=== PATIENT | male | born 1950 | race Caucasian/White ===

== ENCOUNTER → 2020-07-21 09:15 | Outpatient (BNVA) | payer MEDICARE, OTHER, SELFPAY | PROVIDERS: PCP Physician Assistant; Referring Provider Physician Assistant; Visit Provider Urology | DX: Z76.89 Persons encountering health services in other specified circumstances (principal) ==

== ENCOUNTER 2020-11-01 06:58 | Emergency (ER) | payer MEDICARE, SELFPAY ==
--- NOTE | ~2020-11-01 | CT_ITS ---
EXAMINATION: CT abdomen pelvis wo con CLINICAL INFORMATION: Reason for Exam L flank pain hematuria COMPARISON: No prior CT available for comparison. TECHNIQUE: Multidetector volumetric imaging was performed from the superior aspect of the liver through the pubic symphysis noncontrasted study. Sagittal and coronal reformatted images were obtained on the technologist's workstation. This CT examination was performed using dose optimization techniques as appropriate, variously including the following: *Automated exposure control *Adjustment of mA and/or kV according to patient size (this includes techniques or standardized protocols for targeted exams where dose is matched to indication/reason for exam; i.e. extremities or head) *Use of iterative reconstruction technique DLP: 639 mGy-cm FINDINGS: LOWER THORAX: Included lung bases are clear. HEPATOBILIARY: No focal hepatic lesions. No biliary ductal dilatation. GALLBLADDER: Gallbladder unremarkable. SPLEEN: Spleen is normal in size. PANCREAS: No focal mass or ductal dilatation. STOMACH AND GASTROINTESTINAL TRACT: Stomach is grossly unremarkable. There is no bowel distention or thickening. No CT evidence of appendicitis. ADRENALS: No adrenal nodules. KIDNEYS/URETERS: There is left renal hydronephrosis secondary to obstructing stone in the proximal left ureter which measure about 6 mm in diameter. There is a 1.1 cm cyst middle pole left kidney. Right kidney is normal unremarkable. URINARY BLADDER: There is a small diverticulum protruding from the left lateral wall of the bladder measure about 1.2 cm. PELVIC VISCERA: There are prostate calcifications. PERITONEUM: There is cloudy mesentery midabdomen just inferior to the pancreas and few mildly prominent mesenteric lymph nodes compatible with mesenteric panniculitis. LYMPH NODES: No lymphadenopathy. VASCULAR:Abdominal aorta normal in size, no aneurysm found. BONES, ABDOMINAL WALL AND SOFT TISSUES: Age-appropriate changes of the spine and skeletal system, no destructive osteolytic or osteosclerotic bone lesion found CT/CT abdomen pelvis wo con IMPRESSION: 1. High degree obstruction of the left ureter due to a 6 mm stone lodged in the proximal left ureter. Left renal hydronephrosis. Small left renal cyst. 2. Cloudy mesentery and few mesenteric lymph nodes compatible with mesenteric panniculitis. This is a nonspecific radiologic finding, Please see below for differential. 3. Aortic vascular calcification. Prostate calcification. Small diverticulum protruding from the left lateral wall of the urinary bladder. Mesenteric panniculitis is a nonspecific finding and can coexistent with malignancy such as extra-abdominal non-Hodgkin lymphoma, breast carcinoma, prostate carcinoma, lung carcinoma, gastrointestinal carcinoma, colorectal carcinoma, melanoma, pancreatic neoplasm among other neoplasms. It also can coexist with benign process such as Crohn's disease, sarcoidosis, liver cirrhosis, colitis, lupus, sclerosing cholangitis, pancreatitis, mesenteritis, retroperitoneal fibrosis. It also could be idiopathic. Recommended clinical assessment and careful exclusion of possible other neoplasms. If no further action taken now, followup CT scan in 6 months advised. Reference: [place] Journal of Radiology October 1999, volume 174, #2.
[2020-11-01 07:14] VITALS: BP 157/72; PULSE 80; RESP 18; TEMP 37.1; O2SAT 97; BMI 25.7
--- NOTE | 2020-11-01 07:43 | ECG_ITS ---
Test Reason : ABD PAIN Blood Pressure : / mmHG Vent. Rate : 075 BPM Atrial Rate : 075 BPM P-R Int : 188 ms QRS Dur : 088 ms QT Int : 374 ms P-R-T Axes : 049 096 097 degrees QTc Int : 417 ms Normal sinus rhythm Rightward axis Borderline ECG When compared with ECG of 05-AUG-2019 09:38, Premature atrial complexes are no longer Present Referred By: Giselle Myers Electronically Signed By:TJ PERALTA
--- NOTE | 2020-11-01 07:44 | ED_ITS ---
HPI - Abdominal Pain General Chief Complaint: Abdominal Pain Stated Complaint: LOWER R RIB PAIN Time Seen by Provider: 11/01/20 07:42 Source: patient Mode of arrival: ambulatory Limitations: no limitations History of Present Illness HPI narrative: 70 yo male with HTN/HPL here with abdominal pain that was somewhat generalized now with L flank pain and dark urine, no prior episodes of this in the past MD elicited complaint: abdominal pain and flank pain Onset (ago): hour(s) (7) Location: diffuse and L flank Severity: moderate Quality: cramping, aching and fullness Radiation: L flank Migration to: no migration Exacerbating factors: movement Relieving factors: nothing Associated symptoms: other (dark urine) Related Data Home Medications Medication Instructions Recorded Confirmed simvastatin 1 tab PO BEDTIME 11/01/20 11/01/20 tamsulosin 1 cap PO BEDTIME 11/01/20 11/01/20 Previous Rx's Medication Instructions Recorded atenolol 25 mg tablet 25 mg PO DAILY 90 Days #90 tab 10/01/20 losartan 100 mg tablet 100 mg PO DAILY 90 Days #90 tab 10/01/20 amlodipine 5 mg tablet 5 mg PO DAILY 90 Days #90 tab 10/28/20 hydrocodone-acetaminophen 1 tab PO Q6H PRN #15 tab 11/01/20 ondansetron 4 mg PO Q8H PRN #20 tab 11/01/20 prednisone 40 mg PO DAILY 4 Days #8 tab 11/01/20 Allergies Allergy/AdvReac Type Severity Reaction Status Date / Time lisinopril [LISINOPRIL] Allergy Mild cough Verified 11/01/20 07:18 Review of Systems Review of Systems Constitutional : No Weight loss, No Fever, No Chills ENT/Mouth : No sore throat, No Rhinorrhea Eyes: No Swelling, No Redness Cardiovascular : No Chest Pain, No SOB, NoEdema Respiratory : No Cough, No Sputum, No Wheezing Gastrointestinal : no Nausea, no Vomiting, no Diarrhea, positive abdominal Pain, No Hematochezia, No Melena Genitourinary : No Dysuria, No Urinary Frequency, pos Hematuria, No Urgency Musculoskeletal : No joint pain, No Myalgias, No Joint Swelling Skin : No Skin Lesions, No rash Neuro : No Weakness, No Numbness, No Dizziness, No Headache Psych : No Anxiety/Panic, No Depression Heme/Lymph: No Bruising, No Lymphadenopathy Endocrine : No Polyuria, No Polydipsia All other systems reviewed and are negative. Physical Exam Vital Signs: Vital Signs: Last Vital Signs Temp 98.8 F 11/01/20 07:14 Pulse 75 11/01/20 10:36 Resp 18 11/01/20 07:14 BP 157/72 H 11/01/20 07:14 Pulse Ox 97 11/01/20 07:14 Body Mass Index 25.7 Appearance: Alert. Oriented X3. No acute distress. Eyes: Pupils equal, round and reactive to light. ENT: Pharynx normal. Neck: Normal inspection. Neck supple. CVS: Normal heart rate and rhythm. Pulses normal. Respiratory: No respiratory distress. Breath sounds normal. Abdomen: Soft and mild ttp epigastric and L mid abdomen no rebound or guarding Skin: Skin warm and dry. Normal skin color. Normal skin turgor. Extremities: No lower extremity edema. No calf ttp Neuro: Oriented X 3. No motor deficit. No sensory deficit. Course Course Course Narrative: message sent to Dr. Rodriguez given obstructing stone 1058am - okay to follow up outpatient since pain improved and no n/v MDM - Abdominal Pain MDM Narrative Medical decision making narrative: 70 yo male with HTN, HPL here with L flank pain and abd discomfort with dark urine - at this time will need labs, CT scan for renal colic, UA, EKG, IV morphine for pain, dispo per results and findings. Lab Data Result diagrams: 11/01/20 08:04 11/01/20 08:04 Labs: Lab Results 11/01/20 11/01/20 11/01/20 Range/Units 07:51 08:04 08:04 WBC 8.4 (4.8-10.8) X10*3/uL RBC 4.66 (4.60-5.80) X10*6/uL Hgb 13.2 L (14.0-18.0) g/dl Hct 39.6 L (42-52) % MCV 85.0 (80-98) fL MCH 28.3 (27.0-33.0) pg MCHC 33.3 (31.0-36.0) g/dl RDW 12.4 (11.0-16.0) % Plt Count 278 (160-400) X10*3/uL MPV 9.1 L (9.4-12.4) fL Immature Gran % (Auto) 0.2 (0.0-0.4) % Neut % (Auto) 71.1 (45-73) % Lymph % (Auto) 16.1 L (20-40) % [place] % (Auto) 7.1 (2-11) % Eos % (Auto) 4.9 H (0-4) % Baso % (Auto) 0.6 (0-2) % Lymph # (Auto) 1.4 (1.2-4.9) X10*3/uL [place] # (Auto) 0.6 (0.1-1.2) X10*3/uL Eos # (Auto) 0.4 (0.0-0.4) X10*3/uL Baso # (Auto) 0.1 (0.0-0.2) X10*3/uL Abs Immat Gran (auto) 0.02 (0.00-0.03) X10*3/uL Absolute Neuts (auto) 6.0 (2.0-8.3) X10*3/uL Absolute Nucleated RBC 0.000 (0.0-0.012) X10*3/uL Nucleated RBC % (auto) 0.0 (0.0-0.2) /100WBC PT 12.3 (10.8-13.0) SEC INR 1.0 (0.9-1.1) APTT 37.1 (24.1-38.0) SEC Sodium (135-145) mmol/L Potassium (3.3-5.1) mmol/L Chloride (96-108) mmol/L Carbon Dioxide (22-29) mmol/L Anion Gap (12-20) BUN (9-16) mg/dL Creatinine (0.5-1.4) mg/dL Estim Creat Clear Calc Estimated GFR Random Glucose (60-115) mg/dL Calcium (8.4-10.2) mg/dL Magnesium (1.6-2.6) mg/dL Total Bilirubin (0.0-1.0) mg/dL Direct Bilirubin (0.0-0.5) mg/dL AST (5-37) U/L ALT (0-40) U/L Alkaline Phosphatase (39-117) U/L Troponin I High Sens (<3.5-35.0) ng/L Total Protein (6.5-8.0) g/dL Albumin (3.5-5.0) g/dL Lipase (8-78) U/L Urine Color PINK Urine Appearance CLOUDY Urine pH 7.0 (5.0-8.0) Ur Specific [place] 1.020 (1.005-1.025) Urine Protein TRACE (NEG-TRACE) MG/DL Urine Glucose (UA) NEG (NEG) MG/DL Urine Ketones NEG (NEG) MG/DL Urine Blood 3+ H (NEG) Urine Nitrite NEG (NEG) Ur Leukocyte Esterase TRACE H (NEG) Urine RBC TNTC H (0) /HPF Urine WBC 1-4 (0-4) /HPF Ur Squamous Epith Cells TRACE /LPF Urine Bacteria NONE /LPF Urine Mucus TRACE /LPF COVID-19 (MARISELA) (Negative) COVID-19 Clin Com 11/01/20 11/01/20 11/01/20 Range/Units 08:04 08:04 11:19 WBC (4.8-10.8) X10*3/uL RBC (4.60-5.80) X10*6/uL Hgb (14.0-18.0) g/dl Hct (42-52) % MCV (80-98) fL MCH (27.0-33.0) pg MCHC (31.0-36.0) g/dl RDW (11.0-16.0) % Plt Count (160-400) X10*3/uL MPV (9.4-12.4) fL Immature Gran % (Auto) (0.0-0.4) % Neut % (Auto) (45-73) % Lymph % (Auto) (20-40) % [place] % (Auto) (2-11) % Eos % (Auto) (0-4) % Baso % (Auto) (0-2) % Lymph # (Auto) (1.2-4.9) X10*3/uL [place] # (Auto) (0.1-1.2) X10*3/uL Eos # (Auto) (0.0-0.4) X10*3/uL Baso # (Auto) (0.0-0.2) X10*3/uL Abs Immat Gran (auto) (0.00-0.03) X10*3/uL Absolute Neuts (auto) (2.0-8.3) X10*3/uL Absolute Nucleated RBC (0.0-0.012) X10*3/uL Nucleated RBC % (auto) (0.0-0.2) /100WBC PT (10.8-13.0) SEC INR (0.9-1.1) APTT (24.1-38.0) SEC Sodium 141 (135-145) mmol/L Potassium 4.2 (3.3-5.1) mmol/L Chloride 104 (96-108) mmol/L Carbon Dioxide 28 (22-29) mmol/L Anion Gap 13 (12-20) BUN 11 (9-16) mg/dL Creatinine 0.77 (0.5-1.4) mg/dL Estim Creat Clear Calc 97.9 Estimated GFR > 60 Random Glucose 119 H (60-115) mg/dL Calcium 8.9 (8.4-10.2) mg/dL Magnesium 2.0 (1.6-2.6) mg/dL Total Bilirubin 0.5 (0.0-1.0) mg/dL Direct Bilirubin 0.2 (0.0-0.5) mg/dL AST 18 (5-37) U/L ALT 19 (0-40) U/L Alkaline Phosphatase 73 (39-117) U/L Troponin I High Sens < 3.5 (<3.5-35.0) ng/L Total Protein 6.9 (6.5-8.0) g/dL Albumin 4.5 (3.5-5.0) g/dL Lipase 10 (8-78) U/L Urine Color Urine Appearance Urine pH (5.0-8.0) Ur Specific [place] (1.005-1.025) Urine Protein (NEG-TRACE) MG/DL Urine Glucose (UA) (NEG) MG/DL Urine Ketones (NEG) MG/DL Urine Blood (NEG) Urine Nitrite (NEG) Ur Leukocyte Esterase (NEG) Urine RBC (0) /HPF Urine WBC (0-4) /HPF Ur Squamous Epith Cells /LPF Urine Bacteria /LPF Urine Mucus /LPF COVID-19 (MARISELA) Negative (Negative) COVID-19 Clin Com See Note ECG Data Attestation: I personally reviewed and interpreted this ECG as follows: ECG interpretation date: 11/01/20 ECG interpretation time: 07:54 Interpretation: Rate: 75 Rhythm: NSR [place]: right Normal P waves. Normal J CARLOS. Normal QRS complex. ST T wave : normal no DIPTI qTC: normal prior studies: artifact but no ischemia The study has been interpreted contemporaneously by me. . Discharge Plan Discharge Clinical Impression: Calculus of kidney, Mesenteric panniculitis Patient Disposition: Home, Self-Care Instructions: Renal Colic (ED), Mesenteric Adenitis (ED) Additional Instructions: return to ED for any worsening symptoms or concerns you have mesenteric panniculitis your doctor needs to follow this and make sure it is improving and to find a possible cause Prescriptions: New hydrocodone-acetaminophen 5-325 mg tablet 1 tab PO Q6H PRN (Reason: pain) Qty: 15 RF: 0 prednisone 20 mg tablet 40 mg PO DAILY 4 Days Qty: 8 RF: 0 ondansetron 4 mg tablet,disintegrating 4 mg PO Q8H PRN (Reason: nausea and vomiting) Qty: 20 RF: 0 No Action atenolol 25 mg tablet 25 mg PO DAILY 90 Days Qty: 90 RF: 1 losartan 100 mg tablet 100 mg PO DAILY 90 Days Qty: 90 RF: 1 amlodipine 5 mg tablet 5 mg PO DAILY 90 Days Qty: 90 RF: 1 simvastatin 40 mg tablet 1 tab PO BEDTIME RF: 0 tamsulosin 0.4 mg capsule 1 cap PO BEDTIME RF: 0 Referrals: Harjit Rodriguez MD [Physician] - 2 days Stand Alone Forms: Work/School Release [facility] Past Medical History Attestation statement: The following information was validated with the patient. Medical History (Updated 11/01/20 @ 11:44 by Giselle Myers DO) HTN (hypertension) Hyperlipidemia Left hip pain Social History Social History (Updated 11/01/20 @ 07:52 by Giselle Myers DO) Alcohol intake: never Smoking Status: Never smoker Use of substances other than those prescribed or required for medical reasons: No Advance Directives: No Advance Directives Information Provided: No
[2020-11-01 07:59] LABS: Glucose Urine UA NEG (NEG); Leukocyte Esterase Urine TRACE (NEG); Nitrite Urine NEG (NEG); UACC Culture Trigger YES; Urine Blood 3+ (NEG); Urine Ketones NEG (NEG); Urine Protein TRACE MG/DL (NEG-TRACE)
[2020-11-01 08:06] LABS: Appearance Urine CLOUDY; Color Urine PINK
[2020-11-01] MEDS: 0.9 % Sodium Chloride 1,000 ML 999 ML IVCONT (08:06)
[2020-11-01 08:10] LABS: Mucus Urine TRACE /LPF; RBC Urine TNTC /HPF (0); Squamous Epithelial Cell Urine TRACE /LPF
[2020-11-01 08:17] LABS: MANUAL DIFF FLAG NO
[2020-11-01 08:20] LABS: Basophils Absolute Auto 0.1 X10*3/uL (0.0-0.2); Basophils Percent Auto 0.6 % (0-2); Eosinophils Absolute Auto 0.4 X10*3/uL (0.0-0.4); Eosinophils Percent Auto 4.9 % (0-4); Hematocrit 39.6 % (42-52); Hemoglobin 13.2 g/dl (14.0-18.0); Imm Gran Abs Auto 0.02 X10*3/uL (0.00-0.03); Imm Gran Pct Auto 0.2 % (0.0-0.4); Lymphocytes Absolute Auto 1.4 X10*3/uL (1.2-4.9); Lymphocytes Percent Auto 16.1 % (20-40); Mean Corpuscular HGB Conc 33.3 g/dl (31.0-36.0); Mean Corpuscular Hemoglobin 28.3 pg (27.0-33.0); Mean Platelet Volume 9.1 fL (9.4-12.4); Monocytes Absolute Auto 0.6 X10*3/uL (0.1-1.2); Monocytes Percent Auto 7.1 % (2-11); Neutrophils Percent Auto 71.1 % (45-73); Platelet Count 278 X10*3/uL (160-400); Red Blood Count 4.66 X10*6/uL (4.60-5.80); Red Cell Distribution Width 12.4 % (11.0-16.0); White Blood Count 8.4 X10*3/uL (4.8-10.8)
[2020-11-01 08:28] LABS: Prothrombin Time 12.3 SEC (10.8-13.0)
[2020-11-01 08:31] LABS: Partial Thromboplastin Time 37.1 SEC (24.1-38.0)
[2020-11-01 08:44] LABS: Alanine Aminotransferase 19 U/L (0-40); Albumin Level 4.5 g/dL (3.5-5.0); Alkaline Phosphatase 73 U/L (39-117); Anion Gap 13 (12-20); Aspartate Amino Transferase 18 U/L (5-37); Bilirubin Direct 0.2 mg/dL (0.0-0.5); Bilirubin Total 0.5 mg/dL (0.0-1.0); Blood Urea Nitrogen 11 mg/dL (9-16); Calcium 8.9 mg/dL (8.4-10.2); Carbon Dioxide 28 mmol/L (22-29); Chloride 104 mmol/L (96-108); Creatinine Clr Calc Pharmacy 97.9; Estimated Glomerular Filt Rate > 60; Glucose Random 119 mg/dL (60-115); Lipase 10 U/L (8-78); Potassium 4.2 mmol/L (3.3-5.1); Sodium 141 mmol/L (135-145); Total Protein 6.9 g/dL (6.5-8.0)
[2020-11-01 08:53] LABS: Troponin-I High Sensitivity < 3.5 ng/L (<3.5-35.0)
[2020-11-01] MEDS: Ketorolac Tromethamine 30 MG/ML VIAL IVPUSH (09:33)
[2020-11-01 10:36] VITALS: PULSE 75
[2020-11-01] MEDS: methylPREDNISolone Sod Succ/PF 125 MG/2 ML VIAL 60 MG IVPUSH (11:12)
[2020-11-01] MEDS: Tamsulosin HCL 0.4 MG CAPSULE PO (11:12)
[2020-11-01 11:40] LABS: COVID-19 Test Negative (Negative); IDNOW Serial# 9DD0AD1C
== END 2020-11-01 12:05 | disposition home or self-care (01) ==
PROVIDERS: Emergency Provider Emergency Medicine; PCP Nurse Practitioner Family
DX: N13.2 Hydronephrosis with renal and ureteral calculous obstruction (principal); K65.4 Sclerosing mesenteritis; Z20.822 Contact with and (suspected) exposure to COVID-19; I10 Essential (primary) hypertension
CPT/HCPCS: 36415; 74176; 80048; 80076; 81001; 81003; 83690; 83735; 84484; 85025; 85610; 85730; 87086; 87635; 93005; 96361; 96374; 96375; 99284; J1885; J2930

== ENCOUNTER → 2020-11-04 10:58 | Outpatient (BNVA) | payer MEDICARE, SELFPAY | PROVIDERS: PCP Nurse Practitioner Family; Visit Provider Urology | DX: N40.1 Benign prostatic hyperplasia with lower urinary tract symptoms (principal); N20.0 Calculus of kidney | CPT/HCPCS: Q3014 ==

== ENCOUNTER → 2020-11-06 14:34 | Outpatient (BNVA) | payer MEDICARE, OTHER, SELFPAY | PROVIDERS: PCP Nurse Practitioner Family; Visit Provider Urology | DX: N20.0 Calculus of kidney (principal) | CPT/HCPCS: Q3014 ==

== ENCOUNTER 2020-11-11 14:12 | Day surgery (SDC) | payer MEDICARE, OTHER, SELFPAY ==
[2020-11-11] VITALS (7 sets, daily range): BP systolic 90–129; BP diastolic 41–54; PULSE 57–65; RESP 14–18; TEMP 36.2–36.3; O2SAT 96–98; BMI 25.7
--- NOTE | ~2020-11-11 | FL_ITS ---
EXAMINATION: XR FLUOROSCOPY WITH IMAGES CLINICAL INFORMATION: Left ureteral stone COMPARISON: Previous CT of the abdomen and pelvis 11/01/2020 TECHNIQUE: Fluoroscopy performed by Dr. Harjit Rodriguez. Fluoroscopy time: 1 minutes Dose: 23 mgy Images: 1 FINDINGS: Single fluoroscopic image demonstrates a duplicated collecting system with wires and contrast in the upper and lower pole moieties. There is a oval-shaped radiopaque density projecting over the left lower pole moiety proximal ureter suggestive of a stone. FL/FL guidance in OR IMPRESSION: Fluoroscopy guidance for retrograde exam.
--- NOTE | 2020-11-11 15:15 | HO.ANESPROP2 ---
PMFSH Active Problems Active Problems: [place]re[place] Active Problems (Updated 11/04/20 @ 10:57 by Harjit Rodriguez MD) BPH loc w urin obs/LUTS (Acute) Nephrolithiasis (Acute) Past Medical History Medical History HTN (hypertension) Hyperlipidemia Left hip pain Social History Social History Alcohol intake: never Smoking Status: Never smoker Use of substances other than those prescribed or required for medical reasons: No Advance Directives: No Advance Directives Information Provided: Yes Recently lost weight without trying: No Meds Allergies Allergy/AdvReac Type Severity Reaction Status Date / Time lisinopril [LISINOPRIL] Allergy Mild cough Verified 11/01/20 07:18 Home Medications Medication Instructions Recorded Confirmed Last Taken Type simvastatin 1 tab PO BEDTIME 11/01/20 11/01/20 10/31/20 19:00 History tamsulosin 1 cap PO BEDTIME 11/01/20 11/01/20 10/31/20 19:00 History Exam Exam Date and Time: November 11, 2020 1515 Airway Mallampati Class: II TM Dist: >3cm Neck ROM: Full Heart: RRR Lungs: CTA Assessment and Plan Assessment Anesthesia Assessment: Anesthesia Plan Discussed and Chart Reviewed Final Anesthetic Review NPO: Yes ASA Class: II Final Preanesthetic Review: Meds/Allgs Chart Reviewed, Consent Obtained/Reviewed and Anes Risks/Benef Reviewed Patient Risk: Intermediate Procedure Risk: Low Anesthetic Plan Anesthetic Plan: GA Disposition: Standard PACU
[2020-11-11] MEDS: levoFLOXacin 500 MG TABLET PO (15:26)
--- NOTE | 2020-11-11 15:29 | MHC.SHP ---
Pre-Procedural Eval Section A The patient is an INPATIENT: No Changes since office visit: No Cold of Flu in the past 2 weeks, No New Medical Problems, No Changes in Medication and No Patient answered all questions The History & Physical has been completed within 30 days and I have reviewed it.: Yes Section B Chief Complaint: calculus of kidney Allergies: Allergies Allergy/AdvReac Type Severity Reaction Status Date / Time lisinopril [LISINOPRIL] Allergy Mild cough Verified 11/01/20 07:18 Plan Diagnosis/Plan: Unchanged I have reviewed the history and physical and performed a pertinent physical examination on my patient. No changes have occurred unless specified. Left ureteroscopy laser lithotripsy ansd stent placement
--- NOTE | 2020-11-11 16:31 | PM.OP ---
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
[2020-11-11] MEDS: Phenazopyridine HCL 100 MG TABLET PO (16:47)
--- NOTE | 2020-11-11 17:41 | PC.NURSE ---
dr. bobby updated vss clear for discharge per anesthesia
--- NOTE | 2020-11-12 08:00 | W.PM.OPN ---
Operative Note Operative Note Date of Service: 11/11/20 Narrative: PreOperative Diagnosis: left proximal ureteric stone Post Operative Diagnosis: same - full duplex left renal system - stone in lower pole moeity Procedure: - cystoscopy, duplex left retrograde (x2) - duplex (2x) ureteroscopy - duplex (2x) stent placement Surgeon: Dr Harjit Rodriguez Anesthesia: General Indications for procedure: Pain and imaging with left upper ureter stone Procedure: After informed consent was verified patient was brought to the operating placed in supine position. Anesthesia was administered per protocol. Patient was placed in modified dorsal lithotomy position and prepped and draped in a sterile fashion. Safety pause time-out and side of surgery confirmed. Antibiotics confirmed. Cystoscopy. Noted 2 ureteric orifices close to each other suggestive for common sheath duplex moiety Retrograde performed of each ureter - no distal filling defects noted. Wires placed. Rigid ureteroscopy performed. Ureters noted to be of narrower calibre than typical so we were unable to p[rogress above the pelvic brim. Decision made to place stents on each system. ^Fr by 24cm double J stents placed up each system. Will need f/u for left ESWL and stent removal in 2 weeks Pathology: Drains: 2 x Double J stents
== END 2020-11-11 18:02 | disposition home or self-care (01) ==
PROVIDERS: PCP Nurse Practitioner Family; Visit Provider Urology
PROC: (CPT 52332; principal; 2020-11-11 15:30)
DX: N20.1 Calculus of ureter (principal); Q62.5 Duplication of ureter; I10 Essential (primary) hypertension; Z79.899 Other long term (current) drug therapy
CPT/HCPCS: 52332; C1769; C2617; J1100; J1885; J2250; J2405; J3010; Q9967

== ENCOUNTER 2020-11-26 06:32 | Day surgery (SDC) | payer OTHER, MEDICARE, SELFPAY ==
[2020-11-20 12:36] VITALS: BMI 25.7
--- NOTE | 2020-11-25 10:19 | HO.ANESPROP2 ---
Documented by User: Norma Tamra 11/25/20 10:23 HPI - Anesthesia Eval Consult details Narrative: 70yo M for Left ESWL with stent removal s/p cysto, stent, etc with GA 11/11/20 [facility] Active Problems Active Problems: All Active Problems (Updated 11/20/20 @ 12:37 by Joan Morrison) Nephrolithiasis (Acute) BPH loc w urin obs/LUTS (Acute) Past Medical History Medical History COVID-19 vaccine administered HTN (hypertension) Hyperlipidemia Left hip pain Renal calculi Surgical History Surgical History H/O colonoscopy Hx of cystoscopy Social History Social History Are you a primary child care development specialist to a significant other at home: No Do you presently have visiting nurse or other home services: No Alcohol intake: never Smoking Status: Never smoker Use of substances other than those prescribed or required for medical reasons: No Have you been hit, kicked, punched, or otherwise hurt by someone within the past year? If so, by whom?: No Advance Directives Information Provided: No Recently lost weight without trying: No Meds Allergies Allergy/AdvReac Type Severity Reaction Status Date / Time lisinopril [LISINOPRIL] Allergy Mild cough Verified 11/01/20 07:18 Home Medications Medication Instructions Recorded Confirmed Last Taken Type simvastatin 1 tab PO BEDTIME 11/01/20 11/20/20 10/31/20 19:00 History tamsulosin 1 cap PO BEDTIME 11/01/20 11/01/20 10/31/20 19:00 History Exam Exam Date and Time: November 25, 2020 1019 Height,Weight and Vital Signs: Height 6 ft Weight 86.183 kg Pertinent Lab Results Pertinent Lab Results: Laboratory Tests 11/01/20 11/01/20 08:04 08:04 WBC 8.4 Hgb 13.2 L Hct 39.6 L Plt Count 278 Sodium 141 Potassium 4.2 Chloride 104 Carbon Dioxide 28 BUN 11 Creatinine 0.77 Narrative Narrative: EKG 11/01/20 Normal sinus rhythm Rightward axis Borderline ECG When compared with ECG of 05-AUG-2019 09:38, Premature atrial complexes are no longer Present Assessment and Plan Assessment Anesthesia Assessment: Chart Reviewed Documented by User: Kieran Oglesby 11/26/20 07:46 PMFSH Past Medical History Medical History COVID-19 vaccine administered HTN (hypertension) Hyperlipidemia Left hip pain Renal calculi Surgical History Surgical History H/O colonoscopy Hx of cystoscopy Social History Social History Are you a primary child care development specialist to a significant other at home: No Do you presently have visiting nurse or other home services: No Alcohol intake: never Smoking Status: Never smoker Use of substances other than those prescribed or required for medical reasons: No Have you been hit, kicked, punched, or otherwise hurt by someone within the past year? If so, by whom?: No Advance Directives Information Provided: No Recently lost weight without trying: No Meds Allergies Allergy/AdvReac Type Severity Reaction Status Date / Time lisinopril [LISINOPRIL] Allergy Mild cough Verified 11/01/20 07:18 Home Medications Medication Instructions Recorded Confirmed Last Taken Type simvastatin 1 tab PO BEDTIME 11/01/20 11/20/20 10/31/20 19:00 History tamsulosin 1 cap PO BEDTIME 11/01/20 11/01/20 10/31/20 19:00 History Exam Airway Mallampati Class: II TM Dist: >3cm Neck ROM: Full Loose/Missing/Broken Teeth: Yes (permanent upper bridge) Heart: [id number] Lungs: cta b/l Assessment and Plan Assessment Anesthesia Assessment: Anesthesia Plan Discussed, PAT Visit and Chart Reviewed Final Anesthetic Review NPO: Yes ASA Class: II Final Preanesthetic Review: No Changes in Pt Med Stat, Meds/Allgs Chart Reviewed, Consent Obtained/Reviewed and Anes Risks/Benef Reviewed Patient Risk: Low Procedure Risk: Low Assessment/Block/Sedation in SS: Assess/Block/Sedation-SS Anesthetic Plan Anesthetic Plan: MAC: and Agree w/ Assess. and Plan Disposition: Standard PACU
--- NOTE | ~2020-11-26 | XR_ITS ---
EXAMINATION: XR ABDOMEN KUB CLINICAL INDICATION: Stones. COMPARISON: CT abdomen and pelvis 11/01/2020 TECHNIQUE: AP view of the abdomen. 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 There is a radiopaque faintly visualized 6 mm calculi in inferior left proximal ureter. No additional radiopaque calculi seen. There is mild constipation. No gross bony abnormality. 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 There is a 6 mm radiopaque calculi in the left inferior proximal ureter.
[2020-11-26 06:46] VITALS: BP 119/61; PULSE 60; RESP 18; TEMP 36.6; O2SAT 96
[2020-11-26] MEDS: Lactated Ringers 1,000 ML 100 ML IVCONT (07:06)
--- NOTE | 2020-11-26 08:10 | MHC.SHP ---
Pre-Procedural Eval Section A The patient is an INPATIENT: No Changes since office visit: No Cold of Flu in the past 2 weeks, No New Medical Problems, No Changes in Medication and No Patient answered all questions The History & Physical has been completed within 30 days and I have reviewed it.: Yes Section B Chief Complaint: calculus of kidney Allergies: Allergies Allergy/AdvReac Type Severity Reaction Status Date / Time lisinopril [LISINOPRIL] Allergy Mild cough Verified 11/01/20 07:18 Plan Diagnosis/Plan: Unchanged I have reviewed the history and physical and performed a pertinent physical examination on my patient. No changes have occurred unless specified. Left eswl with stent removal
--- NOTE | 2020-11-26 08:47 | PM.OP ---
Brief Operative Note Date of Service: 11/26/20 Pre-op diagnosis: left renal stone Post-op diagnosis: other (left proximal ureteric stone) Procedure: left ureter ESWL cysto and removal of left ureteric stent Surgeon: Harjit Rodriguez MD Anesthesia: MAC Estimated blood loss (mL): 0 Pathology: none sent Condition: stable
--- NOTE | 2020-11-26 08:49 | W.PM.OPN ---
Operative Note Operative Note Date of Service: 11/26/20 Narrative: PreOperative Diagnosis: Left Renal stone with indwelling stent Post Operative Diagnosis: Left upper ureteric stone with indwelling stent Procedure: cystoscopy with left stent removal, left ESWL of upper ureteric stone Surgeon: Dr Harjit Rodriguez Anesthesia: mac/sedation Indications for procedure: They understand ESWL may be a staged procedure and subsequent intervention may be required based on imaging after ESWL. They also understand there is a risk of bleeding, infection, damage to adjacent organs. Duplex system with indwelling stents Procedure: After informed consent was verified the patient was brought to the operating room and placed in a supine position. Anesthesia was performed per protocol. Safety pause time-out was performed. Imaging was in the room and laterality confirmed. Cystoscopy was performed and 2 indwelling stents were removed (duplex system) ESWL was performed to upper ureter. The 1st 500 shocks were performed at 60 hertz. These were performed with increasing power. Once maximum power was reached the rate was increased to 180 hertz. A total of 2000 shocks were given. Fluoroscopy showed stone disintegration. They tolerated procedure well and was transferred to the recovery area upon completion.
[2020-11-26 09:15] VITALS: BP 126/57; PULSE 60; RESP 20; TEMP 36.4; O2SAT 97
[2020-11-26 09:30] VITALS: BP 136/70; PULSE 57; RESP 20; O2SAT 98
== END 2020-11-26 10:05 | disposition home or self-care (01) ==
PROVIDERS: PCP Nurse Practitioner Family; Visit Provider Urology
PROC: (CPT 50590; principal; 2020-11-26 08:10)
DX: N20.1 Calculus of ureter (principal); Q62.5 Duplication of ureter; Z96.0 Presence of urogenital implants; Z87.442 Personal history of urinary calculi; I10 Essential (primary) hypertension; Z79.899 Other long term (current) drug therapy; Z88.8 Allergy status to other drugs, medicaments and biological substances
CPT/HCPCS: 50590; 74018; J3010

== ENCOUNTER 2020-12-10 16:15 | Outpatient (REF) | payer OTHER, MEDICARE, SELFPAY ==
--- NOTE | ~2020-12-10 | US_ITS ---
EXAMINATION: US RETROPERITONEAL LIMITED (RENAL ONLY) CLINICAL INFORMATION: Calculus of kidney. COMPARISON: KUB 11/26/2020. CT abdomen and pelvis 11/29/2020. Renal ultrasound 10/26/2017. TECHNIQUE: Real-time imaging of the kidneys. FINDINGS: RIGHT KIDNEY: 12.4 x 7.6 x 5 cm (SAG x AP x TRV). The kidney is normal in size, contour, and echogenicity. Renal cortical thickness is normal. No renal calculi or hydronephrosis. There is an anechoic 1.2 x 1.1 x 1.2 cm cyst at the upper pole. At the midpole there is a 1.4 x 1.1 x 1.4 cm cystic structure with punctate calcifications along its wall. LEFT KIDNEY: 14 x 5.7 x 5.3 cm (SAG x AP x TRV). The kidney is normal in size, contour, and echogenicity. Renal cortical thickness is normal. No hydronephrosis. There is a 1.6 x 1.6 x 1.4 cm cyst at the midpole with a hairline thin internal septum. At the lower pole there is a 0.7 x 0.3 x 0.5 cm echogenic structure compatible with a nonobstructing calculus. US/US renal BI IMPRESSION: Bilateral renal cysts, similar to prior. Nonobstructing 7 x 3 x 5 mm calculus at the lower pole the left kidney..
== END 2020-12-10 16:16 | disposition home or self-care (01) ==
LOC: HO.US 16:15
PROVIDERS: PCP Nurse Practitioner Family; Visit Provider Urology
DX: N20.0 Calculus of kidney (principal)
CPT/HCPCS: 76775

== ENCOUNTER → 2020-12-17 08:56 | Outpatient (BNVA) | payer OTHER, SELFPAY | PROVIDERS: PCP Nurse Practitioner Family; Visit Provider Urology ==

== ENCOUNTER 2021-02-05 10:16 | Outpatient (REF) | payer OTHER, SELFPAY ==
--- NOTE | ~2021-02-05 | US_ITS ---
EXAMINATION: US RETROPERITONEAL LIMITED (RENAL ONLY) CLINICAL INFORMATION: Calculus of kidney. COMPARISON: Renal ultrasound 12/10/2020. KUB 11/26/2020. CT abdomen and pelvis 11/01/2020. TECHNIQUE: Real-time imaging of the kidneys. FINDINGS: RIGHT KIDNEY: 13.1 x 6.2 x 5.5 cm (SAG x AP x TRV). The kidney is normal in size, contour, and echogenicity. Renal cortical thickness is normal. No renal calculi or hydronephrosis. There is anechoic cyst upper pole laterally measuring 1.6 x 1.3 x 1.5 cm and midpole laterally with calcification measuring 1.6 x 1.3 x 1.5 cm. LEFT KIDNEY: 13.8 x 5.9 x 7.4 cm (SAG x AP x TRV). The kidney is normal in size, contour, and echogenicity. Renal cortical thickness is normal. No renal calculi or hydronephrosis. There is an anechoic cyst in midpole with rim calcification measuring 1.7 x 1.5 x 1.5 cm. Previously seen echogenic stone in lower pole is not seen at this time. US/US renal BI IMPRESSION: Two simple cysts in the right kidney minimally increased since the last ultrasound study. Complex cyst midpole left kidney, stable. There is no hydronephrosis.
== END 2021-02-05 10:17 | disposition home or self-care (01) ==
LOC: HO.US 10:16
PROVIDERS: Visit Provider Urology
DX: N20.0 Calculus of kidney (principal)
CPT/HCPCS: 76775

== ENCOUNTER → 2021-03-25 09:42 | Outpatient (BNVA) | payer MEDICARE, OTHER, SELFPAY | PROVIDERS: PCP Internal Medicine; Visit Provider Urology | CPT/HCPCS: Q3014 ==

== ENCOUNTER 2021-04-10 16:17 | Emergency (ER) | payer OTHER, SELFPAY ==
[2021-04-10 16:42] VITALS: PULSE 65; RESP 18; TEMP 37.1; O2SAT 98; BMI 25.7
--- NOTE | 2021-04-10 17:31 | ED_ITS ---
HPI - Eye Problem General Chief complaint: Eye Problems Stated complaint: left eye pain Time Seen by Provider: 04/10/21 17:01 Source: patient Mode of arrival: ambulatory Limitations: no limitations History of Present Illness HPI Narrative: Patient is a 70-year-old male with a past medical history of hypertension and hyperlipidemia who presents with left eye irritation. Patient states he woke up yesterday morning and his left eye kept tearing clear liquid. He denies any visual changes or pain. He states it feels like something is in there but he denies any injury trauma or yard work. Related Data Home Medications Medication Instructions Recorded Confirmed simvastatin 1 tab PO BEDTIME 11/01/20 02/19/21 tamsulosin 1 cap PO BEDTIME 11/01/20 02/19/21 Previous Rx's Medication Instructions Recorded atenolol 25 mg tablet 25 mg PO DAILY 90 Days #90 tab 10/01/20 losartan 100 mg tablet 100 mg PO DAILY 90 Days #90 tab 10/01/20 amlodipine 5 mg tablet 5 mg PO DAILY 90 Days #90 tab 10/28/20 ondansetron 4 mg PO Q8H PRN #20 tab 11/01/20 prednisone 40 mg PO DAILY 4 Days #8 tab 11/01/20 naproxen 500 mg tablet 500 mg PO Q12H PRN #30 tab 11/04/20 hydrocodone 5 mg-acetaminophen 325 1 tab PO Q6H PRN #15 tab 11/06/20 mg tablet phenazopyridine [Pyridium] 100 mg PO TID PRN 4 Days #12 tab 11/11/20 tamsulosin 0.4 mg PO BEDTIME #14 cap 11/11/20 tramadol 50 mg PO Q6H PRN #14 tab 11/11/20 tramadol 50 mg PO Q6H PRN #14 tab 11/26/20 pyridoxine (vitamin B6) 100 mg 100 mg PO DAILY 90 Days #90 tab 12/17/20 tablet Flomax 0.4 mg capsule 0.4 mg PO BEDTIME 90 Days #90 cap 12/31/20 NS tamsulosin 0.4 mg capsule 0.4 mg PO BEDTIME #14 cap 12/31/20 erythromycin 0.5 inch OPHTHALMIC (EYE) QID #3.5 04/10/21 g Allergies Allergy/AdvReac Type Severity Reaction Status Date / Time lisinopril [LISINOPRIL] Allergy Mild cough Verified 04/10/21 16:42 Review of Systems Review of Systems: Yes all other systems are reviewed and are negative [facility], [facility] Past Medical History Medical History COVID-19 vaccine administered HTN (hypertension) Hyperlipidemia Left hip pain Renal calculi Surgical History H/O colonoscopy Hx of cystoscopy Social History Social History Are you a primary child caregiver private home to a significant other at home: No Do you presently have visiting nurse or other home services: No Alcohol intake: never Advance Directives: No Advance Directives Information Provided: No Physical Exam Vital Signs: Vital Signs: Last Vital Signs Temp 98.7 F 04/10/21 16:42 Pulse 65 04/10/21 16:42 Resp 18 04/10/21 16:42 Pulse Ox 98 04/10/21 16:42 Body Mass Index 25.7 Const: General: cooperative, healthy appearing, comfortable and no acute distress Nutritional Appearance: average body habitus Orientation/consciousness: patient oriented x3 HENMT: Head: Yes normal to inspection General nose exam: Normal external nose present Face and sinus: Yes normal facial exam Eyes: Conjunctivae: conjunctival abnormal left conjunctival injection and discharge (serous) Corneas: corneas abnormal on the left fluorescein used and abrasion curved (Lateral lower) and fluorescein used Pupils: Equal, round and reactive pupils present EOM: EOMs intact bilaterally Neuro: General: patient oriented x3 Cranial nerves: Yes Equal, round and reactive pupils present Discharge Plan Discharge Clinical Impression: Abrasion, corneal Qualifiers: Encounter type: initial encounter Laterality: left Qualified Code(s): S05.02XA - Injury of conjunctiva and corneal abrasion without foreign body, left eye, initial encounter Patient Disposition: Home, Self-Care Instructions: Corneal Abrasion (ED) Additional Instructions: If you have any changes in your vision, please see an solid state tester to return to the emergency department YANELY. Prescriptions: New erythromycin 5 mg/gram (0.5 %) ointment 0.5 inch ophthalmic (eye) QID Qty: 3.5 RF: 0 No Action atenolol 25 mg tablet 25 mg PO DAILY 90 Days Qty: 90 RF: 1 losartan 100 mg tablet 100 mg PO DAILY 90 Days Qty: 90 RF: 1 amlodipine 5 mg tablet 5 mg PO DAILY 90 Days Qty: 90 RF: 1 tamsulosin 0.4 mg capsule 0.4 mg PO BEDTIME Qty: 14 RF: 0 tamsulosin [Flomax] 0.4 mg capsule 0.4 mg PO BEDTIME 90 Days Qty: 90 RF: 0 simvastatin 40 mg tablet 1 tab PO BEDTIME RF: 0 tamsulosin 0.4 mg capsule 1 cap PO BEDTIME RF: 0 prednisone 20 mg tablet 40 mg PO DAILY 4 Days Qty: 8 RF: 0 ondansetron 4 mg tablet,disintegrating 4 mg PO Q8H PRN (Reason: nausea and vomiting) Qty: 20 RF: 0 hydrocodone-acetaminophen 5-325 mg tablet 1 tab PO Q6H PRN (Reason: pain) Qty: 15 RF: 0 tramadol 50 mg tablet 50 mg PO Q6H PRN (Reason: pain) Qty: 14 RF: 0 tamsulosin 0.4 mg capsule 0.4 mg PO BEDTIME Qty: 14 RF: 0 phenazopyridine [Pyridium] 100 mg tablet 100 mg PO TID PRN (Reason: spasm) 4 Days Qty: 12 RF: 0 tramadol 50 mg tablet 50 mg PO Q6H PRN (Reason: pain (scale score 4-6)) Qty: 14 RF: 0 naproxen [Naprosyn] 500 mg tablet 500 mg PO Q12H PRN (Reason: pain) Qty: 30 RF: 0 pyridoxine (vitamin B6) 100 mg tablet 100 mg PO DAILY 90 Days Qty: 90 RF: 1
[2021-04-10] MEDS: Erythromycin Base 0.5% Oph Oin 1 GM TUBE 1 CM EYE-LEFT (17:45)
[2021-04-10] MEDS: Fluorescein Sodium STRIP 1 STRIP EYE-LEFT (17:46)
[2021-04-10] MEDS: Tetracaine HCl/PF 0.5% Oph Sol 4 ML DROPS 2 DROP EYE-LEFT (17:46)
== END 2021-04-10 17:58 | disposition home or self-care (01) ==
PROVIDERS: Emergency Provider Internal Medicine; PCP Internal Medicine
DX: S05.02XA Injury of conjunctiva and corneal abrasion without foreign body, left eye, initial encounter (principal); I10 Essential (primary) hypertension; X58.XXXA Exposure to other specified factors, initial encounter; Y93.9 Activity, unspecified; Y92.9 Unspecified place or not applicable; Y99.9 Unspecified external cause status
CPT/HCPCS: 99283

== ENCOUNTER 2021-04-13 10:24 | Outpatient (REF) | payer MEDICARE, OTHER, SELFPAY ==
--- NOTE | ~2021-04-13 | US_ITS ---
EXAMINATION: US RETROPERITONEAL LIMITED (RENAL ONLY) CLINICAL INFORMATION: Calculus of kidney. COMPARISON: Bilateral renal ultrasound dated 02/05/2021 and 12/10/2020. KUB dated 11/26/2020. CT abdomen and pelvis without contrast dated 11/01/2020. TECHNIQUE: Real-time imaging of the kidneys. FINDINGS: RIGHT KIDNEY: 12.1 x 4.0 x 5.4 cm (SAG x AP x TRV). The kidney is normal in size, contour, and echogenicity. Renal cortical thickness is normal. There is a 1.3 cm cyst in the mid to lower pole with a focus of wall calcification. No renal calculi or hydronephrosis. LEFT KIDNEY: 13.0 x 5.6 x 6.1 cm (SAG x AP x TRV). The kidney is normal in size, contour, and echogenicity. Renal cortical thickness is normal. There is a 1.7 x 1.6 x 1.9 cm cyst in the midpole. There is a 4 mm echogenic focus with twinkle artifact in the lower pole questionable for a stone. No hydronephrosis. US/US renal BI IMPRESSION: Question small left lower pole renal stone. Bilateral renal cysts.
== END 2021-04-13 10:25 | disposition home or self-care (01) ==
LOC: HO.US 10:24
PROVIDERS: Visit Provider Urology
DX: N20.0 Calculus of kidney (principal)
CPT/HCPCS: 76775

== ENCOUNTER → 2021-05-21 08:44 | Outpatient (BNVA) | payer MEDICARE, SELFPAY | PROVIDERS: PCP Internal Medicine; Visit Provider Urology | DX: N20.0 Calculus of kidney (principal); N28.1 Cyst of kidney, acquired; N40.1 Benign prostatic hyperplasia with lower urinary tract symptoms; I10 Essential (primary) hypertension; E78.5 Hyperlipidemia, unspecified; Z88.8 Allergy status to other drugs, medicaments and biological substances | CPT/HCPCS: Q3014 ==

== ENCOUNTER 2021-07-28 00:32 | Emergency (ER) | payer MEDICARE, SELFPAY ==
[2021-07-28 00:40] VITALS: BP 148/79; PULSE 75; RESP 18; TEMP 36.9; O2SAT 95; BMI 26.3
[2021-07-28 01:06] LABS: COVID-19 Test Negative (Negative); IDNOW Serial# 9DD0AD1C
--- NOTE | 2021-07-28 01:28 | ED.URI ---
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 Otherwise, he has no acute complaints. Related Data Home Medications Medication Instructions Recorded Confirmed simvastatin 40 mg tablet 1 tab PO BEDTIME 11/01/20 02/19/21 tamsulosin 0.4 mg capsule 1 cap PO BEDTIME 11/01/20 02/19/21 Previous Rx's Medication Instructions Recorded atenolol 25 mg tablet 25 mg PO DAILY 90 Days #90 tab 10/01/20 losartan 100 mg tablet 100 mg PO DAILY 90 Days #90 tab 10/01/20 amlodipine 5 mg tablet 5 mg PO DAILY 90 Days #90 tab 10/28/20 ondansetron 4 mg disintegrating 4 mg PO Q8H PRN #20 tab 11/01/20 tablet prednisone 20 mg tablet 40 mg PO DAILY 4 Days #8 tab 11/01/20 naproxen 500 mg tablet (Naprosyn) 500 mg PO Q12H PRN #30 tab 11/04/20 hydrocodone 5 mg-acetaminophen 325 1 tab PO Q6H PRN #15 tab 11/06/20 mg tablet phenazopyridine 100 mg tablet 100 mg PO TID PRN 4 Days #12 tab 11/11/20 (Pyridium) tramadol 50 mg tablet 50 mg PO Q6H PRN #14 tab 11/11/20 tramadol 50 mg tablet 50 mg PO Q6H PRN #14 tab 11/26/20 pyridoxine (vitamin B6) 100 mg 100 mg PO DAILY 90 Days #90 tab 12/17/20 tablet Flomax 0.4 mg capsule (tamsulosin) 0.4 mg PO BEDTIME 90 Days #90 cap 12/31/20 NS erythromycin 5 mg/gram (0.5 %) eye 0.5 inch OPHTHALMIC (EYE) QID #3.5 04/10/21 ointment g Allergies Allergy/AdvReac Type Severity Reaction Status Date / Time lisinopril [LISINOPRIL] Allergy Mild cough Verified 05/21/21 07:48 Review of Systems Review of Systems: Pertinent positives and negatives as stated in HPI 10 point review of systems is otherwise negative. [facility] Past Medical History Source: nursing notes reviewed Medical History COVID-19 vaccine administered HTN (hypertension) Hyperlipidemia Left hip pain Renal calculi Surgical History H/O colonoscopy Hx of cystoscopy Social History Social History Are you a primary career manager to a significant other at home: No Do you presently have visiting nurse or other home services: No Alcohol intake: never Advance Directives: No Physical Exam Vital Signs: Vital Signs: Last Vital Signs Temp 98.4 F 07/28/21 00:40 Pulse 75 07/28/21 00:40 Resp 18 07/28/21 00:40 BP 148/79 H 07/28/21 00:40 Pulse Ox 95 07/28/21 00:40 Body Mass Index 26.3 VITAL SIGNS: Reviewed. GENERAL: Well developed, well nourished, in no acute distress. HEAD: Normocephalic/atraumatic EYES: PERRLA, EOMI OROPHARYNX: no oral lesions noted, posterior pharynx clear NECK: Supple, no adenopathy LUNGS: Normal breath sounds. SpO2<95> CARDIOVASCULAR: Regular rate and rhythm without noted murmurs ABDOMEN: Soft, non-tender, non-distended with bowel sounds. NEUROLOGIC: Alert and oriented x 4. Course Course Course Narrative: 71-year-old male with history and clinical presentation consistent with persistent dry cough and on review of COVID-19 testing he is negative. He was cautioned that he should remain diligent about social distancing and wearing his mask and repeat the COVID-19 testing in 3-4 days. MDM - URI/Sore Throat Lab Data Labs: Lab Results 07/28/21 Range/Units 00:46 COVID-19 (MARISELA) Negative (Negative) COVID-19 Clin Com See Note Discharge Plan Discharge Clinical Impression: Cough, Lab test negative for COVID-19 virus Patient Disposition: Home, Self-Care Instructions: Cold Symptoms (ED), Antitussive/Expectorant (By mouth), Safe Use of Cough and Cold Medicines (ED) Additional Instructions: 1. Resume all home medications. Return to the ER for worsening of symptoms. Prescriptions: No Action atenolol 25 mg tablet 25 mg PO DAILY 90 Days Qty: 90 RF: 1 losartan 100 mg tablet 100 mg PO DAILY 90 Days Qty: 90 RF: 1 amlodipine 5 mg tablet 5 mg PO DAILY 90 Days Qty: 90 RF: 1 tamsulosin [Flomax] 0.4 mg capsule 0.4 mg PO BEDTIME 90 Days Qty: 90 RF: 0 simvastatin 40 mg tablet 1 tab PO BEDTIME RF: 0 tamsulosin 0.4 mg capsule 1 cap PO BEDTIME RF: 0 prednisone 20 mg tablet 40 mg PO DAILY 4 Days Qty: 8 RF: 0 ondansetron 4 mg tablet,disintegrating 4 mg PO Q8H PRN (Reason: nausea and vomiting) Qty: 20 RF: 0 hydrocodone-acetaminophen 5-325 mg tablet 1 tab PO Q6H PRN (Reason: pain) Qty: 15 RF: 0 tramadol 50 mg tablet 50 mg PO Q6H PRN (Reason: pain) Qty: 14 RF: 0 phenazopyridine [Pyridium] 100 mg tablet 100 mg PO TID PRN (Reason: spasm) 4 Days Qty: 12 RF: 0 tramadol 50 mg tablet 50 mg PO Q6H PRN (Reason: pain (scale score 4-6)) Qty: 14 RF: 0 erythromycin 5 mg/gram (0.5 %) ointment 0.5 inch ophthalmic (eye) QID Qty: 3.5 RF: 0 naproxen [Naprosyn] 500 mg tablet 500 mg PO Q12H PRN (Reason: pain) Qty: 30 RF: 0 pyridoxine (vitamin B6) 100 mg tablet 100 mg PO DAILY 90 Days Qty: 90 RF: 1 Referrals: Alo Neely MD [Primary Care Provider] - 2 days
[2021-07-28 01:38] VITALS: BP 145/82; PULSE 67; RESP 18; O2SAT 97
== END 2021-07-28 01:45 | disposition home or self-care (01) ==
PROVIDERS: Emergency Provider Student in an Organized Health Care Education/Training Program; PCP Internal Medicine
DX: R05.9 Cough, unspecified (principal); Z20.822 Contact with and (suspected) exposure to COVID-19; Z79.899 Other long term (current) drug therapy
CPT/HCPCS: 36415; 87635; 99283; 99284

== ENCOUNTER 2021-09-21 10:15 | Outpatient (REF) | payer MEDICARE, SELFPAY ==
[2021-09-21 10:18] LABS: MANUAL DIFF FLAG NO
[2021-09-21 10:38] LABS: Basophils Absolute Auto 0.1 X10*3/uL (0.0-0.2); Basophils Percent Auto 1.1 % (0-2); Eosinophils Absolute Auto 0.5 X10*3/uL (0.0-0.4); Eosinophils Percent Auto 8.3 % (0-4); Hematocrit 40.2 % (42.0-52.0); Imm Gran Abs Auto 0.02 X10*3/uL (0.00-0.03); Imm Gran Pct Auto 0.4 % (0.0-0.4); Lymphocytes Absolute Auto 1.9 X10*3/uL (1.2-4.9); Lymphocytes Percent Auto 34.1 % (20-40); Mean Corpuscular HGB Conc 32.3 g/dl (31.0-36.0); Mean Corpuscular Hemoglobin 28.1 pg (27.0-33.0); Mean Platelet Volume 9.6 fL (9.4-12.4); Monocytes Absolute Auto 0.6 X10*3/uL (0.1-1.2); Monocytes Percent Auto 10.2 % (2-11); Neutrophils Absolute Auto 2.6 x10*3/uL (2.0-8.3); Neutrophils Percent Auto 45.9 % (45-73); Platelet Count 298 X10*3/uL (160-400); Red Blood Count 4.62 X10*6/uL (4.60-5.80); Red Cell Distribution Width 12.2 % (11.0-16.0); White Blood Count 5.7 X10*3/uL (4.8-10.8)
[2021-09-21 10:48] LABS: Appearance Urine CLEAR; Color Urine YELLOW; Glucose Urine UA NEG (NEG); Leukocyte Esterase Urine NEG (NEG); Nitrite Urine NEG (NEG); Specific Gravity - Urine >= 1.030 (1.005-1.025); Urine Blood TRACE (NEG); Urine Ketones 5 MG/DL (NEG); Urine Protein TRACE MG/DL (NEG-TRACE)
[2021-09-21 10:49] LABS: Alanine Aminotransferase 22 U/L (0-40); Albumin Level 4.3 g/dL (3.5-5.0); Alkaline Phosphatase 66 U/L (39-117); Anion Gap 9 (12-20); Aspartate Amino Transferase 20 U/L (5-37); Bilirubin Total 0.3 mg/dL (0.0-1.0); Blood Urea Nitrogen 9 mg/dL (9-16); Carbon Dioxide 31 mmol/L (22-29); Chloride 107 mmol/L (96-108); Cholesterol 137 mg/dL; Estimated Glomerular Filt Rate > 60; Glucose Fasting 103 mg/dL (60-99); HDL Cholesterol 43 mg/dL; LDL Cholesterol Calculated 78 mg/dl; Potassium 3.9 mmol/L (3.3-5.1); Sodium 143 mmol/L (135-145); Total Protein 6.7 g/dL (6.5-8.0); Triglycerides 80 mg/dL
[2021-09-21 11:01] LABS: Reflex LDLD? No
[2021-09-21 11:02] LABS: Calcium Oxalate Crystals Urine 2+ /LPF
[2021-09-21 11:04] LABS: RBC Urine 0-2 /HPF (0)
[2021-09-21 11:05] LABS: Bacteria Urine TRACE /LPF
[2021-09-21 11:09] LABS: PSA,Total (Free>4and<10) 3.32 ng/mL (0.00-4.00)
== END 2021-09-21 10:16 | disposition home or self-care (01) ==
LOC: HO.LNP 10:15
PROVIDERS: Visit Provider Internal Medicine
DX: Z00.00 Encounter for general adult medical examination without abnormal findings (principal); Z12.5 Encounter for screening for malignant neoplasm of prostate; I10 Essential (primary) hypertension; E78.00 Pure hypercholesterolemia, unspecified; N40.0 Benign prostatic hyperplasia without lower urinary tract symptoms
CPT/HCPCS: 80053; 80061; 81001; 84153; 85025

== ENCOUNTER 2021-11-11 10:25 | Outpatient (REF) | payer OTHER, MEDICARE, SELFPAY ==
--- NOTE | ~2021-11-11 | US_ITS ---
EXAMINATION: US RETROPERITONEAL LIMITED (RENAL ONLY) CLINICAL INFORMATION: Calculus of kidney. COMPARISON: Renal ultrasound 04/13/2021 and 02/05/2021. XR abdomen KUB 11/26/2020. CT abdomen and pelvis without contrast 11/01/2020. TECHNIQUE: Real-time imaging of the kidneys. FINDINGS: RIGHT KIDNEY: 12.3 x 6.8 x 5.7 cm (SAG x AP x TRV). The kidney is normal in size, contour, and echogenicity. Renal cortical thickness is normal. No renal calculi or hydronephrosis. There is anechoic cyst with peripheral wall calcification measuring 1.4 x 1.2 x 1.4 cm. Simple anechoic cyst in the upper pole measures 1.5 x 1.2 x 1.3 cm. There is some echogenic foci with vascular calcifications. There are linear echogenic foci seen likely vascular calcifications. LEFT KIDNEY: 12.7 x 5.7 x 6.4 cm (SAG x AP x TRV). The kidney is normal in size, contour, and echogenicity. Renal cortical thickness is normal. No renal calculi or hydronephrosis. There is anechoic cyst midpole measuring 1.8 x 1.8 x 1.8 cm. Some linear echogenic foci likely vascular calcification is seen. US/US renal BI IMPRESSION: Anechoic cysts midpole left kidney. Complex cyst midpole and a simple cyst upper pole right kidney. Bilateral echogenic foci likely vascular calcifications. No echogenic stones or hydronephrosis seen.
== END 2021-11-11 10:26 | disposition home or self-care (01) ==
LOC: HO.US 10:25
PROVIDERS: PCP Internal Medicine; Visit Provider Urology
DX: N20.0 Calculus of kidney (principal)
CPT/HCPCS: 76775

== ENCOUNTER → 2021-11-20 09:58 | Outpatient (BNVA) | payer MEDICARE, SELFPAY | PROVIDERS: PCP Internal Medicine; Visit Provider Urology | DX: N28.1 Cyst of kidney, acquired (principal); N20.0 Calculus of kidney | CPT/HCPCS: Q3014 ==

== ENCOUNTER 2022-03-08 15:31 | Outpatient (REF) | payer MEDICARE, SELFPAY ==
--- NOTE | ~2022-03-08 | XR_ITS ---
EXAMINATION: XR HIP, LEFT CLINICAL INFORMATION: Osteoarthritis COMPARISON: Previous x-ray from 2015 TECHNIQUE: Two views of the left hip. FINDINGS: Bone alignment is normal. No fracture or dislocation is seen. There is left hip osteoarthritis with joint space narrowing and osteophyte formation. This does not appear appreciably changed from 2015 exam. Soft tissues are unremarkable. XR/XR hip LT min 2V IMPRESSION: Left hip arthritis.
== END 2022-03-08 15:32 | disposition home or self-care (01) ==
LOC: HO.XRAY 15:31
PROVIDERS: PCP Nurse Practitioner Family; Visit Provider Physical Medicine & Rehabilitation
DX: M16.12 Unilateral primary osteoarthritis, left hip (principal)
CPT/HCPCS: 73502

== ENCOUNTER 2022-09-07 17:56 | Outpatient (REF) | payer MEDICARE, SELFPAY ==
--- NOTE | ~2022-09-07 | MR_ITS ---
EXAMINATION: MR KNEE WITHOUT CONTRAST, LEFT CLINICAL INFORMATION: Left knee pain. COMPARISON: None TECHNIQUE: MRI of the knee without contrast was performed using routine sequences on a high-field scanner. FINDINGS: MENISCI: Medial Meniscus: Nondisplaced oblique inner margin/tibial articular surface tear of the posterior meniscal body extending to the posterior horn. Probable tiny medially displaced meniscal flap measuring up to 1.4 cm within the medial meniscotibial recess. Mild adjacent soft tissue edema. Lateral Meniscus: Minimal inner margin fraying of the meniscal body. LIGAMENTS: Cruciate: Intact. Collateral: Intact. EXTENSOR MECHANISM: Superior patellar enthesophytes. Intact quadriceps and patellar tendons. Normal patellofemoral alignment. ARTICULAR CARTILAGE/BONE: Patellofemoral Compartment: Patellar median ridge articular cartilage fibrillation. Tiny marginal osteophytes. Medial Compartment: Mild weight-bearing medial femoral condyle articular cartilage signal heterogeneity with tiny marginal osteophytes. Lateral Compartment: Intact articular cartilage. JOINT FLUID AND BURSAE: Small joint effusion. MR/MR knee LT wo con IMPRESSION: 1. Nondisplaced oblique inner margin/tibial articular surface tear of the posterior medial meniscal body extending to the posterior horn. Probable tiny medially displaced meniscal flap measuring up to 1.4 cm. Mild adjacent soft tissue edema. 2. Minimal inner margin fraying of the lateral meniscal body. 3. Minimal patellofemoral and medial compartment arthrosis. Small joint effusion.
== END 2022-09-07 17:57 | disposition home or self-care (01) ==
LOC: HO.MRI 17:56
PROVIDERS: PCP Nurse Practitioner Family; Visit Provider Nurse Practitioner Family
DX: S83.8X2A Sprain of other specified parts of left knee, initial encounter (principal)
CPT/HCPCS: 73721

== ENCOUNTER 2022-09-20 08:15 | Emergency (ER) | payer MEDICARE, SELFPAY ==
[2022-09-20 08:22] VITALS: BP 145/63; PULSE 77; RESP 20; TEMP 36.4; O2SAT 97; BMI 25.7
[2022-09-20 09:14] LABS: Influenza A PCR NEGATIVE (Negative); Influenza B PCR NEGATIVE (Negative); Resp Syncy Virus RNA Qual PCR NEGATIVE (Negative); SARS COV2 PCR INHOUSE NEGATIVE (Negative)
--- NOTE | 2022-09-20 09:36 | ED.GENADULT ---
HPI - General Adult General Chief complaint: Upper Respiratory Symptoms Stated complaint: Congestion/Sore throat Time Seen by Provider: 09/20/22 08:57 Source: patient Mode of arrival: ambulatory Limitations: no limitations History of Present Illness HPI narrative: 72-year-old male walked into the emergency department for 2 days symptoms of generalized body ache, joint pain, sneezing, sore throat, dry cough with no phlegm. 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 was sick last week with RSV. Related Data Home Medications Medication Instructions Recorded Confirmed fluocinonide 0.05 % topical cream appl topical BID 11/20/21 02/01/22 Previous Rx's Medication Instructions Recorded pyridoxine (vitamin B6) 100 mg 100 mg PO DAILY 90 days #90 tabs 12/17/20 tablet mupirocin 2 % topical ointment 1 appl topical BID #15 grams 04/20/22 simvastatin 40 mg tablet 40 mg PO BEDTIME 90 days #90 tabs 06/01/22 atenolol 25 mg tablet 25 mg PO DAILY 90 days #90 tabs 07/21/22 losartan 100 mg tablet 100 mg PO DAILY 90 days #90 tabs 07/21/22 amlodipine 5 mg tablet 5 mg PO DAILY 90 days #90 tabs 08/05/22 Allergies Allergy/AdvReac Type Severity Reaction Status Date / Time lisinopril [LISINOPRIL] Allergy Mild cough Verified 08/24/22 10:07 Review of Systems Review of Systems: All other systems are reviewed and are negative Constitutional: Reports as per HPI and Reports no additional constitutional complaints Eyes: Reports as per HPI and Reports no additional eye complaints Reports system reviewed and no additional complaints, except as documented Cardiovascular: Reports as per HPI and Reports no additional cardiovascular complaints Respiratory: Reports as per HPI and Reports no additional respiratory complaints Gastrointestinal: Reports as per HPI and Reports no additional gastrointestinal complaints Genitourinary: Reports no additional female genitourinary complaints Musculoskeletal: Reports no additional musculoskeletal complaints Skin/Breast: Reports system reviewed and no additional complaints, except as docu Psychiatric: Reports no additional psychiatric complaints Endocrine: Reports no additional endocrine complaints Hematologic/Lymphatic: Reports no additional hematologic/lymphatic complaints Allergic/Immunologic: Reports no additional allergic/immunologic complaints Reports system reviewed and no additional complaints, except as documented and Reports Abnormal speech present [facility] Past Medical History Medical History COVID-19 vaccine administered HTN (hypertension) Hyperlipidemia Left hip pain Renal calculi Surgical History H/O colonoscopy Hx of cystoscopy Social History Social History Housing: House Are you a primary sub acute care nurse to a significant other at home: No Do you presently have visiting nurse or other home services: No Alcohol intake: never Patient Tobacco Use Status: Never used Tobacco e-Cigarette/Vaping Use: Never Used Second Hand Smoke Exposure: Yes Advance Directives: No Advance Directives Information Provided: No Current occupational status: 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 Blood pressure normal. Heart rate normal. Respiration rate normal. Temperature normal. Oxygen saturation normal. Appearance: Alert. Oriented X3. No acute distress. Head: Normal external exam. Normocephalic. Atraumatic. No [place] signs noted. No raccoon eyes noted Eyes: PERRLA. EOMI. Conjunctiva and sclera normal. Eyelids normal. ENT: TM's Normal. Pharynx normal. Uvula midline. Moist mucous membranes. No trismus noted. No drooling noted. No muffled voice noted. Neck: Normal inspection. Neck supple. FROM. No adenopathy. Thyroid Normal. No meningeal signs. No neck mass noted. CVS: Normal heart rate and rhythm. Heart sound normal. No murmurs noted. Pulses normal throughout. Respiratory: No respiratory distress. Painless inspiration. Breath sounds normal. No wheezes/rales/rhonchi noted. Chest nontender. No accessory muscle usage noted or decreased air movement noted. Abdomen: Soft and nontender. Bowel sounds normal in all 4 quadrants. No distention noted. No organomegaly noted. No visible injury noted. Back: No CVA tenderness. Full range of motion noted. Skin: Skin warm and dry. Normal skin color. Normal skin turgor. No rashes/lesions/lacerations noted. Extremities: No lower extremity edema. Extremities exhibit normal range of motion. Extremities nontender. Neuro: Oriented X 3. Cranial nerve exam: II-XII are grossly intact No motor deficit. No sensory deficit. Reflexes normal. Course Course Course Narrative: 73-year-old male with flu-like symptoms, patient is negative for rapid strep/influenza/COVID/RSV. Patient was instructed to use Tylenol or ibuprofen for symptoms and of work for 2 days until symptoms improve. Medical Decision Making Differential Diagnosis Differential Diagnoses: The differential diagnosis associated with the presentation includes (RSV, influenza, COVID-19 infection, strep pharyngitis, common cold.) Lab Data MDM Lab Attestation statement: I reviewed the patient's lab results. Labs: Lab Results 09/20/22 09/20/22 Range/Units 08:26 09:42 Influenza Type A (PCR) NEGATIVE (Negative) Influenza Type B (PCR) NEGATIVE (Negative) RSV RNA Qual (PCR) NEGATIVE (Negative) SARS-CoV-2 RNA (RT-PCR) NEGATIVE (Negative) S. pyogenes GrpA DINAE Negative (Negative) Discharge Plan Discharge Clinical Impression: Viral infection Patient Disposition: Home, Self-Care Instructions: Viral Syndrome (ED) Prescriptions: No Action simvastatin 40 mg tablet 40 mg PO BEDTIME 90 Days Qty: 90 1RF atenolol 25 mg tablet 25 mg PO DAILY 90 Days Qty: 90 0RF losartan 100 mg tablet 100 mg PO DAILY 90 Days Qty: 90 0RF amlodipine 5 mg tablet 5 mg PO DAILY 90 Days Qty: 90 1RF mupirocin 2 % ointment 1 appl topical BID Qty: 15 0RF Rx Instructions: Apply small amount to the affected area pyridoxine (vitamin B6) 100 mg tablet 100 mg PO DAILY 90 Days Qty: 90 1RF fluocinonide 0.05 % cream topical BID Referrals: Timothy Dee WATER/WASTEWATER PROJECT ENGINEER-BC [Primary Care Provider] - Stand Alone Forms: Work/School Release
[2022-09-20 10:07] LABS: Strep A Nucleic Acid Negative (Negative)
== END 2022-09-20 10:36 | disposition home or self-care (01) ==
PROVIDERS: Emergency Provider Emergency Medicine; PCP Nurse Practitioner Family
DX: B34.9 Viral infection, unspecified (principal); J02.9 Acute pharyngitis, unspecified; Z20.828 Contact with and (suspected) exposure to other viral communicable diseases; I10 Essential (primary) hypertension; E78.5 Hyperlipidemia, unspecified
CPT/HCPCS: 0241U; 36415; 87651; 99283

== ENCOUNTER 2022-09-24 08:09 | Emergency (ER) | payer MEDICARE, SELFPAY ==
--- NOTE | ~2022-09-24 | XR_ITS ---
EXAMINATION: XR CHEST CLINICAL INFORMATION: Cough x2 weeks COMPARISON: Chest 11/17/2017 TECHNIQUE: 2 views of the chest were obtained. FINDINGS: The lungs are well-expanded and clear of acute pneumonic process. Heart size and pulmonary vascularity is normal. No gross bony abnormality seen. XR/XR chest 2V IMPRESSION: Unremarkable chest exam.
[2022-09-24 08:20] VITALS: BP 155/96; PULSE 89; RESP 16; TEMP 36.9; O2SAT 98; BMI 25.7
--- NOTE | 2022-09-24 09:32 | ED_ITS ---
HPI - General Adult General Chief complaint: General Medical Stated complaint: ? Eye Infection Time Seen by Provider: 09/24/22 08:52 Source: patient Mode of arrival: ambulatory Limitations: no limitations History of Present Illness HPI narrative: 72-year-old male with a past medical history of BPH and ANAHI using CPAP presents to the emergency department today with complaints sinus congestion, bilateral eye irritation with creamy white discharge, a burning sensation and stating his eyes have bee stuck shut in the morning that has been going on for the past several days. He reports he was seen on 09/20/22 for complaints of cough in upper respiratory symptoms. At the time serology was negative for flu, RSV, COVID, and strep. He was diagnosed with a viral infection and given direction to use [id number] analgesics and cough medication for treatment of symptoms. At this time, he states he has been using with strain as a gargle, using Tylenol and Motrin with no changes in symptoms. He states he uses a CPAP machine which he states he is coughing into and is concerned that his CPAP is blowing bacteria into his eyes to be is discontinued use of his CPAP and has been sleeping in a recliner chair with limited amount of rest per patient. He states his was previously ill with RSV. He denies any fever, chills, nausea, vomiting, diarrhea, or constipation. Onset (ago): week(s) (2) Relieving factors: none Exacerbating factors: none Related Data Home Medications Medication Instructions Recorded Confirmed fluocinonide 0.05 % topical cream appl topical BID 11/20/21 02/01/22 Previous Rx's Medication Instructions Recorded pyridoxine (vitamin B6) 100 mg 100 mg PO DAILY 90 days #90 tabs 12/17/20 tablet mupirocin 2 % topical ointment 1 appl topical BID #15 grams 04/20/22 simvastatin 40 mg tablet 40 mg PO BEDTIME 90 days #90 tabs 06/01/22 atenolol 25 mg tablet 25 mg PO DAILY 90 days #90 tabs 07/21/22 losartan 100 mg tablet 100 mg PO DAILY 90 days #90 tabs 07/21/22 amlodipine 5 mg tablet 5 mg PO DAILY 90 days #90 tabs 08/05/22 azithromycin 250 mg tablet See Rx Instructions PO .COMPLEX #6 09/24/22 (Zithromax Z-Kade) tabs erythromycin 5 mg/gram (0.5 %) eye 0.5 inch ophthalmic (eye) QID #50 09/24/22 ointment grams Allergies Allergy/AdvReac Type Severity Reaction Status Date / Time lisinopril [LISINOPRIL] Allergy Mild cough Verified 08/24/22 10:07 Review of Systems Review of Systems: In addition to documented HPI above, the additional ROS was obtained: Constitutional: No Weight loss, No Fever, No Chills ENT/Mouth: No Ear Pain, No Nasal Congestion, No Sinus Pain, No Hoarseness, No sore throat, No Rhinorrhea, No Swallowing Difficulty Cardiovascular: No Chest Pain, No SOB Respiratory: No Sputum, No Wheezing Gastrointestinal: No Nausea, No Vomiting, No Diarrhea, No Constipation, No Abdominal pain Genitourinary: No Dysuria, No Urinary Frequency, No Hematuria, No Urinary Incontinence/retention, No Urgency, No Flank Pain Musculoskeletal: No joint pain, No Myalgias, No Joint Swelling Skin: No Skin Lesions, No rash Neuro: No Weakness, No Numbness, No Paresthesias Yes all other systems are reviewed and are negative COUNTS INCLUDE 234 BEDS AT THE [facility] Past Medical History Attestation statement: The following information was validated with the patient. Source: old records reviewed Medical History COVID-19 vaccine administered HTN (hypertension) Hyperlipidemia Left hip pain Renal calculi Surgical History H/O colonoscopy Hx of cystoscopy Social History Social History Housing: House Are you a primary primary care provider to a significant other at home: No Do you presently have visiting nurse or other home services: No Alcohol intake: never Patient Tobacco Use Status: Never used Tobacco e-Cigarette/Vaping Use: Never Used Second Hand Smoke Exposure: Yes Advance Directives: Yes Advance Directives on File: Yes Advance Directives Date on File: 08/24/22 Current occupational status: 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 Current occupational exposures/hazards: No Cognitive needs: No Hearing needs: No Vision needs: No Physical Exam ED Vital Signs: Vital Signs - 24 hr 09/24/22 08:20 12/30/22 10:14 Temperature 98.4 F Pulse Rate 89 67 Respiratory Rate 16 18 Blood Pressure 155/96 H 117/59 L Pulse Oximetry 98 100 Oxygen Delivery Method Room Air Room Air BMI result Body Mass Index 25.7 Const General: cooperative, alert and awake Nutritional Appearance: average body habitus Orientation/consciousness: patient oriented x3 HENMT Head: Yes normal to inspection and Yes atraumatic Ears: hearing grossly normal bilaterally and external ears normal General nose exam: Normal external nose present and Normal nares present Face and sinus: Yes normal facial exam and Yes face symmetric Mouth: Normal oral and palatal mucosa present Teeth and gingiva: dentition normal Throat: Yes posterior oropharynx normal, Yes tonsils normal and Yes uvula midline Eyes Alignment and Position: alignment normal Periorbital: periorbital findings normal Eyelids: Yes eyelids normal Conjunctivae: conjunctival abnormal bilateral conjunctival injection diffuse Sclerae: sclerae normal Corneas: corneas normal Pupils: Equal, round and reactive pupils present EOM: EOMs intact bilaterally Neck Neck: Yes normal visual inspection, Yes full ROM and Yes no lymphadenopathy Chest Chest palpation & inspection: normal inspection of the chest Resp Effort & Inspection: normal respiratory effort, Actively coughing and not labored Auscultation: clear to auscultation bilaterally, no crackles, no rhonchi and no wheezes Cardio Rate: regular rate Rhythm: regular rhythm Back/Spine/Pelvis Cervical Spine: cervical ROM normal Thoracic/Lumbar Spine: thoraco-lumbar ROM normal Skin General skin exam: no rashes or lesions noted Neuro General: patient oriented x3, tone normal and moves all extremities Cranial nerves: Yes Equal, round and reactive pupils present Cognition (Neuro): normal cognition Gait exam (Neuro): Normal gait present Extrem General: Yes normal to inspection, Yes full ROM and Yes capillary refill normal Psych Appearance: grossly normal Mental Status: mental status grossly normal Speech and movement: Normal speech and movement present Affect: normal affect Attitude: cooperative Thought process: Normal thought process present Thought content: Normal thought content present Medications Administered Discontinued Medications Generic Name Dose Route Start Last Admin Trade Name Freq PRN Reason Stop Dose Admin Benzonatate 200 mg 09/24/22 09:29 09/24/22 09:45 Benzonatate 100 Mg Capsule PO 09/24/22 09:30 200 mg ONCE ONE Administration Medical Decision Making Medical Decision Making MDM Narrative: 72-year-old male with a past medical history of BPH and ANAHI using CPAP presents to the emergency department today with complaints sinus congestion, bilateral eye irritation with creamy white discharge that has been going on for the past several days. He reports he was seen on 09/20/22 for complaints of cough in upper respiratory symptoms and serology was negative for flu, RSV, COVID, and strep. His physical exam is consistent with bacterial conjunctivitis and persistent URI. Chest x-ray negative for cardiopulmonary pathology. HPI, PE, and diagnostics consistent with bacterial conjunctivitis and bronchitis due to length of cough. Plan to discharge patient home with erythromycin ophthalmic ointment 4 times daily and z-kade for treatment of bronchitis. Pt safe for discharge with Education to manage symptoms with [id number] ibuprofen, Tylenol, and/or [id number]-spilstf cough/cold medications with dosing as directed on packaging in addition to prescribed medications. HPI, PE, diagnostics, and plan discussed with patient with no unanswered questions at this time. Educated to return to the emergency department with new, worsening, or any concerning emergent symptoms. Recommended to follow-up with their primary care provider for further treatment and management. Discharge Plan Discharge Clinical Impression: Acute bacterial conjunctivitis of both eyes, Bronchitis Patient Disposition: Home, Self-Care Instructions: Acute Bronchitis (ED), How Your Lungs Work (ED), Conjunctivitis (ED) Prescriptions: New azithromycin [Zithromax Z-Kade] 250 mg tablet See Rx Instructions PO .COMPLEX Qty: 6 0RF Rx Instructions: For 250 mg dose pack: take 500 mg today (day 1), then 250 mg for 4 days (days 2-5) erythromycin 5 mg/gram (0.5 %) ointment 0.5 inch ophthalmic (eye) QID Qty: 50 0RF No Action simvastatin 40 mg tablet 40 mg PO BEDTIME 90 Days Qty: 90 1RF atenolol 25 mg tablet 25 mg PO DAILY 90 Days Qty: 90 0RF losartan 100 mg tablet 100 mg PO DAILY 90 Days Qty: 90 0RF amlodipine 5 mg tablet 5 mg PO DAILY 90 Days Qty: 90 1RF mupirocin 2 % ointment 1 appl topical BID Qty: 15 0RF Rx Instructions: Apply small amount to the affected area pyridoxine (vitamin B6) 100 mg tablet 100 mg PO DAILY 90 Days Qty: 90 1RF fluocinonide 0.05 % cream topical BID Referrals: Timothy Dee, SQL SERVER BI DEVELOPER[employer] [Primary Care Provider] - Stand Alone Forms: Work/School Release Interventions: ED Discharge Assessment Last Done: 09/24/22 10:39 Discharge Date/Time: 09/24/22 10:41 Print Language: Vietnamese
[2022-09-24] MEDS: Benzonatate 100 MG CAPSULE 200 MG PO (09:45)
[2022-09-24 10:14] VITALS: BP 117/59; PULSE 67; RESP 18; O2SAT 100
== END 2022-09-24 10:41 | disposition home or self-care (01) ==
PROVIDERS: Emergency Provider Student in an Organized Health Care Education/Training Program; PCP Nurse Practitioner Family
DX: J40 Bronchitis, not specified as acute or chronic (principal); H10.33 Unspecified acute conjunctivitis, bilateral; Z79.899 Other long term (current) drug therapy
CPT/HCPCS: 71046; 99283

== ENCOUNTER 2022-10-04 09:41 | Outpatient (REF) | payer OTHER, SELFPAY ==
--- NOTE | ~2022-10-04 | US_ITS ---
EXAMINATION: US RETROPERITONEAL LIMITED (RENAL ONLY) CLINICAL INFORMATION: Calculus of kidney. COMPARISON: Ultrasound retroperitoneal limited (renal only) 11/11/2021 and 04/13/2021. TECHNIQUE: Real-time imaging of the kidneys. FINDINGS: RIGHT KIDNEY: 12.2 x 4.7 x 5.4 cm (SAG x AP x TRV). The kidney is normal in size, contour, and echogenicity. Renal cortical thickness is normal. No renal calculi or hydronephrosis. Upper pole 1.3 x 1.4 x 1.3 cm anechoic avascular cyst. Midpole complex cyst measuring 0.9 x 0.9 x 1 cm, with peripheral wall calcification appearing more prominent as compared to previous ultrasound LEFT KIDNEY: 12.6 x 6.0 x 5.0 cm (SAG x AP x TRV). The kidney is normal in size, contour, and echogenicity. Renal cortical thickness is normal. No hydronephrosis. Midpole 1.6 x 1.9 x 1.5 cm cyst, with posterior wall calcification measuring 3 x 3 x 4 mm, new from previous. Midpole 0.3 x 0.3 x 0.4 cm anechoic simple cyst. US/US renal BI IMPRESSION: 1. Right renal complex cyst, maximal measurement 1 cm, with peripheral wall calcification appearing more prominent as compared to previous.. 2. Left renal complex cyst with a maximum measurement of 1.9 cm, with new posterior wall calcification measuring 4 mm. Further characterization with CT scan as clinically warranted. Otherwise, ongoing sonographic follow-up is recommended.
== END 2022-10-04 09:42 | disposition home or self-care (01) ==
LOC: HO.US 09:41
PROVIDERS: PCP Nurse Practitioner Family; Visit Provider Urology
DX: N20.0 Calculus of kidney (principal)
CPT/HCPCS: 76775

== ENCOUNTER → 2022-10-07 11:01 | Outpatient (BNVA) | payer MEDICARE, OTHER, SELFPAY | PROVIDERS: PCP Nurse Practitioner Family; Visit Provider Orthopaedic Surgery | DX: S83.8X9A Sprain of other specified parts of unspecified knee, initial encounter (principal) | CPT/HCPCS: 99202 ==

== ENCOUNTER → 2022-11-19 11:26 | Outpatient (BNVA) | payer OTHER, SELFPAY | PROVIDERS: PCP Nurse Practitioner Family; Visit Provider Urology | DX: N20.0 Calculus of kidney (principal); N40.1 Benign prostatic hyperplasia with lower urinary tract symptoms; N13.8 Other obstructive and reflux uropathy; N28.1 Cyst of kidney, acquired | CPT/HCPCS: 99212 ==

== ENCOUNTER 2023-06-20 10:28 | Outpatient (AMB) | payer MEDICARE, SELFPAY ==
--- NOTE | 2023-06-20 10:29 | MHC.PC.OV ---
Vital Signs 06/20/23 10:31 Height 6 ft Weight 189 lb BMI 25.6 BP 122/70 Blood Pressure Location Rt brachial Position Sitting Pulse 70 Pulse Source Pulse Oximeter Pulse Oximetry (%) 97 Oxygen Delivery Method Room Air Intake Visit Reasons: Annual PE Allergies lisinopril [LISINOPRIL] Allergy (Mild, Verified 06/20/23 12:15) cough Medication List - Last Reconciled 06/20/23 by RICARDO De Jesus amlodipine 5 mg PO DAILY 90 days atenolol 25 mg PO DAILY 90 days losartan 100 mg PO DAILY 90 days methylprednisolone acetate 40 mg Infiltration Q4W pyridoxine (vitamin B6) 50 mg PO DAILY 90 days simvastatin 40 mg PO BEDTIME 90 days Tobacco use date assessed: 12/20/22 Fall risk assessment: No Falls in past year Last assessed Fall Risk: 06/20/23 Dental Screening Dental Screen Date: 06/20/23 Did you have a dental visit in the last 12 months?: No Did you have a dental problem in the last 6 months where you did not have access to dental care?: No Was dental information given to patient?: No HPI Annual PE HPI Details Pt is here for a PE. Labs have been ordered. Pt is following up with urology. Pt follows up with a real estate developer yearly. [facility] Next [facility] screen is scheduled. [facility] Medical History COVID-19 vaccine administered Renal calculi Hyperlipidemia HTN (hypertension) Left hip pain Surgical History H/O shoulder surgery History of back surgery H/O colonoscopy Hx of cystoscopy Social History Housing: House Are you a primary child care nurse to a significant other at home: No Do you presently have visiting nurse or other home services: No Alcohol intake: never Patient Tobacco Use Status: Never used Tobacco e-Cigarette/Vaping Use: Never Used Second Hand Smoke Exposure: Yes Advance Directives Date on File: 08/24/22 Current occupational status: 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 1. Little interest or pleasure in doing things: not at all 2. Feeling down, depressed, or hopeless: not at all 3. Trouble falling or staying asleep, or sleeping too much: not at all 4. Feeling tired or having little energy: not at all 5. Poor appetite or overeating: not at all 6. Feeling bad about yourself - or that you are a failure or have let yourself or your family down: not at all 7. Trouble concentrating on things, such as reading the newspaper or watching television: not at all 8. Moving or speaking so slowly that other people could have noticed. Or the opposite - being so fidgety or restless that you have been moving around a lot more than usual: not at all 9. Thoughts that you would be better off or of hurting yourself in some way: not at all Total score: 0 Depression Screening Interpretation: Negative 52807 - PHQ-9 Billing: Yes Source: Developed by Drs. Eriberto Fermin, Nicol Baeza, Moe Cunningham and colleagues, with an educational roxie from [employer]. Thrive Questionnaire Date Thrive assessed: 06/20/23 I am a: Patient What is your living situation today?: I have a steady place to live Within the past 12 months, did the food you bought not last and you didn't have the money to get more?: Never true Within the past 12 months, did you worry whether your food would run out before you got money to buy more?: Never true Do you have trouble paying for medicines?: No Do you have trouble getting transportation to medical appointments?: No Do you have trouble paying your heating and electricity bill?: No Do you have trouble taking care of your child, family member or friend?: No Do you have trouble with day-to-day activities such as bathing, preparing meals, shopping, managing finances, etc.?: No Are you currently unemployed and looking for a job?: No Are you interested in more education?: No JUSTINA-7 AMB Questionnaire JUSTINA-7 Date JUSTINA - 7 assessed: 06/20/23 Feeling nervous, anxious, or on edge: 0 = Not at all Not being able to stop or control worryin = Not at all Worrying too much about different things: 0 = Not at all Trouble relaxin = Not at all Being so restless that it is hard to sit still: 0 = Not at all Becoming easily annoyed or irritable: 0 = Not at all Feeling afraid as if something awful might happen: 0 = Not at all Total JUSTINA-7 score (0-4 normal; 5-9 mild; 10-14 moderate; 15-21 severe): 0 Source: Developed by Drs. Eriberto Fermin, Nicol Baeza, Moe Cunningham and colleagues, with an educational roxie from [employer]. JUSTINA-7 Assessment Billing JUSTINA-7 Assessment Tool: JUSTINA-7 Assessment 84288 Review of Systems Const Denies chills and Denies fever(s) Eyes Denies blurry vision ENT Denies vertigo, Denies dizziness and Denies sore throat Card Denies chest pain at rest, Denies chest pain with activity, Denies diaphoresis, Denies dyspnea and Denies dyspnea on exertion Resp Denies cough, Denies dyspnea, Denies dyspnea on exertion and Denies wheezing GI Denies abdominal pain, Denies melena, Denies hematochezia, Denies constipation, Denies diarrhea and Denies loose stools Denies hematuria Musc Denies numbness and Denies tingling Skin/Breast Denies lesions Neuro Denies vertigo, Denies dizziness, Denies numbness and Denies tingling Psych Denies anxiety, Denies depression, Denies homicidal ideation, Denies suicidal ideation and Denies other (substance abuse) Aller/Immun Denies wheezing Physical exam (Primary Care) Vital Signs: Last Vital Signs Pulse 70 06/20/23 10:31 BP 122/70 06/20/23 10:31 Pulse Ox 97 06/20/23 10:31 Oxygen Delivery Method Room Air 06/20/23 10:31 BMI result Body Mass Index 25.6 Tobacco/Smoking Status: Tobacco use Status Tobacco use date assessed 12/20/22 06/20/23 10:30 Patient Tobacco Use Status Never used Tobacco 06/20/23 10:30 e-Cigarette/Vaping Use Never Used 06/20/23 10:30 PHQ-9: PHQ-9 Score PHQ-9: Total score 0 06/20/23 11:34 Depression Screening Interpretation: Negative Thrive Assessment: Date of Thrive Assessment Date Thrive assessed 06/20/23 06/20/23 11:34 Const General: cooperative Nutritional Appearance: well nourished Orientation/consciousness: patient oriented x3 HENMT Head: Yes normal to inspection, Yes normocephalic and Yes atraumatic Ears: TM's normal bilaterally Eyes General: appearance normal, both eyes and all related structures Alignment and Position: alignment normal and position normal Neck Neck: Yes normal visual inspection and Yes no lymphadenopathy Thyroid: Thyroid normal Resp Effort & Inspection: normal respiratory effort Auscultation: clear to auscultation bilaterally Cardio Rate: regular rate Rhythm: regular rhythm Heart sounds: S1 normal heart sound present, S2 normal heart sound present and no murmurs GI Palpation (GI): Soft to palpation and nontender Auscultation: normal bowel sounds Skin Rashes: no rashes Neuro General: patient oriented x3, moves all extremities, no focal motor deficits and deep tendon reflexes 2+ bilaterally Romberg Test: Negative Extrem Right lower extremity: no edema Left lower extremity: no edema Psych Appearance: grossly normal Mental Status: mental status grossly normal Speech and movement: Normal speech and movement present Affect: normal affect Attitude: cooperative Thought process: Normal thought process present Thought content: Normal thought content present Insight: Good insight present (Psych) Judgement: Good judgement present (Psych) Assessment and Plan Assessment & Plan (1) Physical exam: Code(s): Z00.00 - Encounter for general adult medical examination without abnormal findings Plan The patient agreed to the use of a medical interpreter for this encounter. Scribed for RICARDO Jara by adis Burns scribe, on 06/20/2023 at 10:50 EST. Coding Level of Care Code Est Pt Prev Care >65y(25948) Diagnoses Physical exam Z00.00 Additional Codes JUSTINA-7 Assessment Billing - JUSTINA-7 Assessment Tool: JUSTINA-7 Assessment 97371 ([id number])
[2023-06-20 10:31] VITALS: BP 122/70; PULSE 70; O2SAT 97; BMI 25.6
== END 2023-06-20 11:32 | disposition home or self-care (01) ==
PROVIDERS: Visit Provider Nurse Practitioner Family
DX: Z00.00 Encounter for general adult medical examination without abnormal findings (principal)
CPT/HCPCS: 99397

== ENCOUNTER 2023-07-04 07:48 | Outpatient (REF) | payer MEDICARE, SELFPAY ==
[2023-07-04 11:49] LABS: Alanine Aminotransferase 24 U/L (0-40); Albumin Level 4.4 g/dL (3.5-5.0); Alkaline Phosphatase 62 U/L (39-117); Anion Gap 14 (12-20); Aspartate Amino Transferase 20 U/L (5-37); Bilirubin Total 0.8 mg/dL (0.0-1.0); Blood Urea Nitrogen 14 mg/dL (9-16); Calcium 9.5 mg/dL (8.4-10.2); Carbon Dioxide 28 mmol/L (22-29); Chloride 106 mmol/L (96-108); Cholesterol 133 mg/dL (<200); Estimated Glomerular Filt Rate > 60; Glucose Fasting 96 mg/dL (60-99); HDL Cholesterol 48 mg/dL (>40); LDL Cholesterol Calculated 74 mg/dL (<100); Potassium 4.4 mmol/L (3.3-5.1); Sodium 144 mmol/L (135-145); Total Protein 7.1 g/dL (6.5-8.0); Triglycerides 58 mg/dL (<150)
== END 2023-07-04 07:49 | disposition home or self-care (01) ==
LOC: HO.HMGCLDS 07:48
PROVIDERS: PCP Nurse Practitioner Family; Visit Provider Nurse Practitioner Family
DX: E78.5 Hyperlipidemia, unspecified (principal); I10 Essential (primary) hypertension; R82.90 Unspecified abnormal findings in urine; Z12.5 Encounter for screening for malignant neoplasm of prostate
CPT/HCPCS: 36415; 80053; 80061; 81001; 84153; 84443; 85025; 87086; 87088; 87186

== ENCOUNTER 2023-07-22 08:49 | Outpatient (AMB) | payer MEDICARE, SELFPAY ==
[2023-07-22 09:19] VITALS: BP 130/60; PULSE 96; TEMP 36.9; O2SAT 99; BMI 25.1
--- NOTE | 2023-07-22 09:19 | MHC.OFFWIV ---
Intake Vital Signs 07/22/23 09:19 Height 6 ft Weight 185 lb BMI 25.1 BP 130/60 Blood Pressure Location Rt brachial Position Sitting Pulse 96 Temp 98.4 F Pulse Oximetry (%) 99 Oxygen Delivery Method Room Air Intake Visit Reasons: EP, chest congestion, headache (masked) Intake Note: pt is here today for chest congestion,headache Patient Tobacco Use Status: Never used Tobacco Allergies lisinopril [LISINOPRIL] Allergy (Mild, Verified 07/22/23 09:20) cough Do you need a note to return to daycare/school/sports/work: Yes HPI HPI Comments History of Present Illness Details This is a 73-year-old male who presents to the office today for sick visit. Patient complaining of productive cough with green-yellow sputum x3 days in the setting of viral URI symptoms including sore throat, nasal congestion, and rhinorrhea x1 week. He denies any fevers or chills. He denies any chest pain or shortness of breath. He denies any abdominal pain or nausea/vomiting/diarrhea. [facility] Medical History COVID-19 vaccine administered Renal calculi Hyperlipidemia HTN (hypertension) Left hip pain Surgical History H/O shoulder surgery History of back surgery H/O colonoscopy Hx of cystoscopy Social History Housing: House Are you a primary career development facilitator to a significant other at home: No Do you presently have visiting nurse or other home services: No Alcohol intake: never Patient Tobacco Use Status: Never used Tobacco e-Cigarette/Vaping Use: Never Used Second Hand Smoke Exposure: Yes Advance Directives Date on File: 08/24/22 Current occupational status: 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 Current occupational exposures/hazards: No Cognitive needs: No Hearing needs: No Vision needs: No Review of Systems Const All systems reviewed & are unremarkable except as noted in HPI and below Reports no additional complaints Eyes Reports no additional complaints ENT Reports no additional complaints Card Reports no additional complaints Resp Reports no additional complaints GI Reports no additional complaints Reports no additional complaints Musc Reports no additional complaints Skin/Breast Reports system reviewed and no additional complaints, except as documented Neuro Reports no additional complaints Psych Reports no additional complaints Endo Reports no additional complaints Lewis/Lymph Reports no additional complaints Aller/Immun Reports no additional complaints Physical Exam Vital Signs: Last Vital Signs Temp 98.4 F 07/22/23 09:19 Pulse 96 07/22/23 09:19 BP 130/60 07/22/23 09:19 Pulse Ox 99 07/22/23 09:19 Oxygen Delivery Method Room Air 07/22/23 09:19 BMI result Body Mass Index 25.1 Const Other: Vital signs reviewed. Constitutional: Non-toxic appearing. No acute distress. Well-developed and well-nourished. HEENT: Normocephalic and atraumatic. Tympanic membranes without erythema, edema, or bulging bilaterally. External auditory canals without erythema or edema bilaterally. Moist mucous membranes. Mild posterior pharyngeal erythema but no exudates. Skin: Warm and dry. No rashes or lesions noted. Neck: Full and painless range of motion. No cervical lymphadenopathy. Cardio: Regular rate and rhythm. No murmurs, gallops, or rubs. No lower extremity edema. No JVD. Pulmonary: No respiratory distress. No accessory muscle usage. Minimal expiratory wheezing throughout and some coarse breath sounds that clear with coughing. Gastrointestinal: Soft, nontender, and nondistended in all 4 quadrants. Normoactive bowel sounds in all 4 quadrants. Genitourinary: No CVA tenderness. Musculoskeletal: Normal range of motion in joints throughout the body. No deformity or other signs of injury. Neuro: Alert and oriented x4. Cranial nerves 2-12 grossly intact. No focal deficits appreciated. Psych: Normal mood and affect. Assessment & Plan Assessment & Plan (1) Bronchitis: Code(s): J40 - Bronchitis, not specified as acute or chronic Plan: This is a 73-year-old male presenting to the office complaining of productive cough with yellow-green sputum in the setting of viral URI symptoms. On physical examination, he has scattered expiratory wheezing and coarse breath sounds that clear with coughing. His vital signs are stable, his physical exam is otherwise benign, and he is overall nontoxic appearing. History and physical most consistent with an acute bronchitis in the setting of viral URI. Check chest x-ray, if there is any evidence of pneumonia we will send antibiotics. Treat with p.o. prednisone 40 mg daily x5 days as well as p.o. benzonatate 100 mg 3 times daily as needed for cough. COVID/flu/RSV sent. Patient advised to follow-up here or proceed to the emergency room if he were to develop persistent or worsening symptoms including hemoptysis, shortness of breath, chest pain, or fever/chills. Patient verbalizes understanding and he is agreement with the plan. Orders: Orders SARS-CoV2/FLU/RSV Today R09.89 - Other specified symptoms and signs involving the circulatory and respiratory systems XR chest 2V Today R05.9 - Cough, unspecified Medications: New benzonatate 100 mg PO TID PRN 14 caps 0RF cough prednisone 40 mg (2 x 20 mg) PO DAILY 10 tabs 0RF Coding Level of Care Code Est Pt Level 3 (15134) Diagnoses Bronchitis J40
== END 2023-07-22 10:16 | disposition home or self-care (01) ==
PROVIDERS: PCP Nurse Practitioner Family; Visit Provider Physician Assistant Medical
DX: J40 Bronchitis, not specified as acute or chronic (principal)
CPT/HCPCS: 99213

== ENCOUNTER 2023-07-22 09:45 | Outpatient (REF) | payer MEDICARE, SELFPAY ==
--- NOTE | ~2023-07-22 | XR_ITS ---
EXAMINATION: XR CHEST CLINICAL INFORMATION: Cough COMPARISON: 09/24/2022 TECHNIQUE: 2 views of the chest were obtained. FINDINGS: No significant abnormality is noted involving the heart, lungs, mediastinum, bony thorax or soft tissues. XR/XR chest 2V IMPRESSION: Unremarkable examination with no interval change
== END 2023-07-22 09:46 | disposition home or self-care (01) ==
LOC: HO.HMGCX 09:45
PROVIDERS: PCP Nurse Practitioner Family; Visit Provider Physician Assistant Medical
DX: R05.9 Cough, unspecified (principal)
CPT/HCPCS: 71046

== ENCOUNTER 2023-07-22 11:05 | Outpatient (REF) | payer MEDICARE, SELFPAY ==
[2023-07-22 15:33] LABS: Influenza A PCR NEGATIVE (Negative); Influenza B PCR NEGATIVE (Negative); Resp Syncy Virus RNA Qual PCR NEGATIVE (Negative); SARS COV2 PCR INHOUSE NEGATIVE (Negative)
== END 2023-07-22 11:06 | disposition home or self-care (01) ==
LOC: HO.LAB 11:05
PROVIDERS: Visit Provider Physician Assistant Medical
DX: Z11.52 Encounter for screening for COVID-19 (principal); Z20.822 Contact with and (suspected) exposure to COVID-19; R09.89 Other specified symptoms and signs involving the circulatory and respiratory systems
CPT/HCPCS: 0241U

== ENCOUNTER 2023-08-27 09:03 | Outpatient (AMB) | payer MEDICARE, SELFPAY ==
[2023-08-27 09:10] VITALS: BP 110/52; PULSE 71; TEMP 36.6; O2SAT 95; BMI 25.8
--- NOTE | 2023-08-27 09:10 | MHC.OFFWIV ---
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 He completed a course of antibiotics and steroids, but states that his cough did not seem to improve with medication. He has taken vauv-ver-[id number] medication continuously since then. He he states that his phlegm production is worse in the morning, but persist throughout the day. He denies tobacco smoking history himself, but states that he grew up with heavy smokers all around him throughout his life. He states that he has never had an infection like this before however. 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 He denies fever or chills, shortness of breath or chest pain, myalgias or malaise, weakness or dizziness, nausea vomiting or diarrhea, sore throat, ear pain, or other significant associated symptoms. [facility] Medical History COVID-19 vaccine administered Renal calculi Hyperlipidemia HTN (hypertension) Left hip pain Surgical History H/O shoulder surgery History of back surgery H/O colonoscopy Hx of cystoscopy Social History Housing: House Are you a primary care transition coordinator to a significant other at home: No Do you presently have visiting nurse or other home services: No Alcohol intake: never Patient Tobacco Use Status: Never used Tobacco e-Cigarette/Vaping Use: Never Used Second Hand Smoke Exposure: Yes Advance Directives Date on File: 08/24/22 Current occupational status: 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 Current occupational exposures/hazards: No Cognitive needs: No Hearing needs: No Vision needs: No Review of Systems Const All systems reviewed & are unremarkable except as noted in HPI and below Physical Exam Vital Signs: Last Vital Signs Temp 97.9 F 08/27/23 09:10 Pulse 71 08/27/23 09:10 BP 110/52 L 08/27/23 09:10 Pulse Ox 95 08/27/23 09:10 Oxygen Delivery Method Room Air 08/27/23 09:10 BMI result Body Mass Index 25.8 Const General: cooperative, healthy appearing, comfortable, no acute distress, alert, awake, Physically active and well groomed; No anxious, diaphoretic, ill appearing, intoxicated appearing, poor hygiene or tired appearing Nutritional Appearance: average body habitus Orientation/consciousness: oriented to person Limitations: no limitations HEENT Head: Yes normal to inspection, Yes normocephalic and Yes atraumatic Ears: hearing grossly normal bilaterally, external ears normal, TM's normal bilaterally and EAC's normal General nose exam: Normal external nose present, Normal nares present, No nasal polyps present, Normal nasal mucous membranes and turbinates present, Normal septum present and No nasal discharge present Face and sinus: Yes normal facial exam, Yes sinuses nontender and Yes face symmetric Mouth: Normal oral and palatal mucosa present, lip normal and tongue normal Throat: Yes posterior oropharynx normal, No peritonsillar mass, Yes postnasal drainage, No uvular edema and No cobblestoning Eyes General: appearance normal, both eyes and all related structures Neck Neck: Yes normal visual inspection, Yes no lymphadenopathy, Yes trachea midline, Yes supple and No anterior neck swelling Chest Chest palpation & inspection: normal palpation of entire chest wall Resp Effort & Inspection: normal respiratory effort, able to speak in complete sentences, normal respiratory pattern, no audible wheezes, Actively coughing (Rare occasional dry), respiratory effort not decreased, no grunting, not labored, no nasal flaring, no retractions, no stridor, no tracheal deviation, no tripod positioning, no use of accessory muscles, No prolonged expiratory phase and symmetric chest movement Auscultation: clear to auscultation bilaterally, no crackles, no rales, no rhonchi, no wheezes, lung sounds not diminished and No rub present Cardio Rate: regular rate Skin Other: Good color, warm and dry Neuro General: oriented to person Psych Appearance: grossly normal Mental Status: mental status grossly normal Speech and movement: Normal speech and movement present Affect: normal affect Attitude: cooperative Thought process: Normal thought process present Insight: Good insight present (Psych) Judgement: Good judgement present (Psych) Results Reviewed Results Reviewed: two-view plain film chest x-ray unremarkable with no acute cardiopulmonary findings Assessment & Plan Assessment & Plan (1) Cough: Code(s): R05.9 - Cough, unspecified Qualifiers: Cough type: chronic Qualified Code(s): R05.3 - Chronic cough Plan: patient is a 73-year-old male comes to the walk-in clinic With 2 months chronic cough since apparent acute viral syndrome. Symptoms do not improve with initial courses of steroids and antibiotics, and chest x-ray was unremarkable time. We did a follow-up chest x-ray to compare which showed no acute changes per my wet read, but does have chronic bronchial wall thickening. His vital signs are stable today. He does have a longstanding history of secondhand smoke exposure from childhood, and it is possible he has developed some COPD at this point. I will write him for another course of antibiotics as well as another course of steroids due to persistent coughing fits and we discussed Ramya Bragg. He has also been trying Mucinex but has not been getting adequate water intake, likely diminishing the effect. I advised that he start this back up with the Mucinex, and add adequate fluids. He also might benefit from pulmonary evaluation, including pulmonary function testing and perhaps chest CT if symptoms persist, so I advised that he talk with his PCP Timothy Dee to see if he can be set up for this. He knows to follow up sooner symptoms persist or worsen, or go to the emergency department with worrisome symptoms. Orders: Orders XR chest 2V 08/27/23 R05.9 - Cough, unspecified SARS-CoV2/FLU/RSV 08/27/23 R05.9 - Cough, unspecified [employer] Covid-19 Ag 08/27/23 Z20.822 - Contact with and (suspected) exposure to COVID-19 Medications: New azithromycin take 500 mg today (day 1), then 250 mg for 4 days (days 2-5) PO 6 tabs 0RF benzonatate 200 mg PO BID-TID PRN 30 caps 0RF cough Coding Level of Care Code Est Pt Level 4 (96855) Diagnoses Chronic cough R05.3 Cough type: chronic
== END 2023-08-27 10:21 | disposition home or self-care (01) ==
PROVIDERS: PCP Nurse Practitioner Family; Visit Provider Physician Assistant Medical
DX: R05.3 Chronic cough (principal)
CPT/HCPCS: 99214

== ENCOUNTER 2023-08-27 09:32 | Outpatient (REF) | payer MEDICARE, SELFPAY ==
--- NOTE | ~2023-08-27 | XR_ITS ---
EXAMINATION: XR CHEST CLINICAL INFORMATION: Cough COMPARISON: X-ray 07/22/2023 TECHNIQUE: 3 views of the chest were obtained. FINDINGS: Stable cardiomediastinal silhouette. Lungs are symmetric expanded. Bronchial wall thickening in bilateral infrahilar and bilateral lower lobes, appearing similar as compared to previous. No focal consolidation is seen. No effusion, pulmonary edema. No significant pneumothorax. Mild thoracic spine degeneration. XR/XR chest 2V IMPRESSION: Bronchial wall thickening can be seen inflammatory/infectious processes. No dense consolidation.
[2023-08-27 10:12] LABS: Binax Internal Control QC Valid; Binax Now Covid-19 Ag Negative (Negative); Binax Performed by: PAULP
== END 2023-08-27 09:33 | disposition home or self-care (01) ==
LOC: HO.HMGCX 09:32
PROVIDERS: PCP Nurse Practitioner Family; Visit Provider Physician Assistant Medical
DX: Z11.52 Encounter for screening for COVID-19 (principal); R05.9 Cough, unspecified; Z20.822 Contact with and (suspected) exposure to COVID-19
CPT/HCPCS: 71046; 87811; C9803

== ENCOUNTER 2023-08-27 09:45 | Outpatient (REF) | payer MEDICARE, SELFPAY ==
[2023-08-27 12:13] LABS: Influenza A PCR NEGATIVE (Negative); Influenza B PCR NEGATIVE (Negative); Resp Syncy Virus RNA Qual PCR NEGATIVE (Negative); SARS COV2 PCR INHOUSE NEGATIVE (Negative)
== END 2023-08-27 09:46 | disposition home or self-care (01) ==
LOC: HO.LAB 09:45
PROVIDERS: Visit Provider Physician Assistant Medical
DX: Z11.52 Encounter for screening for COVID-19 (principal); Z20.822 Contact with and (suspected) exposure to COVID-19; R05.9 Cough, unspecified
CPT/HCPCS: 0241U

== ENCOUNTER 2023-10-04 06:27 | Day surgery (SDC) | payer MEDICARE, SELFPAY ==
[2023-09-30 08:51] VITALS: BMI 26.3
--- NOTE | 2023-10-03 10:35 | HO.ANESPROP2 ---
Documented by User: Norma Barboza NP 10/03/23 10:37 HPI - Anesthesia Eval Consult details Narrative: 73yo M for Colonoscopy PMFSH Active Problems Active Problems: All Active Problems (Updated 09/30/23 @ 10:21 by Joan Morrison RN) Cough (Acute) Physical exam (Acute) Screening for colon cancer (Acute) Screening PSA (prostate specific antigen) (Acute) Left knee pain (Acute) Acute meniscal injury of knee (Acute) Encounter for annual wellness visit (AWV) in Medicare patient (Acute) Lab test negative for COVID-19 virus (Acute) Renal cyst (Acute) Hernia of abdominal wall (Acute) BPH loc w urin obs/LUTS (Acute) Nephrolithiasis (Acute) Hyperlipidemia (Acute) HTN (hypertension) (Acute) Past Medical History Medical History SVT (supraventricular tachycardia) Osteoarthritis ANAHI on CPAP BPH (benign prostatic hyperplasia) Renal calculi Hyperlipidemia HTN (hypertension) Left hip pain Surgical History Surgical History Hx of lithotripsy History of radiofrequency ablation procedure for cardiac arrhythmia H/O shoulder surgery History of back surgery H/O colonoscopy Hx of cystoscopy Social History Social History Housing: House Are you a primary medicare insurance specialist to a significant other at home: No Do you presently have visiting nurse or other home services: No Alcohol intake: never Patient Tobacco Use Status: Never used Tobacco e-Cigarette/Vaping Use: Never Used Second Hand Smoke Exposure: Yes Use of substances other than those prescribed or required for medical reasons: No Are you DNR?: No Advance Directives: No Advance Directives Information Provided: Yes Advance Directives Date on File: 08/24/22 Current occupational status: 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 Current occupational exposures/hazards: No Cognitive needs: No Hearing needs: No Vision needs: No Meds Allergies Allergy/AdvReac Type Severity Reaction Status Date / Time lisinopril [LISINOPRIL] Allergy Mild cough Verified 10/04/23 06:46 Exam Height,Weight and Vital Signs: Height 5 ft 11 in Weight 85.457 kg Pertinent Lab Results Pertinent Lab Results: Laboratory Tests 07/04/23 07:54 WBC 7.0 Hgb 13.3 L Hct 40.5 L Plt Count 282 Sodium 144 Potassium 4.4 Chloride 106 Carbon Dioxide 28 BUN 14 Creatinine 0.79 Narrative Narrative: EKG 05/2023 NSR @ 60 Right axis Assessment and Plan Assessment Anesthesia Assessment: Chart Reviewed Documented by User: Kieran Oglesby MD 10/04/23 07:11 PMFSH Past Medical History Medical History SVT (supraventricular tachycardia) Osteoarthritis ANAHI on CPAP BPH (benign prostatic hyperplasia) Renal calculi Hyperlipidemia HTN (hypertension) Left hip pain Family History Family history of problems with anesthesia: No Surgical History Surgical History Hx of lithotripsy History of radiofrequency ablation procedure for cardiac arrhythmia H/O shoulder surgery History of back surgery H/O colonoscopy Hx of cystoscopy History of Problems with Anesthesia: No Social History Social History Housing: House Are you a primary medicare insurance specialist to a significant other at home: No Do you presently have visiting nurse or other home services: No Alcohol intake: never Patient Tobacco Use Status: Never used Tobacco e-Cigarette/Vaping Use: Never Used Second Hand Smoke Exposure: Yes Use of substances other than those prescribed or required for medical reasons: No Are you DNR?: No Advance Directives: No Advance Directives Information Provided: Yes Advance Directives Date on File: 08/24/22 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 occupational status: 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 Current occupational exposures/hazards: No Cognitive needs: No Hearing needs: No Vision needs: No Meds Allergies Allergy/AdvReac Type Severity Reaction Status Date / Time lisinopril [LISINOPRIL] Allergy Mild cough Verified 10/04/23 06:46 Exam Airway Mallampati Class: III TM Dist: >3cm Neck ROM: Full Loose/Missing/Broken Teeth: No Heart: [id number] Lungs: cta b/l Assessment and Plan Assessment Anesthesia Assessment: Anesthesia Plan Discussed Final Anesthetic Review Family History of Problems with Anesthesia: No History of Problems with Anesthesia: No NPO: Yes ASA Class: III Final Preanesthetic Review: No Changes in Pt Med Stat, Meds/Allgs Chart Reviewed, Consent Obtained/Reviewed and Anes Risks/Benef Reviewed Patient Risk: Intermediate Procedure Risk: Intermediate Assessment/Block/Sedation in SS: Assess/Block/Sedation-SS Anesthetic Plan Anesthetic Plan: MAC: and Agree w/ Assess. and Plan Disposition: Standard PACU
[2023-10-04 06:49] VITALS: BMI 25.0
--- NOTE | 2023-10-04 07:26 | P.HPSUR_ITS ---
Pre-Procedural Eval Section A Date of Service: 10/04/23 Section B Chief Complaint: Screening Details of Present Illness: see H&P no changes Relevant Family History (Specify if Yes): No Relevant Social History: None Present Medications: see Short Stay Collaborative assessment Medical History: Significant History (see H&P , no pacemaker) History of Previous Operations: No relevant previous surgery Allergies: Allergies Allergy/AdvReac Type Severity Reaction Status Date / Time lisinopril [LISINOPRIL] Allergy Mild cough Verified 10/04/23 06:46 Review of Systems Sugical H&P ROS: Negative: Constitution, Cardiovascular, Respiratory, Neur ological, Psychiatric, Hem-Onc, Allergic/Immunologic, Gastrointestinal, Genitourinary, Musculoskeletal, Integumentary, Endocrine and Eyes/Ears/Nose/Throat Exam Surgical H&P Exam: Normal: HEENT, Normal: Heart, Normal: Lungs, Normal: Extremities, Normal: Abdomen, Normal: Skin and Normal: Neurological Plan Diagnosis/Plan: Unchanged I have reviewed the history and physical and performed a pertinent physical examination on my patient. No changes have occurred unless specified. Time Spent With Patient Time: Total time managing care of this patient today ____ minutes.
[2023-10-04 07:58] VITALS: BP 101/53; PULSE 58; RESP 14; TEMP 36.3; O2SAT 99
[2023-10-04 08:13] VITALS: BP 106/50; PULSE 56; RESP 16; TEMP 36.3; O2SAT 97
--- NOTE | 2023-10-04 08:25 | OP_ITS ---
DATE OF SERVICE: 10/04/2023 SURGEON: Prakash Auguste MD INDICATIONS: Colon cancer screening and prior history of colon polyps. PREOPERATIVE DIAGNOSIS: POSTOPERATIVE DIAGNOSIS: PROCEDURE PERFORMED: Colonoscopy to the terminal ileum with biopsy. ESTIMATED BLOOD LOSS: COMPLICATIONS: ANESTHESIA: Monitored anesthesia care. ASSISTANTS: SPECIMENS: DESCRIPTION OF PROCEDURE: A history and physical performed. The risks and benefits of the procedure were explained to the patient. Informed consent was obtained. The patient was placed in the left lateral decubitus position. A digital rectal exam was performed and was found to be normal. The Olympus pediatric video colonoscope was introduced into the rectum and advanced to the cecum. The cecum was identified by transillumination, palpation, and identification of ileocecal valve. Examination was performed. The scope was removed. He tolerated the procedure well and was turned to recovery in stable condition. FINDINGS: The terminal ileum was examined and appeared normal. The visualized colonic mucosa was normal. The quality of prep was good. A single polyp measuring less than 5 mm, was identified at 70 cm, removed with biopsy forceps. No other polyps were identified. There was mild sigmoid diverticulosis. Retroflexed examination showed internal hemorrhoids. IMPRESSION: Colon polyp. RECOMMENDATION: Follow up with the biopsy results. MD GUSTAVO Vallecillo/WONL / [phone]
== END 2023-10-04 08:50 | disposition home or self-care (01) ==
PROVIDERS: PCP Nurse Practitioner Family; Visit Provider Internal Medicine Gastroenterology
PROC: 0DJD8ZZ Inspection of Lower Intestinal Tract, Via Natural or Artificial Opening Endoscopic (ICD-10-PCS; CPT 45378; principal; 2023-10-04 07:30)
DX: Z12.11 Encounter for screening for malignant neoplasm of colon (principal); Z83.719 Family history of colon polyps, unspecified; K63.5 Polyp of colon; K57.30 Diverticulosis of large intestine without perforation or abscess without bleeding; K64.8 Other hemorrhoids; I10 Essential (primary) hypertension; I47.10 Supraventricular tachycardia, unspecified; E78.5 Hyperlipidemia, unspecified; N40.0 Benign prostatic hyperplasia without lower urinary tract symptoms; M19.90 Unspecified osteoarthritis, unspecified site; G47.33 Obstructive sleep apnea (adult) (pediatric); Z99.89 Dependence on other enabling machines and devices; Z79.899 Other long term (current) drug therapy; Z98.890 Other specified postprocedural states; Z87.442 Personal history of urinary calculi
CPT/HCPCS: 45380; 88305; J2704

== ENCOUNTER 2023-10-26 10:23 | Outpatient (REF) | payer OTHER, SELFPAY ==
--- NOTE | ~2023-10-26 | US_ITS ---
EXAMINATION: US RETROPERITONEAL LIMITED (RENAL ONLY) CLINICAL INFORMATION: Calculus of kidney. COMPARISON: Renal ultrasound 10/04/2022 and 11/11/2021. X-ray abdomen KUB 11/26/2020. CT abdomen and pelvis 11/01/2020. TECHNIQUE: Real-time imaging of the kidneys. FINDINGS: RIGHT KIDNEY: 13.0 x 7.1 x 6.8 cm (SAG x AP x TRV). The kidney is normal in size, contour, and echogenicity. Renal cortical thickness is normal. No renal calculi or hydronephrosis. At the interpolar aspect posteriorly, a 1.7 cm benign, simple cyst is seen, which requires no imaging follow-up. LEFT KIDNEY: 13.5 x 5.8 x 5.2 cm (SAG x AP x TRV). The kidney is normal in size, contour, and echogenicity. Renal cortical thickness is normal. No renal calculi or hydronephrosis. At the interpolar aspect, a 2.2 cm benign, simple cyst is seen, which requires no imaging follow-up. US/US renal BI IMPRESSION: Unremarkable examination. No calculus or hydronephrosis is seen bilaterally.
== END 2023-10-26 10:24 | disposition home or self-care (01) ==
LOC: HO.US 10:23
PROVIDERS: PCP Nurse Practitioner Family; Visit Provider Urology
DX: N20.0 Calculus of kidney (principal)
CPT/HCPCS: 76775

== ENCOUNTER 2023-11-22 10:36 | Outpatient (AMB) | payer OTHER, SELFPAY ==
--- NOTE | 2023-11-22 10:45 | A.OFFVIS_ITS ---
Intake Intake Visit Reasons: 1Y US(SET)Confirmed Intake Note: Patient is Present for Follow Up Ultrasound Urology Medication: Vitamin B6 Antibiotic Allergies: None Blood Thinners: None Pharmacy: [facility] Allerg[facility] lisinopril [LISINOPRIL] Allergy (Mild, Verified 10/04/23 06:46) cough Medication List - Last Reconciled 11/22/23 by Harjit Rodriguez MD amlodipine 5 mg PO DAILY 90 days atenolol 25 mg PO DAILY 90 days benzonatate 200 mg PO BID-TID PRN losartan 100 mg PO DAILY 90 days pyridoxine (vitamin B6) 50 mg PO DAILY 90 days simvastatin 40 mg PO BEDTIME 90 days HPI HPI Comments 2 History of Present Illness Details Timothy is a pleasant male. He is a patient of Dr. 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 Nephrolithiasis Here for follow-up after appointment Intervention - left ESWL November 2020 Imaging - 11/16 CT with 7 mm proximal left ureteric stone - 12/14 ultrasound with 5 mm left lower pole fragment - 03/16 renal cyst by bilateral 1.5 cm cysts - 05/16 renal ultrasound renal cyst bilateral 1.5 cm, question of 4 mm left lower pole fragment - 11/17 renal ultrasound bilateral cyst, no stone - 11/18 renal ultrasound bilateral cysts, small calcification on left cyst - 11/19 renal ultrasound bilateral cysts, no evidence of stones Low urinary tract symptoms Underwent prostate procedure in May 2020 PSA 06/15 1.0, 09/15 3.2 Good effect from procedure [facility] Medical History SVT (supraventricular tachycardia) Osteoarthritis ANAHI on CPAP BPH (benign prostatic hyperplasia) Renal calculi Hyperlipidemia HTN (hypertension) Left hip pain Surgical History Hx of lithotripsy History of radiofrequency ablation procedure for cardiac arrhythmia H/O shoulder surgery History of back surgery H/O colonoscopy Hx of cystoscopy Social History Housing: House Are you a primary vocational childcare teacher to a significant other at home: No Do you presently have visiting nurse or other home services: No Alcohol intake: never Patient Tobacco Use Status: Never used Tobacco e-Cigarette/Vaping Use: Never Used Second Hand Smoke Exposure: Yes Advance Directives Date on File: 08/24/22 Current occupational status: 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 Current occupational exposures/hazards: No Cognitive needs: No Hearing needs: No Vision needs: No Review of Systems Const Denies chills and Denies fever(s) Card Reports no additional complaints and Denies syncope Resp Denies cough GI Denies abdominal pain and Denies heartburn Reports as per HPI and Denies change in libido Neuro Denies syncope Psych Denies change in libido Endo Denies change in libido Physical Exam Const General: cooperative, healthy appearing, comfortable and no acute distress Orientation/consciousness: patient oriented x3 HEENT Face and sinus: Yes normal facial exam Mouth: moist mucous membranes Neck Neck: Yes normal visual inspection, Yes full ROM and Yes trachea midline Chest Chest palpation & inspection: normal inspection of the chest Resp Effort & Inspection: normal respiratory effort, able to speak in complete sentences and no respiratory distress GI Inspection: Yes normal to inspection Back/Spine/Pelvis Cervical Spine: normal cervical lordosis Thoracic/Lumbar Spine: thoracic and lumbar spine normal to inspection Skin General skin exam: no rashes or lesions noted Neuro General: patient oriented x3, gait normal, tone normal and moves all extremities Extrem General: Yes normal to inspection and Yes capillary refill normal Assessment & Plan Assessment & Plan (1) Renal cyst: Code(s): N28.1 - Cyst of kidney, acquired (2) Nephrolithiasis: Code(s): N20.0 - Calculus of kidney Plan One year follow-up imaging Orders: Orders US renal BI 365 Days N20.0 - Calculus of kidney Patient Instructions: Imaging studies, laboratory and physical exam results were discussed and reviewed in detail. No major barriers to patient understanding were identified. An opportunity to ask questions regarding the treatment plan was provided. All questions were answered. The patient expressed understanding and agreement with the above treatment plan. The patient is aware they should contact our office by phone for worsening of their current condition or the appearance of new urologic symptoms. Compliance is encouraged with any medications and followup testing that is ordered. It is a privilege to participate in the urologic care of your patient. If you have any questions or concerns regarding treatment for the above conditions, or other urologic issues, please do not hesitate to contact me. The office telephone contact is [phone]. This note is constructed using voice recognition software. While every effort has been made to ensure accuracy factory superintendent errors may have been included. Yours sincerely, Dr Harjit Rodriguez MD, [facility] - Urology Providers of Expert, Compassionate Care for the Genitourinary System Coding Level of Care Code Est Pt Level 4 (97467) Diagnoses Renal cyst N28.1 Nephrolithiasis N20.0
== END 2023-11-22 11:03 | disposition home or self-care (01) ==
PROVIDERS: PCP Nurse Practitioner Family; Referring Provider Nurse Practitioner Family; Visit Provider Urology
DX: N28.1 Cyst of kidney, acquired (principal); N20.0 Calculus of kidney
CPT/HCPCS: 99213

== ENCOUNTER → 2023-11-22 10:36 | Outpatient (BNVA) | payer OTHER, SELFPAY | PROVIDERS: Visit Provider Urology | DX: N28.1 Cyst of kidney, acquired (principal); N20.0 Calculus of kidney | CPT/HCPCS: 99212 ==

== ENCOUNTER 2023-11-23 10:26 | Outpatient (AMB) | payer OTHER, MEDICARE, SELFPAY ==
--- NOTE | 2023-11-23 10:34 | MHC.OFFVIS ---
Intake Vital Signs 11/23/23 10:35 Height 6 ft Weight 192 lb 14.472 oz BMI 26.2 BP 140/70 H Blood Pressure Location Lt brachial Position Sitting Pulse 70 Pulse Source Pulse Oximeter Pulse Oximetry (%) 97 Oxygen Delivery Method Room Air Intake Visit Reasons: Cough Intake Note: pt is here as a new patient for a cough. He has been trying to get in since August. He is here for cough, some production, he has a lot of phelgm. All started July 22. Brand Advisor Required: No Allergies lisinopril [LISINOPRIL] Allergy (Mild, Verified 11/23/23 11:51) cough Medication List - Last Reconciled 11/23/23 by Macho Armas MD amlodipine 5 mg PO DAILY 90 days atenolol 25 mg PO DAILY 90 days benzonatate 200 mg PO BID-TID PRN losartan 100 mg PO DAILY 90 days pyridoxine (vitamin B6) 50 mg PO DAILY 90 days simvastatin 40 mg PO BEDTIME 90 days Do you need a note to return to daycare/school/sports/work: No HPI Cough HPI Details LISA IS 73 YEARS OLD VERY PLEASANT GENTLEMAN, BEING SEEN FOR THE 1ST TIME FOR PULMONARY EVALUATION. IS CHIEF COMPLAINT IS ONGOING COUGH WHICH STARTED BACK IN JUNE 2023, AND CONTINUES TO BOTHER HIM. HE HAS BEEN SEEN BY HIS PRIMARY CARE PHYSICIAN IN JUNE AND THEN IN AUGUST, HE WAS TREATED WITH A SHORT COURSE OF PREDNISONE 40 MG A DAY FOR 5 DAYS WITH COUGH MEDICATION. HE HAD ONLY A BRIEF PERIOD OF REDUCTION IN THE AMOUNT OF COUGH. HE IS NONSMOKER, DENIES SYMPTOMS OF GERD. HAS NO HISTORY OF BACTERIAL INFECTION. IN THE PAST HE WAS FOUND TO HAVE COUGH PRODUCED BY EM INHIBITOR , BUT THEN HIS ANTIHYPERTENSIVE AGENT WAS CHANGED TO LOSARTAN. IN THE PAST HE HAS BEEN TREATED FOR NASAL ALLERGIES, BY DR. OLIVEIRA, AND DID HAVE IMMUNOTHERAPY FOR A YEAR OR SO WITHOUT MUCH IMPROVEMENT. HE DOES HAVE COMPLAINT OF INTERMITTENT NASAL CONGESTION WHICH IS MILD, WITH SOME POSTNASAL DISCHARGE. HE HAS A CAT AT HOME. 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 HE HAD A CHEST X-RAY IN JUNE 2023 WHICH WAS NORMAL. A CHEST X-RAY ON WHICH WAS REPORTED TO SHOW BRONCHIAL WALL THICKENING CONSISTENT WITH SOME INFLAMMATORY CONDITION. THAT IS WHEN HE WAS TREATED WITH A COURSE OF PREDNISONE. HIS SEROLOGIC TESTS FOR INFLUENZA COVID AND RSV WERE NEGATIVE. 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 SVT (supraventricular tachycardia) Osteoarthritis ANAHI on CPAP BPH (benign prostatic hyperplasia) Renal calculi Hyperlipidemia HTN (hypertension) Left hip pain Surgical History Hx of lithotripsy History of radiofrequency ablation procedure for cardiac arrhythmia H/O shoulder surgery History of back surgery H/O colonoscopy Hx of cystoscopy Social History Housing: House Are you a primary vision care associate to a significant other at home: No Do you presently have visiting nurse or other home services: No Alcohol intake: never Patient Tobacco Use Status: Never used Tobacco e-Cigarette/Vaping Use: Never Used Second Hand Smoke Exposure: Yes Advance Directives Date on File: 08/24/22 Current occupational status: 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 Current occupational exposures/hazards: No Cognitive needs: No Hearing needs: No Vision needs: No Review of Systems Const All systems reviewed & are unremarkable except as noted in HPI and below Eyes Reports dry eyes (SOMETIMES) ENT Reports nasal congestion and Reports nasal discharge Card Denies chest pain, Denies irregular heart rhythm and Denies leg edema Resp Reports as per HPI GI Reports no additional complaints Reports no additional complaints Musc Reports no additional complaints Skin/Breast Reports system reviewed and no additional complaints, except as documented Neuro Reports no additional complaints Psych Reports no additional complaints Endo Reports no additional complaints Physical Exam Vital Signs: Last Vital Signs Pulse 70 11/23/23 10:35 BP 140/70 H 11/23/23 10:35 Pulse Ox 97 11/23/23 10:35 Oxygen Delivery Method Room Air 11/23/23 10:35 BMI result Body Mass Index 26.2 Const General: healthy appearing, comfortable, no acute distress, alert and awake Orientation/consciousness: patient oriented x3 HEENT Head: Yes normal to inspection General nose exam: No nasal polyps present, No nasal discharge present and Other nasal findings present (VERY MILD NASAL CONGESTION) Face and sinus: Yes sinuses nontender Mouth: oropharynx normal Throat: Yes posterior oropharynx normal Eyes General: appearance normal, both eyes and all related structures Neck Neck: Yes normal visual inspection, Yes no lymphadenopathy, Yes trachea midline and Yes no JVD Thyroid: Thyroid normal Chest Chest palpation & inspection: normal inspection of the chest, normal palpation of entire chest wall and no tenderness Resp Effort & Inspection: normal respiratory effort Auscultation: no crackles and no wheezes Cardio Palpation: normal PMI Rate: regular rate Rhythm: regular rhythm Heart sounds: no gallops and no murmurs Peripheral pulses: Peripheral pulses 2+ throughout GI Palpation (GI): Soft to palpation, nontender, No hepatosplenomegaly present and no masses Auscultation: normal bowel sounds Back/Spine/Pelvis Cervical Spine: normal cervical lordosis Thoracic/Lumbar Spine: thoracic and lumbar spine normal to inspection Skin General skin exam: no rashes or lesions noted Neuro General: patient oriented x3 and no focal motor deficits Cranial nerves: Yes CN's II-XII intact bilaterally Extrem General: Yes normal to inspection, Yes no clubbing, cyanosis or edema and Yes no calf tenderness Psych Speech and movement: Normal speech and movement present Results Reviewed Results Reviewed: CBC ON 09/21/2021 EOSINOPHIL COUNT 8.3% ON 07/04/2023 4.9% SEROLOGY TESTS FOR INFLUENZA RSV COVID NEGATIVE. CHEST X-RAY 09-17, BRONCHIAL WALL THICKENING ESPECIALLY IN THE LOWER LOBES, NO CONSOLIDATION AND NO MASS. 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 HAS CAT AT HOME. CBC ON MANY OCCASIONS HAS SHOWN EOSINOPHILIA Code(s): J30.89 - Other allergic rhinitis Plan: STAY AWAY FROM THE CAT MUCH POSSIBLE FLONASE-50 2 SPRAY EACH NOSTRIL DAILY. CLARITIN 10 MG OR CETIRIZINE 10 MG, ONCE A DAY P.R.N.. (2) Cough: Comment: I THINK HIS COUGH IS ALLERGIC IN NATURE, HE DOES HAVE EVIDENCE OF CHRONIC EOSINOPHILIA. MAY HAVE MILD BRONCHIAL ASTHMA/REACTIVE AIRWAYS Code(s): R05.9 - Cough, unspecified Plan: COMPLETE PULMONARY FUNCTION TEST. USE COUGH DROPS P.R.N.. HOPEFULLY WITH REGULAR TREATMENT OF ALLERGIC. RHINITIS THE COUGH WILL DECREASE IF PULMONARY FUNCTION TEST SHOWS SOME OBSTRUCTIVE COMPONENT HE WILL BE TREATED FOR THAT. 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
[2023-11-23 10:35] VITALS: BP 140/70; PULSE 70; O2SAT 97; BMI 26.2
== END 2023-11-23 11:01 | disposition home or self-care (01) ==
PROVIDERS: PCP Nurse Practitioner Family; Visit Provider Internal Medicine
DX: J30.89 Other allergic rhinitis (principal); R05.9 Cough, unspecified
CPT/HCPCS: 99204

== ENCOUNTER → 2023-11-23 10:26 | Outpatient (BNVA) | payer OTHER, MEDICARE, SELFPAY | PROVIDERS: PCP Nurse Practitioner Family; Visit Provider Internal Medicine | DX: J30.89 Other allergic rhinitis (principal); R05.9 Cough, unspecified | CPT/HCPCS: 99202 ==

== ENCOUNTER 2023-12-07 09:33 | Outpatient (REF) | payer OTHER, SELFPAY ==
[2023-12-07 09:10] VITALS: PULSE 56; RESP 14; O2SAT 97
--- NOTE | 2023-12-07 10:00 | PFT_ITS ---
Indication: Cough Spirometry [FEV1 to FVC 62%; FEV1 3.2 L; FVC 5.16 L. No significant response to bronchodilators noted. Maximum voluntary ventilation that is 6% predicted.] Lung Volumes [Follow-up capacity 112% predicted] Diffusion Capacity [DLCO 103% predicted] Comparisons None Interpretation [There has an obstructive ventilatory defect consistent with mild COPD. No significant response to bronchodilators noted. Normal maximum voluntary ventilation. Lung volumes are within normal limits. Diffusing capacity also within normal limits. Clinical correlation warranted.] MTDD
== END 2023-12-07 09:34 | disposition home or self-care (01) ==
LOC: HO.RESP 09:33
PROVIDERS: PCP Nurse Practitioner Family; Visit Provider Internal Medicine
DX: J30.89 Other allergic rhinitis (principal); R05.9 Cough, unspecified
CPT/HCPCS: 94010; 94640; 94727; 94729

== ENCOUNTER 2024-01-08 11:29 | Emergency (ER) | payer OTHER, SELFPAY ==
--- NOTE | ~2024-01-08 | XR_ITS ---
EXAMINATION: XR KNEE, LEFT CLINICAL INFORMATION: Pain and swelling COMPARISON: None available. TECHNIQUE: Four views of the left knee. FINDINGS: Bone alignment is normal. No fracture or dislocation. Mild medial femoral tibial joint space narrowing. There are small osteophytes at the patellofemoral joint. There is an osteophyte at the quadriceps tendon insertion to the patella. There is a small joint effusion. There is mild atherosclerotic disease. XR/XR knee LT 4V IMPRESSION: Mild degenerative changes.
[2024-01-08 11:36] VITALS: BP 145/61; PULSE 65; RESP 16; TEMP 36.8; O2SAT 97; BMI 25.8
--- NOTE | 2024-01-08 11:37 | ED_ITS ---
HPI - Extremity Injury (Lower) General Chief Complaint: Extremity Injury, Lower Stated Complaint: Pain/swelling left knee Time Seen by Provider: 01/08/24 11:36 Source: patient and RN notes reviewed Mode of arrival: ambulatory Limitations: no limitations History of Present Illness HPI Narrative: This is a 73-year-old male, with a past medical history of hypertension, hyperlipidemia, who presents emergency department with complaints of knee pain since yesterday. Patient denies any recent trauma or injury to his left knee. States that he tried icing and taking ibuprofen without any relief. He states that he has noticed some increased swelling. Patient reports that he was seen by Orthopedic several years ago for a meniscal injury. He states that he never followed up with orthopedics after he was cleared and did not want surgery. He denies any other symptoms, denies fevers, chills, chest pain, shortness of breath, abdominal pain, nausea, vomiting or diarrhea. No other complaints or concerns at this time. MD complaint: knee injury Onset (ago): day(s) Severity: moderate Relieving factors: nothing Exacerbating factors: nothing Associated symptoms: swelling Other symptoms: none Related Data Previous Rx's ?Medication ?Instructions ?Recorded pyridoxine (vitamin B6) 50 mg 50 mg PO DAILY 90 days #90 tabs 11/19/22 tablet losartan 100 mg tablet 100 mg PO DAILY 90 days #90 tabs 07/06/23 amlodipine 5 mg tablet 5 mg PO DAILY 90 days #90 tabs 07/19/23 atenolol 25 mg tablet 25 mg PO DAILY 90 days #90 tabs 07/19/23 benzonatate 200 mg capsule 200 mg PO BID-TID PRN cough #30 08/27/23 caps simvastatin 40 mg tablet 40 mg PO BEDTIME 90 days #90 tabs 09/06/23 Allergies Allergy/AdvReac Type Severity Reaction Status Date / Time lisinopril [LISINOPRIL] Allergy Mild cough Verified 01/08/24 11:38 Review of Systems Review of Systems: Yes all other systems are reviewed and are negative Constitutional: Constitutional: Reports as per HPI [facility] Past Medical History Medical History (Updated 01/09/24 @ 00:01 by Background Yao) 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 SVT (supraventricular tachycardia) Osteoarthritis ANAHI on CPAP BPH (benign prostatic hyperplasia) Renal calculi Hyperlipidemia HTN (hypertension) Left hip pain Surgical History Hx of lithotripsy History of radiofrequency ablation procedure for cardiac arrhythmia H/O shoulder surgery History of back surgery H/O colonoscopy Hx of cystoscopy Social History Social History Housing: House Are you a primary healthcare facility administrator to a significant other at home: No Do you presently have visiting nurse or other home services: No Alcohol intake: never Patient Tobacco Use Status: Never used Tobacco e-Cigarette/Vaping Use: Never Used Second Hand Smoke Exposure: Yes Advance Directives: Yes Advance Directives on File: Yes Advance Directives Date on File: 08/24/22 Current occupational status: 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 Current occupational exposures/hazards: No Cognitive needs: No Hearing needs: No Vision needs: No Physical Exam Vital Signs: Vital Signs: Last Vital Signs Temp 97.7 F 01/08/24 13:57 Pulse 65 01/08/24 13:57 Resp 16 01/08/24 13:57 BP 137/69 01/08/24 13:57 Pulse Ox 98 01/08/24 13:57 O2 Del Method Room Air 01/08/24 13:57 BMI result Body Mass Index 25.8 Const: General: cooperative, comfortable and no acute distress Orientation/consciousness: patient oriented x3 Limitations: no limitations HEENT: Head: Yes normal to inspection, Yes normocephalic and Yes atraumatic Ears: hearing grossly normal bilaterally General nose exam: Normal external nose present Face and sinus: Yes normal facial exam Mouth: Normal oral and palatal mucosa present, oropharynx normal and moist mucous membranes Throat: Yes posterior oropharynx normal Eyes: General: appearance normal, both eyes and all related structures Eyelids: Yes eyelids normal Conjunctivae: conjunctivae normal Sclerae: sclerae normal Pupils: Equal, round and reactive pupils present EOM: EOMs intact bilaterally Neck: Neck: Yes normal visual inspection, Yes full ROM and Yes no lymphadenopathy Lymphatic: no lymphadenopathy noted Chest: Chest palpation & inspection: normal inspection of the chest Resp: Effort & Inspection: normal respiratory effort and able to speak in complete sentences Auscultation: clear to auscultation bilaterally, no crackles, no rales, no rhonchi and no wheezes Cardio: Rate: regular rate Rhythm: regular rhythm Heart sounds: S1 normal heart sound present and S2 normal heart sound present GI: Inspection: Yes normal to inspection Skin: General skin exam: no rashes or lesions noted Trauma: no lacerations or abrasions Wounds: no wounds Neuro: General: patient oriented x3 and moves all extremities Cranial nerves: Yes Equal, round and reactive pupils present Extrem: Other: Left knee with no obvious bony deformity or swelling. Crepitus felt with extension and flexion of the knee. Negative anterior-posterior drawer test, no joint laxity with varus and valgus strain. General: Yes normal to inspection Right upper extremity: normal to inspection Left upper extremity: normal to inspection Right lower extremity: normal to inspection Left lower extremity: normal to inspection Course Reevaluation(s) Reevaluation #1: xrays reviewed as degenerative changes. Reviewed findings with patient and at bedside. Given orthopedic follow-up. Educated the importance of taking ibuprofen and Tylenol as needed for pain and symptoms. Given return precautions. They understand and agree with plan. Patient stable for discharge. Medical Decision Making Medical Decision Making MDM Narrative: This is a 73-year-old male presents emergency department with complaints of left knee pain since yesterday. No recent trauma or injury. On arrival, patient mildly hypertensive at 145/61, all other vital signs within normal limits. Knee is nonedematous, nonerythematous, with no bony abnormalities seen. Given pain, will obtain x-rays to rule out any bony abnormalities. Differential diagnoses include osteoarthritis, ligamentous injury, contusion, sprain, strain, fracture- unlikely, septic joint-unlikely, bursitis. Differential Diagnosis Differential Diagnoses: The differential diagnosis associated with the presentation includes See above Admission/Observation Consideration of admission/observation: Escalation of care including admission/observation considered Escalation of care including admission/observation considered however given workup today not warranted at this time. Radiology Impression Discussion of test interpretation with radiology: I have reviewed the radiologist's reading. Radiologist Impression: EXAMINATION: XR KNEE, LEFT CLINICAL INFORMATION: Pain and swelling COMPARISON: None available. TECHNIQUE: Four views of the left knee. FINDINGS: Bone alignment is normal. No fracture or dislocation. Mild medial femoral tibial joint space narrowing. There are small osteophytes at the patellofemoral joint. There is an osteophyte at the quadriceps tendon insertion to the patella. There is a small joint effusion. There is mild atherosclerotic disease. XR/XR knee LT 4V IMPRESSION: Mild degenerative changes. Dictated By: Agustina Chan MD Discharge Plan Discharge Clinical Impression: Knee pain, left, Arthritis Patient Disposition: Home, Self-Care Instructions: Osteoarthritis (ED), Knee Pain (ED) Additional Instructions: You were seen in the emergency department due to left knee pain. Your x-ray shows degenerative changes which is likely causing you to have this pain. Take ibuprofen and/or Tylenol as needed for pain and symptoms. Rest, ice, and gentle range of motion now with your symptoms. Follow-up with hearing aid specialist for further management of your pain and symptoms. If any new or worsening symptoms occur including but not limited to worsening swelling, fevers, chills, chest pain, shortness of breath, please return for re- evaluation. Prescriptions: No Action losartan 100 mg tablet 100 mg PO DAILY 90 Days Qty: 90 3RF atenolol 25 mg tablet 25 mg PO DAILY 90 Days Qty: 90 3RF amlodipine 5 mg tablet 5 mg PO DAILY 90 Days Qty: 90 3RF simvastatin 40 mg tablet 40 mg PO BEDTIME 90 Days Qty: 90 1RF benzonatate 200 mg capsule 200 mg PO BID-TID PRN (Reason: cough) Qty: 30 0RF pyridoxine (vitamin B6) 50 mg tablet 50 mg PO DAILY 90 Days Qty: 90 3RF Referrals: [facility] Orthopedic Surgeons [Provider Group] Interventions: ED Discharge Assessment Last Done: 01/08/24 13:57 Discharge Date/Time: 01/08/24 13:58 Print Language: Scottish
[2024-01-08 13:57] VITALS: BP 137/69; PULSE 65; RESP 16; TEMP 36.5; O2SAT 98
== END 2024-01-08 13:58 | disposition home or self-care (01) ==
PROVIDERS: Emergency Provider Student in an Organized Health Care Education/Training Program; PCP Nurse Practitioner Family
DX: M17.12 Unilateral primary osteoarthritis, left knee (principal); I10 Essential (primary) hypertension
CPT/HCPCS: 73564; 99282; 99283

== ENCOUNTER 2024-01-11 13:59 | Outpatient (REF) | payer OTHER, SELFPAY ==
[2024-01-11 15:30] LABS: Baso%MD 1.1 %; Eos%MD 7.8 %; Hematocrit 39.9 % (42.0-52.0); Hemoglobin 13.4 g/dl (14.0-18.0); IG%MD 0.2 %; Lymph%MD 28.7 %; Mean Corpuscular HGB Conc 33.6 g/dl (31.0-36.0); Mean Corpuscular Hemoglobin 28.6 pg (27.0-33.0); Mean Corpuscular Volume 85.3 fL (80.0-98.0); Mean Platelet Volume 9.5 fL (9.4-12.4); Mono%MD 11.9 %; Neut%MD 50.3 %; Platelet Count 289 X10*3/uL (160-400); Red Blood Count 4.68 X10*6/uL (4.60-5.80); Red Cell Distribution Width 12.7 % (11.0-16.0); White Blood Count 6.6 X10*3/uL (4.8-10.8)
[2024-01-11 16:00] LABS: Band Neutrophils Percent 0 % (3-5); Basophils Abs Manual 0.1 X10*3/uL (0.0-0.2); Basophils Percent Manual 1 % (0-2); Eosinophils Absolute Manual 0.5 X10*3/uL (0.0-0.4); Eosinophils Percent Manual 8 % (0-4); Lymphocytes Absolute Manual 1.8 X10*3/uL (1.2-4.9); Lymphocytes Percent Manual 27 % (20-40); Monocytes Absolute Manual 0.3 X10*3/uL (0.1-1.2); Monocytes Percent Manual 4 % (2-11); Neutrophils Percent Manual 60 % (45-73)
[2024-01-11 16:03] LABS: Platelet Estimate NORMAL (NORMAL); Platelet Morphology Comment NORMAL; RBC Morphology NORMAL
[2024-01-12 23:13] LABS: Immunoglobulin E <2 kU/L (<OR=114)
== END 2024-01-11 14:00 | disposition home or self-care (01) ==
LOC: HO.LAB 13:59
PROVIDERS: PCP Nurse Practitioner Family; Visit Provider Internal Medicine
DX: D72.10 Eosinophilia, unspecified (principal); J30.89 Other allergic rhinitis
CPT/HCPCS: 36415; 82785; 85007; 85027; 99212

== ENCOUNTER 2024-01-11 13:59 | Outpatient (AMB) | payer OTHER, SELFPAY ==
[2024-01-11 14:08] VITALS: BP 140/70; PULSE 67; O2SAT 98; BMI 26.0
--- NOTE | 2024-01-11 14:08 | MHC.OFFVIS ---
Intake Vital Signs 01/11/24 14:08 Height 6 ft Weight 191 lb 12.835 oz BMI 26.0 BP 140/70 H Blood Pressure Location Lt brachial Position Sitting Pulse 67 Pulse Source Pulse Oximeter Pulse Oximetry (%) 98 Oxygen Delivery Method Room Air Intake Visit Reasons: copd Intake Note: pt is here for follow up and [facility], and we follow him for copd, and some phelgm issues that make him spit it out Immigration Services Officer Required: No Allergies lisinopril [LISINOPRIL] Allergy (Mild, Verified 01/11/24 14:31) cough Medication List - Last Reconciled 01/11/24 by Macho Armas MD amlodipine 5 mg PO DAILY 90 days atenolol 25 mg PO DAILY 90 days benzonatate 200 mg PO BID-TID PRN losartan 100 mg PO DAILY 90 days pyridoxine (vitamin B6) 50 mg PO DAILY 90 days simvastatin 40 mg PO BEDTIME 90 days Do you need a note to return to daycare/school/sports/work: No HPI copd HPI Details 73 years old very pleasant gentleman, 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 Who has a cat in the house. Has longstanding history of mild allergic rhinitis , and recently has recovered from a bout of cough going on for 10-12 weeks. At present the cough is minimal. He does not feel like using any medicine for this. He denies any wheezing. And does not have any significant shortness of breath on exertion. Once in a while he does have a hack and brings up some phlegm. 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 SVT (supraventricular tachycardia) Osteoarthritis ANAHI on CPAP BPH (benign prostatic hyperplasia) Renal calculi Hyperlipidemia HTN (hypertension) Left hip pain Surgical History Hx of lithotripsy History of radiofrequency ablation procedure for cardiac arrhythmia H/O shoulder surgery History of back surgery H/O colonoscopy Hx of cystoscopy Social History Housing: House Are you a primary out of school hours care worker to a significant other at home: No Do you presently have visiting nurse or other home services: No Alcohol intake: never Patient Tobacco Use Status: Never used Tobacco e-Cigarette/Vaping Use: Never Used Second Hand Smoke Exposure: Yes Advance Directives Date on File: 08/24/22 Current occupational status: 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 Current occupational exposures/hazards: No Cognitive needs: No Hearing needs: No Vision needs: No Review of Systems Const All systems reviewed & are unremarkable except as noted in HPI and below Eyes Reports dry eyes (SOMETIMES) ENT Reports nasal congestion and Reports nasal discharge Card Denies chest pain, Denies irregular heart rhythm and Denies leg edema Resp Reports as per HPI GI Reports no additional complaints Reports no additional complaints Musc Reports no additional complaints Skin/Breast Reports system reviewed and no additional complaints, except as documented Neuro Reports no additional complaints Psych Reports no additional complaints Endo Reports no additional complaints Physical Exam Vital Signs: Last Vital Signs Pulse 67 01/11/24 14:08 BP 140/70 H 01/11/24 14:08 Pulse Ox 98 01/11/24 14:08 Oxygen Delivery Method Room Air 01/11/24 14:08 BMI result Body Mass Index 26.0 Const General: healthy appearing, comfortable, no acute distress, alert and awake Orientation/consciousness: patient oriented x3 HEENT Head: Yes normal to inspection General nose exam: No nasal polyps present, No nasal discharge present and Other nasal findings present (VERY MILD NASAL CONGESTION) Face and sinus: Yes sinuses nontender Mouth: oropharynx normal Throat: Yes posterior oropharynx normal Eyes General: appearance normal, both eyes and all related structures Neck Neck: Yes normal visual inspection, Yes no lymphadenopathy, Yes trachea midline and Yes no JVD Thyroid: Thyroid normal Chest Chest palpation & inspection: normal inspection of the chest, normal palpation of entire chest wall and no tenderness Resp Effort & Inspection: normal respiratory effort Auscultation: no crackles and no wheezes Cardio Palpation: normal PMI Rate: regular rate Rhythm: regular rhythm Heart sounds: no gallops and no murmurs Peripheral pulses: Peripheral pulses 2+ throughout GI Palpation (GI): Soft to palpation, nontender, No hepatosplenomegaly present and no masses Auscultation: normal bowel sounds Back/Spine/Pelvis Cervical Spine: normal cervical lordosis Thoracic/Lumbar Spine: thoracic and lumbar spine normal to inspection Skin General skin exam: no rashes or lesions noted Neuro General: patient oriented x3 and no focal motor deficits Cranial nerves: Yes CN's II-XII intact bilaterally Extrem General: Yes normal to inspection, Yes no clubbing, cyanosis or edema and Yes no calf tenderness Psych Speech and movement: Normal speech and movement present Results Reviewed Results Reviewed: Pulmonary function test shows very slight decrease in FEV1/FVC ratio, c/w mild obstructive airway disorder. 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 HAS CAT AT HOME. CBC ON MANY OCCASIONS HAS SHOWN EOSINOPHILIA Code(s): J30.89 - Other allergic rhinitis Plan: Patient thoroughly educated about mild allergy problem and also about eosinophilia indicated of chronic allergic process. Most likely he is allergic to cat, house dust, and other nonspecific allergens. CBC WITH MANUAL DIFF AND IGE LEVEL ORDERED FOR FUTURE COMPARISON. PATIENT DOES NOT NEED ANY ACTIVE TREATMENT AT THIS TIME. (2) Eosinophilia: Comment: NOTED ABOVE, HE HAS HAD LOW-GRADE EOSINOPHILIA, INDICATED OF CHRONIC ALLERGIC PROBLEM. 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
== END 2024-01-11 14:30 | disposition home or self-care (01) ==
PROVIDERS: PCP Nurse Practitioner Family; Referring Provider Nurse Practitioner Family; Visit Provider Internal Medicine
DX: J30.89 Other allergic rhinitis (principal); D72.10 Eosinophilia, unspecified
CPT/HCPCS: 99213

== ENCOUNTER 2024-02-14 05:12 | Emergency (ER) | payer OTHER, SELFPAY ==
--- NOTE | ~2024-02-14 | XR_ITS ---
EXAMINATION: XR CHEST CLINICAL INFORMATION: Cough. COMPARISON: 08/27/2023 TECHNIQUE: Frontal view of the chest was obtained. FINDINGS: The cardiomediastinal silhouette is within normal limits and stable. There is a right lower lung field infiltrate. The left lung is clear. There are no significant pleural effusions. The bony structures and soft tissues are unremarkable. XR/XR chest 1V IMPRESSION: Right lower lung field infiltrate. Suspect pneumonia.
[2024-02-14 05:19] VITALS: BP 137/62; PULSE 107; RESP 18; TEMP 38.7; O2SAT 94; BMI 25.8
[2024-02-14 05:58] LABS: COVID-19 Test Negative (Negative); IDNOW Serial# 08D9AD1C; IDNOW Serial# 152EDE1D; Influenza A Negative (Negative); Influenza B2 Negative (Negative)
[2024-02-14 06:17] VITALS: BP 139/68; PULSE 106; RESP 17; TEMP 37.4; O2SAT 94
[2024-02-14 06:28] LABS: Basophils Percent Auto 0.3 % (0-2); Eosinophils Percent Auto 0.3 % (0-4); Hematocrit 35.9 % (42.0-52.0); Hemoglobin 12.2 g/dl (14.0-18.0); Imm Gran Abs Auto 0.05 X10*3/uL (0.00-0.03); Imm Gran Pct Auto 0.4 % (0.0-0.4); MANUAL DIFF FLAG NO; Mean Corpuscular Hemoglobin 29.3 pg (27.0-33.0); Mean Corpuscular Volume 86.3 fL (80.0-98.0); Mean Platelet Volume 9.1 fL (9.4-12.4); Monocytes Absolute Auto 1.1 X10*3/uL (0.1-1.2); Monocytes Percent Auto 9.6 % (2-11); Neutrophils Absolute Auto 9.3 x10*3/uL (2.0-8.3); Neutrophils Percent Auto 80.4 % (45-73); Platelet Count 231 X10*3/uL (160-400); Red Blood Count 4.16 X10*6/uL (4.60-5.80); Red Cell Distribution Width 12.4 % (11.0-16.0); White Blood Count 11.6 X10*3/uL (4.8-10.8)
[2024-02-14 06:46] LABS: Alanine Aminotransferase 17 U/L (0-40); Albumin Level 4.4 g/dL (3.5-5.0); Alkaline Phosphatase 68 U/L (39-117); Anion Gap 16 (12-20); Aspartate Amino Transferase 23 U/L (5-37); Bilirubin Total 0.7 mg/dL (0.0-1.0); Blood Urea Nitrogen 12 mg/dL (9-16); Calcium 9.3 mg/dL (8.4-10.2); Carbon Dioxide 26 mmol/L (22-29); Chloride 102 mmol/L (96-108); Creatinine Clr Calc Pharmacy 89.1; Estimated Glomerular Filt Rate > 60; Glucose Random 122 mg/dL (60-115); Potassium 3.8 mmol/L (3.3-5.1); Sodium 140 mmol/L (135-145); Total Protein 7.4 g/dL (6.5-8.0)
[2024-02-14] MEDS: Acetaminophen 325 MG TABLET 975 MG PO (06:52)
--- NOTE | 2024-02-14 06:55 | ED.GENADULT ---
HPI - General Adult General Chief complaint: Upper Respiratory Symptoms Stated complaint: n/v, body shakes Time Seen by Provider: 02/14/24 06:36 Source: patient Mode of arrival: ambulatory Limitations: no limitations History of Present Illness ED Provider: Ramandeep Zimmer PA-C HPI narrative: Patient is a 73 year old assigned male at with a history of HTN presenting to the emergency department today with nausea, nasal congestion, and a cough. Patient states that over the last week he has felt nauseous with a cough and nasal congestion. Patient denies any dizziness, lightheadedness, abdominal pain, vomiting, fever, chills, blurry vision, double vision, loss of vision, chest pain, difficulty breathing, shortness of breath, back pain, night sweats, pain with urination, increased urinary frequency, increased urinary urgency, blood in his urine or stool, syncope or a near syncopal episode, recent trauma or falls, bowel incontinence, bladder incontinence, bowel retention, bladder retention, or any other complaints at this time. Onset (ago): week(s) (1) Severity: mild Severity scale (1-10): 3 Relieving factors: none Exacerbating factors: none Associated symptoms: cough and nausea/vomiting Treatments prior to arrival: none Related Data Previous Rx's ?Medication ?Instructions ?Recorded pyridoxine (vitamin B6) 50 mg 50 mg PO DAILY 90 days #90 tabs 11/19/22 tablet losartan 100 mg tablet 100 mg PO DAILY 90 days #90 tabs 07/06/23 amlodipine 5 mg tablet 5 mg PO DAILY 90 days #90 tabs 07/19/23 atenolol 25 mg tablet 25 mg PO DAILY 90 days #90 tabs 07/19/23 benzonatate 200 mg capsule 200 mg PO BID-TID PRN cough #30 08/27/23 caps simvastatin 40 mg tablet 40 mg PO BEDTIME 90 days #90 tabs 01/26/24 amoxicillin 875 mg-potassium 1 tab PO BID 5 days #10 tabs 02/14/24 clavulanate 125 mg tablet azithromycin 250 mg tablet See Rx Instructions PO .COMPLEX #6 02/14/24 tabs Allergies Allergy/AdvReac Type Severity Reaction Status Date / Time lisinopril [LISINOPRIL] Allergy Mild cough Verified 02/14/24 05:22 Review of Systems Constitutional: Constitutional: Reports no additional constitutional complaints, Denies chills, Denies fever(s) and Denies night sweats Eyes: Eyes: Reports no additional eye complaints, Denies blurry vision, Denies change in vision, Denies diplopia, Denies eye discharge, Denies loss of vision and Denies eye pain ENT: Denies dizziness and Reports nasal congestion Cardiovascular: Cardiovascular: Reports no additional cardiovascular complaints, Denies chest pain, Denies lightheadedness, Denies Loss of Consciousness and Denies dyspnea Respiratory: Respiratory: Reports no additional respiratory complaints, Reports cough and Denies dyspnea Gastrointestinal: Gastrointestinal: Reports no additional gastrointestinal complaints, Denies abdominal pain, Denies melena, Denies hematochezia, Denies change in bowel habits, Denies change in stool character and Reports nausea Genitourinary: Genitourinary: Reports no additional male genitourinary complaints, Denies hematuria, Denies oliguria, Denies difficulty urinating, Denies dysuria, Denies urinary frequency, Denies urinary hesitancy, Denies urinary incontinence and Denies urinary urgency Musculoskeletal: Musculoskeletal: Reports no additional musculoskeletal complaints, Denies numbness and Denies tingling Neurologic: Denies dizziness, Denies loss of vision, Denies numbness and Denies tingling Psychiatric: Psychiatric: Reports no additional psychiatric complaints Endocrine: Endocrine: Reports no additional endocrine complaints Hematologic/Lymphatic: Hematologic/Lymphatic: Reports no additional hematologic/lymphatic complaints Allergic/Immunologic: Allergic/Immunologic: Reports no additional allergic/immunologic complaints [facility] Past Medical History Attestation statement: The following information was validated with the patient. 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 SVT (supraventricular tachycardia) Osteoarthritis ANAHI on CPAP BPH (benign prostatic hyperplasia) Renal calculi Hyperlipidemia HTN (hypertension) Left hip pain Surgical History Hx of lithotripsy History of radiofrequency ablation procedure for cardiac arrhythmia H/O shoulder surgery History of back surgery H/O colonoscopy Hx of cystoscopy Social History Social History Housing: House Are you a primary youth care professional to a significant other at home: No Do you presently have visiting nurse or other home services: No Alcohol intake: never Patient Tobacco Use Status: Never used Tobacco e-Cigarette/Vaping Use: Never Used Second Hand Smoke Exposure: Yes Advance Directives: Yes Advance Directives on File: Yes Advance Directives Date on File: 08/24/22 Current occupational status: 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 Current occupational exposures/hazards: No Cognitive needs: No Hearing needs: No Vision needs: No Physical Exam ED Vital Signs: Vital Signs - 24 hr 02/14/24 05:19 02/14/24 06:17 02/14/24 07:48 Temperature 101.7 F H 99.4 F 98.7 F Pulse Rate 107 H 106 H 91 Respiratory Rate 18 17 15 Blood Pressure 137/62 139/68 122/66 Pulse Oximetry 94 94 93 Oxygen Delivery Method Room Air Room Air Room Air BMI result Body Mass Index 25.8 Const General: cooperative, no acute distress, alert and awake Nutritional Appearance: well nourished Orientation/consciousness: patient oriented x3 Limitations: no limitations HENMT Head: Yes normal to inspection and Yes atraumatic Ears: hearing grossly normal bilaterally and external ears normal General nose exam: Normal external nose present, no nasal discharge noted and no epistaxis Face and sinus: Yes normal facial exam, No abrasion and No laceration Mouth: Normal oral and palatal mucosa present, no drooling and no muffled voice Eyes General: appearance normal, both eyes and all related structures Periorbital: periorbital findings normal Eyelids: Yes eyelids normal Conjunctivae: conjunctivae normal Pupils: Equal, round and reactive pupils present EOM: EOMs intact bilaterally Neck Neck: Yes normal visual inspection, Yes full ROM and Yes no lymphadenopathy Chest Chest palpation & inspection: normal inspection of the chest Resp Effort & Inspection: normal respiratory effort and able to speak in complete sentences Auscultation: diminished lung sounds on the right in the lower lung norman GI Inspection: Yes normal to inspection Neuro General: patient oriented x3 and moves all extremities Cranial nerves: Yes Equal, round and reactive pupils present Cognition (Neuro): normal cognition Motor exam (neuro): 5/5 motor strength present throughout Sensory Exam: Normal double simultaneous stimulation for sensation Coordination: [id number] test normal Extrem General: Yes normal to inspection, Yes full ROM and Yes capillary refill normal Psych Appearance: grossly normal Mental Status: mental status grossly normal Affect: normal affect Attitude: cooperative Thought process: Normal thought process present Thought content: Normal thought content present Insight: Good insight present (Psych) Medications Administered Discontinued Medications Generic Name Dose Route Start Last Admin Trade Name Pankaj PRN Reason Stop Dose Admin Acetaminophen 975 mg 02/14/24 06:07 02/14/24 06:52 Acetaminophen 325 Mg Tablet PO 02/14/24 06:08 975 mg ONCE ONE Administration Medical Decision Making Medical Decision Making [facility] Narrative: Patient is a 73 year old assigned male at with a history of HTN presenting to the emergency department today with a cough, nasal congestion, and nausea. Patient's physical exam was as noted in the physical exam portion of this note. Patient's blood work showed a mildly elevated WBC count of 11.6 but was otherwise unremarkable. Patient's chest x-ray showed right lower lobe PNA. Patient was ambulated and his pulse oximetry did not drop below 90%. Patient's clinical presentation is not consistent with sepsis (@0800). I explained my physical exam findings as well as all test results to the patient. I answered all questions asked by the patient. I stressed the importance of the patient taking his medication as prescribed. I stressed the importance of the patient following up with his primary care provider. I stressed the importance of the patient returning to the emergency department immediately if his symptoms were to worsen or if he were to develop any dizziness, shortness of breath, difficulty breathing, chest pain, blurry vision, loss of vision, nausea, vomiting, abdominal pain, fever, chills, back pain, or any other complaints. Patient verbalized agreement and understanding with this treatment plan and discharge. Differential Diagnosis Differential Diagnoses: The differential diagnosis associated with the presentation includes Pneumonia COVID-19 Influenza RSV Viral illness Admission/Observation Consideration of admission/observation: Escalation of care including admission/observation considered Patient would have been admitted to the hospital had his work up had any findings where hospital admission was appropriate and his clinical presentation warranted hospital admission. Lab Data [facility] Lab Attestation statement: I reviewed the patient's lab results. My interpretation of these results are in the MDM Rationale portion of this note. 02/14/24 06:21 02/14/24 06:21 Labs: Lab Results 02/14/24 02/14/24 Range/Units 05:28 06:21 WBC 11.6 H (4.8-10.8) X10*3/uL RBC 4.16 L (4.60-5.80) X10*6/uL Hgb 12.2 L (14.0-18.0) g/dl Hct 35.9 L (42.0-52.0) % MCV 86.3 (80.0-98.0) fL MCH 29.3 (27.0-33.0) pg MCHC 34.0 (31.0-36.0) g/dl RDW 12.4 (11.0-16.0) % Plt Count 231 (160-400) X10*3/uL MPV 9.1 L (9.4-12.4) fL Immature Gran % (Auto) 0.4 (0.0-0.4) % Neut % (Auto) 80.4 H (45-73) % Lymph % (Auto) 9.0 L (20-40) % [place] % (Auto) 9.6 (2-11) % Eos % (Auto) 0.3 (0-4) % Baso % (Auto) 0.3 (0-2) % Lymph # (Auto) 1.0 L (1.2-4.9) X10*3/uL [place] # (Auto) 1.1 (0.1-1.2) X10*3/uL Eos # (Auto) 0.0 (0.0-0.4) X10*3/uL Baso # (Auto) 0.0 (0.0-0.2) X10*3/uL Abs Immat Gran (auto) 0.05 H (0.00-0.03) X10*3/uL Absolute Neuts (auto) 9.3 H (2.0-8.3) x10*3/uL Absolute Nucleated RBC 0.000 (0.0-0.012) X10*3/uL Nucleated RBC % (auto) 0.0 (0.0-0.2) /100WBC Sodium 140 (135-145) mmol/L Potassium 3.8 (3.3-5.1) mmol/L Chloride 102 (96-108) mmol/L Carbon Dioxide 26 (22-29) mmol/L Anion Gap 16 (12-20) BUN 12 (9-16) mg/dL Creatinine 0.81 (0.5-1.4) mg/dL Estim Creat Clear Calc 89.1 Estimated GFR > 60 Random Glucose 122 H (60-115) mg/dL Calcium 9.3 (8.4-10.2) mg/dL Total Bilirubin 0.7 (0.0-1.0) mg/dL AST 23 (5-37) U/L ALT 17 (0-40) U/L Alkaline Phosphatase 68 (39-117) U/L Total Protein 7.4 (6.5-8.0) g/dL Albumin 4.4 (3.5-5.0) g/dL COVID-19 (MARISELA) Negative (Negative) COVID-19 Clin Com See Note Influenza Type A (DIANE) Negative (Negative) Influenza Type B (DIANE) Negative (Negative) Influenza A & B Note See Note Independent Interpretation I performed an independent interpretation of an: Plain X-Ray Interpretation: My interpretation is in agreement with the radiologist's impression of this imaging study. EXAMINATION: XR CHEST CLINICAL INFORMATION: Cough. COMPARISON: 08/27/2023 TECHNIQUE: Frontal view of the chest was obtained. FINDINGS: The cardiomediastinal silhouette is within normal limits and stable. There is a right lower lung field infiltrate. The left lung is clear. There are no significant pleural effusions. The bony structures and soft tissues are unremarkable. XR/XR chest 1V IMPRESSION: Right lower lung field infiltrate. Suspect pneumonia. Dictated By: Eriberto Servin Signed By: Electronically signed by Eriberto Servin 02/14/24 0542 Radiology Impression Discussion of test interpretation with radiology: I have reviewed the radiologist's reading. Prescription Management I considered prescription management with: Antibiotic (patient prescribed an antibiotic for pneumonia) Chronic Conditions Patient?s care impacted by: Hypertension Discharge Plan Discharge Clinical Impression: Pneumonia Patient Disposition: Home, Self-Care Instructions: Community Acquired Pneumonia (DC) Additional Instructions: Take your antibiotics as prescribed. Follow up with your primary care provider. Return to the emergency department immediately if your symptoms worsen or if you develop any dizziness, shortness of breath, difficulty breathing, chest pain, blurry vision, loss of vision, nausea, vomiting, abdominal pain, fever, chills, back pain, or any other complaints. Prescriptions: New amoxicillin-pot clavulanate 875-125 mg tablet 1 tab PO BID 5 Days Qty: 10 0RF azithromycin 250 mg tablet See Rx Instructions .ROUTE .COMPLEX Qty: 6 0RF Rx Instructions: For 250 mg dose pack: take 500 mg today (day 1), then 250 mg for 4 days (days 2-5) No Action losartan 100 mg tablet 100 mg PO DAILY 90 Days Qty: 90 3RF atenolol 25 mg tablet 25 mg PO DAILY 90 Days Qty: 90 3RF amlodipine 5 mg tablet 5 mg PO DAILY 90 Days Qty: 90 3RF simvastatin 40 mg tablet 40 mg PO BEDTIME 90 Days Qty: 90 3RF benzonatate 200 mg capsule 200 mg PO BID-TID PRN (Reason: cough) Qty: 30 0RF pyridoxine (vitamin B6) 50 mg tablet 50 mg PO DAILY 90 Days Qty: 90 3RF Referrals: Timothy Dee FNP-BC [Primary Care Provider] - Stand Alone Forms: Work/School Release Print Language: [place]
[2024-02-14 07:48] VITALS: BP 122/66; PULSE 91; RESP 15; TEMP 37.1; O2SAT 93
[2024-02-14] MEDS: cefTRIAXone sodium 1 GM in 0.9 % Sodium Chloride 50 ML IV (08:26)
[2024-02-14 08:29] VITALS: TEMP 36.9
--- NOTE | 2024-02-14 08:32 | PC.NURSE ---
Resumed care of patient at 0700, IV placed, 1x dose of antibiotics currently running, pt to be d/c after
[2024-02-14 08:34] LABS: Lactic Acid 0.8 mmol/L (0.5-2.0)
[2024-02-14 09:05] VITALS: BP 134/58; PULSE 79; RESP 18; TEMP 36.8; O2SAT 97
[2024-02-14 09:08] VITALS: BP 134/58; PULSE 79; RESP 20; TEMP 37.1; O2SAT 93
== END 2024-02-14 09:11 | disposition home or self-care (01) ==
PROVIDERS: Physician Assistant Medical; Student in an Organized Health Care Education/Training Program; Emergency Provider Emergency Medicine; PCP Nurse Practitioner Family
DX: J18.9 Pneumonia, unspecified organism (principal); I10 Essential (primary) hypertension; Z11.52 Encounter for screening for COVID-19
CPT/HCPCS: 36415; 71045; 80053; 83605; 85025; 87040; 87502; 87635; 96374; 99284; 99285; J0696

== ENCOUNTER 2024-02-29 10:57 | Outpatient (AMB) | payer OTHER, SELFPAY ==
--- NOTE | 2024-02-29 11:01 | A.OFFVIS_ITS ---
Vital Signs 02/29/24 11:03 Height 6 ft Weight 186 lb 4 oz BMI 25.3 BP 120/62 Blood Pressure Location Rt brachial Position Sitting Pulse 63 Pulse Source Pulse Oximeter Pulse Oximetry (%) 97 Oxygen Delivery Method Room Air Intake Visit Reasons: COPD Allergies lisinopril [LISINOPRIL] Allergy (Mild, Verified 02/29/24 11:05) cough HPI HPI COPD: Details: Timothy is pleasant 73 year old male, never smoker, with underlying eosinophilia and allergic rhinitis. At baseline, he is well controlled with no medications. Today he presents for a hospital follow up. He was recently evaluated at [facility] for decreased appetite, fatigue, nausea and productive cough. Mild leukocytosis, respiratory panel negative. CXR revealed RLL infiltrate suggestive of pneumonia. He was discharged with a zpak and augmentin x 5 days with complete resolution of symptoms. Today he reports intermittent productive cough with c lear sputum and denies wheezing, dyspnea or chest tightness. 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 SVT (supraventricular tachycardia) Osteoarthritis ANAHI on CPAP BPH (benign prostatic hyperplasia) Renal calculi Hyperlipidemia HTN (hypertension) Left hip pain Surgical History Hx of lithotripsy History of radiofrequency ablation procedure for cardiac arrhythmia H/O shoulder surgery History of back surgery H/O colonoscopy Hx of cystoscopy Social History Housing: House Are you a primary lpn care manager to a significant other at home: No Do you presently have visiting nurse or other home services: No Alcohol intake: never Patient Tobacco Use Status: Never used Tobacco e-Cigarette/Vaping Use: Never Used Second Hand Smoke Exposure: Yes Advance Directives Date on File: 08/24/22 Current occupational status: 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 Current occupational exposures/hazards: No Cognitive needs: No Hearing needs: No Vision needs: No Review of Systems Const Denies chills, Denies excessive sweating, Denies fever(s), Denies headache(s) and Denies night sweats Eyes Denies dry eyes, Denies irritation and Denies itchy eyes ENT Reports Normal hearing present, Denies headache(s), Denies nasal congestion, Denies nasal discharge, Denies post nasal drip and Denies sore throat Card Denies chest pain, Denies chest pain at rest, Denies chest pain with activity, Denies claudication, Denies leg edema, Denies dyspnea, Denies dyspnea on exertion, Denies orthopnea and Denies paroxysmal nocturnal dyspnea Resp Denies chest congestion, Denies cough, Denies excessive phlegm production, Denies pain on inspiration, Denies pain with cough, Denies dyspnea, Denies dyspnea on exertion, Denies stridor and Denies wheezing Musc Denies myalgias Neuro Reports Normal hearing present and Denies headache(s) Endo Denies excessive sweating Lewis/Lymph Denies lymphadenopathy Aller/Immun Denies itchy eyes, Denies seasonal rhinorrhea and Denies wheezing Physical Exam Vital Signs: Last Vital Signs Pulse 63 02/29/24 11:03 BP 120/62 02/29/24 11:03 Pulse Ox 97 02/29/24 11:03 Oxygen Delivery Method Room Air 02/29/24 11:03 BMI result Body Mass Index 25.3 Const General: cooperative, healthy appearing, comfortable, no acute distress, well developed and alert Orientation/consciousness: patient oriented x3 Limitations: no limitations HEENT Head: Yes normal to inspection, Yes normocephalic and Yes atraumatic Ears: hearing grossly normal bilaterally and external ears normal Eyes General: appearance normal, both eyes and all related structures Eyelids: Yes eyelids normal Sclerae: sclerae normal EOM: EOMs intact bilaterally Neck Neck: Yes normal visual inspection and Yes no lymphadenopathy Lymphatic: no lymphadenopathy noted Chest Chest palpation & inspection: normal inspection of the chest Resp Effort & Inspection: normal respiratory effort, able to speak in complete sentences, no audible wheezes, no cough, no stridor, not tachypneic, no tripod positioning and no use of accessory muscles Auscultation: clear to auscultation bilaterally Cardio Jugular venous distension: no JVD Rate: regular rate Rhythm: regular rhythm Skin Other: warm, dry General skin exam: no rashes or lesions noted Neuro General: patient oriented x3 Cranial nerves: Yes Normal hearing present Cognition (Neuro): normal cognition Gait exam (Neuro): Normal gait present Extrem General: Yes normal to inspection, Yes capillary refill normal, Yes no clubbing, cyanosis or edema and Yes no pedal edema Psych Appearance: grossly normal and well kempt Speech and movement: Normal speech and movement present and Clear speech present Affect: normal affect Attitude: cooperative Thought process: Normal thought process present Thought content: Normal thought content present Insight: Good insight present (Psych) Judgement: Good judgement present (Psych) Assessment & Plan Assessment & Plan (1) Eosinophilia: Code(s): D72.10 - Eosinophilia, unspecified Category: Medical (2) Allergic rhinitis: Code(s): J30.9 - Allergic rhinitis, unspecified Category: Medical (3) History of recent pneumonia: Code(s): Z87.01 - Personal history of pneumonia (recurrent) Category: Medical Plan Patient was recently treated for RLL pneumonia with complete resolution of symptoms. Respiratory exam unremarkable. He is aware if symptoms return to call office. Will send for repeat CXR in 6-8 weeks to assess for resolution. All questions were answered and patient is in agreement of plan. Will follow up with Dr. Armas for regularly scheduled appointment or sooner if needed. Orders: Orders XR chest 2V Today Z87.01 - Personal history of pneumonia (recurrent) Coding Level of Care Code Est Pt Level 3 (90183) Diagnoses Eosinophilia D72.10 Allergic rhinitis J30.9 History of recent pneumonia Z87.01
[2024-02-29 11:03] VITALS: BP 120/62; PULSE 63; O2SAT 97; BMI 25.3
== END 2024-02-29 11:29 | disposition home or self-care (01) ==
PROVIDERS: PCP Nurse Practitioner Family; Referring Provider Nurse Practitioner Family; Visit Provider Nurse Practitioner Family
DX: D72.10 Eosinophilia, unspecified (principal); J30.9 Allergic rhinitis, unspecified; Z87.01 Personal history of pneumonia (recurrent)
CPT/HCPCS: 99213

== ENCOUNTER → 2024-02-29 10:57 | Outpatient (BNVA) | payer OTHER, SELFPAY | PROVIDERS: PCP Nurse Practitioner Family; Visit Provider Nurse Practitioner Family | DX: D72.10 Eosinophilia, unspecified (principal); J30.9 Allergic rhinitis, unspecified; Z87.01 Personal history of pneumonia (recurrent) | CPT/HCPCS: 99212 ==

== ENCOUNTER 2024-03-11 07:28 | Emergency (ER) | payer OTHER, SELFPAY ==
[2024-03-11 07:30] VITALS: BP 112/93; PULSE 58; RESP 9; TEMP 36.6; O2SAT 99; BMI 25.8
--- NOTE | 2024-03-11 07:59 | ED.GENADULT ---
HPI - General Adult General Chief complaint: General Medical Stated complaint: itchy and irritated hand/eye area Time Seen by Provider: 03/11/24 07:41 Source: patient Mode of arrival: ambulatory Limitations: no limitations History of Present Illness ED Provider: Rosetta Rasmussen PA-C HPI narrative: This is a 73 yo male pmh allergic rhinits, eosinophilia, renal cyst, abdominal wall hernia, nephrolithiasis, HTN, hyperlipidemia, BPH presenting with concern of rash and itching on bilateral upper extremities, right side of face, and right eye x . Patient reports the itching began on after he was pulling some weeds and has been constantly itchy and starting to spread to the other arm and hand, the right side of face, and now the eye. Patient reports he is most concerned about his face and eye which began to become red and itchy yesterday. Patient has been using calamine cream to both arms which has helped mildly with the itch. Denies pain, tingling, weakness, numbness, fever, chills, change in vision or hearing. Denies pain to eye or pain with extraocular movements or drainage from eye. Denies recent travel or sick contacts. Related Data Previous Rx's ?Medication ?Instructions ?Recorded pyridoxine (vitamin B6) 50 mg 50 mg PO DAILY 90 days #90 tabs 11/19/22 tablet losartan 100 mg tablet 100 mg PO DAILY 90 days #90 tabs 07/06/23 amlodipine 5 mg tablet 5 mg PO DAILY 90 days #90 tabs 07/19/23 atenolol 25 mg tablet 25 mg PO DAILY 90 days #90 tabs 07/19/23 benzonatate 200 mg capsule 200 mg PO BID-TID PRN cough #30 08/27/23 caps simvastatin 40 mg tablet 40 mg PO BEDTIME 90 days #90 tabs 01/26/24 diphenhydramine HCl 25 mg capsule 25 mg PO TID PRN allergic reaction 03/11/24 (Benadryl) #20 caps hydrocortisone 1 % topical cream 1 appl topical BID PRN allergic 03/11/24 reaction #28.4 grams prednisone 20 mg tablet 40 mg (2 x 20 mg) PO DAILY 5 days 03/11/24 #10 tabs Allergies Allergy/AdvReac Type Severity Reaction Status Date / Time lisinopril [LISINOPRIL] Allergy Mild cough Verified 03/11/24 07:32 Review of Systems Review of Systems: Yes all other systems are reviewed and are negative [facility] Past Medical History 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 SVT (supraventricular tachycardia) Osteoarthritis ANAHI on CPAP BPH (benign prostatic hyperplasia) Renal calculi Hyperlipidemia HTN (hypertension) Left hip pain Surgical History Hx of lithotripsy History of radiofrequency ablation procedure for cardiac arrhythmia H/O shoulder surgery History of back surgery H/O colonoscopy Hx of cystoscopy Social History Social History Housing: House Are you a primary customer care specialist to a significant other at home: No Do you presently have visiting nurse or other home services: No Alcohol intake: never Patient Tobacco Use Status: Never used Tobacco e-Cigarette/Vaping Use: Never Used Second Hand Smoke Exposure: Yes Advance Directives: Yes Advance Directives on File: Yes Advance Directives Date on File: 08/24/22 Do you have a plan to hurt others: No Plan Current occupational status: 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 Appearance: Alert.? Oriented X3.? No acute distress.? Head: Normocephalic, atraumatic, no step-offs or deformities Eyes: +Erythema and mild swelling to right upper eyelid. Pupils equal, round and reactive to light.? Extraocular movements intact and pain-free ENT: Pharynx normal.??External ears normal, TMs normal bilaterally and EAC's normal. No pain with manipulation of external ears bilaterally. No mastoid tenderness. Neck: Normal inspection.? Neck supple.? CVS: Normal heart rate and rhythm.? Pulses normal.? Respiratory: No respiratory distress.? Breath sounds normal.? Abdomen: Soft and nontender.? Skin: Skin warm and dry.? +Erythema and scaling rash to bilteral upper extremities and right side of face. Excoriations present as well. Calamine lotion present on bilateral upper extremities. Extremities: No lower extremity edema.? No calf ttp. 5/5 strength to bilateral upper and lower extremities Neuro: Oriented X 3.? No motor deficit.? No sensory deficit. CN 2-12 intact Course Reevaluation(s) Reevaluation #1: Will discharge patient with prednisone, Benadryl and hydrocortisone cream. Educated patient on diagnosis and treatment plan, answered all question, patient verbalizes understanding. At this time patient will be discharged home, advised to return with new or worsening symptoms. Educated on worrisome signs and symptoms and when to return. At this time I feel comfortable discharge home. Time: 09:01 Medications Administered Discontinued Medications Generic Name Dose Route Start Last Admin Trade Name Pankaj PRN Reason Stop Dose Admin Fluorescein Sodium 1 strip 03/11/24 08:01 03/11/24 08:16 Fluorescein Sodium Strip EYE-BOTH 03/11/24 08:02 1 strip ONCE ONE Administration Medical Decision Making Medical Decision Making MDM Narrative: 0800 73 yo pmh allergic rhinits presents with itchy rash to bilateral upper extremities, right side of face and right eye. Rash since , right eye swelling/pruritis since yesterday. PE: Skin: Skin warm and dry.? +Erythema and scaling rash to bilteral upper extremities and right side of face. Excoriations present as well. Calamine lotion present on bilateral upper extremities. Eyes: +Erythema and mild swelling to right upper eyelid. Pupils equal, round and reactive to light.? Differential:Likely plant contact dermatitis. No signs of jg roque or necrotizing infection. Unlikely shingles, TEN, SJS, cellutlits. Unlikely acute threat to limb, conjunctivitis, orbital cellulitis. Plan: Fluorescein eye stain Differential Diagnosis Differential Diagnoses: The differential diagnosis associated with the presentation includes Likely plant contact dermatitis. No signs of jg roque or necrotizing infection. Unlikely shingles, TEN, SJS, cellutlits. Unlikely acute threat to limb, conjunctivitis, orbital cellulitis. Admission/Observation Consideration of admission/observation: Escalation of care including admission/observation considered Unlikely External Record Review External record reviewed: Office record, Outpatient record, Prior outpatient labs, Prior outpatient radiology, Primary care record and Outside ED record Chronic Conditions Patient?s care impacted by: Hypertension and Other (Hyperlipidemia, BPH, allergic rhinitis, eosinophilia) Critical Care Time Critical Care Time Critical Care Time: No Discharge Plan Discharge Clinical Impression: Rash Patient Disposition: Home, Self-Care Instructions: Acute Rash (ED) Additional Instructions: Take your medications as prescribed. If you were prescribed antibiotics today, it is important that you take your medication to their entirety, do not skip any doses, do not finish them early. Follow-up with your primary care provider this week. Return to the emergency department with new or worsening symptoms. In case of emergency call 911 Prescriptions: New diphenhydramine HCl [Benadryl] 25 mg capsule 25 mg PO TID PRN (Reason: allergic reaction) Qty: 20 0RF prednisone 20 mg tablet 40 mg PO DAILY 5 Days Qty: 10 0RF hydrocortisone 1 % cream 1 appl topical BID PRN (Reason: allergic reaction) Qty: 28.4 0RF No Action losartan 100 mg tablet 100 mg PO DAILY 90 Days Qty: 90 3RF atenolol 25 mg tablet 25 mg PO DAILY 90 Days Qty: 90 3RF amlodipine 5 mg tablet 5 mg PO DAILY 90 Days Qty: 90 3RF simvastatin 40 mg tablet 40 mg PO BEDTIME 90 Days Qty: 90 3RF benzonatate 200 mg capsule 200 mg PO BID-TID PRN (Reason: cough) Qty: 30 0RF pyridoxine (vitamin B6) 50 mg tablet 50 mg PO DAILY 90 Days Qty: 90 3RF Interventions: ED Discharge Assessment Last Done: 03/11/24 08:31 Discharge Date/Time: 03/11/24 08:32 Print Language: Stateless
[2024-03-11] MEDS: Fluorescein Sodium STRIP 1 STRIP EYE-BOTH (08:16)
--- NOTE | 2024-03-11 08:18 | PC.NURSE ---
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 raised areas noted on bilat forearms. Redness noted on right eye and cheek. Denies blurry vision/pain, just reporting itchiness
[2024-03-11 08:31] VITALS: BP 125/89; PULSE 85; RESP 20; TEMP 37.2; O2SAT 98
== END 2024-03-11 08:32 | disposition home or self-care (01) ==
PROVIDERS: Emergency Provider Emergency Medicine Emergency Medical Services; PCP Nurse Practitioner Family
DX: R21 Rash and other nonspecific skin eruption (principal); I10 Essential (primary) hypertension
CPT/HCPCS: 99283; 99284

== ENCOUNTER 2024-03-12 08:19 | Outpatient (REF) | payer OTHER, SELFPAY ==
--- NOTE | ~2024-03-12 | XR_ITS ---
EXAMINATION: LEFT KNEE SERIES. LIMITED RIGHT KNEE SERIES CLINICAL INFORMATION: Pain in knee. COMPARISON: None available. TECHNIQUE: AP upright both knees. 4 views of the left knee FINDINGS: LEFT KNEE: Patellofemoral compartment: Small marginal osteophytes without joint space narrowing indicative of mild osteoarthritis. Medial and lateral compartments are normal. No effusion. Arterial calcification noted. RIGHT KNEE, LIMITED AP UPRIGHT: Media and lateral compartments are normal. Patellofemoral compartment cannot be evaluated. Surrounding soft tissues, normal. XR/XR knee RT 2V IMPRESSION: LEFT KNEE: 1. Mild osteoarthritis. 2. Calcific atherosclerotic disease. RIGHT KNEE: Limited exam: No abnormality.
--- NOTE | ~2024-03-12 | XR_ITS ---
EXAMINATION: LEFT KNEE SERIES. LIMITED RIGHT KNEE SERIES CLINICAL INFORMATION: Pain in knee. COMPARISON: None available. TECHNIQUE: AP upright both knees. 4 views of the left knee FINDINGS: LEFT KNEE: Patellofemoral compartment: Small marginal osteophytes without joint space narrowing indicative of mild osteoarthritis. Medial and lateral compartments are normal. No effusion. Arterial calcification noted. RIGHT KNEE, LIMITED AP UPRIGHT: Media and lateral compartments are normal. Patellofemoral compartment cannot be evaluated. Surrounding soft tissues, normal. XR/XR knee LT 1V IMPRESSION: LEFT KNEE: 1. Mild osteoarthritis. 2. Calcific atherosclerotic disease. RIGHT KNEE: Limited exam: No abnormality.
== END 2024-03-12 08:20 | disposition home or self-care (01) ==
LOC: HO.HOSX 08:19
PROVIDERS: Visit Provider Physician Assistant
DX: M17.12 Unilateral primary osteoarthritis, left knee (principal); M25.561 Pain in right knee
CPT/HCPCS: 73560; 99212

== ENCOUNTER 2024-03-12 08:21 | Outpatient (AMB) | payer OTHER, SELFPAY ==
--- NOTE | 2024-03-12 08:33 | MHC.OFFVIS ---
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 Patient reports in December he had an episode of pain, located above his knee and at the lateral aspect of knee. He tried ibuprofen and icing with no relief. He presented to [facility] ER where xrays were taken and he was referred to orthopedics. Currently he has no pain or discomfort. 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 He reports he had an episode of pain in December where he experienced pain at the lateral aspect of his knee. He was seen at ER where x-rays were performed and he was referred to our office. He currently states he has no pain or discomfort in his knee. He has tried ibuprofen and icing with no relief. 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 SVT (supraventricular tachycardia) Osteoarthritis ANAHI on CPAP BPH (benign prostatic hyperplasia) Renal calculi Hyperlipidemia HTN (hypertension) Left hip pain Surgical History Hx of lithotripsy History of radiofrequency ablation procedure for cardiac arrhythmia H/O shoulder surgery History of back surgery H/O colonoscopy Hx of cystoscopy Social History Housing: House Are you a primary critical care unit manager to a significant other at home: No Do you presently have visiting nurse or other home services: No Alcohol intake: never Patient Tobacco Use Status: Never used Tobacco e-Cigarette/Vaping Use: Never Used Second Hand Smoke Exposure: Yes Advance Directives Date on File: 08/24/22 Current occupational status: 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 Current occupational exposures/hazards: No Cognitive needs: No Hearing needs: No Vision needs: No Review of Systems Const All systems reviewed & are unremarkable except as noted in HPI and below Physical Exam Vital Signs: BMI result Body Mass Index 25.8 Const General: cooperative, healthy appearing, comfortable, no acute distress, well developed and alert Orientation/consciousness: patient oriented x3 HEENT Head: Yes normal to inspection, Yes normocephalic and Yes atraumatic Eyes General: appearance normal, both eyes and all related structures Resp Effort & Inspection: normal respiratory effort and able to speak in complete sentences Cardio Rate: regular rate Peripheral pulses: Peripheral pulses 2+ throughout GI Palpation (GI): Soft to palpation Skin Lesions: no lesions Rashes: no rashes Neuro General: patient oriented x3 Extrem Other: Left knee: Skin intact, no erythema or joint effusion. No direct tenderness to palpation. Full ROM with crepitus. Negative John?s. No ligamentous laxity. NVI. ? Results Reviewed Results Reviewed: Xrays were obtained in the office today and personally reviewed by me of the left knee show mild pf oa Assessment & Plan Assessment & Plan (1) Osteoarthritis of left knee: Code(s): M17.12 - Unilateral primary osteoarthritis, left knee Category: Medical Plan He will continue conservative treatment as his symptoms has improved since the last several weeks. He will take OTC pain medications as needed and follow-up if symptoms arise. Orders: Orders XR knee RT 2V Today M25.569 - Pain in unspecified knee XR knee LT 1V Today M25.562 - Pain in left knee Patient Instructions: Scribed for Danae Forde PA-C, by Keith Buchanan medical library assistant, on 03/12/2024 at 8:30 AM EST.? I, Danae Forde PA-C, have personally reviewed and agree with the information entered by the scribe. Coding Level of Care Code Est Pt Level 3 (67118) Diagnoses Osteoarthritis of left knee M17.12
[2024-03-12 08:44] VITALS: BMI 25.8
== END 2024-03-12 10:33 | disposition home or self-care (01) ==
PROVIDERS: PCP Nurse Practitioner Family; Visit Provider Physician Assistant
DX: M17.12 Unilateral primary osteoarthritis, left knee (principal)
CPT/HCPCS: 99213

== ENCOUNTER 2024-05-14 08:44 | Outpatient (AMB) | payer MEDICARE, SELFPAY ==
--- NOTE | 2024-05-14 08:52 | AM.OFFWIN_ITS ---
Intake Vital Signs 05/14/24 08:53 Height 6 ft Weight 184 lb BMI 25.0 BP 124/82 Blood Pressure Location Lt brachial Position Sitting Pulse 73 Pulse Source Pulse Oximeter Temp 98.2 F Temp Source Oral Pulse Oximetry (%) 97 Oxygen Delivery Method Room Air Intake Visit Reasons: EP- Rash on hands and arms, very itchy Intake Note: pt c/o rash on hands and arms. Started Saturday 05/05 Patient Tobacco Use Status: Never used Tobacco Allergies lisinopril [LISINOPRIL] Allergy (Mild, Verified 05/14/24 08:57) cough Do you need a note to return to daycare/school/sports/work: No HPI EP- Rash on hands and arms, very itchy HPI Details This note is constructed using voice recognition software. While every effort has been made to ensure accuracy, bean roaster errors may have been included. The patient is a 74 year old male who presents to the clinic today with Rash for the past 10 days. He reports that he had been exposed to poison jericho, and immediately developed a rash, he had been treating it at home with calamine lotion but it seems to not be improving. He tried [id number] tech new which seems to help some but not resolve the rash. The areas itchy, making it difficult to sleep. He denies fever, chills. He has not had any exposures to any new soaps, lotions, detergents, or other items. He reports that he has required prednisone in the past for poison jericho exposure as he typically has excessive response to poison jericho. 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 SVT (supraventricular tachycardia) Osteoarthritis ANAHI on CPAP BPH (benign prostatic hyperplasia) Renal calculi Hyperlipidemia HTN (hypertension) Left hip pain Surgical History Hx of lithotripsy History of radiofrequency ablation procedure for cardiac arrhythmia H/O shoulder surgery History of back surgery H/O colonoscopy Hx of cystoscopy Social History Housing: House Are you a primary customer care assistant to a significant other at home: No Do you presently have visiting nurse or other home services: No Alcohol intake: never Patient Tobacco Use Status: Never used Tobacco e-Cigarette/Vaping Use: Never Used Second Hand Smoke Exposure: Yes Advance Directives Date on File: 08/24/22 Current occupational status: 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 Current occupational exposures/hazards: No Cognitive needs: No Hearing needs: No Vision needs: No Review of Systems Const All systems reviewed & are unremarkable except as noted in HPI and below Physical Exam Vital Signs: Last Vital Signs Temp 98.2 F 05/14/24 08:53 Pulse 73 05/14/24 08:53 BP 124/82 05/14/24 08:53 Pulse Ox 97 05/14/24 08:53 Oxygen Delivery Method Room Air 05/14/24 08:53 BMI result Body Mass Index 25.0 Const General: cooperative, healthy appearing, comfortable and no acute distress Orientation/consciousness: patient oriented x3 Limitations: no limitations HEENT Head: Yes normal to inspection Eyes General: appearance normal, both eyes and all related structures Resp Effort & Inspection: normal respiratory effort and able to speak in complete sentences Skin Other: A streaky, linear maculopapular rash with crusted lesions on bilateral hands and lower and upper arms, with signs of excoriation to the hands bilaterally. No signs of secondary bacterial infection. Neuro General: patient oriented x3 Assessment & Plan Assessment & Plan (1) Poison jericho dermatitis: Code(s): L23.7 - Allergic contact dermatitis due to plants, except food Plan: Prednisone with taper prescribed for symptomatic management. Advised patient to use tech new within exposure and aware long sleeve with potential exposure to poison jericho in the future. Advised patient to follow up with worsening including any signs of secondary bacterial infection such as erythematous streaking, or change in discharge. Plan See above for full details and plan. Medications: New prednisone see taper instructions: 5 pills daily for 2 days, then 4 pills daily for 2 days, then 3 pills daily for 2 days, then 2 pills daily for 2 days, then 1 pill daily for 2 days. 10 mg PO DIRECTED 30 tabs 0RF Coding Level of Care Code Est Pt Level 3 (49700) Diagnoses Poison jericho dermatitis L23.7
[2024-05-14 08:53] VITALS: BP 124/82; PULSE 73; TEMP 36.8; O2SAT 97; BMI 25.0
== END 2024-05-14 09:18 | disposition home or self-care (01) ==
PROVIDERS: PCP Nurse Practitioner Family; Visit Provider Registered Nurse
DX: L23.7 Allergic contact dermatitis due to plants, except food (principal)
CPT/HCPCS: 99213

== ENCOUNTER 2024-06-16 07:56 | Emergency (ER) | payer OTHER, SELFPAY ==
--- NOTE | ~2024-06-16 | XR_ITS ---
EXAMINATION: XR CHEST CLINICAL INFORMATION: cough, sob COMPARISON: Chest radiograph 02/14/2024 TECHNIQUE: 2 views of the chest FINDINGS: Lines and tubes: None. Persistent right lower lobe consolidation though improved from 02/14/2024. No pleural effusion. No pneumothorax. Normal cardiomediastinal silhouette. XR/XR chest 2V IMPRESSION: Persistent right lower lobe consolidation though improved from 02/14/2024, possibly reflective of a recurrent or residual pneumonia or aspiration in the appropriate clinical setting however given the findings have not entirely resolved consider either short interval follow-up radiographs in 6-8 weeks to ensure resolution if findings are clinically favored to reflect a recurrent infection or contrast-enhanced CT chest to ensure no underlying lesion. Electronically signed by: Kaykay Esteban MD 06/16/2024 11:02 AM EDT
[2024-06-16 08:06] VITALS: BP 153/70; PULSE 102; RESP 20; TEMP 37.9; O2SAT 96; BMI 25.2
--- NOTE | 2024-06-16 08:55 | ED_ITS ---
HPI - General Adult General Chief complaint: Upper Respiratory Symptoms Stated complaint: fever Time Seen by Provider: 06/16/24 08:54 Source: patient and RN notes reviewed Mode of arrival: ambulatory Limitations: no limitations History of Present Illness ED Provider: Kusum Colbert PA-C HPI narrative: This is a 74-year-old male, with a history of eosinophilia, SVT with ablation, ANAHI, BPH, hypertension, and hyperlipidemia, who presents emergency department with complaints of low-grade fevers, productive cough with brown/bolaños sputum, chills, sore throat, hoarse voice, decreased appetite, headache, increased fatigue since . Patient received his COVID and flu shot on Tuesday. Patient reports that last night he slept from 9:[address] to 6:[address] through, which is very typical of him. He states that he has also had shortness of breath. He denies any chest pain. He has been taking DayQuil as well as Tylenol intermittently, last dose was last night which provided him with some relief. No other complaints or concerns at this time. MD complaint: Cough, SOB Onset (ago): day(s) Relieving factors: none Exacerbating factors: none Associated symptoms: cough, fever/chills, headaches, loss of appetite and shortness of breath Treatments prior to arrival: none Related Data Previous Rx's ?Medication ?Instructions ?Recorded pyridoxine (vitamin B6) 50 mg 50 mg PO DAILY 90 days #90 tabs 11/19/22 tablet simvastatin 40 mg tablet 40 mg PO BEDTIME 90 days #90 tabs 01/26/24 losartan 100 mg tablet 100 mg PO DAILY 90 days #90 tabs 03/15/24 amlodipine 5 mg tablet 5 mg PO DAILY 90 days #90 tabs 04/12/24 atenolol 25 mg tablet 25 mg PO DAILY 90 days #90 tabs 04/12/24 prednisone 10 mg tablet 10 mg PO DIRECTED #30 tabs 05/14/24 amoxicillin 875 mg-potassium 1 tab PO BID 7 days #14 tabs 06/16/24 clavulanate 125 mg tablet doxycycline hyclate 100 mg capsule 100 mg PO BID 5 days #10 caps 06/16/24 Allergies Allergy/AdvReac Type Severity Reaction Status Date / Time lisinopril [LISINOPRIL] Allergy Mild cough Verified 06/16/24 08:09 Review of Systems Review of Systems: Yes all other systems are reviewed and are negative Constitutional: Constitutional: Reports as per [facility] Past Medical History Attestation statement: The following information was validated with the patient. 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 SVT (supraventricular tachycardia) Osteoarthritis ANAHI on CPAP BPH (benign prostatic hyperplasia) Renal calculi Hyperlipidemia HTN (hypertension) Left hip pain Surgical History Hx of lithotripsy History of radiofrequency ablation procedure for cardiac arrhythmia H/O shoulder surgery History of back surgery H/O colonoscopy Hx of cystoscopy Social History Social History Housing: House Are you a primary cattle care worker to a significant other at home: No Do you presently have visiting nurse or other home services: No Alcohol intake: never Patient Tobacco Use Status: Never used Tobacco e-Cigarette/Vaping Use: Never Used Second Hand Smoke Exposure: Yes Advance Directives: Yes Advance Directives on File: Yes Advance Directives Date on File: 08/24/22 Current occupational status: 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 Current occupational exposures/hazards: No Cognitive needs: No Hearing needs: No Vision needs: No Physical Exam ED Vital Signs: Vital Signs - 24 hr 06/16/24 08:06 06/16/24 10:00 06/16/24 10:00 Temperature 100.3 F 100.1 F Pulse Rate 102 H 96 Respiratory Rate 20 18 Blood Pressure 153/70 H 123/55 L Pulse Oximetry 96 99 99 Oxygen Delivery Method Room Air Room Air Room Air 06/16/24 11:45 Temperature 100.1 F Pulse Rate 90 Respiratory Rate 18 Blood Pressure 122/64 Pulse Oximetry 97 Oxygen Delivery Method Room Air BMI result Body Mass Index 25.2 Const General: cooperative, comfortable and no acute distress Orientation/consciousness: patient oriented x3 Limitations: no limitations HENMT Head: Yes normal to inspection, Yes normocephalic and Yes atraumatic Ears: hearing grossly normal bilaterally General nose exam: Normal external nose present Face and sinus: Yes normal facial exam Mouth: Normal oral and palatal mucosa present, oropharynx normal and moist mucous membranes Throat: Yes posterior oropharynx normal Eyes General: appearance normal, both eyes and all related structures Eyelids: Yes eyelids normal Conjunctivae: conjunctivae normal Sclerae: sclerae normal Pupils: Equal, round and reactive pupils present EOM: EOMs intact bilaterally Neck Neck: Yes normal visual inspection, Yes full ROM and Yes no lymphadenopathy Lymphatic: no lymphadenopathy noted Chest Chest palpation & inspection: normal inspection of the chest Resp Other: Rhonchorous breath sounds with wheezes noted throughout all lung norman, with frequent wet cough noted Effort & Inspection: normal respiratory effort and able to speak in complete sentences Cardio Rate: regular rate Rhythm: regular rhythm Heart sounds: S1 normal heart sound present and S2 normal heart sound present GI Inspection: Yes normal to inspection Skin General skin exam: no rashes or lesions noted Trauma: no lacerations or abrasions Wounds: no wounds Neuro General: patient oriented x3 and moves all extremities Cranial nerves: Yes Equal, round and reactive pupils present Extrem General: Yes normal to inspection Right upper extremity: normal to inspection Left upper extremity: normal to inspection Right lower extremity: normal to inspection Left lower extremity: normal to inspection Course Reevaluation(s) Reevaluation #1: Chest x-rays reviewed, there is a persistent right lower lobe consolidation improved from 02/13, unclear if this is recurrent or residual pneumonia or aspiration. I discussed with patient, he states that he took his full course of antibiotics back in January however did not follow-up with his PCP as he was unable to make his appointment. Given that patient's symptoms started several days ago, this is likely a recurrent/new pneumonia. Will treat with double coverage antibiotics. He will follow-up with his primary care physician, I advised patient to call on Tuesday. He was given strict return precautions. Given he is afebrile, vital signs within normal limits, I believe that it is safe for him to be discharged home however given strict return precautions if any new or worsening symptoms occur. Lung sounds have improved, now clear to auscultation, patient not requiring any updrafts in the department today. Patient stable for discharge. Medical Decision Making Medical Decision Making [facility] Narrative: This is a 74-year-old male, with a history of hypertension, hyperlipidemia, BPH, ANAHI, who presents emergency department with complaints of cough with yellow- colored sputum, shortness for breath, subjective fevers and chills, decreased appetite, increased fatigue, headaches for the last 2 days. Patient received his COVID and flu shot on Tuesday. On arrival, blood pressure slightly elevated at 153/70, pulse 102, temperature a 100.3?. Repeat temperature is performed by me, blood pressure 123/55, 99% on room air, heart rate 96, temperature 100.1?F. Differential diagnoses include pneumonia, URI, viral syndrome. Less likely CHF. He has no history of COPD or asthma. Given rhonchorous lung sounds, I believe patient would benefit from an updraft. Chest x-ray and viral swabs also performed. Differential Diagnosis Differential Diagnoses: The differential diagnosis associated with the presentation includes See above Lab Data MDM Lab Attestation statement: I reviewed the patient's lab results. Negative viral swabs Labs: Lab Results 06/16/24 Range/Units 08:14 Influenza Type A (PCR) NEGATIVE (Negative) Influenza Type B (PCR) NEGATIVE (Negative) RSV RNA Qual (PCR) NEGATIVE (Negative) SARS-CoV-2 RNA (RT-PCR) NEGATIVE (Negative) Independent Interpretation I performed an independent interpretation of an: Plain X-Ray Interpretation: I reviewed the chest x-ray and agree with the radiology report. Radiology Impression Discussion of test interpretation with radiology: I have reviewed the radiologist's reading. Radiologist Impression: XR/XR chest 2V IMPRESSION: Persistent right lower lobe consolidation though improved from 02/14/2024, possibly reflective of a recurrent or residual pneumonia or aspiration in the appropriate clinical setting however given the findings have not entirely resolved consider either short interval follow-up radiographs in 6-8 weeks to ensure resolution if findings are clinically favored to reflect a recurrent infection or contrast-enhanced CT chest to ensure no underlying lesion. Electronically signed by: Kaykay Esteban MD 06/16/2024 11:02 AM EDT RP Dictated By: Kaykay Esteban MD Discharge Plan Discharge Clinical Impression: Pneumonia Qualifiers: Laterality: right Lung location: lower lobe of lung Patient Disposition: Home, Self-Care Instructions: Pneumonia (ED) Additional Instructions: You were seen in the emergency department due to cough. Your chest x-ray is concerning for a recurrent or residual pneumonia. You tested negative for COVID, flu, and RSV today. Please take prescribed antibiotic as directed. Finish the entire course even if you are feeling better. Drink plenty of fluids get plenty of rest. You need to follow-up with your primary care physician as I am recommending to have repeat chest x-ray performed in 6-8 weeks to ensure resolution. Take Tylenol as needed for fevers. If any new or worsening symptoms occur including but not limited to high fevers not responding to Tylenol, difficulty breathing, chest pain, please seek emergent care. Prescriptions: New amoxicillin-pot clavulanate 875-125 mg tablet 1 tab PO BID 7 Days Qty: 14 0RF doxycycline hyclate 100 mg capsule 100 mg PO BID 5 Days Qty: 10 0RF No Action simvastatin 40 mg tablet 40 mg PO BEDTIME 90 Days Qty: 90 3RF losartan 100 mg tablet 100 mg PO DAILY 90 Days Qty: 90 1RF amlodipine 5 mg tablet 5 mg PO DAILY 90 Days Qty: 90 1RF atenolol 25 mg tablet 25 mg PO DAILY 90 Days Qty: 90 1RF prednisone 10 mg tablet 10 mg PO DIRECTED Qty: 30 0RF Rx Instructions: see taper instructions: 5 pills daily for 2 days, then 4 pills daily for 2 days, then 3 pills daily for 2 days, then 2 pills daily for 2 days, then 1 pill daily for 2 days. pyridoxine (vitamin B6) 50 mg tablet 50 mg PO DAILY 90 Days Qty: 90 3RF Stand Alone Forms: Work/School Release Interventions: ED Discharge Assessment Last Done: 06/16/24 11:45 Discharge Date/Time: 06/16/24 11:46 Print Language: Croatian
[2024-06-16 08:58] LABS: Influenza A PCR NEGATIVE (Negative); Influenza B PCR NEGATIVE (Negative); Resp Syncy Virus RNA Qual PCR NEGATIVE (Negative); SARS COV2 PCR INHOUSE NEGATIVE (Negative)
[2024-06-16 10:00] VITALS: BP 123/55; PULSE 96; RESP 18; TEMP 37.8; O2SAT 99
[2024-06-16 11:45] VITALS: BP 122/64; PULSE 90; RESP 18; TEMP 37.8; O2SAT 97
== END 2024-06-16 11:46 | disposition home or self-care (01) ==
PROVIDERS: Emergency Provider Emergency Medicine; PCP Nurse Practitioner Family
DX: J18.9 Pneumonia, unspecified organism (principal); R50.9 Fever, unspecified; R05.9 Cough, unspecified; Z03.818 Encounter for observation for suspected exposure to other biological agents ruled out; I10 Essential (primary) hypertension; E78.5 Hyperlipidemia, unspecified
CPT/HCPCS: 0241U; 71046; 99283; 99284

== ENCOUNTER 2024-07-05 09:56 | Outpatient (AMB) | payer MEDICARE, SELFPAY ==
--- NOTE | 2024-07-05 10:10 | MHC.PC.OV ---
Vital Signs 07/05/24 10:11 Height 6 ft Weight 184 lb 2 oz BMI 25.0 BP 122/66 Blood Pressure Location Lt brachial Position Sitting Pulse 86 Pulse Source Pulse Oximeter Pulse Oximetry (%) 98 Oxygen Delivery Method Room Air Intake Visit Reasons: Annual PE Intake Note: pt is here for PE Allergies lisinopril [LISINOPRIL] Allergy (Mild, Verified 07/05/24 10:30) cough Medication List - Last Reconciled 07/05/24 by RICARDO De Jesus amlodipine 5 mg PO DAILY 90 days atenolol 25 mg PO DAILY 90 days pyridoxine (vitamin B6) 50 mg PO DAILY 90 days simvastatin 40 mg PO BEDTIME 90 days valsartan 160 mg PO DAILY Tobacco use date assessed: 07/05/24 Fall risk assessment: No Falls in past year Last assessed Fall Risk: 07/05/24 Dental Screening Dental Screen Date: 07/05/24 Did you have a dental visit in the last 12 months?: Yes Did you have a dental problem in the last 6 months where you did not have access to dental care?: No Was dental information given to patient?: Patient has dentist HPI Annual PE HPI Details Pt is here for a PE. [facility] Will order labs. Colon screen is up to date. Due for PSA, will order. Denies dribbling with urination, weak stream, and frequent nocturia. Pt was recently treated for pneumonia (see hospital documentation). He is doing mostly better today. Will order a follow up chest CT. 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 SVT (supraventricular tachycardia) Osteoarthritis ANAHI on CPAP BPH (benign prostatic hyperplasia) Renal calculi Hyperlipidemia HTN (hypertension) Left hip pain Surgical History Hx of lithotripsy History of radiofrequency ablation procedure for cardiac arrhythmia H/O shoulder surgery History of back surgery H/O colonoscopy Hx of cystoscopy Social History Housing: House Are you a primary resident care provider to a significant other at home: No Do you presently have visiting nurse or other home services: No Alcohol intake: never Patient Tobacco Use Status: Never used Tobacco e-Cigarette/Vaping Use: Never Used Second Hand Smoke Exposure: Yes Advance Directives Date on File: 08/24/22 Current occupational status: 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 1. Little interest or pleasure in doing things: not at all 2. Feeling down, depressed, or hopeless: not at all 3. Trouble falling or staying asleep, or sleeping too much: not at all 4. Feeling tired or having little energy: not at all 5. Poor appetite or overeating: not at all 6. Feeling bad about yourself - or that you are a failure or have let yourself or your family down: not at all 7. Trouble concentrating on things, such as reading the newspaper or watching television: not at all 8. Moving or speaking so slowly that other people could have noticed. Or the opposite - being so fidgety or restless that you have been moving around a lot more than usual: not at all 9. Thoughts that you would be better off or of hurting yourself in some way: not at all Total score: 0 Depression Screening Interpretation: Negative Depression Screening Done: Yes 65766 - PHQ-9 Billing: Yes Source: Developed by Drs. Eriberto Fermin, Nicol Baeza, Moe Cunningham and colleagues, with an educational roxie from [employer]. Thrive Questionnaire Date Thrive assessed: 07/05/24 I am a: Patient What is your living situation today?: I have a steady place to live Within the past 12 months, did the food you bought not last and you didn't have the money to get more?: Never true Within the past 12 months, did you worry whether your food would run out before you got money to buy more?: Never true Do you have trouble paying for medicines?: No Do you have trouble getting transportation to medical appointments?: No Do you have trouble paying your heating and electricity bill?: No Do you have trouble taking care of your child, family member or friend?: No Do you have trouble with day-to-day activities such as bathing, preparing meals, shopping, managing finances, etc.?: No Are you interested in more education?: No Please select the resources that you would like help with: None Currently or been in a relationship where the following occur: No concerns reported THRIVE Score: 0 AUDIT C Alcohol Use Questionnaire (AUDIT-C) 1. How often do you have a drink containing alcohol?: Never 3. How often do you have six or more drinks on one occasion?: Never Total Score: 0 Score Reviewed/Action Taken: Yes JUSTINA-7 AMB Questionnaire JUSTINA-7 Date JUSTINA - 7 assessed: 07/05/24 Feeling nervous, anxious, or on edge: 0 = Not at all Not being able to stop or control worryin = Not at all Worrying too much about different things: 0 = Not at all Trouble relaxin = Not at all Being so restless that it is hard to sit still: 0 = Not at all Becoming easily annoyed or irritable: 0 = Not at all Feeling afraid as if something awful might happen: 0 = Not at all Total JUSTINA-7 score (0-4 normal; 5-9 mild; 10-14 moderate; 15-21 severe): 0 Source: Developed by Drs. Eriberto Fermin, Nicol Baeza, Moe Cunningham and colleagues, with an educational roxie from [employer]. JUSTINA-7 Assessment Billing JUSTINA-7 Assessment Tool: JUSTINA-7 Assessment 82118 Review of Systems Const Denies chills and Denies fever(s) Eyes Denies blurry vision ENT Denies vertigo, Denies dizziness and Denies sore throat Card Denies chest pain at rest, Denies chest pain with activity, Denies diaphoresis, Denies dyspnea and Denies dyspnea on exertion Resp Denies cough, Denies dyspnea, Denies dyspnea on exertion and Denies wheezing GI Denies abdominal pain, Denies melena, Denies hematochezia, Denies constipation, Denies diarrhea and Denies loose stools Denies hematuria Musc Denies numbness and Denies tingling Skin/Breast Denies lesions Neuro Denies vertigo, Denies dizziness, Denies numbness and Denies tingling Psych Denies anxiety, Denies depression, Denies homicidal ideation, Denies suicidal ideation and Denies other (substance abuse) Aller/Immun Denies wheezing Physical exam (Primary Care) Vital Signs: Last Vital Signs Pulse 86 07/05/24 10:11 BP 122/66 07/05/24 10:11 Pulse Ox 98 07/05/24 10:11 Oxygen Delivery Method Room Air 07/05/24 10:11 BMI result Body Mass Index 25.0 Tobacco/Smoking Status: Tobacco use Status Tobacco use date assessed 07/05/24 07/05/24 10:15 Patient Tobacco Use Status Never used Tobacco 07/05/24 10:11 e-Cigarette/Vaping Use Never Used 07/05/24 10:11 PHQ-9: PHQ-9 Score PHQ-9: Total score 0 07/05/24 10:16 Depression Screening Interpretation: Negative Thrive Assessment: Date of Thrive Assessment Date Thrive assessed 07/05/24 07/05/24 10:15 Currently or been in a relationship where the following occur: No concerns reported Const General: cooperative Nutritional Appearance: well nourished Orientation/consciousness: patient oriented x3 HENMT Head: Yes normal to inspection, Yes normocephalic and Yes atraumatic Ears: TM's normal bilaterally Eyes General: appearance normal, both eyes and all related structures Alignment and Position: alignment normal and position normal Neck Neck: Yes normal visual inspection, Yes no lymphadenopathy and Yes supple Resp Other: lungs slightly diminished though moving air Effort & Inspection: normal respiratory effort Cardio Rate: regular rate Rhythm: regular rhythm Heart sounds: S1 normal heart sound present, S2 normal heart sound present and no murmurs GI Palpation (GI): Soft to palpation and nontender Auscultation: normal bowel sounds Other: refused MARGARET Male General Exam: Yes normal external exam Penis: normal penis Scrotum: scrotum normal, testes descended bilaterally and no inguinal hernias Testes: no testicular mass Skin Rashes: no rashes Neuro General: patient oriented x3, moves all extremities, no focal motor deficits and deep tendon reflexes 2+ bilaterally Romberg Test: Negative Psych Appearance: grossly normal Mental Status: mental status grossly normal Speech and movement: Normal speech and movement present Affect: normal affect Attitude: cooperative Thought process: Normal thought process present Thought content: Normal thought content present Insight: Good insight present (Psych) Judgement: Good judgement present (Psych) Coding Level of Care Code Est Pt Prev Care >65y(89878) Diagnoses Pneumonia J18.9 Encounter for routine adult physical exam with abnormal findings Z00.01 Vitamin D deficiency E55.9 Screening PSA (prostate specific antigen) Z12.5 SVT (supraventricular tachycardia) I47.10 Additional Codes JUSTINA-7 Assessment Billing - JUSTINA-7 Assessment Tool: JUSTINA-7 Assessment [id number] ([id number]) Assessment & Plan Assessment & Plan (1) Pneumonia: Code(s): J18.9 - Pneumonia, unspecified organism Category: Medical Plan: CT ordered (2) Encounter for routine adult physical exam with abnormal findings: Code(s): Z00.01 - Encounter for general adult medical examination with abnormal findings Category: Medical Plan: Labs ordered (3) Vitamin D deficiency: Code(s): E55.9 - Vitamin D deficiency, unspecified Category: Medical Plan: Vitamin D ordered (4) Screening PSA (prostate specific antigen): Code(s): Z12.5 - Encounter for screening for malignant neoplasm of prostate Category: Medical Plan: PSA ordered (5) SVT (supraventricular tachycardia): Comment: 2006 w/ablation-no problems since Code(s): I47.10 - Supraventricular tachycardia, unspecified Category: Medical Plan: treated in 2006, pt denies any symptoms since Plan The patient agreed to the use of a er medical technician for this encounter. Scribed for IRISH Jara by Daniela Craig er medical technician, on 07/05/2024 at 10:30 EST. Orders: Orders CT chest wo IV con 2 Weeks J18.9 - Pneumonia, unspecified organism TSH reflex Free T4 Today J18.9 - Pneumonia, unspecified organism, Z00.01 - Encounter for general adult medical examination with abnormal findings Complete Blood Count Auto Diff Today J18.9 - Pneumonia, unspecified organism, Z00.01 - Encounter for general adult medical examination with abnormal findings Comprehensive [place]. Panel Fast Today J18.9 - Pneumonia, unspecified organism, Z00.01 - Encounter for general adult medical examination with abnormal findings UA CC w/rflx Micro + Cult Today J18.9 - Pneumonia, unspecified organism, Z00.01 - Encounter for general adult medical examination with abnormal findings Lipid Panel Today J18.9 - Pneumonia, unspecified organism, Z00.01 - Encounter for general adult medical examination with abnormal findings Vitamin D 25-OH Total Today E55.9 - Vitamin D deficiency, unspecified Prostate Specific Antigen Scr Today Z12.5 - Encounter for screening for malignant neoplasm of prostate
[2024-07-05 10:11] VITALS: BP 122/66; PULSE 86; O2SAT 98; BMI 25.0
== END 2024-07-05 11:01 | disposition home or self-care (01) ==
PROVIDERS: PCP Nurse Practitioner Family; Visit Provider Nurse Practitioner Family
DX: Z00.00 Encounter for general adult medical examination without abnormal findings (principal); I47.10 Supraventricular tachycardia, unspecified; J18.9 Pneumonia, unspecified organism; E55.9 Vitamin D deficiency, unspecified; Z12.5 Encounter for screening for malignant neoplasm of prostate

== ENCOUNTER → 2024-07-05 09:56 | Outpatient (BNVA) | payer MEDICARE, SELFPAY | PROVIDERS: PCP Nurse Practitioner Family; Visit Provider Nurse Practitioner Family | DX: Z00.01 Encounter for general adult medical examination with abnormal findings (principal); J18.9 Pneumonia, unspecified organism; E55.9 Vitamin D deficiency, unspecified; I47.10 Supraventricular tachycardia, unspecified | CPT/HCPCS: 96127; 99397 ==

== ENCOUNTER 2024-07-07 06:33 | Outpatient (REF) | payer MEDICARE, SELFPAY ==
[2024-07-07 11:08] LABS: MANUAL DIFF FLAG NO
[2024-07-07 11:11] LABS: Basophils Absolute Auto 0.1 X10*3/uL (0.0-0.2); Basophils Percent Auto 0.7 % (0-2); Eosinophils Absolute Auto 0.6 X10*3/uL (0.0-0.4); Imm Gran Abs Auto 0.01 X10*3/uL (0.00-0.03); Imm Gran Pct Auto 0.1 % (0.0-0.4); Lymphocytes Absolute Auto 1.5 X10*3/uL (1.2-4.9); Lymphocytes Percent Auto 22.6 % (20-40); Mean Corpuscular HGB Conc 33.3 g/dl (31.0-36.0); Mean Corpuscular Hemoglobin 28.9 pg (27.0-33.0); Mean Corpuscular Volume 86.7 fL (80.0-98.0); Mean Platelet Volume 9.6 fL (9.4-12.4); Monocytes Absolute Auto 0.7 X10*3/uL (0.1-1.2); Monocytes Percent Auto 10.9 % (2-11); Neutrophils Absolute Auto 3.8 x10*3/uL (2.0-8.3); Neutrophils Percent Auto 56.7 % (45-73); Platelet Count 296 X10*3/uL (160-400); Red Cell Distribution Width 12.8 % (11.0-16.0); White Blood Count 6.7 X10*3/uL (4.8-10.8)
[2024-07-07 11:26] LABS: Appearance Urine Clear; Color Urine Yellow; Glucose Urine UA Negative (Negative); Leukocyte Esterase Urine Moderate (2+) (Negative); Nitrite Urine Negative (Negative); Specific Gravity - Urine 1.015 (1.005-1.025); UMIC TRIGGER UACC YES; Urine Blood Negative (Negative); Urine Ketones Negative (Negative); Urine Protein Negative (Neg-Trace)
[2024-07-07 11:31] LABS: Alanine Aminotransferase 21 U/L (0-40); Albumin Level 4.6 g/dL (3.5-5.0); Alkaline Phosphatase 73 U/L (39-117); Anion Gap 13 (12-20); Aspartate Amino Transferase 18 U/L (5-37); Bilirubin Total 0.8 mg/dL (0.0-1.0); Blood Urea Nitrogen 9 mg/dL (9-16); Calcium 9.8 mg/dL (8.4-10.2); Carbon Dioxide 30 mmol/L (22-29); Chloride 104 mmol/L (96-108); Cholesterol 125 mg/dL (<200); Estimated Glomerular Filt Rate > 60; Glucose Fasting 109 mg/dL (60-99); HDL Cholesterol 40 mg/dL (>40); LDL Cholesterol Calculated 64 mg/dL (<100); Potassium 4.3 mmol/L (3.3-5.1); Sodium 143 mmol/L (135-145); Total Protein 7.3 g/dL (6.5-8.0); Triglycerides 105 mg/dL (<150)
[2024-07-07 11:32] LABS: Bacteria Urine None Seen (None Seen); Hyaline Casts Urine 0-2 /LPF (0-2); RBC Urine 0-2 /HPF (0-2); Squamous Epithelial Cell Urine 0-2 /HPF (0-2); UACC Culture Trigger YES; WBC Urine 21-50 /HPF (0-5)
[2024-07-07 11:46] LABS: Prostate Specific Antigen Scr 1.21 ng/mL (<0.05-4.0)
[2024-07-07 11:49] LABS: TSH reflex Free T4 1.65 uIU/mL (0.32-4.0); Vitamin D 25-OH Total 35.6 ng/mL (>30)
== END 2024-07-07 06:34 | disposition home or self-care (01) ==
LOC: HO.HMGCLDS 06:33
PROVIDERS: PCP Nurse Practitioner Family; Visit Provider Nurse Practitioner Family
DX: Z00.01 Encounter for general adult medical examination with abnormal findings (principal); J18.9 Pneumonia, unspecified organism; Z12.5 Encounter for screening for malignant neoplasm of prostate; E55.9 Vitamin D deficiency, unspecified
CPT/HCPCS: 36415; 80053; 80061; 81001; 81003; 82306; 84153; 84443; 85025; 87086

== ENCOUNTER 2024-07-11 09:54 | Outpatient (AMB) | payer MEDICARE, SELFPAY ==
--- NOTE | 2024-07-11 10:01 | AM.OFFWIN_ITS ---
Intake Vital Signs 07/11/24 10:02 Height 6 ft Weight 182 lb BMI 24.7 BP 130/72 Blood Pressure Location Lt brachial Position Sitting Pulse 78 Pulse Source Pulse Oximeter Pulse Oximetry (%) 98 Oxygen Delivery Method Room Air Intake Visit Reasons: EP Pain upper hip Intake Note: Patient here for left upper hip pain that started yesterday morning and is having difficulty walking. Patient Tobacco Use Status: Never used Tobacco Allergies lisinopril [LISINOPRIL] Allergy (Mild, Verified 07/11/24 10:03) cough Do you need a note to return to daycare/school/sports/work: No HPI HPI Comments History of Present Illness Details Patient is a 74-year-old male complaining of left upper hip pain that started yesterday. He states that he has to have regular cortisone injections in that hip for his arthritis but he has not needed 1 in many years and he woke up all of a sudden at 02:00 o'clock in the morning yesterday with this pain. He tried taking 400 mg ibuprofen with no improvement. He states it is worse when he tries to stand up or walk and he is currently ambulating with a cane. He states he went to the [facility] yesterday where they tried to do some exercises but it did not seem to help. 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 SVT (supraventricular tachycardia) Osteoarthritis ANAHI on CPAP BPH (benign prostatic hyperplasia) Renal calculi Hyperlipidemia HTN (hypertension) Left hip pain Surgical History Hx of lithotripsy History of radiofrequency ablation procedure for cardiac arrhythmia H/O shoulder surgery History of back surgery H/O colonoscopy Hx of cystoscopy Social History Housing: House Are you a primary career technical education instructor to a significant other at home: No Do you presently have visiting nurse or other home services: No Alcohol intake: never Patient Tobacco Use Status: Never used Tobacco e-Cigarette/Vaping Use: Never Used Second Hand Smoke Exposure: Yes Advance Directives Date on File: 08/24/22 Current occupational status: 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 Current occupational exposures/hazards: No Cognitive needs: No Hearing needs: No Vision needs: No Review of Systems Const All systems reviewed & are unremarkable except as noted in HPI and below Physical Exam Vital Signs: Last Vital Signs Pulse 78 07/11/24 10:02 BP 130/72 07/11/24 10:02 Pulse Ox 98 07/11/24 10:02 Oxygen Delivery Method Room Air 07/11/24 10:02 BMI result Body Mass Index 24.7 Const General: cooperative, healthy appearing, comfortable and no acute distress Nutritional Appearance: average body habitus Orientation/consciousness: patient oriented x3 Limitations: ambulation with cane HEENT Head: Yes normal to inspection Resp Effort & Inspection: normal respiratory effort and able to speak in complete sentences Back/Spine/Pelvis Other: Left-sided inguinal, no hernia palpated while standing, tenderness in the upper inguinal area extending to the lateral hip, no tenderness to palpation of the left trochanteric bursa. Cervical Spine: cervical ROM normal Thoracic/Lumbar Spine: thoraco-lumbar ROM normal and No bend over test abnormal Neuro General: patient oriented x3 Extrem General: Yes normal to inspection and Yes full ROM Assessment & Plan Assessment & Plan (1) Strain of left hip and thigh: Code(s): S76.012A - Strain of muscle, fascia and tendon of left hip, initial encounter; S76.912A - Strain of unspecified muscles, fascia and tendons at thigh level, left thigh, initial encounter Qualifiers: Encounter type: initial encounter Qualified Code(s): S76.012A - Strain of muscle, fascia and tendon of left hip, initial encounter; S76.912A - Strain of unspecified muscles, fascia and tendons at thigh level, left thigh, initial encounter Plan: Based history and physical exam, likely a strain as it does not seem to be in the hip joint, it extends into the the inner thigh and inguinal area. We will give a burst of prednisone and daily meloxicam also recommended Voltaren gel and rest. If no improvement in his symptoms, he should follow up with his primary care doctor. Plan See above Medications: New meloxicam 15 mg PO DAILY 10 tabs 0RF prednisone 20 mg PO DAILY 5 tabs 0RF Coding Level of Care Code Est Pt Level 3 (99858) Diagnoses Strain of left hip and thigh, initial encounter S76.012A; S76.912A Encounter type: initial encounter
[2024-07-11 10:02] VITALS: BP 130/72; PULSE 78; O2SAT 98; BMI 24.7
== END 2024-07-11 10:32 | disposition home or self-care (01) ==
PROVIDERS: PCP Nurse Practitioner Family; Visit Provider Physician Assistant
DX: S76.012A Strain of muscle, fascia and tendon of left hip, initial encounter (principal); S76.912A Strain of unspecified muscles, fascia and tendons at thigh level, left thigh, initial encounter

== ENCOUNTER → 2024-07-11 09:54 | Outpatient (BNVA) | payer MEDICARE, SELFPAY | PROVIDERS: PCP Nurse Practitioner Family; Visit Provider Physician Assistant | DX: S76.012A Strain of muscle, fascia and tendon of left hip, initial encounter (principal); S76.912A Strain of unspecified muscles, fascia and tendons at thigh level, left thigh, initial encounter | CPT/HCPCS: 99212 ==

== ENCOUNTER 2024-07-26 10:57 | Outpatient (AMB) | payer MEDICARE, SELFPAY ==
--- NOTE | 2024-07-26 11:10 | A.OFFVIS_ITS ---
Vital Signs 07/26/24 11:11 Height 6 ft Weight 178 lb 9.191 oz BMI 24.2 BP 120/60 Blood Pressure Location Lt brachial Position Sitting Pulse 62 Pulse Source Pulse Oximeter Pulse Oximetry (%) 97 Oxygen Delivery Method Room Air Intake Visit Reasons: COPD Intake Note: pt is here due to a cough that has been present for a while, pnenmonia x2 January and May, and now the cough is very troubling, coughing hard to get the phelgm out and after a while the phelgm will come out, he has tried mucinex, and dayquil. and has a hard time with taking a deep breath. 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 HE NEVER SMOKED. AND DOES NOT HAVE HISTORY OF ASTHMA OR RECURRENT BRONCHITIS IN THE PAST. THIS YEAR HE HAD A BOUT OF PNEUMONIA IN JANUARY, THE X-RAY SHOWING A PATCHY INFILTRATE IN THE RIGHT LOWER LOBES, THIS WAS POST COVID. HE WAS TREATED WITH A COURSE OF ANTIBIOTIC AND GOT SOME BETTER. HOWEVER HE CONTINUE TO HAVE MILD INTERMITTENT COUGH. IN OF THIS YEAR JUST ABOUT A MONTH AGO HE HAD AGGRAVATED COUGH AND A REPEAT CHEST X-RAY SHOWED THE PATCHY INFILTRATE IN THE RIGHT LOWER LOBE WAS STILL PRESENT BUT LESS PRONOUNCED THAN IN JANUARY OF THIS YEAR. JEET COMES IN TODAY WITH THE COMPLAINT OF ONGOING BOUTS OF COUGH, WHICH HE CAN NOT GET RID OF. 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 HE HAS TRIED TO USE COUGH MEDS, COUGH DROPS AND SIPS OF LIQUIDS WITH ONLY PARTIAL RELIEF OF THE COUGH. DURING THE COUGH ATTACKS HE DENIES ANY WHEEZING. 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 HE USES CPAP WITH A NASAL MASK, AT NIGHT. 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 SVT (supraventricular tachycardia) Osteoarthritis ANAHI on CPAP BPH (benign prostatic hyperplasia) Renal calculi Hyperlipidemia HTN (hypertension) Left hip pain Surgical History Hx of lithotripsy History of radiofrequency ablation procedure for cardiac arrhythmia H/O shoulder surgery History of back surgery H/O colonoscopy Hx of cystoscopy Social History Housing: House Are you a primary outdoor emergency care technician to a significant other at home: No Do you presently have visiting nurse or other home services: No Alcohol intake: never Patient Tobacco Use Status: Never used Tobacco e-Cigarette/Vaping Use: Never Used Second Hand Smoke Exposure: Yes Advance Directives Date on File: 08/24/22 Current occupational status: 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 Current occupational exposures/hazards: No Cognitive needs: No Hearing needs: No Vision needs: No Review of Systems Const All systems reviewed & are unremarkable except as noted in HPI and below Eyes Reports dry eyes (SOMETIMES) ENT Reports nasal congestion and Reports nasal discharge Card Denies chest pain, Denies irregular heart rhythm and Denies leg edema Resp Reports as per HPI GI Reports no additional complaints Reports no additional complaints Musc Reports no additional complaints Skin/Breast Reports system reviewed and no additional complaints, except as documented Neuro Reports no additional complaints Psych Reports no additional complaints Endo Reports no additional complaints Physical Exam Vital Signs: Last Vital Signs Pulse 62 07/26/24 11:11 BP 120/60 07/26/24 11:11 Pulse Ox 97 07/26/24 11:11 Oxygen Delivery Method Room Air 07/26/24 11:11 BMI result Body Mass Index 24.2 Const General: healthy appearing, comfortable, no acute distress, alert and awake Orientation/consciousness: patient oriented x3 HEENT Head: Yes normal to inspection General nose exam: No nasal polyps present, No nasal discharge present and Other nasal findings present (VERY MILD NASAL CONGESTION) Face and sinus: Yes sinuses nontender Mouth: oropharynx normal Throat: Yes posterior oropharynx normal Eyes General: appearance normal, both eyes and all related structures Neck Neck: Yes normal visual inspection, Yes no lymphadenopathy, Yes trachea midline and Yes no JVD Thyroid: Thyroid normal Chest Chest palpation & inspection: normal inspection of the chest, normal palpation of entire chest wall and no tenderness Resp Effort & Inspection: normal respiratory effort Auscultation: no crackles and no wheezes Cardio Palpation: normal PMI Rate: regular rate Rhythm: regular rhythm Heart sounds: no gallops and no murmurs Peripheral pulses: Peripheral pulses 2+ throughout GI Palpation (GI): Soft to palpation, nontender, No hepatosplenomegaly present and no masses Auscultation: normal bowel sounds Back/Spine/Pelvis Cervical Spine: normal cervical lordosis Thoracic/Lumbar Spine: thoracic and lumbar spine normal to inspection Skin General skin exam: no rashes or lesions noted Neuro General: patient oriented x3 and no focal motor deficits Cranial nerves: Yes CN's II-XII intact bilaterally Extrem General: Yes normal to inspection, Yes no clubbing, cyanosis or edema and Yes no calf tenderness Psych Speech and movement: Normal speech and movement present Results Reviewed Results Reviewed: PULMONARY FUNCTION TEST, AT [facility], IN DECEMBER 2023 WAS ESSENTIALLY NORMAL. FINDINGS OF CHEST X-RAY IN JANUARY 2024 AND 2023, SHOW A PATCHY DENSITY IN THE RIGHT LOWER LOBE NOTED ABOVE IN HPI. 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 HAS A CAT AT HOME. CBC ON MANY OCCASIONS HAS SHOWN EOSINOPHILIA Code(s): J30.89 - Other allergic rhinitis Category: Medical Plan: MAY USE OTC ANTIHISTAMINICS SUCH CLARITIN OR ZYRTEC 10 MG ONCE A DAY P.R.N. (2) Cough: Comment: I THINK HIS COUGH IS ALLERGIC IN NATURE, HE DOES HAVE EVIDENCE OF CHRONIC EOSINOPHILIA. MAY HAVE MILD BRONCHIAL ASTHMA/REACTIVE AIRWAYS Code(s): R05.9 - Cough, unspecified Category: Medical Plan: I ADVISED HIM TO USE ALBUTEROL HFA 1 OR 2 PUFFS Q 6 HOURS P.R.N.. ESPECIALLY WHEN HE HAS BOUTS OF ONGOING COUGH. (3) Pneumonia: Comment: HAS HAD PATCHY INFILTRATE IN RIGHT LOWER LOBE SINCE JANUARY OF THIS YEAR, REPEAT CHEST X-RAY IN SHOWS THAT IT IS NOT COMPLETELY RESOLVED. POSSIBILITIES ARE BRONCHIECTASIS/ MUCUS PLUGGING IN RIGHT LOWER LOBE. I DO NOT THINK HE HAS ACTIVE RESIDUAL INFECTION. Code(s): J18.9 - Pneumonia, unspecified organism Category: Medical Plan: HE NEEDS A CT SCAN OF THE CHEST FOR FURTHER DEFINITION OF THIS DENSITY IT HAS ALREADY BEEN SCHEDULED I WILL HAVE MY OFFICE CALL THE RADIOLOGY DEPARTMENT TO SEE IF THIS CAN BE EXPEDITED. 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
[2024-07-26 11:11] VITALS: BP 120/60; PULSE 62; O2SAT 97; BMI 24.2
== END 2024-07-26 11:46 | disposition home or self-care (01) ==
LOC: HO.HPS 10:58
PROVIDERS: PCP Nurse Practitioner Family; Visit Provider Internal Medicine
DX: J30.89 Other allergic rhinitis (principal); R05.9 Cough, unspecified; J18.9 Pneumonia, unspecified organism
CPT/HCPCS: 99213

== ENCOUNTER → 2024-07-26 10:57 | Outpatient (BNVA) | payer MEDICARE, SELFPAY | PROVIDERS: PCP Nurse Practitioner Family; Visit Provider Internal Medicine | DX: J30.89 Other allergic rhinitis (principal); J18.9 Pneumonia, unspecified organism; R05.9 Cough, unspecified | CPT/HCPCS: 99212 ==

== ENCOUNTER 2024-08-03 15:20 | Outpatient (REF) | payer OTHER, SELFPAY | END 2024-08-03 15:21 | disposition home or self-care (01) | LOC: HO.CT 15:20 | PROVIDERS: PCP Nurse Practitioner Family; Visit Provider Nurse Practitioner Family | DX: J18.9 Pneumonia, unspecified organism (principal) | CPT/HCPCS: 71250 ==

== ENCOUNTER → 2024-08-03 15:22 | Outpatient (BNV) | payer MEDICARE, SELFPAY | PROVIDERS: PCP Nurse Practitioner Family; Visit Provider Radiology Diagnostic Radiology | DX: J18.9 Pneumonia, unspecified organism (principal) | CPT/HCPCS: 71250 ==

== ENCOUNTER 2024-08-20 10:04 | Outpatient (AMB) | payer MEDICARE, SELFPAY ==
[2024-08-20 10:20] VITALS: BP 110/60; PULSE 67; O2SAT 98; BMI 24.8
--- NOTE | 2024-08-20 10:20 | A.OFFVIS_ITS ---
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 HE NEVER SMOKED. AND DOES NOT HAVE HISTORY OF ASTHMA OR RECURRENT BRONCHITIS IN THE PAST. THIS YEAR HE HAD A BOUT OF PNEUMONIA IN JANUARY, THE X-RAY SHOWING A PATCHY INFILTRATE IN THE RIGHT LOWER LOBES, THIS WAS POST COVID. HE WAS TREATED WITH A COURSE OF ANTIBIOTIC AND GOT SOME BETTER. HOWEVER HE CONTINUE TO HAVE MILD INTERMITTENT COUGH. IN OF THIS YEAR JUST ABOUT A MONTH AGO HE HAD AGGRAVATED COUGH AND A REPEAT CHEST X-RAY SHOWED THE PATCHY INFILTRATE IN THE RIGHT LOWER LOBE WAS STILL PRESENT BUT LESS PRONOUNCED THAN IN JANUARY OF THIS YEAR. JEET COMES IN TODAY WITH THE COMPLAINT OF ONGOING BOUTS OF COUGH, WHICH HE CAN NOT GET RID OF. 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 HE HAS TRIED TO USE COUGH MEDS, COUGH DROPS AND SIPS OF LIQUIDS WITH ONLY PARTIAL RELIEF OF THE COUGH. DURING THE COUGH ATTACKS HE DENIES ANY WHEEZING. JEET ALSO HAS OBSTRUCTIVE SLEEP APNEA MAINLY RELATED TO rETROGNATHIA OF THE LOWER JAW, HE USES CPAP EVERY NIGHT. FOLLOWED BY [facility]. 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 SVT (supraventricular tachycardia) Osteoarthritis ANAHI on CPAP BPH (benign prostatic hyperplasia) Renal calculi Hyperlipidemia HTN (hypertension) Left hip pain Surgical History Hx of lithotripsy History of radiofrequency ablation procedure for cardiac arrhythmia H/O shoulder surgery History of back surgery H/O colonoscopy Hx of cystoscopy Social History Housing: House Are you a primary personal care attendant to a significant other at home: No Do you presently have visiting nurse or other home services: No Alcohol intake: never Patient Tobacco Use Status: Never used Tobacco e-Cigarette/Vaping Use: Never Used Second Hand Smoke Exposure: Yes Advance Directives Date on File: 08/24/22 Current occupational status: 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 Current occupational exposures/hazards: No Cognitive needs: No Hearing needs: No Vision needs: No Review of Systems Const All systems reviewed & are unremarkable except as noted in HPI and below Eyes Reports dry eyes (SOMETIMES) ENT Reports nasal congestion and Reports nasal discharge Card Denies chest pain, Denies irregular heart rhythm and Denies leg edema Resp Reports as per HPI GI Reports no additional complaints Reports no additional complaints Musc Reports no additional complaints Skin/Breast Reports system reviewed and no additional complaints, except as documented Neuro Reports no additional complaints Psych Reports no additional complaints Endo Reports no additional complaints Physical Exam Vital Signs: Last Vital Signs Pulse 67 08/20/24 10:20 BP 110/60 08/20/24 10:20 Pulse Ox 98 08/20/24 10:20 Oxygen Delivery Method Room Air 08/20/24 10:20 BMI result Body Mass Index 24.8 Const General: healthy appearing, comfortable, no acute distress, alert and awake Orientation/consciousness: patient oriented x3 HEENT Head: Yes normal to inspection General nose exam: No nasal polyps present, No nasal discharge present and Other nasal findings present (VERY MILD NASAL CONGESTION) Face and sinus: Yes sinuses nontender Mouth: oropharynx normal Throat: Yes posterior oropharynx normal and Yes other (RETROGNATHIA OF THE LOWER JAW) Eyes General: appearance normal, both eyes and all related structures Neck Neck: Yes normal visual inspection, Yes no lymphadenopathy, Yes trachea midline and Yes no JVD Thyroid: Thyroid normal Chest Chest palpation & inspection: normal inspection of the chest, normal palpation of entire chest wall and no tenderness Resp Effort & Inspection: normal respiratory effort Auscultation: no crackles and no wheezes Cardio Palpation: normal PMI Rate: regular rate Rhythm: regular rhythm Heart sounds: no gallops and no murmurs Peripheral pulses: Peripheral pulses 2+ throughout GI Palpation (GI): Soft to palpation, nontender, No hepatosplenomegaly present and no masses Auscultation: normal bowel sounds Back/Spine/Pelvis Cervical Spine: normal cervical lordosis Thoracic/Lumbar Spine: thoracic and lumbar spine normal to inspection Skin General skin exam: no rashes or lesions noted Neuro General: patient oriented x3 and no focal motor deficits Cranial nerves: Yes CN's II-XII intact bilaterally Extrem General: Yes normal to inspection, Yes no clubbing, cyanosis or edema and Yes no calf tenderness Psych Speech and movement: Normal speech and movement present Results Reviewed Results Reviewed: JEET HAD CT SCAN OF THE CHEST, NOT READ BY RADIOLOGIST OFFICIALLY. I HAVE LOOKED AT THE IMAGE. INCREASED BRONCHOVASCULAR MARKINGS IN THE LOWER LOBES WITH SOME DILATATION, SUGGEST MILD RESIDUAL FIBROTIC CHANGES AND BRONCHIECTASIS. THIS MAY EXPLAIN HIS ONGOING COUGH. 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 HAS A CAT AT HOME. CBC ON MANY OCCASIONS HAS SHOWN EOSINOPHILIA. Code(s): J30.89 - Other allergic rhinitis Category: Medical Plan: EXPLAINED TO THE PATIENT. HE SHOULD DISTANCE HIMSELF FROM THE CT MUCH HE CAN. SYMPTOMS ARE NOT BAD ENOUGH TO CONSIDER BIOLOGIC TREATMENT (2) Cough: Comment: I THINK HIS COUGH IS ALLERGIC IN NATURE, HE DOES HAVE EVIDENCE OF CHRONIC EOSINOPHILIA. HE HAS SOME FIBROTIC CHANGES IN THE BASILAR AREAS, POST COVID, IN THAT MAY BE CONTRIBUTING TO HIS COUGH Code(s): R05.9 - Cough, unspecified Category: Medical Plan: EXPLAINED TO HIM THE ETIOLOGY. ADVISED TO USE MUCINEX 400 MG B.I.D. (3) ANAHI (obstructive sleep apnea): Comment: HE IS KNOWN TO OBSTRUCTIVE SLEEP APNEA, MAINLY ON BASIS OF RETROGNATHIA OF LOWER JAW . USES CPAP REGULARLY. 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
== END 2024-08-20 10:56 | disposition home or self-care (01) ==
PROVIDERS: PCP Nurse Practitioner Family; Visit Provider Internal Medicine
DX: J30.89 Other allergic rhinitis (principal); R05.9 Cough, unspecified; G47.33 Obstructive sleep apnea (adult) (pediatric)
CPT/HCPCS: 99213

== ENCOUNTER → 2024-08-20 10:04 | Outpatient (BNVA) | payer MEDICARE, SELFPAY | PROVIDERS: PCP Nurse Practitioner Family; Visit Provider Internal Medicine | DX: R05.9 Cough, unspecified (principal); J30.89 Other allergic rhinitis; G47.33 Obstructive sleep apnea (adult) (pediatric); M26.19 Other specified anomalies of jaw-cranial base relationship; Z91.85 Personal history of military service | CPT/HCPCS: 99212 ==

== ENCOUNTER 2024-10-04 09:43 | Outpatient (AMB) | payer OTHER, SELFPAY ==
--- NOTE | 2024-10-04 09:51 | A.OFFVIS_ITS ---
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 HE USES CPAP REGULARLY, FO[place], AND SLEEPS WELL. HE HAS BEEN SEEN OVER HERE FOR HIS ONGOING COUGH. INITIAL CHEST X-RAY HAD SHOWN AN INFILTRATE IN THE RIGHT LOWER LOBE, . SUGGESTING PNEUMONIA HE HAS BEEN TREATED WITH COURSES OF ANTIBIOTIC, HIS CURRENT CT SCAN OF THE CHEST SHOWS THAT HE DOES NOT HAVE ANY RESIDUAL PNEUMONIA, BUT HE STILL HAS INCREASED BRONCHOVASCULAR MARKINGS IN THE RIGHT LOWER LOBE, WITH TREE IN BUD FINDINGS SUGGESTIVE OF BRONCHIECTASIS. HE USES ALBUTEROL 2 PUFFS Q 6 HOURS ONLY P.R.N. HE HAS ONGOING NASAL CONGESTION ALMOST ON A DAILY BASIS. HE HAS HISTORY OF ENVIRONMENTAL ALLERGIES, ESPECIALLY GROSSE, TREES AND FEATHERS. HE ALSO KEEPS 2 CATS AT HOME FOR LONG TIME. HIS CBC FOR MANY TIMES HAS SHOWN SIGNIFICANT DEGREE OF EOSINOPHILIA., LOST CBC ON 07/07/2024, EOSINOPHIL COUNT WAS 9%. 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 SVT (supraventricular tachycardia) Osteoarthritis ANAHI on CPAP BPH (benign prostatic hyperplasia) Renal calculi Hyperlipidemia HTN (hypertension) Left hip pain Surgical History Hx of lithotripsy History of radiofrequency ablation procedure for cardiac arrhythmia H/O shoulder surgery History of back surgery H/O colonoscopy Hx of cystoscopy Social History Housing: House Are you a primary animal care supervisor to a significant other at home: No Do you presently have visiting nurse or other home services: No Alcohol intake: never Patient Tobacco Use Status: Never used Tobacco e-Cigarette/Vaping Use: Never Used Second Hand Smoke Exposure: Yes Advance Directives Date on File: 08/24/22 Current occupational status: 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 Current occupational exposures/hazards: No Cognitive needs: No Hearing needs: No Vision needs: No Review of Systems Const All systems reviewed & are unremarkable except as noted in HPI and below Eyes Reports dry eyes (SOMETIMES) ENT Reports nasal congestion and Reports nasal discharge Card Denies chest pain, Denies irregular heart rhythm and Denies leg edema Resp Reports as per HPI GI Reports no additional complaints Reports no additional complaints Musc Reports no additional complaints Skin/Breast Reports system reviewed and no additional complaints, except as documented Neuro Reports no additional complaints Psych Reports no additional complaints Endo Reports no additional complaints Physical Exam Vital Signs: Last Vital Signs Pulse 65 10/04/24 09:52 BP 130/52 L 10/04/24 09:52 Pulse Ox 95 10/04/24 09:52 Oxygen Delivery Method Room Air 10/04/24 09:52 BMI result Body Mass Index 25.1 Const General: healthy appearing, comfortable, no acute distress, alert and awake Orientation/consciousness: patient oriented x3 HEENT Head: Yes normal to inspection General nose exam: No nasal polyps present, No nasal discharge present and Other nasal findings present (VERY MILD NASAL CONGESTION) Face and sinus: Yes sinuses nontender Mouth: oropharynx normal Throat: Yes posterior oropharynx normal and Yes other (RETROGNATHIA OF THE LOWER JAW) Eyes General: appearance normal, both eyes and all related structures Neck Neck: Yes normal visual inspection, Yes no lymphadenopathy, Yes trachea midline and Yes no JVD Thyroid: Thyroid normal Chest Chest palpation & inspection: normal inspection of the chest, normal palpation o f entire chest wall and no tenderness Resp Effort & Inspection: normal respiratory effort Auscultation: crackles (FEW INSPIRATORY CRACKLES OVER THE RIGHT BASE.) and no wheezes Cardio Palpation: normal PMI Rate: regular rate Rhythm: regular rhythm Heart sounds: no gallops and no murmurs Peripheral pulses: Peripheral pulses 2+ throughout GI Palpation (GI): Soft to palpation, nontender, No hepatosplenomegaly present and no masses Auscultation: normal bowel sounds Back/Spine/Pelvis Cervical Spine: normal cervical lordosis Thoracic/Lumbar Spine: thoracic and lumbar spine normal to inspection Skin General skin exam: no rashes or lesions noted Neuro General: patient oriented x3 and no focal motor deficits Cranial nerves: Yes CN's II-XII intact bilaterally Extrem General: Yes normal to inspection, Yes no clubbing, cyanosis or edema and Yes no calf tenderness Psych Speech and movement: Normal speech and movement present Office Procedures Nebulizer Treatment Nebulizer Treatment 61071-Coqpvjonv/MDI RX initial, or Nebulizer Subsequent Treatment Office Meds sodium chloride 3 % for nebulization Performing Provider: Macho Armas MD Performing Location: [facility] Pulmonology Services Administered by: Eliane Hopper LPN on 10/04/24 10:59 Dose Route Admin Location Dispensed Lot Number Expiration Date [facility] [employer] 3 mL inhalation 3 mL [id number] 06/25/25 [id number] [employer]IS Results Reviewed Results Reviewed: 08/03/24 CT SCAN OF CHEST Acute airspace disease/pneumonia suggesting mycobacterium organism, right lower lung lobe. Probable aspiration. Coronary artery disease and atherosclerosis disease. Bilateral renal cysts. Fleischner guidelines were followed. Assessment & Plan Assessment & Plan (1) Cough: Comment: I THINK HIS COUGH IS ALLERGIC IN NATURE, HE DOES HAVE EVIDENCE OF CHRONIC EOSINOPHILIA. HE HAS SOME FIBROTIC CHANGES IN THE BASILAR AREAS, POST COVID, THAT MAY BE CONTRIBUTING TO HIS COUGH CURRENT CT SCAN INDICATES PRESENCE OF TREE IN BUD CHANGES/BRONCHIECTASES RIGHT LOWER LOBE, AND FIBROTIC CHANGES IN THE APICES. LAST CBC IN JUNE 2024 , EOSINOPHIL COUNT 9% PATIENT HAS 2 CATS AT HOME. Code(s): R05.9 - Cough, unspecified Category: Medical Plan: HAD A THOROUGH DISCUSSION WITH THE PATIENT. COUNSELED THAT HE NEEDS TO DISTANCE HIMSELF FROM THE CATS. MONTELUKAST 10 MG DAILY IS ORDERED. IF HE CONTINUES TO HAVE COUGH / WHEEZING, THEN CONSIDERATION FOR BIOLOGIC TREATMENT, DISCUSSED. (2) Bronchiectasis: Comment: HE HAS CHANGES SUGGESTIVE OF BRONCHIECTASIS ESPECIALLY IN RIGHT LOWER LOBE. HE IS PRONE TO HAVE RECURRENT INFECTION , AND MUCUS RETENTION. I DO NOT THINK HE HAS ANY ACTIVE MYCOBACTERIUM TYPE OF INFECTION Code(s): J47.9 - Bronchiectasis, uncomplicated Category: Medical Plan: Tried to get sputum specimen after updraft of hypertonic saline, but he was not able to produce any significant amount of sputum. Sputum cup is given to him lab sputum at home, especially in the morning hours and submitted for Gram stain and culture, as well as smear for eosinophilic count. In the meantime he is educated to use plenty of fluid, and also may use Mucinex 600 mg b.i.d. p.r.n.. (3) ANAHI (obstructive sleep apnea): Comment: HE IS KNOWN TO OBSTRUCTIVE SLEEP APNEA, MAINLY ON BASIS OF RETROGNATHIA OF LOWER JAW . USES CPAP REGULARLY. Code(s): G47.33 - Obstructive sleep apnea (adult) (pediatric) Category: Medical Plan: Continue [place] management of ANAHI. Orders: Orders 2 Smear for EOS (Nasal/Sputum) Today D72.10 - Eosinophilia, unspecified, J47.9 - Bronchiectasis, uncomplicated, R05.9 - Cough, unspecified Sputum Cult + Gram stain Today D72.10 - Eosinophilia, unspecified, R05.9 - Cough, unspecified Coding Level of Care Code Est Pt Level 3 (83400) Diagnoses Cough R05.9 Bronchiectasis J47.9 ANAHI (obstructive sleep apnea) G47.33 CPT Codes Nebulizer Treatment - Nebulizer Treatment, initial or subsequent: 92303- Nebulizer/MDI RX initial, or Nebulizer Subsequent Treatment ([id number])
[2024-10-04 09:52] VITALS: BP 130/52; PULSE 65; O2SAT 95; BMI 25.1
== END 2024-10-04 11:03 | disposition home or self-care (01) ==
PROVIDERS: PCP Nurse Practitioner Family; Visit Provider Internal Medicine
DX: R05.9 Cough, unspecified (principal); J47.9 Bronchiectasis, uncomplicated; G47.33 Obstructive sleep apnea (adult) (pediatric)
CPT/HCPCS: 99213

== ENCOUNTER → 2024-10-04 09:43 | Outpatient (BNVA) | payer OTHER, SELFPAY | PROVIDERS: PCP Nurse Practitioner Family; Visit Provider Internal Medicine | DX: R05.9 Cough, unspecified (principal); J47.9 Bronchiectasis, uncomplicated; G47.33 Obstructive sleep apnea (adult) (pediatric) | CPT/HCPCS: 94640; 99212 ==

== ENCOUNTER 2024-10-06 08:44 | Outpatient (REF) | payer OTHER, SELFPAY | END 2024-10-06 08:45 | disposition home or self-care (01) | LOC: HO.LNP 08:44 | PROVIDERS: Visit Provider Internal Medicine | DX: R05.9 Cough, unspecified (principal); J47.9 Bronchiectasis, uncomplicated; D72.10 Eosinophilia, unspecified | CPT/HCPCS: 87070; 87205 ==

== ENCOUNTER 2024-10-21 17:52 | Emergency (ER) | payer OTHER, SELFPAY ==
--- NOTE | ~2024-10-21 | XR_ITS ---
CLINICAL HISTORY: chest pain 2 view chest x-ray Comparison: CR/ID/SR - XR CHEST 2V - 06/16/24 09:25 EDT Findings: The lungs are clear. Normal size heart. No acute fracture. IMPRESSION: 1. No acute findings. This document has been electronically signed by: Sara Renteria MD on 10/21/2024 19:23:35
[2024-10-21 18:06] VITALS: BP 117/72; PULSE 94; RESP 20; TEMP 36.8; O2SAT 99; BMI 24.9
--- NOTE | 2024-10-21 18:07 | ED_ITS ---
HPI - General Adult General Chief complaint: General Medical Stated complaint: left side pain/worse when he breaths in Time Seen by Provider: 10/21/24 23:35 Source: patient, RN notes reviewed and old records reviewed Mode of arrival: ambulatory Limitations: no limitations History of Present Illness ED Provider: Vega HPI narrative: 74-year-old male past medical history significant for hypertension, obstructive sleep apnea presents for evaluation of left-sided chest pain. Patient reports his pain started earlier this afternoon, few hours prior to arrival He reports that he had a rather sudden onset of left-sided chest pain stating ?it is if somebody ines a line down the center my chest and everything to the left hurt. ? His pain radiating to his neck in his left shoulder. He states his pain is worse if he bends over or if he takes a deep breath He denies any heavy lifting or strenuous activity Denies any shortness of breath, fevers, chills, cough. He is a nonsmoker He reports that his blood pressure has been well controlled with valsartan Related Data Home Medications ?Medication ?Instructions ?Recorded ?Confirmed valsartan 160 mg tablet 160 mg PO DAILY 07/05/24 07/05/24 Previous Rx's ?Medication ?Instructions ?Recorded pyridoxine (vitamin B6) 50 mg 50 mg PO DAILY 90 days #90 tabs 11/19/22 tablet albuterol sulfate 90 mcg/actuation 2 puff inhalation Q4-6H PRN 07/26/24 aerosol inhaler shortness of breath or wheezing/persistant cough 30 days #6.7 grams amlodipine 5 mg tablet 5 mg PO DAILY 90 days #90 tabs 10/02/24 atenolol 25 mg tablet 25 mg PO DAILY 90 days #90 tabs 10/02/24 montelukast 10 mg tablet 10 mg PO DAILY ASTHMA 30 days #30 10/08/24 tabs simvastatin 40 mg tablet 40 mg PO BEDTIME #90 tabs 10/18/24 Allergies Allergy/AdvReac Type Severity Reaction Status Date / Time lisinopril [LISINOPRIL] Allergy Mild cough Verified 10/21/24 18:10 Review of Systems 2 Constitutional: Constitutional: Denies body ache(s), Denies chills and Denies fever(s) Eyes: Eyes: Denies blurry vision ENT: Denies vertigo Cardiovascular: Cardiovascular: Reports chest pain, Reports chest pain at rest, Reports chest pain with activity and Denies dyspnea Respiratory: Respiratory: Denies chest congestion and Denies dyspnea Gastrointestinal: Gastrointestinal: Denies abdominal pain, Denies nausea and Denies vomiting Musculoskeletal: Musculoskeletal: Denies back pain Integumentary/Breasts: Skin/Breast: Denies rash Neurologic: Denies vertigo Psychiatric: Psychiatric: Denies anxiety [facility] Past Medical History Medical History (Updated 10/22/24 @ 00:33 by Lucas Ferrari) Bronchiectasis ANAHI (obstructive sleep apnea) 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 SVT (supraventricular tachycardia) Osteoarthritis ANAHI on CPAP BPH (benign prostatic hyperplasia) Renal calculi Hyperlipidemia HTN (hypertension) Left hip pain Surgical History Hx of lithotripsy History of radiofrequency ablation procedure for cardiac arrhythmia H/O shoulder surgery History of back surgery H/O colonoscopy Hx of cystoscopy Social History Social History Housing: House Are you a primary healthcare risk control consultant to a significant other at home: No Do you presently have visiting nurse or other home services: No Alcohol intake: never Patient Tobacco Use Status: Never used Tobacco e-Cigarette/Vaping Use: Never Used Second Hand Smoke Exposure: Yes Advance Directives: Yes Advance Directives on File: Yes Advance Directives Date on File: 08/24/22 Do you have a plan to hurt others: No Plan Current occupational status: 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 Current occupational exposures/hazards: No Cognitive needs: No Hearing needs: No Vision needs: No Physical Exam ED Vital Signs: Vital Signs - 24 hr 10/21/24 18:06 10/21/24 19:32 10/22/24 00:04 Temperature 98.3 F 98.6 F 98.4 F Pulse Rate 94 90 89 Respiratory Rate 20 16 18 Blood Pressure 117/72 158/67 H 132/57 L Pulse Oximetry 99 97 97 Oxygen Delivery Method Room Air Room Air Room Air BMI result Body Mass Index 24.9 Const General: healthy appearing, comfortable, no acute distress, alert and awake Nutritional Appearance: well nourished Orientation/consciousness: patient oriented x3 HENMT Head: Yes normocephalic and Yes atraumatic Eyes Eyelids: Yes eyelids normal Conjunctivae: conjunctivae normal Sclerae: sclerae normal Corneas: corneas normal Pupils: Equal, round and reactive pupils present EOM: EOMs intact bilaterally Neck Neck: Yes full ROM Chest Other: No chest tenderness on exam, no crepitus Chest palpation & inspection: normal inspection of the chest Resp Effort & Inspection: normal respiratory effort, able to speak in complete sentences, no audible wheezes and not labored Auscultation: clear to auscultation bilaterally Cardio Other: Radial pulses are 2+ and equal Rate: regular rate Rhythm: regular rhythm GI Inspection: No distended Palpation (GI): Soft to palpation, not firm, nontender, no guarding and not rigid Skin General skin exam: elasticity normal Neuro General: patient oriented x3 Cranial nerves: Yes Equal, round and reactive pupils present and Yes Bilaterally intact EOM present Cognition (Neuro): normal cognition Extrem Other: Moving all extremities well without any obvious deformities Course Course Course Narrative: RME performed by Ramandeep Zimmer PA-C. Patient is a 74 year old assigned male at presenting to the emergency department with left sided body pain / feeling generally unwell. Detailed physical exam and review of systems are deferred to the ceramic tiler. EKG, labs, imaging, and swabs ordered. Patient placed back in the waiting room pending room availability and results. Reevaluation(s) Reevaluation #1: Repeat troponin negative Time: 00:33 Medical Decision Making Medical Decision Making [facility] Narrative: 74-year-old male with past medical history as above presents for evaluation of left-sided chest pain that started rather suddenly today. He was not exerting himself when the pain started. He still has dull pain, his pain did radiate to his neck and shoulder. History was concerning for ACS, his EKG is nonischemic, initial troponin is negative, repeat his pending. He was slightly hypertensive which improved to 130 2/57 without intervention. No hypertensive emergency, pulses are equal bilaterally, less likely aortic dissection. No abdominal pain or tenderness. A D-dimer was negative, less likely PE. His pain is worse with deep inspiration and bending forward, it could be musculoskeletal in origin Differential Diagnosis Differential Diagnoses: The differential diagnosis associated with the presentation includes Chest pain ACS PE Aortic dissection less likely Admission/Observation Consideration of admission/observation: Escalation of care including admission/observation considered Lab Data [facility] Lab Attestation statement: I reviewed the patient's lab results. Mild leukocytosis to 11.1 without significant left shift. There was no significant anemia. Normal platelet count. No significant electrolyte abnormalities. The patient's CO2 is elevated to 31 but he does have a history of sleep apnea. Initial troponin is negative, repeat is pending. 10/21/24 19:04 10/21/24 19:04 Labs: Lab Results 10/21/24 10/22/24 Range/Units 19:04 00:00 WBC 11.1 H (4.8-10.8) X10*3/uL RBC 4.92 (4.60-5.80) X10*6/uL Hgb 14.0 (14.0-18.0) g/dl Hct 41.5 L (42.0-52.0) % MCV 84.3 (80.0-98.0) fL MCH 28.5 (27.0-33.0) pg MCHC 33.7 (31.0-36.0) g/dl RDW 12.6 (11.0-16.0) % Plt Count 270 (160-400) X10*3/uL MPV 8.9 L (9.4-12.4) fL Immature Gran % (Auto) 0.2 (0.0-0.4) % Neut % (Auto) 71.1 (45-73) % Lymph % (Auto) 13.8 L (20-40) % [place] % (Auto) 11.0 (2-11) % Eos % (Auto) 3.4 (0-4) % Baso % (Auto) 0.5 (0-2) % Lymph # (Auto) 1.5 (1.2-4.9) X10*3/uL [place] # (Auto) 1.2 (0.1-1.2) X10*3/uL Eos # (Auto) 0.4 (0.0-0.4) X10*3/uL Baso # (Auto) 0.1 (0.0-0.2) X10*3/uL Abs Immat Gran (auto) 0.02 (0.00-0.03) X10*3/uL Absolute Neuts (auto) 7.9 (2.0-8.3) x10*3/uL Absolute Nucleated RBC 0.000 (0.0-0.012) X10*3/uL Nucleated RBC % (auto) 0.0 (0.0-0.2) /100WBC D-Dimer High Sensitivty < 150 NG/ML Sodium 143 (135-145) mmol/L Potassium 4.5 (3.3-5.1) mmol/L Chloride 106 (96-108) mmol/L Carbon Dioxide 31 H (22-29) mmol/L Anion Gap 11 L (12-20) BUN 12 (9-16) mg/dL Creatinine 0.77 (0.5-1.4) mg/dL Estim Creat Clear Calc 92.3 Estimated GFR > 60 Random Glucose 98 (60-115) mg/dL Calcium 9.4 (8.4-10.2) mg/dL Magnesium 2.3 (1.6-2.6) mg/dL Total Bilirubin 0.3 (0.0-1.0) mg/dL AST 24 (5-37) U/L ALT 33 (0-40) U/L Alkaline Phosphatase 58 (39-117) U/L Troponin I High Sens < 2.7 < 2.7 (<3.5-35.0) ng/L Total Protein 8.1 H (6.5-8.0) g/dL Albumin 4.9 (3.5-5.0) g/dL Urine Color Yellow Urine Appearance Cloudy Urine pH 8.0 (5.0-9.0) Ur Specific [place] 1.015 (1.005-1.025) Urine Protein Negative (Neg-Trace) mg/dL Urine Glucose (UA) Negative (Negative) mg/dL Urine Ketones Negative (Negative) mg/dL Urine Blood Trace H (Negative) Urine Nitrite Negative (Negative) Ur Leukocyte Esterase Trace H (Negative) Urine RBC 6-10 H (0-2) /HPF Urine WBC 0-5 (0-5) /HPF Ur Squamous Epith Cells 0-2 (0-2) /HPF Urine Bacteria None Seen (None Seen) Hyaline Casts 0-2 (0-2) /LPF Influenza Type A (PCR) NEGATIVE (Negative) Influenza Type B (PCR) NEGATIVE (Negative) RSV RNA Qual (PCR) NEGATIVE (Negative) SARS-CoV-2 RNA (RT-PCR) NEGATIVE (Negative) S. pyogenes GrpA DIANE Negative (Negative) Independent Interpretation I performed an independent interpretation of an: EKG and Plain X-Ray Interpretation: Normal sinus rhythm with a rate of [address] segment elevations or depressions. Nondiagnostic EKG Radiology Impression Discussion of test interpretation with radiology: I have reviewed the radiologist's reading. Radiologist Impression: Findings: The lungs are clear. Normal size heart. No acute fracture. IMPRESSION: 1. No acute findings. This document has been electronically signed by: Sara Renteria MD on 10/21/2024 19:23:35 Discharge Plan Discharge Clinical Impression: Chest pain Patient Disposition: Home, Self-Care Instructions: Chest Pain (ED) Additional Instructions: Your workup in the ER today was reassuring. This includes your blood work, chest x-ray, EKG, repeat blood work. Your pain may be related to musculoskeletal origin. You may use ibuprofen or Tylenol for pain. Follow-up with your primary doctor, return for new or worsening symptoms Prescriptions: No Action atenolol 25 mg tablet 25 mg PO DAILY 90 Days Qty: 90 3RF amlodipine 5 mg tablet 5 mg PO DAILY 90 Days Qty: 90 3RF montelukast 10 mg tablet 10 mg PO DAILY 30 Days Qty: 30 5RF simvastatin 40 mg tablet 40 mg PO BEDTIME Qty: 90 1RF pyridoxine (vitamin B6) 50 mg tablet 50 mg PO DAILY 90 Days Qty: 90 3RF valsartan 160 mg tablet 160 mg PO DAILY albuterol sulfate 90 mcg/actuation HFA aerosol inhaler 2 puff inhalation Q4-6H PRN (Reason: shortness of breath or wheezing/persistant cough) 30 Days Qty: 6.7 2RF Print Language: [place]an
--- NOTE | 2024-10-21 18:08 | ECG_ITS ---
Test Reason : CHEST PAIN Blood Pressure : */* mmHG Vent. Rate : 84 BPM Atrial Rate : 84 BPM P-R Int : 188 ms QRS Dur : 90 ms QT Int : 374 ms P-R-T Axes : 88 97 77 degrees QTcB Int : 441 ms Normal sinus rhythm Rightward axis Borderline ECG When compared with ECG of 01-Nov-2020 07:48, ST elevation now present in Anterior leads Referred By: Ramandeep Zimmer Electronically Signed By: TJ PERALTA
[2024-10-21 19:10] LABS: MANUAL DIFF FLAG NO
[2024-10-21 19:12] LABS: Appearance Urine Cloudy; Basophils Absolute Auto 0.1 X10*3/uL (0.0-0.2); Basophils Percent Auto 0.5 % (0-2); Color Urine Yellow; Eosinophils Absolute Auto 0.4 X10*3/uL (0.0-0.4); Eosinophils Percent Auto 3.4 % (0-4); Glucose Urine UA Negative (Negative); Hematocrit 41.5 % (42.0-52.0); Imm Gran Abs Auto 0.02 X10*3/uL (0.00-0.03); Imm Gran Pct Auto 0.2 % (0.0-0.4); Leukocyte Esterase Urine Trace (Negative); Lymphocytes Absolute Auto 1.5 X10*3/uL (1.2-4.9); Lymphocytes Percent Auto 13.8 % (20-40); Mean Corpuscular HGB Conc 33.7 g/dl (31.0-36.0); Mean Corpuscular Hemoglobin 28.5 pg (27.0-33.0); Mean Corpuscular Volume 84.3 fL (80.0-98.0); Mean Platelet Volume 8.9 fL (9.4-12.4); Monocytes Absolute Auto 1.2 X10*3/uL (0.1-1.2); Neutrophils Absolute Auto 7.9 x10*3/uL (2.0-8.3); Neutrophils Percent Auto 71.1 % (45-73); Nitrite Urine Negative (Negative); Platelet Count 270 X10*3/uL (160-400); Red Blood Count 4.92 X10*6/uL (4.60-5.80); Red Cell Distribution Width 12.6 % (11.0-16.0); Specific Gravity - Urine 1.015 (1.005-1.025); UMIC TRIGGER UACC YES; Urine Blood Trace (Negative); Urine Ketones Negative (Negative); Urine Protein Negative (Neg-Trace); White Blood Count 11.1 X10*3/uL (4.8-10.8)
[2024-10-21 19:14] LABS: Bacteria Urine None Seen (None Seen); Hyaline Casts Urine 0-2 /LPF (0-2); Squamous Epithelial Cell Urine 0-2 /HPF (0-2); WBC Urine 0-5 /HPF (0-5)
[2024-10-21 19:18] LABS: IDNOW Serial# 58CA691E; Strep A Nucleic Acid Negative (Negative)
[2024-10-21 19:30] LABS: Albumin Level 4.9 g/dL (3.5-5.0); Alkaline Phosphatase 58 U/L (39-117); Anion Gap 11 (12-20); Aspartate Amino Transferase 24 U/L (5-37); Bilirubin Total 0.3 mg/dL (0.0-1.0); Blood Urea Nitrogen 12 mg/dL (9-16); Calcium 9.4 mg/dL (8.4-10.2); Carbon Dioxide 31 mmol/L (22-29); Chloride 106 mmol/L (96-108); Creatinine Clr Calc Pharmacy 92.3; Estimated Glomerular Filt Rate > 60; Glucose Random 98 mg/dL (60-115); Magnesium 2.3 mg/dL (1.6-2.6); Potassium 4.5 mmol/L (3.3-5.1); Sodium 143 mmol/L (135-145); Total Protein 8.1 g/dL (6.5-8.0)
[2024-10-21 19:32] VITALS: BP 158/67; PULSE 90; RESP 16; TEMP 37; O2SAT 97
[2024-10-21 19:33] LABS: Troponin-I High Sensitivity < 2.7 ng/L (<3.5-35.0)
[2024-10-21 19:42] LABS: Alanine Aminotransferase 33 U/L (0-40)
[2024-10-21 19:54] LABS: Influenza A PCR NEGATIVE (Negative); Influenza B PCR NEGATIVE (Negative); Resp Syncy Virus RNA Qual PCR NEGATIVE (Negative); SARS COV2 PCR INHOUSE NEGATIVE (Negative)
[2024-10-22 00:04] VITALS: BP 132/57; PULSE 89; RESP 18; TEMP 36.9; O2SAT 97
[2024-10-22 00:25] LABS: D Dimer High Sensitivity < 150 NG/ML
[2024-10-22 00:27] LABS: Troponin-I High Sensitivity < 2.7 ng/L (<3.5-35.0)
[2024-10-22 00:51] VITALS: BP 132/57; PULSE 89; RESP 18; TEMP 36.9; O2SAT 97
== END 2024-10-22 00:52 | disposition home or self-care (01) ==
PROVIDERS: Physician Assistant; Physician Assistant Medical; Emergency Provider Emergency Medicine Emergency Medical Services; PCP Nurse Practitioner Family
DX: R07.89 Other chest pain (principal); I10 Essential (primary) hypertension; G47.33 Obstructive sleep apnea (adult) (pediatric); M54.2 Cervicalgia; M25.512 Pain in left shoulder; Z79.899 Other long term (current) drug therapy; Z03.818 Encounter for observation for suspected exposure to other biological agents ruled out
CPT/HCPCS: 0241U; 36415; 71046; 80053; 81001; 83735; 84484; 85025; 85379; 87651; 93005; 99284

== ENCOUNTER → 2024-10-21 18:08 | Outpatient (BNV) | payer OTHER, SELFPAY | PROVIDERS: PCP Nurse Practitioner Family; Visit Provider Student in an Organized Health Care Education/Training Program | DX: R07.9 Chest pain, unspecified (principal) | CPT/HCPCS: 71046 ==

== ENCOUNTER → 2024-11-01 10:37 | Outpatient (BNVA) | payer OTHER, SELFPAY | PROVIDERS: PCP Nurse Practitioner Family; Visit Provider Internal Medicine | DX: G47.33 Obstructive sleep apnea (adult) (pediatric) (principal); R05.9 Cough, unspecified; J30.89 Other allergic rhinitis; D72.10 Eosinophilia, unspecified | CPT/HCPCS: 99212 ==

== ENCOUNTER → 2024-11-01 11:02 | Outpatient (AMB) | payer OTHER, SELFPAY ==
--- NOTE | 2024-11-01 10:58 | A.OFFVIS_ITS ---
Vital Signs 11/01/24 10:58 Height 6 ft Weight 186 lb 4.65 oz BMI 25.3 BP 140/52 H Blood Pressure Location Lt brachial Position Sitting Pulse 67 Pulse Source Pulse Oximeter Pulse Oximetry (%) 97 Oxygen Delivery Method Room Air Intake Visit Reasons: Cough Intake Note: pt is here for follow up and states the cough is better. 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 We have determined that his cough is mostly allergic in nature, and he also has only minimal degree of bronchiectasis in the right base. Has 2 cats at home but keeps a distance. Since he was started on montelukast 10 mg daily his symptoms have decreased significantly. He is very happy today reporting that he hardly gets much cough. His breathing is okay except for mild shortness of breath if he walks fast. He uses albuterol only sparingly. He RVES MONTELUKAST and say is that since he started this pill he is feeling much better. 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 SVT (supraventricular tachycardia) Osteoarthritis ANAHI on CPAP BPH (benign prostatic hyperplasia) Renal calculi Hyperlipidemia HTN (hypertension) Left hip pain Surgical History Hx of lithotripsy History of radiofrequency ablation procedure for cardiac arrhythmia H/O shoulder surgery History of back surgery H/O colonoscopy Hx of cystoscopy Social History Housing: House Are you a primary animal care taker to a significant other at home: No Do you presently have visiting nurse or other home services: No Alcohol intake: former Patient Tobacco Use Status: Never used Tobacco e-Cigarette/Vaping Use: Never Used Second Hand Smoke Exposure: Yes Advance Directives Date on File: 08/24/22 Current occupational status: 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 Current occupational exposures/hazards: No Cognitive needs: No Hearing needs: No Vision needs: No Review of Systems Const All systems reviewed & are unremarkable except as noted in HPI and below Eyes Reports dry eyes (SOMETIMES) ENT Reports nasal congestion and Reports nasal discharge Card Denies chest pain, Denies irregular heart rhythm and Denies leg edema Resp Reports as per HPI GI Reports no additional complaints Reports no additional complaints Musc Reports no additional complaints Skin/Breast Reports system reviewed and no additional complaints, except as documented Neuro Reports no additional complaints Psych Reports no additional complaints Endo Reports no additional complaints Physical Exam Vital Signs: Last Vital Signs Pulse 67 11/01/24 10:58 BP 140/52 H 11/01/24 10:58 Pulse Ox 97 11/01/24 10:58 Oxygen Delivery Method Room Air 11/01/24 10:58 BMI result Body Mass Index 25.3 Const General: healthy appearing, comfortable, no acute distress, alert and awake Orientation/consciousness: patient oriented x3 HEENT Head: Yes normal to inspection General nose exam: No nasal polyps present and No nasal discharge present Face and sinus: Yes sinuses nontender Mouth: oropharynx normal Throat: Yes posterior oropharynx normal and Yes other (RETROGNATHIA OF THE LOWER JAW) Eyes General: appearance normal, both eyes and all related structures Neck Neck: Yes normal visual inspection, Yes no lymphadenopathy, Yes trachea midline and Yes no JVD Thyroid: Thyroid normal Chest Chest palpation & inspection: normal inspection of the chest, normal palpation of entire chest wall and no tenderness Resp Effort & Inspection: normal respiratory effort Auscultation: no rales and no wheezes Cardio Palpation: normal PMI Rate: regular rate Rhythm: regular rhythm Heart sounds: no gallops and no murmurs Peripheral pulses: Peripheral pulses 2+ throughout GI Palpation (GI): Soft to palpation, nontender, No hepatosplenomegaly present and no masses Auscultation: normal bowel sounds Back/Spine/Pelvis Cervical Spine: normal cervical lordosis Thoracic/Lumbar Spine: thoracic and lumbar spine normal to inspection Skin General skin exam: no rashes or lesions noted Neuro General: patient oriented x3 and no focal motor deficits Cranial nerves: Yes CN's II-XII intact bilaterally Extrem General: Yes normal to inspection, Yes no clubbing, cyanosis or edema and Yes no calf tenderness Psych Speech and movement: Normal speech and movement present Assessment & Plan Assessment & Plan (1) ANAHI (obstructive sleep apnea): Comment: HE IS KNOWN TO OBSTRUCTIVE SLEEP APNEA, MAINLY ON BASIS OF RETROGNATHIA OF LOWER JAW . USES CPAP REGULARLY. Code(s): G47.33 - Obstructive sleep apnea (adult) (pediatric) Category: Medical Plan: Continue follow-up for the CPAP at [place] [facility] . 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 HAS A CAT AT HOME, but tries to keep it distance. CBC ON MANY OCCASIONS HAS SHOWN EOSINOPHILIA. TODAY HE CLAIMS THAT SINCE HE IS ON MONTELUKAST HIS NASAL CONGESTION IS MUCH MUCH LESS. Code(s): J30.89 - Other allergic rhinitis Category: Medical Plan: OKAY TO CONTINUE TAKING MONTELUKAST 10 MG DAILY . (3) Cough: Comment: I THINK HIS COUGH IS ALLERGIC IN NATURE, HE DOES HAVE EVIDENCE OF CHRONIC EOSINOPHILIA. HE HAS SOME FIBROTIC CHANGES IN THE BASILAR AREAS, POST COVID, THAT MAY BE CONTRIBUTING TO HIS COUGH. AGAIN SINCE HE STARTED TAKING MONTELUKAST REGULARLY HE HAS VERY LITTLE COUGH, AND FEELS MUCH BETTER. Code(s): R05.9 - Cough, unspecified Category: Medical Plan: CONTINUE MONTELUKAST 10 MG DAILY USE ALBUTEROL HFA 2 PUFFS Q 6 HOURS ONLY P.R.N. (4) Eosinophilia: Comment: HE DOES HAVE MILD MODERATE EOSINOPHILIA, CHRONICALLY, WHICH INDICATES THAT HE HAS CHRONIC ALLERGIC PROBLEM. Code(s): D72.10 - Eosinophilia, unspecified Category: Medical Plan: STAY AT A DISTANCE FROM THE CT CONTINUE MONTELUKAST 10 MG DAILY. 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
== END | disposition home or self-care (01) ==
PROVIDERS: PCP Nurse Practitioner Family; Visit Provider Internal Medicine
DX: G47.33 Obstructive sleep apnea (adult) (pediatric) (principal); J30.89 Other allergic rhinitis; R05.9 Cough, unspecified; D72.10 Eosinophilia, unspecified
CPT/HCPCS: 99213

== ENCOUNTER 2024-11-22 10:43 | Outpatient (AMB) | payer OTHER, SELFPAY ==
--- NOTE | 2024-11-22 10:54 | A.OFFVIS_ITS ---
Intake Visit Reasons: 1Y Ultrasound(set) Intake Note: Patient is Present for 1Y Follow Up Ultrasound Urology Medication: Vitamin B6 Antibiotic Allergies: None Blood Thinners: None Occupational Health And Safety Manager Required: No Allergies lisinopril [LISINOPRIL] Allergy (Mild, Verified 11/22/24 10:55) cough HPI Comments Details: Timothy is a pleasant male. He is a patient of Dr. 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 - Urinary flow: No issues with urination or straining. - Past treatment: Underwent a prostate procedure in 2020. - PSA monitored by [place] physician. Nephrolithiasis Here for follow-up after appointment Intervention - left ESWL November 2020 Imaging - 11/16 CT with 7 mm proximal left ureteric stone - 12/14 ultrasound with 5 mm left lower pole fragment - 03/16 renal cyst by bilateral 1.5 cm cysts - 05/16 renal ultrasound renal cyst bilateral 1.5 cm, question of 4 mm left lower pole fragment - 11/17 renal ultrasound bilateral cyst, no stone - 11/18 renal ultrasound bilateral cysts, small calcification on left cyst - 11/19 renal ultrasound bilateral cysts, no evidence of stones - 11/20 renal ultrasound bilateral small cysts no evidence stone Low urinary tract symptoms Underwent prostate procedure in May 2020 PSA 06/15 1.0, 09/15 3.2 Good effect from procedure [facility] Medical History Bronchiectasis ANAHI (obstructive sleep apnea) 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 SVT (supraventricular tachycardia) Osteoarthritis ANAHI on CPAP BPH (benign prostatic hyperplasia) Renal calculi Hyperlipidemia HTN (hypertension) Left hip pain Surgical History Hx of lithotripsy History of radiofrequency ablation procedure for cardiac arrhythmia H/O shoulder surgery History of back surgery H/O colonoscopy Hx of cystoscopy Social History Housing: House Are you a primary campground caretaker to a significant other at home: No Do you presently have visiting nurse or other home services: No Alcohol intake: former Patient Tobacco Use Status: Never used Tobacco e-Cigarette/Vaping Use: Never Used Second Hand Smoke Exposure: Yes Advance Directives Date on File: 08/24/22 Current occupational status: 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 LUTS remain stable post-2020 prostate procedure; no nocturnal symptoms. PSA levels to be checked regularly by [place] physician. Do not return for follow-up unless symptoms present. If renal ultrasound is normal next year, further follow-ups may be discontinued. Discussion Notes I discussed with the patient the current findings of the renal ultrasound which indicate stable small cysts without evidence of stones. The patient is to undergo another renal ultrasound next year to monitor cysts and past nephrolithiasis. Stable lower urinary tract symptoms were reported, and I confirmed no immediate interventions are necessary. We reviewed his prostate history and agreed to continue having his PSA monitored by [facility]. I explained the plan to potentially end my yearly follow-ups if the next ultrasound is normal and emphasized returning if any symptoms arise. The patient consented to the outlined management plan and expressed understanding. Patient Instructions - Continue regular PSA checks with [place] physician. - Return for a renal ultrasound in one year. - Monitor for any urinary symptoms or discomfort and return if they occur. - No need for urology follow-up unless symptoms develop. - If the renal ultrasound shows no new concerns next year, further visits may not be necessary. Orders: Orders US renal BI 12 Months N20.0 - Calculus of kidney Coding Level of Care Code Est Pt Level 4 (79775) Diagnoses Nephrolithiasis N20.0 BPH loc w urin obs/LUTS N40.1
--- OUTSIDE RECORDS SUMMARY | 2024-11-22 12:42 | XMS_ITS ---
Author Organization [facility] Address [address] [place] [phone] Care Team Providers Care Despatch Clerk Name Role Phone Justin MILLER, [facility] Primary Care Provider Unavail able Prakash Auguste Jr Unavailable REASON FOR VISIT pathology Encounters Encounter Location Date Provider Diagnosis [facility] [address] [place] [phone] 10/10/2023 Prakash Auguste Jr PLAN OF TREATMENT No Information
--- OUTSIDE RECORDS SUMMARY | 2024-11-22 12:43 | XMS_ITS ---
Author Organization [facility] Address [address] [place] [phone] Care Team Providers Care Timber Trimmer Name Role Phone Justin MILLER, [facility] Primary Care Provider Unavail able Prakash Auguste Jr Unavailable REASON FOR VISIT PM/SH correction Encounters Encounter Location Date Provider Diagnosis [facility] [address] [place] [address] 09/30/2023 Prakash Auguste Jr PLAN OF TREATMENT No Information
--- OUTSIDE RECORDS SUMMARY | 2024-11-22 12:43 | XMS_ITS | Patient Health Record ---
Author Organization [facility] Address [address] [place] [address] Care Team Providers Care Coal Tower Operator Name Role Phone Justin MILLER, Claire Primary Care Provider Unavail Prakash Velasquez Jr Unavailable ALLERGIES Allergen (clinical drug ingredient) Drug/Non Drug Allergy documented on EMR Reaction Allergy Type Onset Date Status losartan Losartan Unknown Drug Allergy Active REASON FOR REFERRAL No Information MEDICATIONS Medication SIG (Take, Route, Frequency, Duration) Notes Start Date End Date Status Centrum Silver - 1 Orally QD A ctive Simvastatin 40 MG 1 tablet in the even ing Orally Once a day Active Losartan Potassium 100 MG 1 tablet Orall y Once a day Active MiraLax (colon prep) 17 GM/SCOOP mixed with Gatorade or Crystal Light Orally begin at 5:00 p.m. the day before the procedure for 1 day 04/18/2023 Active Vitamin B Complex - as directed Orally Active Atenolol 25 MG 1 tablet Orally Once a day Active amLODIPine Besylate 5 MG 1 tablet Orally Once a day for 30 day(s) Active IMMUNIZATIONS Vaccine Route Administration Date Status Comme nts Influenza Unknown 08/17/2022 Administered SOCIAL HISTORY Tobacco Use: Social History Observation Description Date Details (start date - stop date) Never Smoker NA - NA Sex Assigned At : Social History Observation Description Sex Assigned At Unknown Tobacco Use/Smoking Question Answer Notes Patient is a nonsmoker Alcohol Screen Question Answer Notes Did you have a drink contain ing alcohol in the past year? Yes How often did you have a dri nk containing alcohol in the past year? Monthly or less (1 point) How many drinks did you have on a typical day when you were drinking in the past year? 1 or 2 drinks (0 point) How often did you have 6 or more drinks on one occasion in the past year? Never (0 point) Points 1 Interpretation Negative PROBLEMS Problem Type ICD Code Onset Dates Problem Status W/U Status Risk SNOMED Code Notes Problem Colon cancer screening (Z12.11) Active confirmed 505502890 Problem Personal history of colonic polyps (Z86.010) Active confirmed History of polyp of colon (situation) (645710966) Problem Encounter for other preprocedural examination (Z01.818) Active confirmed 146569993 Problem custodial (current) use of aspirin (Z79.82) Active confirmed 080457665 Problem Long-term current use of high risk medication other than anticoagulant (Z79.899) Active confirmed 527409102 PLAN OF TREATMENT Future Test Test Name Order Date COLONOSCOPY 03/15/2018 COLONOSCOPY 04/18/2023 Insurance Providers Payer Name Payer Address Payer Phone Subscriber Number Group Number Insured Name Patient Relationship to Insured Coverage Start Date Coverage End Date [facility] [employer] [address] [place] [address] [id number] GLENIS, JEET Self - patient is the insured MEDICAL (GENERAL) HISTORY Medical History History ICD Code hypertension Hyperlipidemia BPH ANAHI/CPAP Colonoscopy 04/28/18, hyperpla stic polyp, five-year followup because of family history of colon polyps. Osteoarthritis Nephrolithiasis Surgical History Surgery Date(Month/Year) lower back surgery 1991 Cardiac ablation for atrial fibrillation or SVT Cystoscopy/ESWL
--- OUTSIDE RECORDS SUMMARY | 2024-11-22 12:43 | XMS_ITS ---
Author Organization [facility] Address [address] [place] [address] Care Team Providers Care Esthetician/Skin Therapist Name Role Phone Justin MILLER, [facility] Primary Care Provider Unavail Prakash Velasquez Jr Unavailable REASON FOR VISIT screening PROBLEMS Problem Type ICD Code Onset Dates Problem Status W/U Status Risk SNOMED Code Notes Problem Personal history of colonic polyps (Z86.010) Active confirmed History of polyp of colon (situation) (715587056) Encounters Encounter Location Date Provider Diagnosis [facility] [place] [facility] [address] [place] [id number] 10/04/2023 Prakash Auguste Jr Encounter for screening colonoscopy Z12.11 ; Personal history of colonic polyps Z86.010 and Colon polyps K63.5 ASSESSMENTS Encounter Date Diagnosis Assessment Notes Treatment Notes Treatment Clinical Notes 10/04/2023 Encounter for screening colonoscopy (ICD-10 - Z12.11) 10/04/2023 Personal history of colonic polyps (ICD-10 - Z86.010) 10/04/2023 Colon polyps (ICD-10 - K63.5) PLAN OF TREATMENT No Information
== END 2024-11-22 11:24 | disposition home or self-care (01) ==
PROVIDERS: PCP Nurse Practitioner Family; Visit Provider Urology
DX: N20.0 Calculus of kidney (principal); N40.1 Benign prostatic hyperplasia with lower urinary tract symptoms
CPT/HCPCS: 99214

== ENCOUNTER → 2024-11-22 10:43 | Outpatient (BNVA) | payer OTHER, SELFPAY | PROVIDERS: PCP Nurse Practitioner Family; Visit Provider Urology | DX: N40.0 Benign prostatic hyperplasia without lower urinary tract symptoms (principal); Z87.442 Personal history of urinary calculi | CPT/HCPCS: 99212 ==

== ENCOUNTER 2025-02-14 10:16 | Outpatient (AMB) | payer OTHER, SELFPAY ==
[2025-02-14 10:19] VITALS: BP 142/70; PULSE 72; O2SAT 95; BMI 25.8
--- NOTE | 2025-02-14 10:19 | A.OFFPC_ITS ---
Vital Signs 02/14/25 10:19 Height 6 ft Weight 190 lb BMI 25.8 BP 142/70 H Blood Pressure Location Lt brachial Position Sitting Pulse 72 Pulse Source Pulse Oximeter Pulse Oximetry (%) 95 Oxygen Delivery Method Room Air Intake Visit Reasons: 6 month follow up Mailroom Messenger Required: No Accompanied by: Self / Same As Patient Allergies lisinopril [LISINOPRIL] Allergy (Mild, Verified 02/14/25 10:19) cough Medication List - Last Reconciled 02/14/25 by Timothy Dee [facility] albuterol sulfate 90 mcg/actuation 2 puffs inhalation Q4-6H PRN 30 days amlodipine 5 mg PO DAILY 90 days atenolol 25 mg PO DAILY 90 days montelukast 10 mg PO DAILY 30 days pyridoxine (vitamin B6) 50 mg PO DAILY 90 days simvastatin 40 mg PO BEDTIME valsartan 160 mg PO DAILY Tobacco use date assessed: 02/14/25 Fall risk assessment: No Falls in past year Last assessed Fall Risk: 02/14/25 Dental Screening Dental Screen Date: 02/14/25 Did you have a dental visit in the last 12 months?: No Did you have a dental problem in the last 6 months where you did not have access to dental care?: No Was dental information given to patient?: Patient declined HPI 6 month follow up HPI Details Chief Complaint Evaluation of elevated blood pressure History of Present Illness The patient is a 74-year-old male presenting with elevated blood pressure, likely secondary to his existing diagnosis of essential hypertension. His an xiety and emotional state appear to be exacerbating his condition (today), potentially linked to his responsibilities at home and work ( with dementia). He has a history of dyslipidemia and maintains regular contact with pulmonary and urology specialists. Recently, he resolved a febrile episode with Tylenol and does not report any ongoing symptoms of dizziness, chest pain, or dyspnea. 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 - Family Status: Caregiver to his , who is suffering from dementia. Health Maintenance Review of Systems - General: Reports recent fever, now res olved. - Cardiovascular: Denies chest pain. - Respiratory: Denies shortness of breat h. - Neurological: Denies dizziness. -denies any si or hi Physical Exam General: Cooperative, healthy appearing, comfortable, no acute distress and well developed Orientation: Patient oriented x3 Limitations: No limitations Head: Normal to inspection Ears: Hearing grossly normal bilaterally Nose: Normal external nose present Face and sinus: Normal facial exam Eyes: Appearance normal, both eyes and all related structures Neck: Normal visual inspection and Yes full ROM Respiratory: Lungs are very coarse bilaterally with scattered wheezes. Cardiovascular: Regular rate and rhythm. Normal S1 and S2 GI: Normal to inspection. Soft to palpation and nontender Skin: No rashes or lesions noted Neuro: Patient oriented x3 Extremities: Normal to inspection Results Plan I plan to address the patient's elevated blood pressure related to his essential hypertension by ordering a chest X-ray to further assess his pulmonary health due to findings of coarse lung sounds and recent fever. Monitoring of hypertension and anxiety-related impacts is essential, with consideration for the upcoming work hiatus which might alleviate some stress. I have also ordered laboratory tests to evaluate his dyslipidemia and other crucial health indicators and scheduled a follow-up in six months. Discussion Notes I discussed with the patient the importance of monitoring his blood pressure and the potential impact of his current stress levels on his condition. We agreed on obtaining a chest X-ray today to investigate any unresolved respiratory issues due to his coarse breath sounds. I emphasized the need for regular evaluations of his hypertension and dyslipidemia through routine lab tests. We reviewed the plan to see him again in six months unless earlier intervention is warranted. The patient is aware of the follow-up plan and potential lifestyle improvements as he anticipates a period of leave from work. Patient Instructions - Obtain the chest X-ray today as direct ed. - Maintain regular medication for hypert ension and monitor blood pressure at home. - Take time to relax during the upcoming summer leave to help manage stress. 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 SVT (supraventricular tachycardia) Osteoarthritis ANAHI on CPAP BPH (benign prostatic hyperplasia) Renal calculi Hyperlipidemia HTN (hypertension) Left hip pain Surgical History Hx of lithotripsy History of radiofrequency ablation procedure for cardiac arrhythmia H/O shoulder surgery History of back surgery H/O colonoscopy Hx of cystoscopy Social History Housing: House Are you a primary home health care social worker to a significant other at home: No Do you presently have visiting nurse or other home services: No Alcohol intake: former Patient Tobacco Use Status: Never used Tobacco e-Cigarette/Vaping Use: Never Used Second Hand Smoke Exposure: Yes Advance Directives Date on File: 08/24/22 Current occupational status: 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 1. Little interest or pleasure in doing things: not at all 2. Feeling down, depressed, or hopeless: not at all 3. Trouble falling or staying asleep, or sleeping too much: not at all 4. Feeling tired or having little energy: not at all 5. Poor appetite or overeating: not at all 6. Feeling bad about yourself - or that you are a failure or have let yourself or your family down: not at all 7. Trouble concentrating on things, such as reading the newspaper or watching television: not at all 8. Moving or speaking so slowly that other people could have noticed. Or the opposite - being so fidgety or restless that you have been moving around a lot more than usual: not at all 9. Thoughts that you would be better off or of hurting yourself in some way: not at all Total score: 0 Depression Screening Interpretation: Negative Depression Screening Done: Yes 72244 - PHQ-9 Billing: Yes Source: Developed by Drs. Eriberto Fermin, Nicol Baeza, Moe Cunningham and colleagues, with an educational roxie from [employer]. Thrive Questionnaire Date Thrive assessed: 02/14/25 I am a: Patient What is your living situation today?: I have a steady place to live Within the past 12 months, did the food you bought not last and you didn't have the money to get more?: Never true Within the past 12 months, did you worry whether your food would run out before you got money to buy more?: Never true Do you have trouble paying for medicines?: No Do you have trouble getting transportation to medical appointments?: No Do you have trouble paying your heating and electricity bill?: No Do you have trouble taking care of your child, family member or friend?: No Do you have trouble with day-to-day activities such as bathing, preparing meals, shopping, managing finances, etc.?: No Are you interested in more education?: No Please select the resources that you would like help with: None Currently or been in a relationship where the following occur: No concerns reported THRIVE Score: 0 AUDIT C Alcohol Use Questionnaire (AUDIT-C) 1. How often do you have a drink containing alcohol?: Never 3. How often do you have six or more drinks on one occasion?: Never Total Score: 0 Score Reviewed/Action Taken: Yes JUSTINA-7 AMB Questionnaire JUSTINA-7 Date JUSTINA - 7 assessed: 02/14/25 Feeling nervous, anxious, or on edge: 0 = Not at all Not being able to stop or control worryin = Not at all Worrying too much about different things: 0 = Not at all Trouble relaxin = Not at all Being so restless that it is hard to sit still: 0 = Not at all Becoming easily annoyed or irritable: 0 = Not at all Feeling afraid as if something awful might happen: 0 = Not at all Total JUSTINA-7 score (0-4 normal; 5-9 mild; 10-14 moderate; 15-21 severe): 0 Source: Developed by Drs. Eriberto Fermin, Nicol Baeza, Moe Cunningham and colleagues, with an educational roxie from [employer]. JUSTINA-7 Assessment Billing JUSTINA-7 Assessment Tool: JUSTINA-7 Assessment 49397 Physical exam (Primary Care) Vital Signs: Last Vital Signs Pulse 72 02/14/25 10:19 BP 142/70 H 02/14/25 10:19 Pulse Ox 95 02/14/25 10:19 Oxygen Delivery Method Room Air 02/14/25 10:19 BMI result Body Mass Index 25.8 Tobacco/Smoking Status: Tobacco use Status Tobacco use date assessed 02/14/25 02/14/25 10:20 Patient Tobacco Use Status Never used Tobacco 02/14/25 10:20 e-Cigarette/Vaping Use Never Used 02/14/25 10:20 PHQ-9: PHQ-9 Score PHQ-9: Total score 0 02/14/25 10:20 Depression Screening Interpretation: Negative Thrive Assessment: Date of Thrive Assessment Date Thrive assessed 02/14/25 02/14/25 10:20 Currently or been in a relationship where the following occur: No concerns reported Coding Level of Care Code Est Pt Level 3 (79819) Diagnoses HTN (hypertension) I10 Wheezing R06.2 Additional Codes JUSTINA-7 Assessment Billing - JUSTINA-7 Assessment Tool: JUSTINA-7 Assessment 03100 ([id number]) PHQ-9 - 24003 - PHQ-9 Billing: Yes ([id number]) Assessment & Plan Assessment & Plan (1) HTN (hypertension): Code(s): I10 - Essential (primary) hypertension Category: Medical (2) Wheezing: Code(s): R06.2 - Wheezing Category: Medical Plan . Orders: Orders Complete Blood Count Auto Diff Today I10 - Essential (primary) hypertension Comprehensive Mouthcard. Panel Fast Today I10 - Essential (primary) hypertension TSH reflex Free T4 Today I10 - Essential (primary) hypertension UA CC w/rflx Micro + Cult Today I10 - Essential (primary) hypertension Lipid Panel Today I10 - Essential (primary) hypertension XR chest 2V Today R06.2 - Wheezing
--- OUTSIDE RECORDS SUMMARY | 2025-02-14 10:45 | XMS_ITS | Patient Health Record ---
Author Organization [facility] Address [address] [place] [address] Care Team Providers Care Electronic Equipment Maint Tech Name Role Phone Justin MILLER, Claire Primary Care Provider Unavail able Prakash Auguste Jr Unavailable Allergies Allergen (clinical drug ingredient) Drug/Non Drug Allergy documented on EMR Reaction Allergy Type Onset Date Status losartan Losartan Unknown Drug Allergy Active Reason For Referral No Information Medications Medication SIG (Take, Route, Frequency, Duration) Notes [...] Once a day for 30 day(s) Active Immunizations Vaccine Route Administration Date Status Comme nts Influenza Unknown 08/17/2022 Administered Social History Tobacco Use: Social History Observation Description Date Details (start date - stop date) Never Smoker NA - NA Tobacco Use/Smoking Question Answer Notes Patient is [...] Never (0 point) Points 1 Interpretation Negative Problems Problem Type SNOMED Code ICD Code Onset Dates Problem Status W/U Status Risk Notes Problem 533280855 Colon cancer screening (Z12.11) Active confirmed Problem Personal history of colonic polyps (Z86.010) Active confirmed Problem 203521108 Encounter for other preprocedural examination (Z01.818) Active confirmed Problem 597974260 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 [place] [address] [id number] COUNTER, JEET Self - patient is the insured Medical (General) History Medical History History ICD Code hypertension Hyperlipidemia BPH ANAHI/CPAP Colonoscopy 04/28/18, hyperpla stic polyp, five-year followup because of family history of colon polyps. Osteoarthritis Nephrolithiasis Surgical History Surgery Date(Month/Year) lower back surgery 1991 Cardiac ablation for atrial fibrillation or SVT Cystoscopy/ESWL
--- OUTSIDE RECORDS SUMMARY | 2025-02-14 10:45 | XMS_ITS ---
Author Organization [facility] Address [address] [place] [phone] Care Team Providers Care Personnel Monitor Name Role Phone Justin MILLER, [facility] Primary Care Provider Unavail Prakash Velasquez Jr Unavailable REASON FOR VISIT PM/SH correction Encounters Encounter Location Date Provider Diagnosis [facility] [address] [place] [address] 09/30/2023 Prakash Auguste Jr Plan Of Treatment No Information Progress Notes * JEET GALVINDOB:1950 (73 yo M)Acc No.[id number]:09/30/2023 Patient:?JEET GALVIN :1950???Age:73 Y???Sex:Male Address:[address] [place] [address], [id number] Subjective: * Chief Complaints: * ???PM/SH correction * Medical History:? * Surgical History:?lower back surgery 1992Cardiac ablation for atrial fibrillation or SVT Cystoscopy/ESWL * Hospitalization/Major Diagno stic Procedure:? * Medications:? Objective: Assessment: Plan: * Treatment: * Procedure Codes:? * true * Date:? Generated for Ishaan mosley/Kwame/eTransmitting on:?02/14/2025 10:45 AM EDT
--- OUTSIDE RECORDS SUMMARY | 2025-02-14 10:45 | XMS_ITS ---
Author Organization [facility] Address [address] [place] [phone] Care Team Providers Care Hull And Deck Remover Name Role Phone Justin MILLER, [facility] Primary Care Provider Unavail Prakash Velasquez Jr Unavailable REASON FOR VISIT pathology Encounters Encounter Location Date Provider Diagnosis [facility] [address] [place] [phone] 10/10/2023 Prakash Auguste Jr Plan Of Treatment No Information Progress Notes * JEET GALVINDOB:1950 (73 yo M)Acc No.[id number]:10/10/2023 Patient:?JEET GALVIN :1950???Age:73 Y???Sex:Male Address:[address] [place] [address], [place], [address] * true * Date:? Generated for Ishaan mosley/Kwame/eTransmitting on:?02/14/2025 10:45 AM EDT
--- OUTSIDE RECORDS SUMMARY | 2025-02-14 10:45 | XMS_ITS ---
Author Organization [facility] Address [address] [place] [address] Care Team Providers Care Side Trimmer Name Role Phone Justin MILLER, Claire Primary Care Provider Unavail Prakash Velasquez Jr Unavailable REASON FOR VISIT screening Problems Problem Type SNOMED Code ICD Code Onset Dates Problem Status W/U Status Risk Notes Problem Personal history of colonic polyps (Z86.010) Active confirmed Encounters Encounter Location Date Provider Diagnosis [facility] Outpatient [address] [place] [id number] 10/04/2023 Prakash Auguste Jr Encounter for screening colonoscopy Z12.11 ; Personal history of colonic polyps Z86.010 and Colon polyps K63.5 Assessments Encounter Date Diagnosis (ICD Code) Assessment Notes Treatment Notes Treatment Clinical Notes Section Notes 10/04/2023 Encounter for screening colonoscopy (ICD-10 - Z12.11) 10/04/2023 Personal history of colonic polyps (ICD-10 - Z86.010) 10/04/2023 Colon polyps (ICD-10 - K63.5) Plan Of Treatment No Information Progress Notes * JEET GALVINDOB:1950 (74 yo M)Acc No.[id number]:10/04/2023 COLON WITH MAC Patient:?JEET GALVIN Provider:?Prakash Auguste MD :1950???Age:73 Y???Sex:Male Elvin e:10/04/2023 Address:[address] [place], [place] [id number] Pcp:Claire Anderson MD Subjective: * Chief Complaints: * ???1. Screening. * Medical History:? Objective: * Vitals:? Assessment: * Assessment: 1.?Encounter for screening c olonoscopy - Z12.11 (Primary)???2.?Personal history of colonic polyps - Z86.010???3.?Colon polyps - K63.5??? Plan: * Treatment: * Procedure Codes:?38714 COLON OSCOPY AND BIOPSY * Preventive Medicine:? ??ASIYA Screening:?Colonoscopy?Was interval between colonoscopies three years or more??Yes,?Was last colonoscopy performed three or more years ago??Yes.? * * The named appointment provid er may or may not be the originator of this progress note, and it is not deemed complete until electronically signed by the appointment provider. Sign off status: Pending * Provider:?Prakash Auguste MD Date:?0 10/04/2023 Generated for Ishaan mosley/Kwame/Kendraitting on:?02/14/2025 10:45 AM EDT
== END 2025-02-14 11:45 | disposition home or self-care (01) ==
LOC: HO.HMCC 10:17
PROVIDERS: PCP Nurse Practitioner Family; Visit Provider Nurse Practitioner Family
DX: I10 Essential (primary) hypertension (principal); R06.2 Wheezing

== ENCOUNTER 2025-02-14 10:16 | Outpatient (REF) | payer MEDICARE, SELFPAY ==
--- NOTE | ~2025-02-14 | XR_ITS ---
EXAMINATION: XR CHEST CLINICAL INFORMATION: R06.2 - Wheezing COMPARISON: October 21, 2024. TECHNIQUE: 2 views of the chest were obtained. FINDINGS: Hyperinflated lungs. No consolidation, pleural fissure pneumothorax. Asymmetric right-sided pulmonary reticular pattern with nodular opacity. Bilateral apical lung scarring. Cardiomediastinal silhouette size is normal. Multilevel spondylosis, thoracic spine. Degenerative changes in the right acromioclavicular joint. XR/XR chest 2V IMPRESSION: Consider COPD emphysematous type changes. Underlying/superimposed airspace disease in the right lung cannot be excluded. Electronically signed by: Sampson Caballreo MD 02/14/2025 11:40 AM EDT
== END 2025-02-14 10:17 | disposition home or self-care (01) ==
LOC: HO.HMGCX 10:16
PROVIDERS: PCP Nurse Practitioner Family; Visit Provider Nurse Practitioner Family
DX: I10 Essential (primary) hypertension (principal); R06.2 Wheezing
CPT/HCPCS: 71046; 96127; 99212

== ENCOUNTER → 2025-02-14 11:07 | Outpatient (BNV) | payer MEDICARE, SELFPAY | PROVIDERS: PCP Nurse Practitioner Family; Visit Provider Radiology Diagnostic Radiology | DX: R06.2 Wheezing (principal) | CPT/HCPCS: 71046 ==

== ENCOUNTER 2025-02-16 07:20 | Outpatient (REF) | payer MEDICARE, SELFPAY ==
--- OUTSIDE RECORDS SUMMARY | 2025-02-16 07:22 | XMS_ITS ---
Author Organization [facility] Address [address] [place] [id number] Care Team Providers Care Pier Master Assistant Name Role Phone Justin MILLER, [facility] Primary Care Provider Unavail Prakash Velasquez Jr Unavailable [phone] REASON FOR VISIT pathology Encounters Encounter Location Date Provider Diagnosis [facility] [address] [place] [id number] 10/10/2023 Prakash Auguste Jr Plan Of Treatment No Information Progress Notes * JEET GALVINDOB:1950 (73 yo M)Acc No.[id number]:10/10/2023 Patient:?JEET GALVIN :1950???Age:73 Y???Sex:Male Address:[address] [place] [address], [place], [address] * true * Date:? Generated for Ishaan mosley/Kwame/eTransmitting on:?02/16/2025 07:22 AM EDT
[2025-02-16 11:05] LABS: MANUAL DIFF FLAG NO
[2025-02-16 11:10] LABS: Basophils Percent Auto 0.6 % (0-2); Eosinophils Absolute Auto 0.1 X10*3/uL (0.0-0.4); Eosinophils Percent Auto 1.5 % (0-4); Hematocrit 37.2 % (42.0-52.0); Hemoglobin 12.4 g/dl (14.0-18.0); Imm Gran Abs Auto 0.02 X10*3/uL (0.00-0.03); Imm Gran Pct Auto 0.3 % (0.0-0.4); Lymphocytes Absolute Auto 1.5 X10*3/uL (1.2-4.9); Lymphocytes Percent Auto 20.9 % (20-40); Mean Corpuscular HGB Conc 33.3 g/dl (31.0-36.0); Mean Corpuscular Hemoglobin 28.8 pg (27.0-33.0); Mean Corpuscular Volume 86.5 fL (80.0-98.0); Mean Platelet Volume 9.5 fL (9.4-12.4); Monocytes Absolute Auto 0.7 X10*3/uL (0.1-1.2); Monocytes Percent Auto 10.2 % (2-11); Neutrophils Absolute Auto 4.8 x10*3/uL (2.0-8.3); Neutrophils Percent Auto 66.5 % (45-73); Platelet Count 279 X10*3/uL (160-400); Red Cell Distribution Width 12.7 % (11.0-16.0); White Blood Count 7.2 X10*3/uL (4.8-10.8)
[2025-02-16 11:20] LABS: Appearance Urine Cloudy; Color Urine Yellow; Glucose Urine UA Negative (Negative); Leukocyte Esterase Urine Small (1+) (Negative); Nitrite Urine Negative (Negative); Specific Gravity - Urine 1.025 (1.005-1.025); UMIC TRIGGER UACC YES; Urine Blood Small (1+) (Negative); Urine Ketones Negative (Negative); Urine Protein 30 (1+) mg/dL (Neg-Trace)
[2025-02-16 11:36] LABS: Alanine Aminotransferase 20 U/L (0-40); Albumin Level 4.4 g/dL (3.5-5.0); Alkaline Phosphatase 64 U/L (39-117); Anion Gap 15 (12-20); Aspartate Amino Transferase 25 U/L (5-37); Bacteria Urine Trace (None Seen); Bilirubin Total 0.6 mg/dL (0.0-1.0); Blood Urea Nitrogen 12 mg/dL (9-16); Calcium 9.2 mg/dL (8.4-10.2); Calcium Oxalate Crystals Urine Present; Carbon Dioxide 29 mmol/L (22-29); Chloride 104 mmol/L (96-108); Cholesterol 131 mg/dL (<200); Estimated Glomerular Filt Rate > 60; Glucose Fasting 104 mg/dL (60-99); HDL Cholesterol 36 mg/dL (>40); Hyaline Casts Urine 0-2 /LPF (0-2); LDL Cholesterol Calculated 78 mg/dL (<100); Potassium 3.5 mmol/L (3.3-5.1); Sodium 144 mmol/L (135-145); Squamous Epithelial Cell Urine 0-2 /HPF (0-2); Triglycerides 85 mg/dL (<150); UACC Culture Trigger YES
[2025-02-16 11:41] LABS: TSH reflex Free T4 1.73 uIU/mL (0.32-4.0)
== END 2025-02-16 07:21 | disposition home or self-care (01) ==
LOC: HO.HMGCLDS 07:20
PROVIDERS: PCP Nurse Practitioner Family; Visit Provider Nurse Practitioner Family
DX: I10 Essential (primary) hypertension (principal); R30.0 Dysuria
CPT/HCPCS: 36415; 80053; 80061; 81001; 84443; 85025; 87086; 87088; 87186

== ENCOUNTER 2025-03-02 07:18 | Outpatient (REF) | payer MEDICARE, SELFPAY ==
[2025-03-02 11:22] LABS: Appearance Urine Turbid; Color Urine Yellow; Glucose Urine UA Negative (Negative); Leukocyte Esterase Urine Small (1+) (Negative); Nitrite Urine Negative (Negative); PH 5.5 (5.0-9.0); Specific Gravity - Urine 1.025 (1.005-1.025); UMIC TRIGGER UACC YES; Urine Blood Negative (Negative); Urine Ketones Trace mg/dL (Negative); Urine Protein Trace mg/dL (Neg-Trace)
[2025-03-02 11:29] LABS: Bacteria Urine None Seen (None Seen); Calcium Oxalate Crystals Urine Present; Hyaline Casts Urine 0-2 /LPF (0-2); RBC Urine 0-2 /HPF (0-2); Squamous Epithelial Cell Urine 0-2 /HPF (0-2); UACC Culture Trigger YES; WBC Urine 0-5 /HPF (0-5)
== END 2025-03-02 07:19 | disposition home or self-care (01) ==
LOC: HO.HMGCLDS 07:18
PROVIDERS: PCP Nurse Practitioner Family; Visit Provider Nurse Practitioner Family
DX: N40.1 Benign prostatic hyperplasia with lower urinary tract symptoms (principal); N13.8 Other obstructive and reflux uropathy; I10 Essential (primary) hypertension
CPT/HCPCS: 81001; 87086

== ENCOUNTER 2025-05-01 09:34 | Outpatient (AMB) | payer MEDICARE, SELFPAY ==
--- OUTSIDE RECORDS SUMMARY | 2025-01-15 04:00 | XMS_ITS ---
Author Name [facility] [place] Address [address] [place] [id number] Care Team Providers Care Sales Assistants And Salespersons Name Role Phone ANNEL BRYANTA Primary Care Provider Unavailabl e Insurance Providers: [...] Francisco's Name Patient's Relationship to Policy Francisco [facility] ([facility]) MEDICARE ADVANTAGE [facility] ([facility]) May 27, 2015 [id number] Jessy GALVIN PATIENT Selected Encounter This section includes the information on record at [place] for the Encounter. Date/Time Encounter Type Encounter Description Reason Provider Source Jan 15, 2025 08:00 AM OFFICE O/P EST HI 40 MIN PM&RS PHYSICIAN ICD-10-CM M25.552 Pain in left hip DESHPANDE,NAMAN GAMEZ E Encounter Template Text not used by [place] Assessments - Encounter Diagnoses This section includes the primary and secondary diagnoses documented for the Encounter. Date/Time Primary/Secondary Diagnosis Diagnosis Name Provider Source Jan 15, 2025 08:42 AM PRIMARY Pain in left hip DESHPANDE,NAMAN GAMEZ [place] [facility] [place] [facility] Plan of Treatment: Future Appointments (+ 6 months) and Future Tests (+/- 45 days) The Plan of Treatment section includes future care activities for the patient from all [place] [facility] This section includes future appointments and future orders which are active, pending or scheduled. Future Appointments This section includes appointments that were scheduled to occur 6 months from the date of the Encounter, up to a maximum of 20 appointments. The data comes from all [place] treatment facilities. Appointment Date/Time Appointment Type Appointme nt Facility Name Jan 18, 2025 09:30 AM AMBULATORY - MEDICINE [facility] [place] [facility] January 28, 2025 10:30 AM AMBULATORY - REHAB MEDICIN E [facility] [place] [facility] February 12, 2025 10:30 AM AMBULATORY - REHAB MEDICIN E [facility] [place] [facility] February 13, 2025 09:30 AM AMBULATORY - NONE [facility] [place] [facility] Mar 05, 2025 10:00 AM AMBULATORY - REHAB MEDICIN E [facility] [place] [facility] Mar 18, 2025 09:30 AM AMBULATORY - MEDICINE [facility] [place] [facility] Mar 25, 2025 08:00 AM AMBULATORY - MEDICINE [place] [facility] [place] [place] [facility] Apr 04, 2025 01:00 PM AMBULATORY - MEDICINE [facility] [place] [facility] May 01, 2025 08:00 AM AMBULATORY - MEDICINE [place] [facility] [place] [place] [facility] May 07, 2025 08:30 AM AMBULATORY - MEDICINE [place] [facility] [place] [place] [facility] Jun 11, 2025 10:00 AM AMBULATORY - MEDICINE [place] [facility] [place] [facility] Vital Signs: All taken on the encounter date This section contains inpatient and outpatient Vital Signs collected on the date of the Encounter. Date/Time Temperature Pulse Blood Pressure Respiratory Rate SP02 Pain Height Weight Body Mass Index Source Jan 15, 2025 08:03 AM 98.1 80 148/62 16 96 4 [place] [facility] [place] [facility] Social History: Smoking Status (Most current) and Tobacco Use (All prior to encounter date) This section includes the most current, and the historical, smoking and tobacco- related health factors from the [place] facility where the Encounter took place. Current Smoking Status This section includes the most current smoking, or tobacco-related health factor, from the [place] facility where the Encounter took place. Date/Time Current Smoking Status Comment Michelet ity Oct 21, 2023 10:23 AM [facility] Tobacco Use History This section includes a history of the smoking, or tobacco-related health factors, that were collected on or before the date of the Encounter. The data comes from the [place] facility where the Encounter took place. Date/Time Smoking Status/Tobacco Use Comment F acility Jul 27, 2022 11:00 AM VA-TOBACCO NEVER USED [place] [facility] [place] [facility] Jul 20, 2021 10:30 AM VA-TOBACCO NEVER USED [facility] [place] [facility] Jul 01, 2020 03:30 PM VA-TOBACCO NEVER USED [facility] [place] [facility] Jul 05, 2018 10:50 AM VA-TOBACCO NEVER USED [place] [facility] [place] [facility] Jan 03, 2018 10:01 AM LIFETIME NON-TOBACCO USER [facility] [place] [facility] Dec 29, 2016 10:10 AM LIFETIME NON-TOBACCO USER [place] [facility] [place] [facility] Apr 02, 2005 08:00 AM LIFETIME NON-SMOKER [facility] [place] [facility] Apr 02, 2004 08:07 AM LIFETIME NON-SMOKER [facility] [place] [facility] Apr 01, 2003 08:12 AM LIFETIME NON-SMOKER [facility] [place] [facility] Apr 02, 2002 01:05 PM LIFETIME NON-SMOKER [facility] [place] [facility] Mar 31, 2001 01:23 PM LIFETIME NON-SMOKER [facility] Advance Directives: All historical and current Section Date Range: From patient's date of to the date document was created. This section includes ALL of a patient's completed or amended [place] Advance and Rescinded Directives. The entries below indicate that a directive exists for the patient, but an actual copy is not included with this document. The data comes from all [place] facilities. Date Advance Directives Provider Source Jun 09, 2013 ADVANCE DIRECTIVE NICHOL GAMEZ [facility] Radiology Reports: +/- 30 days of [...] the Encounter. The data comes from all [place] treatment facilities. 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 Encounter Notes: All associated encounter notes This section contains the clinical notes associated to the Encounter. Date/Time Encounter Note(s) Provider Source Jan 15, 2025 08:33 AM PHYSICAL MEDICINE REHAB PHYSICIAN NOTE: LOCAL TITLE: PM&R FOLLOW-UP STANDARD TITLE: PHYSICAL MEDICINE REHAB PHYSICIAN NOTE DATE OF NOTE: JAN 15, 2025@08:33 ENTRY DATE: JAN 15, 2025@08:33:36 AUTHOR: NAMAN DESHPANDE EXP COSIGNER: URGENCY: STATUS: COMPLETED COUNTER,JEET CELIS is a 74 y/o MALE who presents today for evaluation of left hip pain. Symptoms started on and was severe for several weeks. He engaged in PT as well as [facility] acupuncture which improved symptoms some degree. Pain is 4/10 today, however can be more severe especially with ambulation, bending over to tie his shoes, and with cold and rainy weather when there is an exacerbation. Pain is described as a sharp, aching sensation that is localized to the left groin without radiation. Denies lower extremity weakness, numbness, or tingling. Denies radicular symptoms from the low back. PMHx, PSxHx, SocHx: reviewed in chart, unchanged. See prior notes including H&P for details. 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 ALL: LISINOPRIL MEDS: Active Outpatient Medications (including Supplies): VALSARTAN 160MG TAB TAKE ONE TABLET BY MOUTH ONCE DAILY ACTIVE IN PLACE OF [place]ARTAN Indication: FOR HIGH BLOOD PRESSURE Non-VA AMLODIPINE BESYLATE 5MG TAB 5MG BY MOUTH ONCE DAILY ACTIVE Non-VA ATENOLOL 25MG TAB 25MG BY MOUTH EVERY DAY ACTIVE Non-VA MONTELUKAST NA 10MG TAB 10MG BY MOUTH ACTIVE Non-VA PYRIDOXINE HCL 100MG TAB 100MG BY MOUTH ONCE DAILY ACTIVE Non-VA SIMVASTATIN 80MG TAB 40MG BY MOUTH EVERY DAY ACTIVE 6 Total Medications ROS: Constitutional - Denies fever or chills. Cardiovascular - Denies chest pain/tightness, lower extremity swelling. Respiratory - Denies shortness of breath, or cough. GI - Denies nausea, vomiting, or loss of bowel fx/control. - Denies pelvic pain or loss of bladder function. Musculoskeletal - See HPI. Neuro - See HPI. Skin/integuments - Denies rashes, lesions, or skin breakdown in the extremities. All other systems reviewed and are negative. PHYSICAL EXAMINATION: Vitals in chart. GEN: WD, WN. Awake, alert, cooperative with exam. In NAD. PSYCH: Good eye contact. Appropriate affect and social interaction. Very pleasant. CVS: Extremities warm/well perfused. No lower extremity edema. PULM: Breathing unlabored, no accessory muscle use. ABD: Nondistended. EXTREMITIES: No cyanosis or edema of bilateral upper and lower extremities. MUSCULOSKELETAL EXAM: No gross deformities of the lower extremities or spine. Stands and seated upright. Left hip range of motion is decent with only limitation in internal rotation which is to 5 degrees and elicits pain in the groin. Positive logroll and FABERs localized to the left groin. Good mobility of the spine without radiculat pain. No significant tenderness palpation of the left gluteus musculature, greater trochanter, or anterior groin musculature. Negative dynamic SLR on the left. Negative Curt's sign. No significant tenderness to palpation of the left SI joint. Tight hamstrings and hip flexors. MMT HF KE ADF EHL APF Left 5 5 5 5 5 Right 5 5 5 5 5 Gait: normal, symmetric. NEURO: AAO x3. Sensation intact to light touch in bilateral lower extremities. Negative straight leg raise test bilaterally. Negative ankle clonus bilaterally. Diagnostic Studies: Bilateral hip x-ray in 2022 was negative for degenerative changes. ASSESSMENT/PLAN: Patient is a 74-year-old gentleman with left hip pain, suspecting intra- articular pathology, rule out degenerative changes based upon history and physical exam. Through shared-decision making in collaboration with the , considering clinical judgment, patient preference, and evidence-based treatment, the plan is: -Obtain left hip x-ray today. -Heat q2 hours prn pain. -Tylenol 1000mg every 8 hours prn pain. -Con't HEP as provided by PT. -If he experiences severe symptoms exacerbation without improvement with above interventions for 3 consecutive days, patient will contact me for a left intra- articular hip injection. I will get patient in within 2 weeks of being contacted. Patient has been provided with my clinic's direct contact info in case an injection is necessary. FOLLOW-UP: prn Potential risks and side effects of any medication(s) prescribed today was reviewed with Rhodell. Patient's questions were answered to the best of my ability and to patient's apparent satisfaction. Vet expressed understanding and agreement with above plan. MDM: 40 minutes which includes reviewing records, evaluating patient, documenting in medical record, educating, counseling and coordinating care. Medication Reconciliation: Outpatient: Has the patient been taking pain medications as documented in the EMLR? YES: The patient has been taking medications as documented in the EMLR. Essential Medication List for Review used to complete this medication reconciliation. INCLUDED IN THIS LIST: Alphabetical list of active outpatient prescriptions dispensed from this [facility] (local) and dispensed from another [place] or DoD facility (remote) as well as inpatient orders (local, pending and active), local clinic medications, locally documented non-VA medications, and local prescriptions that have or been discontinued in the past 90 days. - All changes in medications, including all non-VA/Herbal/OTC medications were entered into CPRS. - If there were any medications the patient should no longer take, they were discontinued. - The patient/caregiver was instructed to update this list, discard old lists, and take this list to the next appointment, whether with a VA or non-VA provider. /eda/ NAMAN DESHPANDE DO MAINTENANCE SERVICE SUPERVISOR Signed: 01/15/2025 08:42 NAMAN DESHPANDE [place] [facility]
[2025-05-01 09:42] VITALS: BP 130/60; PULSE 56; O2SAT 97; BMI 25.4
--- NOTE | 2025-05-01 09:42 | MHC.OFFVIS ---
Vital Signs 05/01/25 09:42 Height 6 ft Weight 187 lb 6.287 oz BMI 25.4 BP 130/60 Blood Pressure Location Lt brachial Position Sitting Pulse 56 Pulse Source Pulse Oximeter Pulse Oximetry (%) 97 Oxygen Delivery Method Room Air Intake Visit Reasons: Cough Intake Note: pt is here for follow up and states the cough is better. pt has a cpap followed by [place] and uses it nightly. pt is scheduled for ct scan this month. 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 GALVIN IS 74 YEARS OLD AND NEXT WEEK WILL BE TURNING 75. HE IS NONSMOKER. DOES HAVE HISTORY OF CHRONIC COUGH WHICH WAS DETERMINED TO BE DUE TO ENVIRONMENTAL ALLERGIES. IT HAS BEEN TREATED VERY WELL WITH MONTELUKAST 10 MG DAILY. HE RECEIVES ABOUT MONTELUKAST. HE TRY TO GO OFF MONTELUKAST FOR A FEW DAYS AND COULD NOTICE THAT HIS COUGH CAME RIGHT BACK. LONG HE IS ON THIS PILL ON A DAILY BASES HE HAS VERY LITTLE COUGH OR ANY NASAL CONGESTION. HE ALSO DOES NOT NEED TO USE THE ALBUTEROL. MR. GALVIN ALSO HAS BEEN USING CPAP FOR SLEEP APNEA FOR THE PAST MANY YEARS AND, SLEEPS GOOD FOR HIS CPAP USAGE HE IS BEING FOLLOWED BY [place] [facility]. 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 SVT (supraventricular tachycardia) Osteoarthritis ANAHI on CPAP BPH (benign prostatic hyperplasia) Renal calculi Hyperlipidemia HTN (hypertension) Left hip pain Surgical History Hx of lithotripsy History of radiofrequency ablation procedure for cardiac arrhythmia H/O shoulder surgery History of back surgery H/O colonoscopy Hx of cystoscopy Social History Housing: House Are you a primary direct care provider to a significant other at home: No Do you presently have visiting nurse or other home services: No Alcohol intake: former Patient Tobacco Use Status: Never used Tobacco e-Cigarette/Vaping Use: Never Used Second Hand Smoke Exposure: Yes Advance Directives Date on File: 08/24/22 Current occupational status: 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 Current occupational exposures/hazards: No Cognitive needs: No Hearing needs: No Vision needs: No Review of Systems Const All systems reviewed & are unremarkable except as noted in HPI and below Eyes Reports dry eyes (SOMETIMES) ENT Reports nasal congestion and Reports nasal discharge Card Denies chest pain, Denies irregular heart rhythm and Denies leg edema Resp Reports as per HPI GI Reports no additional complaints Reports no additional complaints Musc Reports no additional complaints Skin/Breast Reports system reviewed and no additional complaints, except as documented Neuro Reports no additional complaints Psych Reports no additional complaints Endo Reports no additional complaints Physical Exam Vital Signs: Last Vital Signs Pulse 56 05/01/25 09:42 BP 130/60 05/01/25 09:42 Pulse Ox 97 05/01/25 09:42 Oxygen Delivery Method Room Air 05/01/25 09:42 BMI result Body Mass Index 25.4 Const General: healthy appearing, comfortable, no acute distress, alert and awake Orientation/consciousness: patient oriented x3 HEENT Head: Yes normal to inspection General nose exam: No nasal polyps present and No nasal discharge present Face and sinus: Yes sinuses nontender Mouth: oropharynx normal Throat: Yes posterior oropharynx normal and Yes other (RETROGNATHIA OF THE LOWER JAW) Eyes General: appearance normal, both eyes and all related structures Neck Neck: Yes normal visual inspection, Yes no lymphadenopathy, Yes trachea midline and Yes no JVD Thyroid: Thyroid normal Chest Chest palpation & inspection: normal inspection of the chest, normal palpation of entire chest wall and no tenderness Resp Effort & Inspection: normal respiratory effort Auscultation: no rales and no wheezes Cardio Palpation: normal PMI Rate: regular rate Rhythm: regular rhythm Heart sounds: no gallops and no murmurs Peripheral pulses: Peripheral pulses 2+ throughout GI Palpation (GI): Soft to palpation, nontender, No hepatosplenomegaly present and no masses Auscultation: normal bowel sounds Back/Spine/Pelvis Cervical Spine: normal cervical lordosis Thoracic/Lumbar Spine: thoracic and lumbar spine normal to inspection Skin General skin exam: no rashes or lesions noted Neuro General: patient oriented x3 and no focal motor deficits Cranial nerves: Yes CN's II-XII intact bilaterally Extrem General: Yes normal to inspection, Yes no clubbing, cyanosis or edema and Yes no calf tenderness Psych Speech and movement: Normal speech and movement present Results Reviewed Results Reviewed: ONCE AGAIN I REVIEWED THE FINDINGS OF HIS PULMONARY FUNCTION TEST WHICH WAS ESSENTIALLY NORMAL. HE HAD A RECENT CHEST X-RAY I SHOWED HIM THE PICTURE IT DOES SHOWS MILD HYPERINFLATION AND SOME CROWDING OF THE BRONCHIAL MARKINGS IN RIGHT LOWER LOBE. Assessment & Plan Assessment & Plan (1) Cough: Comment: I THINK HIS COUGH IS ALLERGIC IN NATURE, HE DOES HAVE EVIDENCE OF CHRONIC EOSINOPHILIA. HE HAS SOME FIBROTIC CHANGES IN THE BASILAR AREAS, POST COVID, THAT MAY BE CONTRIBUTING TO HIS COUGH. AGAIN SINCE HE STARTED TAKING MONTELUKAST REGULARLY HE HAS VERY LITTLE COUGH, AND FEELS MUCH BETTER. Code(s): R05.9 - Cough, unspecified Category: Medical Plan: ADVISED TO CONTINUE TAKING MONTELUKAST 10 MG DAILY. IF HIS COUGH IS MINIMAL AND HE DOES NOT HAVE UPPER RESPIRATORY SYMPTOMS HE MAY TRY TO GO OFF MONTELUKAST FOR SHORT PERIODS, BUT RESTART IF THE SYMPTOMS COME BACK. (2) Bronchiectasis: Comment: HE HAS CHANGES SUGGESTIVE OF BRONCHIECTASIS ESPECIALLY IN RIGHT LOWER LOBE. HE IS PRONE TO HAVE RECURRENT INFECTION , AND MUCUS RETENTION. AT PRESENT HE IS OKAY WITHOUT ANY ACTIVE SYMPTOMS Code(s): J47.9 - Bronchiectasis, uncomplicated Category: Medical Plan: PATIENT WAS BRIEFED ABOUT THESE FINDINGS AND REASSURED THAT THERE IS NO NEED TO TREAT ACTIVELY. (3) ANAHI (obstructive sleep apnea): Comment: HE IS KNOWN TO OBSTRUCTIVE SLEEP APNEA, MAINLY ON BASIS OF RETROGNATHIA OF LOWER JAW . USES CPAP REGULARLY. Code(s): G47.33 - Obstructive sleep apnea (adult) (pediatric) Category: Medical Plan: PATIENT WILL CONTINUE HIS REGULAR FOLLOWUPS AT [place] [facility] . 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 HAS A CAT AT HOME, but tries to keep it distance. [facility] ON MANY OCCASIONS HAS SHOWN EOSINOPHILIA. SINCE HE HAS BEEN ON MONTELUKAST 10 MG DAILY, IS ALLERGY SYMPTOMS ARE WELL CONTROLLED. 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
--- OUTSIDE RECORDS SUMMARY | 2025-05-01 09:58 | XMS_ITS | Patient Health Record ---
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 [employer] [address] [place] [phone] [id number] COUNTER, JEET Self - patient is the insured Medical (General) History Medical History History ICD Code hypertension Hyperlipidemia BPH ANAHI/CPAP Colonoscopy 04/28/18, hyperpla stic polyp, five-year followup because of family history of colon polyps. Osteoarthritis Nephrolithiasis Surgical History Surgery Date(Month/Year) lower back surgery 1991 Cardiac ablation for atrial fibrillation or SVT Cystoscopy/ESWL
== END 2025-05-01 10:09 | disposition home or self-care (01) ==
LOC: HO.HPS 09:35
PROVIDERS: PCP Nurse Practitioner Family; Visit Provider Internal Medicine
DX: R05.9 Cough, unspecified (principal); J47.9 Bronchiectasis, uncomplicated; G47.33 Obstructive sleep apnea (adult) (pediatric); J30.89 Other allergic rhinitis
CPT/HCPCS: 99213

== ENCOUNTER → 2025-05-01 09:34 | Outpatient (BNVA) | payer MEDICARE, SELFPAY | PROVIDERS: PCP Nurse Practitioner Family; Visit Provider Internal Medicine | DX: J30.89 Other allergic rhinitis (principal); G47.33 Obstructive sleep apnea (adult) (pediatric); J47.9 Bronchiectasis, uncomplicated; R05.9 Cough, unspecified; D72.10 Eosinophilia, unspecified | CPT/HCPCS: 99212 ==

== ENCOUNTER 2025-05-16 16:34 | Outpatient (REF) | payer MEDICARE, SELFPAY ==
--- NOTE | ~2025-05-16 | CT_ITS ---
EXAMINATION: CT CHEST WITHOUT CONTRAST CLINICAL INFORMATION: R91.1 - Solitary pulmonary nodule COMPARISON: August 03, 2024 TECHNIQUE: Multidetector volumetric CT imaging of the chest was done. Axial MIP volume rendering provided. Sagittal and coronal reformatted images were obtained. This CT examination was performed using dose optimization techniques as appropriate, variously including the following: *Automated exposure control *Adjustment of mA and/or kV according to patient size (this includes techniques or standardized protocols for targeted exams where dose is matched to indication/reason for exam; i.e. extremities or head) *Use of iterative reconstruction technique FINDINGS: LUNGS: Axial CT #4 image 52/163: There is a 5 mm solid nodule in the posterior right upper lobe, 6 mm. No other pulmonary nodules are identified. Lungs are clear otherwise. MEDIASTINUM: Unremarkable CORONARY ARTERY CALCIFICATION: Present and dense PLEURA: There is no pleural effusion. No pleural mass or thickening. AXILLA: No lymphadenopathy. UPPER ABDOMEN: Unremarkable. OSSEOUS STRUCTURES: Mild degenerative changes are present in the thoracic spine with flowing osteophytes anteriorly. 13 mm calcification is present in the left supraspinatus tendon adjacent to greater tuberosity. This was present on the prior examination as well. CT/CT chest wo IV con IMPRESSION: Right upper lobe solid pulmonary nodule is stable to decreased in size since the prior examination performed approximately one year ago . There are no other nodules. No further follow-up is indicated. 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 Fleischner guidelines were followed. Electronically signed by: Antolin Fuentes MD 05/16/2025 05:25 PM EDT
--- OUTSIDE RECORDS SUMMARY | 2025-05-16 16:36 | XMS_ITS | Patient Health Record ---
Author Organization [facility] Address [address] [place] [address] Care Team Providers Care Printer Slotter Helper Name Role Phone Justin MILLER, Claire Primary Care Provider Unavail able Prakash Auguste Jr Unavailable [phone] Allergies Allergen (clinical drug ingredient) Drug/Non Drug [...] Problem Status W/U Status Risk Notes Problem 715387442 Colon cancer screening (Z12.11) Active confirmed Problem History of polyp of colon (situation) (820543309) Personal history of colonic polyps (Z86.010) Active confirmed Problem 834510377 Encounter for other preprocedural examination (Z01.818) Active confirmed Problem 706689914 senior living (current) use of aspirin (Z79.82) Active confirmed Problem 651980008 Long-term curren t use of high risk medication other than anticoagulant (Z79.899) Active confirmed Plan Of Treatment Future Test Test Name Order Date COLONOSCOPY 03/15/2018 COLONOSCOPY 04/18/2023 Insurance Providers Payer Name Payer Address Payer Phone Subscriber Number Group Number Insured Name Patient Relationship to Insured Coverage Start Date Coverage End Date [facility] OPTUM [address] [place] [id number] COUNTER, JEET Self - patient is the insured Medical (General) History Medical History History ICD Code hypertension Hyperlipidemia BPH ANAHI/CPAP Colonoscopy 04/28/18, hyperpla stic polyp, five-year followup because of family history of colon polyps. Osteoarthritis Nephrolithiasis Surgical History Surgery Date(Month/Year) lower back surgery 1991 Cardiac ablation for atrial fibrillation or SVT Cystoscopy/ESWL
== END 2025-05-16 16:35 | disposition home or self-care (01) ==
LOC: HO.CT 16:34
PROVIDERS: PCP Nurse Practitioner Family; Visit Provider Nurse Practitioner Family
DX: R91.1 Solitary pulmonary nodule (principal); J43.9 Emphysema, unspecified
CPT/HCPCS: 71250

== ENCOUNTER → 2025-05-16 16:36 | Outpatient (BNV) | payer MEDICARE, SELFPAY | PROVIDERS: PCP Nurse Practitioner Family; Visit Provider Radiology Diagnostic Radiology | DX: R91.1 Solitary pulmonary nodule (principal) | CPT/HCPCS: 71250 ==

== ENCOUNTER 2025-05-21 09:44 | Outpatient (AMB) | payer MEDICARE, SELFPAY ==
--- OUTSIDE RECORDS SUMMARY | 2024-06-11 06:00 | XMS_ITS ---
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 This section includes the names of all active insurance providers for the patient. Insurance Provider Type of Coverage Plan Name Start of Policy Coverage End of Policy Coverage Group Number Member ID Insurance Provider's Telephone Number Policy Francisco's Name Patient's Relationship to Policy Francisco [facility] ([facility] MEDICARE ADVANTAGE [facility] ([facility] May 27, 2015 [id number] Jessy GALVIN PATIENT Selected Encounter This section includes the information on record at [place] for the Encounter. Date/Time Encounter Type Encounter Description Reason Provider Source Jun 11, 2024 10:00 AM OFFICE O/P EST MOD 30 MIN PRIMARY CARE/MEDICINE ICD-10-CM G47.33 Obstructive sleep apnea (adult) (pediatric) AVERY BRYANT Susanne Encounter Template Text not used by [place] Assessments - Encounter Diagnoses This section includes the primary and secondary diagnoses documented for the Encounter. Date/Time Primary/Secondary Diagnosis Diagnosis Name Provider Source Jun 11, 2024 10:49 AM PRIMARY Obstructive sleep apnea (adult) (pediatric) AVERY BRYANT [facility] [place] [facility] Jun 11, 2024 10:49 AM SECONDARY Benign neoplasm of prostate FURCOLO,AVERY [facility] [place] [facility] Jun 11, 2024 10:49 AM SECONDARY Encounter for immunization RACIEL BLACK [facility] [place] [facility] Jun 11, 2024 10:49 AM SECONDARY Essential (primary) hypertension FURCOLO,AVERY [facility] [place] [facility] Jun 11, 2024 10:49 AM SECONDARY Pure hypercholesterolemia, unspecified FURCOLO,AVERY [facility] [place] [facility] Jun 11, 2024 10:49 AM SECONDARY Supraventricular tachycardia, unspecified FURCOLO,AVERY [facility] [place] [facility] Plan of Treatment: Future Appointments (+ 6 months) and Future Tests (+/- 45 days) The Plan of Treatment section includes future care activities for the patient from all [place] treatmentfacilities. This section includes future appointments and future orders which are active, pending or scheduled. Future Appointments This section includes appointments that were scheduled to occur 6 months from the date of the Encounter, up to a maximum of 20 appointments. The data comes from all [place] treatment facilities. Appointment Date/Time Appointment Type Appointme nt Facility Name Jul 10, 2024 11:30 AM AMBULATORY - MEDICINE [facility] [place] [facility] Jul 12, 2024 11:00 AM AMBULATORY - REHAB MEDICIN E [facility] [place] [facility] Jul 13, 2024 12:30 PM AMBULATORY - MEDICINE [facility] [place] [facility] Jul 27, 2024 11:15 AM AMBULATORY - MEDICINE [facility] [place] [facility] Jul 30, 2024 10:30 AM AMBULATORY - MEDICINE [facility] [place] [facility] Aug 14, 2024 11:30 AM AMBULATORY - REHAB MEDICIN E [facility] [place] [facility] Aug 21, 2024 11:30 AM AMBULATORY - REHAB MEDICIN E [facility] [place] [facility] Sep 10, 2024 10:45 AM AMBULATORY - MEDICINE [facility] [place] [facility] Sep 27, 2024 10:30 AM AMBULATORY - REHAB MEDICIN E [facility] [place] [facility] Oct 03, 2024 10:30 AM AMBULATORY - NONE [facility] [place] [facility] Oct 25, 2024 09:30 AM AMBULATORY - MEDICINE [facility] [place] [facility] Nov 05, 2024 10:30 AM AMBULATORY - MEDICINE [facility] [place] [facility] Dec 06, 2024 10:30 AM AMBULATORY - REHAB MEDICIN E [facility] Lab Results: +/- 30 days of the encounter This section includes the Chemistry and Hematology Lab Results on record with CO for the patient. Radiology Reports and Pathology Reports are provided separately, in subsequent sections. Lab Results This section contains the Chemistry/Hematology Results that were resulted 30 days before or 30 daysafter the date of the Encounter. Date/Time Source Result Type Result - Unit Interpretation Reference Range Specimen Type Comment Jun 11, 2024 11:01 AM [facility] LIPID PANEL, NON FASTING SERUM Specimen Type: SERUM No comment entered. Ordering Provider: AVERY BRYANT Report Released Date/Time: May 22, 2024 01:43 PM Reporting Lab: [facility] [address] [facility] [address] Performing Lab: [facility] [address] [facility] [address] CHOLESTEROL 149 mg/dL TRIGLYCERIDE 125 mg/dL 0-150 LDL calculated 79 mg/dL 0-129 CHOL/HDL 3.3 HDL CHOLESTEROL 45 mg/dL 40-60 Jun 11, 2024 11:01 AM [facility] BASIC METABOLIC PANEL (non-fasting) SERUM Spe cimen Type: SERUM No comment entered. Ordering Provider: AVERY BRYANT Report Released Date/Time: May 22, 2024 01:43 PM Reporting Lab: [facility] [address] [facility] [address] Performing Lab: [address] [address] UREA NITROGEN 11 mg/dL 7-25 GLUCOSE 99 mg/dL 65-100 SODIUM 141 mmol/L 135-145 POTASSIUM 3.9 mmol/L 3.5-5.0 CHLORIDE 103 mmol/L 100-110 CO2 29 meq/L 20-30 CREATININE, Serum 0.74 mg/dL 0.50-1.40 eGFR(CKD-EPI 2020) >90 mL/min >60 Vital Signs: All taken on the encounter date This section contains inpatient and outpatient Vital Signs collected on the date of the Encounter. Date/Time Temperature Pulse Blood Pressure Respiratory Rate SP02 Pain Height Weight Body Mass Index Source Jun 11, 2024 09:55 AM 97.9 55 155/75 16 97 0 72 186.6 25 [facility] Immunizations: All administered on the encounter date This section contains immunizations associated to the Encounter. Immunization Series Date Issued Administered By Site Reaction Lot Number CVX Code Drug Identification Clerk Comment(s) Source COVID-19 (MODERNA), MRNA, LNP-S, PF, 50 MCG/0.5 ML (AGES 12+ YEARS) 5 Jun 11, 2024 RACIEL BLACK RIGHT DELTO ID [id number] [employer] ADMINISTERE D AT [facility] INFLUENZA, HIGH-DOSE, TRIVALENT, PF Jun 11, 2024 RACIEL BLACK RIGHT DELTO ID [id number] SANOFI PASTEUR Completed Series, ADMINISTERE D AT [facility] Social History: Smoking Status (Most current) and Tobacco Use (All prior to encounter date) This section includes the most current, and the historical, smoking and tobacco- related health factors from the [place] facility where the Encounter took place. Current Smoking Status This section includes the most current smoking, or tobacco-related health factor, from the [place] facility where the Encounter took place. Date/Time Current Smoking Status Comment Michelet simms Oct 21, 2023 10:23 AM VA-TOBACCO NEVER USED [facility] Tobacco Use History This section includes a history of the smoking, or tobacco-related health factors, that were collected on or before the date of the Encounter. The data comes from the [place] facility where the Encounter took place. Date/Time Smoking Status/Tobacco Use Comment Constance mast Jul 27, 2022 11:00 AM VA-TOBACCO NEVER USED [facility] Jul 20, 2021 10:30 AM VA-TOBACCO NEVER USED [facility] Jul 01, 2020 03:30 PM VA-TOBACCO NEVER USED [facility] [place] [facility] Jul 05, 2018 10:50 AM VA-TOBACCO NEVER USED [facility] [place] [facility] Jan 03, 2018 10:01 AM LIFETIME NON-TOBACCO USER [facility] [place] [facility] Dec 29, 2016 10:10 AM LIFETIME NON-TOBACCO USER [facility] [place] [facility] Apr 02, 2005 08:00 AM LIFETIME NON-SMOKER [facility] [place] [facility] Apr 02, 2004 08:07 AM LIFETIME NON-SMOKER [facility] [place] [facility] Apr 01, 2003 08:12 AM LIFETIME NON-SMOKER [facility] [place] [facility] Apr 02, 2002 01:05 PM LIFETIME NON-SMOKER [facility] [place] [facility] Mar 31, 2001 01:23 PM LIFETIME NON-SMOKER [facility] [place] [facility] Advance Directives: All historical and current Section Date Range: From patient's date of to the date document was created. This section includes ALL of a patient's completed or amended CO Advance and Rescinded Directives. The entries below indicate that a directive exists for the patient, but an actual copy is not included with this document. The data comes from all [place] facilities. Date Advance Directives Provider Source Jun 09, 2013 ADVANCE DIRECTIVE INCHOL GAMEZ [facility] [place] [facility] Encounter Notes: All associated encounter notes This section contains the clinical notes associated to the Encounter. Date/Time Encounter Note(s) Provider Source Aug 16, 2024 01:33 PM ADMINISTRATIVE NOTE: LOCAL TITLE: FAX/MAIL RECEIVED STANDARD TITLE: ADMINISTRATIVE NOTE DATE OF NOTE: AUG 16, 2024@13:33 ENTRY DATE: AUG 16, 2024@13:33:52 AUTHOR: PATRICIO DOWLING EXP COSIGNER: URGENCY: STATUS: COMPLETED Document Received On: Jul Document Type: Other: referral reqeust Date of Service: Jul Facility and or Provider: Contact Information: PCP of Record: AVERY BRYANT Next visit with PCP: 08/21/2024 11:30 CWM/NO/PHYSICAL THERAPY P 08/30/2024 10:30 CWM/NO/PHYSICAL THERAPY B 10/03/2024 11:00 CWM/NO/ACUPUNCTURE R2 03/25/2025 08:00 NHM/OPTOMETRY/BORASKI 06/11/2025 10:00 CWM/NO/PACT EIGHT Primary Care May keep copies of this document for up to 14 days and send the original for scanning. reeived referra request from [facility] urology services for cont of care, with scheduled apt on 09/10/24. Consult placed, held for signature. /eda/ PATRICIO DOWLING LPN License Practical Nurse Signed: 08/16/2024 13:35 PATRICIO DOWLING [facility] [place] [facility] Jun 11, 2024 03:30 PM LETTERS: LOCAL TITLE: PATIENT LETTER (T) STANDARD TITLE: LETTERS DATE OF NOTE: JUN 11, 2024@15:30 ENTRY DATE: JUN 11, 2024@15:30:35 AUTHOR: AVERY BRYANT EXP COSIGNER: URGENCY: STATUS: COMPLETED [facility] Toll Free Number Primary Care Telephone Assistance can be reached at extension [phone] [facility] scheduling can be reached at extension [phone] [facility] scheduling can be reached at ext [phone] JEET CELIS [address], [address] Dear , Your recent test results are as follows: normal cholesterol panel normal kidney function LAB CHEMISTRY & HEMATOLOGY Collection DT Specimen Test Name Result Units Ref Range 06/11/2024 11:01 SERUM CREATININE, Serum 0.74 mg/dL 0.50 - 1.40 eGFR(CKD-EPI 2020 >90 mL/min Ref: >=60 SODIUM 141 mmol/L 135 - 145 POTASSIUM 3.9 mmol/L 3.5 - 5.0 CHLORIDE 103 mmol/L 100 - 110 CO2 29 mEq/L 20 - 30 UREA NITROGEN 11 mg/dL 7 - 25 GLUCOSE 99 mg/dL 65 - 100 CHOLESTEROL 149 mg/dL <7 - 199 TRIGLYCERIDE 125 mg/dL 0 - 150 LDL calculated 79 mg/dL 0 - 129 CHOL/HDL 3.3 HDL CHOLESTEROL 45 mg/dL 40 - 60 Please call if you have any questions or concerns. Upcoming Appointments: 07/30/2024 10:30 CWM/NO/ACUPUNCTURE R1 10/03/2024 11:00 CWM/NO/ACUPUNCTURE R2 03/25/2025 08:00 NHM/OPTOMETRY/BORASKI 06/11/2025 10:00 CWM/NO/PACT EIGHT Sincerely, Your Primary Care Team [facility] [address] [facility] [address] [place] [address] [place] [address] [phone] [facility] [address] [place] [address] [place] [address] [phone] [facility] [address] [facility] [place] [address] [place] [address] [facility] [place] [facility] Jun 11, 2024 09:59 AM PREVENTIVE MEDICINE NURSING NOTE: LOCAL TITLE: CLINICAL REMINDERS/NURSING STANDARD TITLE: PREVENTIVE MEDICINE NURSING NOTE DATE OF NOTE: JUN 11, 2024@09:59 ENTRY DATE: JUN 11, 2024@10:00:05 AUTHOR: MARIA ESTHER BLACKIGNYRN: URGENCY: STATUS: COMPLETED Advance Directive Screen MH AD: Patient has an Advance Directive on file at this [facility]. No updates are needed at this time. The patient received education about Advance Directives and written notification of his/her rights. Comment: up to date Sexual Orientation: The patient thinks of their sexual orientation as: Straight or Heterosexual Homelessness/Food Insecurity Screen: In the past 2 months, have you been living in stable housing that you own, rent, or stay in as part of a household? Yes - Living in stable housing. Are you worried or concerned that in the next 2 months you may NOT have stable housing that you own, rent, or stay in as part of a household? No - Not worried about housing near future The reports the following: Within the past 12 months, you worried whether your food would run out before you got money to buy more. Never true Within the past 12 months, the food you bought just didn't last and you didn't have money to get more. Never true (Optional) Whole Health Documentation: What matters the most to you? What motivates you to be healthy? (MAP) Response: I can be around to take cre opf my and work to pay my mortgage Influenza Immunization: Influenza, High-Dose, Trivalent, Preservative Free (Fluzone-Syringe) Administered: INFLUENZA, HIGH-DOSE, TRIVALENT, PF Date Administered: Jun 11, 2024 10:00 Series: Complete Identification Clerk: SANOFI PASTEUR Lot: [id number] Exp Date: Mar 25, 2025 ND: [id number] Admin Route/Site: INTRAMUSCULAR/RIGHT DELTOID Dosage: 0.5mL Vaccine Information Statement(s): INFLUENZA(FLU) VACC(INACTIVATED OR RECOMBINANT)VIS May 01, 2021 (VIETNAMESE) Order By: Policy Administered By: Maria Esther Black The Influenza Vaccine Information Statement (VIS) was reviewed with the patient/caregiver which lists the benefits and risks of the vaccine and the risks of not receiving the Influenza vaccine. The patient/caregiver denied any prior severe reaction to this vaccine or its components or a severe allergic reaction, such as anaphylaxis, to any vaccine or any injectable therapy. The patient/caregiver gave verbal consent to receive the vaccine. COVID-19 Immunization: Moderna Monovalent (Spikevax) Administered: COVID-19 (MODERNA), MRNA, LNP-S, PF, 50 MCG/0.5 ML (AGES 12+ YEARS) Date Administered: Jun 11, 2024 10:00 Series: Series 5 Identification Clerk: Stellaris. Lot: [id number] Exp Date: February 16, 2025 ND: [id number] Admin Route/Site: INTRAMUSCULAR/RIGHT DELTOID Dosage: 0.5mL Vaccine Information Statement(s): COVID-19 MRNA VACCINE (12+ YRS) VACCINE VIS Jul 14, 2023 (VIETNAMESE) Order By: Policy Administered By: Maria Esther Black Vaccine administered without complications. /eda/ MARIA ESTHER BLACK LPN LPN Signed: 06/11/2024 10:12 MARIA ESTHER BLACK [facility] [place] [facility] Jun 11, 2024 09:29 AM PHYSICIAN NOTE: LOCAL TITLE: NOTE STANDARD TITLE: PHYSICIAN NOTE DATE OF NOTE: JUN 11, 2024@09:29 ENTRY DATE: JUN 11, 2024@09:29:36 AUTHOR: AVERY BRYANT COSIGNER: URGENCY: STATUS: COMPLETED NOTE Has ADDENDA COUNTER,JEET CELIS is a 74 year old WHITE MALE who is being seen today in primary care for routine follow up. = CARE TEAM = Community Primary Care Provider: Dr. Basilio, [facility] Specialists: acupuncture optometry PM&R Community Specialists: urology - DR. 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 Hearing loss 2. Kidney stone 3. 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 Obstructive sleep apnea of adult on CPAP machine 5. Carpal tunnel syndrome 6. Benign essential hypertension 7. Benign paroxysmal positional vertigo (SNOMED CT 523296934) 8. Old Myocardial Infarction 9. Benign prostatic hyperplasia (SNOMED CT 936792784) s/p microwave surgery still goes once a year to urology 10. Supraventricular tachycardia (SNOMED CT 4175196) s/p Ablation therapy 11. Hypercholesterolemia (SNOMED CT 57973683) = PAST SURGICAL HISTORY = back surgery 1991 left shoulder surgery 2007 right shoulder surgery 2001 TURP cardiac ablation for SVT = FAMILY HISTORY = Mother: at age 79 CHF, +smoker Father: at age 61- throat ca- smoking and ETOH, had TB Siblings:4, one sister still alive brother - of [place] sister- breast ca/uterine ca- age 65 sister- lung issues = SOCIAL HISTORY = Background: born and raised in [place], [place]. 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 Active and Recently Outpatient Medications (excluding Supplies): Active Non-VA Medications Status 1) Non-VA AMLODIPINE BESYLATE 5MG TAB 5MG BY MOUTH ONCE ACTIVE DAILY 2) Non-VA ATENOLOL 25MG TAB 25MG BY MOUTH EVERY DAY ACTIVE 3) Non-VA LOSARTAN 100MG TAB 100MG BY MOUTH EVERY DAY ACTIVE 4) Non-VA PYRIDOXINE HCL 100MG TAB 100MG BY MOUTH ONCE ACTIVE DAILY 5) Non-VA SIMVASTATIN 80MG TAB 40MG BY MOUTH EVERY DAY ACTIVE = REVIEW OF SYMPTOMS = NEGATIVE FOR: CONSTITUTION: no weight loss/gain, fatigue, fevers, night sweats HEENT: no vision problems, hearing loss,swallowing difficulties, sinus pain CV: no chest pain, palpitations, dyspnea on exertion, orthopnea RESP: no cough, shortness of breath, wheezing GI: no abdominal pain, N/V/D, constipation, blood in stool, normal appetite : no urinary frequency, nocturia, hematuria MUSC: no joint pain, joint swelling, muscle aches NEURO: no headaches, dizziness, memory loss, tremor, weakness PSYCH: no depression, anxiety, suicidal or homicidal thoughts SKIN: no rash, new skin lesions = PHYSICAL EXAM = Vitals: - - - - - - - B/P: 155/75 (06/11/2024 09:55) pulse: 55 (06/11/2024 09:55) resp: 16 (06/11/2024 09:55) temp: 97.9 F [36.6 C] (06/11/2024 09:55) Ht: 72 in [182.9 cm] (06/11/2024 09:55) Wgt: 186.6 lb [84.64 kg] (06/11/2024 09:55) BMI: BMI: 25.4 Exam: - - - - - - - General: A&O x 3, no acute distress, normal affect and mood Neck: normal thyroid, normal carotids- no bruits CV: RRR S1S2, no murmur Resp: LCTA bilat, no wheezing, rales or rhonchi Neuro: grossly intact, no visible tremor, normal memory and speech Extremities: normal movement of extremities, normal gait, normal strength no LE edema = RECENT LABS = BMP (FASTING) Collection DT Specimen Test Name Result Units Ref Range 12/12/2023 09:41 SERUM UREA NITROGEN 12 mg/dL 7 - 25 12/12/2023 09:41 SERUM GLUCOSE 97 mg/dL 65 - 100 12/12/2023 09:41 SERUM SODIUM 144 mmol/L 135 - 145 12/12/2023 09:41 SERUM POTASSIUM 4.0 mmol/L 3.5 - 5.0 12/12/2023 09:41 SERUM CHLORIDE 105 mmol/L 100 - 110 12/12/2023 09:41 SERUM CO2 28 mEq/L 20 - 30 12/12/2023 09:41 SERUM CREATININE, Serum 0.74 mg/dL 0.50 - 1.40 07/02/2021 08:08 SERUM eGFR (IDMS) >60 Ref: >=60 LIVER PANEL TREND Collection DT Spec AST ALT T BILI ALK ZOHRA T. PROT ALBUMIN 12/12/2023 09:41 SERUM 19 22 0.4 60 7.0 4.3 01/14/2023 07:47 SERUM 21 23 0.6 60 7.3 4.5 07/19/2022 09:29 SERUM 21 21 0.7 64 7.2 4.5 01/05/2022 09:35 SERUM 19 21 0.6 62 7.1 4.3 07/02/2021 08:08 SERUM 17 19 0.6 64 7.0 4.5 LIPID PANEL TREND Collection DT Spec CHOL HDL CHO/HDL LDL-c TRIG 12/12/2023 09:41 SERUM 146 46 3.2 84 82 01/14/2023 07:47 SERUM 149 43 3.5 88 90 07/19/2022 09:29 SERUM 134 44 3.0 74 82 01/05/2022 09:35 SERUM 141 40 3.5 82 96 07/02/2021 08:08 SERUM 136 39 L 3.5 69 138 CBC TREND Collection DT Spec WBC RBC HGB HCT MCV MCH PLT 12/12/2023 09:41 BLOOD 5.48 4.68 13.4 39.8 85.0 28.6 259 01/14/2023 07:47 BLOOD 5.05 4.68 13.5 40.5 86.5 28.8 280 07/19/2022 09:30 BLOOD 4.99 4.54 13.0 38.9 L 85.7 28.6 270 01/05/2022 09:36 BLOOD 5.54 4.60 13.1 39.6 86.1 28.5 304 07/02/2021 08:08 BLOOD 6.06 4.54 13.1 39.7 87.4 28.9 285 PSA TREND Collection DT Spec PSA SR- 12/12/2023 09:41 SERUM 0.81 01/14/2023 07:47 SERUM 1.00 06/08/2018 08:26 SERUM 1.12 02/11/2017 09:45 SERUM 1.85 03/27/2012 07:14 SERUM 0.97 HEMOGLOBIN A1C TREND Collection DT Spec HGBA1c 12/12/2023 09:41 BLOOD 5.7 H 07/02/2021 08:08 BLOOD 5.6 12/25/2018 08:02 BLOOD 5.9 H 06/08/2018 08:26 BLOOD 6.0 H 12/27/2017 08:23 BLOOD 6.0 H = ASSESSMENT AND PLAN = Active problems - Computerized Problem List is the source for the followin. Hearing loss 2. Kidney stone 3. 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 Obstructive sleep apnea of adult on CPAP machine 5. Carpal tunnel syndrome 6. Benign essential hypertension- elevated today- recommend switching off losartan 10 mg to valsartan 160 mg. does have upcoming apt with community PCP to recheck BP- will let us know readings 7. Benign paroxysmal positional vertigo (SNOMED CT 766405472) 8. Old Myocardial Infarction- no angina. on b-sarah 9. Benign prostatic hyperplasia (SNOMED CT 880763737) s/p microwave surgery still goes once a year to urology 10. Supraventricular tachycardia (SNOMED CT 5166797) s/p Ablation therapy. on b-sarah 11. Hypercholesterolemia (SNOMED CT 79970768) - syable = HEALTH MAINTENANCE = Colonoscopy (due at age 45) - Tetanus: due every 10 years Flu Vaccine: given today 06/11/24 Covid Vaccine: given today 06/11/24 = FOLLOW UP = f/u in 1 year VISIT TYPE: a MODERATE complexity visit where 30 minutes was spent in direct patient care, review of records and documentation. Upcoming Appointments: 06/11/2024 10:00 CWM/NO/PACT EIGHT 07/30/2024 10:30 CWM/NO/ACUPUNCTURE R1 10/03/2024 11:00 CWM/NO/ACUPUNCTURE R2 03/25/2025 08:00 NHM/OPTOMETRY/RADHA /es/ AVERY BRYANT D.O. PHYSICIAN Signed: 06/11/2024 10:49 08/10/2024 ADDENDUM STATUS: COMPLETED Follow Up Colonoscopy: Colonoscopy is due based on information available to this reminder. Prior/outside Colonoscopy results: Dr. Auguste, hyperplastic polyp, no further needed as will be >80 Date: October 04, 2023 Due to patient's age, risk level, and/or co-morbid conditions, discontinuation of asymptomatic colorectal cancer screening/surveillance is recommended. This recommendation has been discussed with the patient and/or guardian /eda/ AVERY BRYANT D.O. PHYSICIAN Signed: 08/10/2024 15:02 AVERY BRYANT [facility]
--- OUTSIDE RECORDS SUMMARY | 2024-07-12 07:00 | XMS_ITS ---
Author Name [facility] [place] [facility] [place] Address [address] [place] [id number] Care Team Providers Care Checkroom Attendant Name Role Phone AVERY BRYANT Primary Care [...] Francisco's Name Patient's Relationship to Policy Francisco [facility] ([facility]) MEDICARE ADVANTAGE [facility] ([facility]) May 27, 2015 [id number] Jessy GALVIN PATIENT Selected Encounter This section includes the information on record at [place] for the Encounter. Date/Time Encounter Type Encounter Description Reason Provider Source Jul 12, 2024 11:00 AM MANUAL THERAPY 1/> [facility] PHYSICAL THERAPY ICD-10-CM M46.1 Sacroiliitis, not elsewhere classified ESTRADA MUSTAFA [facility] Encounter Template Text not used by [place] Assessments - Encounter Diagnoses This section includes the primary and secondary diagnoses documented for the Encounter. Date/Time Primary/Secondary Diagnosis Diagnosis Name Provider Source Jul 12, 2024 03:26 PM PRIMARY Sacroiliitis, not elsewhere classified [facility] [place] [facility] Plan of Treatment: Future Appointments (+ 6 months) and Future Tests (+/- 45 days) The Plan of Treatment section includes future care activities for the patient from all [place] [facility]. This section includes future appointments and future orders which are active, pending or scheduled. Future Appointments This section includes appointments that were scheduled to occur 6 months from the date of the Encounter, up to a maximum of 20 appointments. The data comes from all [place] treatment facilities. Appointment Date/Time Appointment Type Appointme nt Facility Name Jul 13, 2024 12:30 PM AMBULATORY - MEDICINE [facility] [place] [facility] Jul 27, 2024 11:15 AM AMBULATORY - MEDICINE [facility] [place] [facility] Jul 30, 2024 10:30 AM AMBULATORY - MEDICINE [facility] [place] [facility] Aug 14, 2024 11:30 AM AMBULATORY - REHAB MEDICIN E [facility] [place] [facility] Aug 21, 2024 11:30 AM AMBULATORY - REHAB MEDICIN E [facility] [place] [facility] Sep 10, 2024 10:45 AM AMBULATORY - MEDICINE [facility] [place] [facility] Sep 27, 2024 10:30 AM AMBULATORY - REHAB MEDICIN E [facility] [place] [facility] Oct 03, 2024 10:30 AM AMBULATORY - NONE [facility] [place] [facility] Oct 25, 2024 09:30 AM AMBULATORY - MEDICINE [facility] [place] [facility] Nov 05, 2024 10:30 AM AMBULATORY - MEDICINE [facility] [place] [facility] Dec 06, 2024 10:30 AM AMBULATORY - REHAB MEDICIN E [facility] [place] [facility] Dec 10, 2024 10:30 AM AMBULATORY - MEDICINE [facility] [place] [facility] Jan 01, 2025 10:00 AM AMBULATORY - REHAB MEDICIN E [facility] [place] [facility] Active, Pending, and Scheduled Orders This section includes a listing of several types of active, pending, and scheduled orders, including clinic medications orders, diagnostic test orders, procedure orders and consult orders; where the start date of the order is 45 days before the date of the Encounter or 45 days after the date of theEncounter. The data comes from all [place] treatment facilities. Test Date/Time Test Type Test Details Facility Name Aug 16, 2024 01:34 PM Consult Order COMMUNITY CARE-UROLOGY Cons Trust Officer's Choice [place] [facility] [place] [facility] Social History: Smoking Status (Most current) and Tobacco Use (All prior to encounter date) This section includes the most current, and the historical, smoking and tobacco- related health factors from the [place] facility where the Encounter took place. Current Smoking Status This section includes the most current smoking, or tobacco-related health factor, from the [place] facility where the Encounter took place. Date/Time Current Smoking Status Comment Michelet ity Oct 21, 2023 10:23 AM VA-TOBACCO NEVER USED IN [facility] [place] [facility] Tobacco Use History This section includes a history of the smoking, or tobacco-related health factors, that were collected on or before the date of the Encounter. The data comes from the [place] facility where the Encounter took place. Date/Time Smoking Status/Tobacco Use Comment [facility] Jul 27, 2022 11:00 AM VA-TOBACCO NEVER USED [facility] [place] [facility] Jul 20, 2021 10:30 AM VA-TOBACCO NEVER USED [facility] [place] [facility] Jul 01, 2020 03:30 PM VA-TOBACCO NEVER USED [facility] [place] [facility] Jul 05, 2018 10:50 AM VA-TOBACCO NEVER USED [facility] [place] [facility] Jan 03, 2018 10:01 AM LIFETIME NON-TOBACCO USER [facility] [place] [facility] Dec 29, 2016 10:10 AM LIFETIME NON-TOBACCO USER [facility] [place] [facility] Apr 02, 2005 08:00 AM LIFETIME NON-SMOKER [facility] [place] [facility] Apr 02, 2004 08:07 AM LIFETIME NON-SMOKER [facility] [place] [facility] Apr 01, 2003 08:12 AM LIFETIME NON-SMOKER [facility] [place] [facility] Apr 02, 2002 01:05 PM LIFETIME NON-SMOKER [facility] [place] [facility] Mar 31, 2001 01:23 PM LIFETIME NON-SMOKER [facility] [place] [facility] Advance Directives: All historical and current Section Date Range: From patient's date of to the date document was created. This section includes ALL of a patient's completed or amended [place] Advance and Rescinded Directives. The entries below indicate that a directive exists for the patient, but an actual copy is not included with this document. The data comes from all [place] facilities. Date Advance Directives Provider Source Jun 09, 2013 ADVANCE DIRECTIVE FRANCONICHOL Jim [place] [facility] [place] [facility] Encounter Notes: All associated encounter notes This section contains the clinical notes associated to the Encounter. Date/Time Encounter Note(s) Provider Source Jul 12, 2024 10:47 AM PHYSICAL THERAPY CONSULT: LOCAL TITLE: PHYSICAL THERAPY CONSULT STANDARD TITLE: PHYSICAL THERAPY CONSULT DATE OF NOTE: JUL 12, 2024@10:47 ENTRY DATE: JUL 12, 2024@10:47:42 AUTHOR: ESTRADA MUSTAFA COSIGNER: URGENCY: STATUS: COMPLETED Initial Evaluation date: Jun Treat Date: Jun Treatment #: eval Treatment time: 60min Diagnosis: Sacroiliitis, not elsewhere classified(ICD-10-CM M46.1) Left hip impingment, LOGAN Provider: Deena PT Treatment Precautions: Patient identified by full name and date of Verbal Consent given for therapist to put hands on patient SUBJECTIVE discussed history of the pain. hip pain last couple years, but different from this pain. Started this tuesday real bad, but it maybe had started in and it was pretty fine till tuesday. I woke up and couldn't get up from the bed. Was getting injections at [facility]. 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 I notice it most when I step down and the anterior left hip is giving me pain. deena has me doing SI reset exercises- I got in to see him that day 07/10/24 and he said It isn't my hips. prednisone and muscle relaxers. this pain is different from the pain I was having last year. that was on the outside of the hip, now it is on the inside of the left hip. I think I was sleeping on the left hip. PMH: Chief complaint/ailment/injury: CRESCENCIO/Date of onset: ( ) Gradual ( x ) Rapid went to bed tuesday night fine, Tuesday it was terrible couldn't even get up from bed. Since onset: ( ) Worsening ( x ) Improving ( ) Staying the same Are your symptoms: ( ) Constant ( ) Intermittent Prior PT care for this condition? ( ) No ( x ) Yes Previous Medical Interventions: ( x ) Xray ( ) MRI/CTscan ( x ) Injections ( ) Other: C/O: ( x ) Pain: can cause the leg to give out, using single point cane as needed. ( x ) ROM: ( ) Strength: ( ) Sensation: Pain rating on 0-10 VNS: Current: 2/10 At worst: 9/10 Location: left anterior hip. Description of pain: ( )aching ( )throbbing ( x )sharp ( )shooting ( )stabbing ( )burning ( )cramping ( )electric Alleviating factors:prednisone msucle relaxer, tylonel, voltarin help, I have found that If I lean on my cane that helped. ( ) Position: Aggravating factors:going down stairs, walking at times, moving my trash barrells. 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 Baseline function: [x]Independent ADL's/IADL's - Decline in ADL's/IADL's or recreation?: [x]Yes -slower and need more rest breaks, sitting now to put on pants Patient's Goals: 1)pass physical for work next 2)iprove my hip pain so I can do what I need to for work and my who needs assistance. Active problems - Computerized Problem List is the source for the followin. Hearing loss 2. Kidney stone 3. 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 Obstructive sleep apnea of adult 5. Carpal tunnel syndrome 6. Benign essential hypertension 7. Benign paroxysmal positional vertigo (SNOMED CT 916509124) 8. Old Myocardial Infarction 9. Benign prostatic hyperplasia (SNOMED CT 428855517) 10. Supraventricular tachycardia (SNOMED CT 5145198) 11. Hypercholesterolemia (SNOMED CT 46719468) Medical Screening Questionnaire/RED FLAGS: []Recent Trauma [x]Age (50+) []Hx of Cancer []Fever/chills/night sweats []Unexplained weight loss [x]Recent infection-pneumonia in April and in January, getting ct scan soon []Immunosuppression []Night pain []Saddle anesthesia []Bowel/bladder dysfunction retention/frequency []LE neurological deficit OBJECTIVE: Posture: Lumbar Posture: WNLs:___ Increased Lordosis ____ Decreased Lordosis _slight___ Lateral Shift : Yes: (Direction:___) No_x__ Pelvic Symmetry: ASIS:= PSIS:= Iliac Crest:= Functional Mobility: I Lumbar AROM: Flexion(60-90):70 lbp Extension(30):10 lbp across the back L SB(25): 10 pain left SI R SB(25): 10 pain right SI L Rot(15-30):50% right anterior hip pain R Rot(15-30):50% no pain. Neurological: Deep Tendon Reflexes:(0,1+,2+,3+,4+) 1. Quadriceps (L3): L: 2 R:2 2. Achilles (L5-S1): L: 2 R:2 Neurological [UQ=upper quadrant, LQ=lower quadrant] [x]Sensation, Light Touch: [x]UQ: [x]WNL []Diminished []Absent [x]LQ: [x]WNL []Diminished []Absent Resisted Tests: (_/5) Trunk Flexion : :4 Trunk Extension : :4 Trunk Rotation : L:4 R:4 Hip Flexion (L2-L4): L:4 R:4 Hip Adduction: L:4- R:4- Hip Internal Rotation : L:4- R:4- Hip External Rotation : L:sharp 3 R:4- Knee Extension(L2-L4): L:4 R:4 Knee Flexion: L:4 R:4 Ankle Dorsiflexion(L4): L:4 R:4 Ankle Plantarflexion (S1-2) L:4 R:4 Ankle Eversion (S1): L:4 R:4 Great Toe Extension(L5): L:4 R:4 Hip Abduction (L5-S1): L:3+p R:4- Hip Extension(L5-S2): L:4 R:4+ Range of Motion: Hip flexion(120): L:100 R:110 Hip Abduction(40): L:20 R:25 Hip Internal rotation(30): L:10 R:10 Hip external rotation(30): L:30 R:40 Hip Extension(20): L:5 R:5 Muscle Length/Flexibility: Ad Test: Left: Normal Limited__sig___ Right: Normal Limited___sig Carol's Test: Left: Normal Limited_sig____ Right: Normal Limited__sig Hamstring (90-90): Left: Normal Limited__20___ Degrees Right: Normal Limited__20 Degrees [place] Test: Left: Normal Limited__mod___ Right: Normal Limited___mod Palpation:muscles of the hips guarded bilaterally Joint Mobility Assessment:2/6 left hip Lumbar Special Tests Straight Leg Raise (sn=0.91): - Crossed Straight Leg Raise (sp=0.88):- Sidelying FAIR5 (for piriformis syndrome) (sn=0.88 sp=0.83):- Slump Test (sn=0.84 sp=0.83): - Pelvic Special Tests MANOHAR:- Hip Special tests: Scour: left hip noted pain along reported pain location with testing Log Roll: denied increase in pain Trendelenburg:slight crashing into the right LE with gait Treatment Provided: Patient education was provided for all aspects of care during this clinical encounter. THERAPEUTIC EXERCISE: MINUTES: Instruction in therex & issued Key Ring HEP:Access Code: [email or web address] URL: [email or web address] Date: 07/13/2024 Prepared by: Estrada Mustafa Exercises(newly added to old HEP- discussed starting with the new stuff and as tolerable trying some of older exercises(can be found on VEASYT, still within HEP) - Supine Ankle Pumps - 3 sets - 10 reps - Supine Transversus Abdominis Bracing - Hands on Stomach - 3 x daily - 3 sets - 30 secs hold - Seated Transversus Abdominis Bracing - 5-10 x daily - 10 reps - 2 breaths hold - Modified Ad Stretch - 2-3 x daily - 3 sets - 30 secs hold - Supine Hip Adductor Stretch - 2-3 x daily - 3 sets - 30 secs hold -also provided with pictures for hip self LAD. MANUAL THERAPY: MINUTES:8 LAD left hip-noted better affect and complete reduction of pain. SAD left hip- slight relief noted. Assessment:Patient presents to Physical Therapy today with reports C/O: left hip pain anteriorly along the inguinal line. Signs/sx consistent w/:LOGAN, likely secondary to lack of physical exercise to maintain appropriate strength as well as lack of stretching routine resulting in weakened and restricted muscles around the hip joint resulting in compression of the anterior aspect of the FA joint. The patient will benefit from round of skilled PT to return to [facility]. Physical Therapy Problem List [x]Increased Pain [x]Decreased ADL's/IADL's [x]Impaired gait & mobility [x]Impaired balance [x]Reduced muscle performance/strength [x]Decreased soft tissue mobility/flexibility [x]Decreased ROM [x]Impaired joint mobility/integrity []Postural deficits [x]Knowledge deficit for home exercises Rehab Potential: [x]Good []Fair []Poor Goals, within: [x]4-6 sessions [x]Perform household ADL's with pain < 3/10. 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 [x]Increase walking/standing tolerance to minutes in order to Ambulate community distances independently with pain <3 /10. [x]Improve LE strength to 4/5 overall for improved ability to ascend/descend 1 flight of stairs independently with pain < 3/10. [x]Pt will increase supine 90/90 by 10-20 degrees to demonstrate increase in HS length. [x]Pt will decrease prone passive knee flexion restriction to demonstrate improved hip flexor/quad length to minimal restriction. [x]Pt will be independent with HEP for increased LE flexibility and optimal progress with PT. PLAN: Pt to be seen 1x/1-2wks for 4-6 sessions POC to include: [x]Low impact cardio: [x]Nustep []Recumbent bike []Recumbent elliptical []TM [x]Manual: []STM/DTM [x]METs/SCS/LAD []IASTM [x]Joint mobilizations [x]Therex: [x]Progressive Core [x]Progressive LQ [x]Lumbar flex [x]LQ flex [x]Neuro Re-education: []Static [x]Dynamic []Dual-Task [x]Education: [x]Posture []Ergonomics [x]Bodymechanics [x]Self-care strategies [x]Modalities(PRN): [x]Heat/Ice Stretching and strengthening for hip musculature with LAD to improve joint mobility. Discuss ability to perform self LAD, provided pictures at consult. /eda/ ESTRADA MUSTAFA PT, DPT PHYSICAL THERAPIST Signed: 07/13/2024 13:39 ESTRADA MUSTAFA [facility] [place] [facility]
--- OUTSIDE RECORDS SUMMARY | 2024-09-27 06:30 | XMS_ITS | Encounter Summary ---
Author Name [facility] Address [address] [place] [id number] Care Team Providers Care Sales Administration Manager Name Role Phone AVERY BRYANT Primary Care Provider Unavailedgar burr Insurance Providers: All historical and current Section Date Range: From patient's date of to the date document was created. This section includes the names of all active insurance providers for the patient. Insurance Provider Type of Coverage Plan Name Start of Policy Coverage End of Policy Coverage Group Number Member ID Insurance Provider's Telephone Number Policy Francisco's Name Patient's Relationship to Policy Francisco [facility] (WNR) MEDICARE ADVANTAGE [facility] (WNR) May 27, 2015 [id number] Jessy GALVIN PATIENT Selected Encounter This section includes the information on record at NH for the Encounter. Date/Time Encounter Type Encounter Description Reason Provider Source Sep 27, 2024 10:30 AM THERAPEUTIC EXERCISES PHYSICAL THERAPY ICD-10-CM M46.1 Sacroiliitis, not elsewhere classified ESTRADA MUSTAFA [facility] Encounter Template Text not used by NH Assessments - Encounter Diagnoses This section includes the primary and secondary diagnoses documented for the Encounter. Date/Time Primary/Secondary Diagnosis Diagnosis Name Provider Source Sep 27, 2024 03:28 PM PRIMARY Sacroiliitis, not elsewhere classified [facility] Plan of Treatment: Future Appointments (+ 6 months) and Future Tests (+/- 45 days) The Plan of Treatment section includes future care activities for the patient from all [place] treatmentfacilities. This section includes future appointments and future orders which are active, pending or scheduled. Future Appointments This section includes appointments that were scheduled to occur 6 months from the date of the Encounter, up to a maximum of 20 appointments. The data comes from all [place] treatment facilities. Appointment Date/Time Appointment Type Appointme nt Facility Name Oct 03, 2024 10:30 AM [facility]ULATORY [facility] NONE [facility] [place] [facility] Oct 25, 2024 09:30 AM AMBULATORY [facility] MEDICINE [facility] [place] [facility] Nov 05, 2024 10:30 AM AMBULATORY - MEDICINE [facility] [place] [facility] Dec 06, 2024 10:30 AM AMBULATORY - REHAB MEDICIN E [facility] [place] [facility] Dec 10, 2024 10:30 AM [facility]ORY [facility]INE [facility] [place] [facility] Jan 01, 2025 10:00 AM AMBULATORY - REHAB MEDICIN E [facility] [place] [facility] Jan 15, 2025 08:00 AM AMBULATORY - REHAB MEDICIN E [facility] [place] [facility] Jan 15, 2025 11:00 AM AMBULATORY - REHAB MEDICIN E [facility] [place] [facility] Jan 18, 2025 09:30 AM AM[facility]ULATORY [facility] MEDICINE [facility] [place] [facility] January 28, 2025 10:30 AM AMBULATORY - REHAB MEDICIN E [facility] [place] [facility] February 12, 2025 10:30 AM AMBULATORY - REHAB MEDICIN E [facility] [place] [facility] February 13, 2025 09:30 AM AMBULATORY - NONE [facility] [place] [facility] Mar 05, 2025 10:00 AM AMBULATORY - REHAB MEDICIN E [facility] [place] [facility] Mar 18, 2025 09:30 AM AM[facility]ULATORY [facility] MEDICINE [facility] [place] [facility] Mar 25, 2025 08:00 AM AMBULATORY - MEDICINE [facility] [place] [facility] Active, Pending, and Scheduled Orders This section includes a listing of several types of active, pending, and scheduled orders, including clinic medications orders, diagnostic test orders, procedure orders and consult orders; where the start date of the order is 45 days before the date of the Encounter or 45 days after the date of theEncounter. The data comes from all [place] treatment facilities. Test Date/Time Test Type Test Details Facility Name Aug 16, 2024 01:34 PM Consult Order COMMUNITY CARE-UROLOGY Cons Pharmacy Data Analyst's Choice [facility] [place] [facility] Social History: Smoking Status (Most current) and Tobacco Use (All prior to encounter date) This section includes the most current, and the historical, smoking and tobacco- related health factors from the NH facility where the Encounter took place. Current Smoking Status This section includes the most current smoking, or tobacco-related health factor, from the [place] facility where the Encounter took place. Date/Time Current Smoking Status Comment Facil ity Oct 21, 2023 10:23 AM VA-TOBACCO NEVER USED [facility] [place] [facility] Tobacco Use History This section includes a history of the smoking, or tobacco-related health factors, that were collected on or before the date of the Encounter. The data comes from the [place] facility where the Encounter took place. Date/Time Smoking Status/Tobacco Use Comment F acility Jul 27, 2022 11:00 AM VA-TOBACCO NEVER USED [facility] [place] [facility] Jul 20, 2021 10:30 AM VA-TOBACCO NEVER USED [facility] [place] [facility] Jul 01, 2020 03:30 PM VA-TOBACCO NEVER USED [facility] [place] [facility] Jul 05, 2018 10:50 AM VA-TOBACCO NEVER USED [facility] [place] [facility] Jan 03, 2018 10:01 AM LIFETIME NON-TOBACCO USER [facility] [place] [facility] Dec 29, 2016 10:10 AM LIFETIME NON-TOBACCO USER [facility] [place] [facility] Apr 02, 2005 08:00 AM LIFETIME NON-SMOKER [facility] [place] [facility] Apr 02, 2004 08:07 AM LIFETIME NON-SMOKER [facility] [place] [facility] Apr 01, 2003 08:12 AM LIFETIME NON-SMOKER [facility] [place] [facility] Apr 02, 2002 01:05 PM LIFETIME NON-SMOKER [facility] [place] [facility] Mar 31, 2001 01:23 PM LIFETIME NON-SMOKER [facility] Advance Directives: All historical and current Section Date Range: From patient's date of to the date document was created. This section includes ALL of a patient's completed or amended [place] Advance and Rescinded Directives. The entries below indicate that a directive exists for the patient, but an actual copy is not included with this document. The data comes from all [place] facilities. Date Advance Directives Provider Source Jun 09, 2013 ADVANCE DIRECTIVE [place] Jim [facility] Radiology Reports: +/- 30 days of the encounter Radiology Reports For cases when an order for radiology services may have been completed prior to the date of the Encounter, the report list includes the Radiology Reports that were completed up to 30 days before dateof the Encounter. For cases when an order for radiology services may have been completed after the date of the Encounter, the report list also includes the Radiology Reports that were completed up to30 days after date of the Encounter. The data comes from all [place] treatment facilities. Date/Time Radiology Report Provider Source Oct 03, 2024 10:17 AM ULTRASOUND KIDNEYS: JEET GALVIN [id number] -[phone] M Exm Date: OCT 03, 2024@10:17 Req Phys: AVERY BRYANT Loc: CWM/NO/PACT EIGHT (Req'g Loc) Im Loc: ULTRASOUND Service: [place] [address] (Case [id number] COMPLETE) ULTRASOUND KIDNEYS (US Detailed) CPT:63708 Reason for Study: h/o kidney stones Clinical History: -requested by urologist Dr. Harjit Rodriguez yearly before apt in OCT Report Status: Verified Date Reported: OCT 03, 2024 Date Verified: OCT 03, 2024 Punch Box Tender E-Sig:/ES/JESSENIA PAIGE JR Report: Study: Renal ultrasound. Comparison: None. Findings: Both kidneys are symmetric and normal in size. The right kidney has a long length of 10.9 cm. The right kidney contains a single interpolar 1.8 cm in greatest dimension cortical simple cyst. The left kidney has a long length of 13.3 cm. The left kidney contains a single interpolar 2.2 cm in greatest dimension cortical simple cyst. Otherwise, the kidneys appear sonographically normal with normal cortical thickness and no evidence of hydronephrosis, shadowing stone or solid mass. Impression: No nephrolithiasis or obstructive changes identified to the kidneys, as described above. Primary Diagnostic Code: No immediate attention required Primary Interpreting Staff: JESSENIA PAIGE JR, Radiologist (Punch Box Tender) /JESSENIA LOJA JR [facility] [place] [facility] Encounter Notes: All associated encounter notes This section contains the clinical notes associated to the Encounter. Date/Time Encounter Note(s) Provider Source Sep 27, 2024 08:11 AM PHYSICAL THERAPY D ISCHARGE NOTE: LOCAL TITLE: PHYSICAL THERAPY DISCHARGE NOTE STANDARD TITLE: PHYSICAL THERAPY DISCHARGE NOTE DATE OF NOTE: SEP 27, 2024@08:11 ENTRY DATE: SEP 27, 2024@08:11:08 AUTHOR: ESTRADA MUSTAFA COSIGNER: URGENCY: STATUS: COMPLETED Initial Evaluation date: Jun Treatment #: 3 Treatment time: 30 mins Diagnosis: Sacroiliitis, not elsewhere classified(ICD-10-CM M46.1) Left hip impingement, LOGAN Provider: Deena GOLDEN Treatment Precautions: Patient identified by full name and date of SUBJECTIVE: I have been pretty good. i still should be doing my exercises a little more. On sep 11 my had to go for toe amputation and so I ahve been helping take care of her, and I am now back to work. I am trying to do some of my HEP daily, but I know I could be doing a little more. I feel about 60-65% back to where I would like to be. I think I know that if I do my HEP I will continue to improve. pain levels once in a while it might be a 5/10, achey but only when I get up after sitting to long. OBJECTIVE: THERAPEUTIC EXERCISE: MINUTES:15 Warm-up: [x]Nustep []Recumbent Elliptical []Recumbent Bike []Treadmill []UBE [3]Level: [10]Minutes: seated QL stretch discussion on HEP maintenance with progressions. OTHER: MINUTES:15 Lumbar AROM: Flexion(60-90):90 Extension(30):15 stiff lb L SB(25): 10 pain tight QL R SB(25): 10 pain tight QL L Rot(15-30):50% tight QL R Rot(15-30):50% tight QL Resisted Tests: (_/5) Trunk Flexion : :4 Trunk Extension : :4 Trunk Rotation : L:4 R:4 Hip Flexion (L2-L4): L:4 R:4 Hip Adduction: L:4 R:4 Hip Internal Rotation : L:4- R:4- Hip External Rotation : L:4 R:4 Knee Extension(L2-L4): L:4 R:4 Knee Flexion: L:4 R:4 Ankle Dorsiflexion(L4): L:4 R:4 Ankle Plantarflexion (S1-2) L:4 R:4 Ankle Eversion (S1): L:4 R:4 Great Toe Extension(L5): L:4 R:4 Hip Abduction (L5-S1): L:4-P R:4 Hip Extension(L5-S2): L:4+ R:4+ Range of Motion: Hip flexion(120): L:110 R:110 Hip Abduction(40): L:25 R:30 Hip Internal rotation(30): L:10 R:10 Hip external rotation(30): L:30 R:40 Hip Extension(20): L:5 R:5 Muscle Length/Flexibility: Ad Test: Left: Normal Limited__mod___ Right: Normal Limited___mod Carol's Test: Left: Normal Limited_sig____ Right: Normal Limited__sig Hamstring (90-90): Left: Normal Limited__10___ Degrees Right: Normal Limited__10 Degrees SELF CARE/EDUCATION: MINUTES: HEP:Access Code: [email or web address] URL: [email or web address] Date: 09/27/2024 Prepared by: Estrada Mustafa Exercises - Supine Piriformis Stretch with Foot on Ground - 3 x daily - 3 reps - 30 hold - Supine ITB Stretch - 3 x daily - 3 reps - 30 hold - Seated Piriformis Stretch with Trunk Bend - 3 x daily - 3 reps - 30 hold - Seated Piriformis Stretch - 3 x daily - 3 reps - 30 hold - Seated Table Piriformis Stretch - 3 sets - 30sec hold - ITB Stretch at Wall - 1 x daily - 7 x weekly - 3 sets - 3 reps - 30 hold - Seated Hamstring Stretch - 3 x daily - 3 reps - 30 hold - Standing Gastroc Stretch on Step with Counter Support - 1 x daily - 7 x weekly - 3 sets - 10 reps - Bent Knee Fallouts - 3 sets - 30 hold - Supine Bilateral Hip Internal Rotation Stretch - 3 reps - 30 hold - Seated Hip Adductor Stretch - 3 reps - 30 hold - Standing Hip Internal Rotation Stretch on Step - 3 reps - 30 hold - Standing Hip ER Stretch at Table - 3 reps - 30 hold - Modified Ad Stretch - 2-3 x daily - 3 sets - 30 secs hold - Standing Hip Abduction with Counter Support - 1 x daily - 7 x weekly - 3 sets - 10 reps - Standing Hip Extension with Counter Support - 1 x daily - 7 x weekly - 3 sets - 10 reps - Standing Hip Abduction with Bent Knee - 1 x daily - 7 x weekly - 3 sets - 10 reps - Supine Bridge - 1 x daily - 7 x weekly - 3 sets - 10 reps - Clamshell with Resistance - 1 x daily - 3 sets - 10 reps - Sidelying Hip Abduction with Resistance at Thighs - 1 x daily - 7 x weekly - 3 sets - 10 reps - Supine Ankle Pumps - 3 sets - 10 reps - Seated Transversus Abdominis Bracing - 5-10 x daily - 10 reps - 2 breaths hold Patient education was provided for all aspects of care during this clinical encounter. ASSESSMENT:Patient returns to physical therapy today with reports that while he feels he could be doing better with HEP, in terms of compliance, though noted he does his HEP on average 1x a day or more. The patient noted QL tightness during testing and therefore provided QL stretch and added to HEP. Patient noted given progress currently made and current status that he feels he will be able to continue to make progress towards PLOF. 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 has been d/c from PT services at this time, though if setback occurs may call clinic within 30days to return, over 30days will require new PT consult. PLAN: [x]Continue with plan of care. [x]Pt to perform HEP as prescribed. Goals, within: [x]4-6 sessions [x]Perform household ADL's with pain < 3/10. 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 MET [x]Increase walking/standing tolerance to minutes in order to Ambulate community distances independently with pain <3 /10. MET [x]Improve LE strength to 4/5 overall for improved ability to ascend/descend 1 flight of stairs independently with pain < 3/10. Mostly MET [x]Pt will increase supine 90/90 by 10-20 degrees to demonstrate increase in HS length. MET [x]Pt will decrease prone passive knee flexion restriction to demonstrate improved hip flexor/quad length to minimal restriction. Slow progress [x]Pt will be independent with HEP for increased LE flexibility and optimal progress with PT. /eda/ ESTRADA MUSTAFA PT, DPT PHYSICAL THERAPIST Signed: 09/27/2024 15:28 [facility]
--- OUTSIDE RECORDS SUMMARY | 2024-10-25 05:30 | XMS_ITS ---
Author Name [facility] [place] [facility] [place] [facility] [place] Address [address] [place] [id number] Care Team Providers Care Stone Derrickman And Rigger Name Role Phone AVERY BRYANT Primary Care [...] Francisco's Name Patient's Relationship to Policy Francisco [facility] ([facility]) MEDICARE ADVANTAGE [facility] ([facility]) May 27, 2015 [id number] Jessy GALVIN PATIENT Selected Encounter This section includes the information on record at [place] for the Encounter. Date/Time Encounter Type Encounter Description Reason Provider Source Oct 25, 2024 09:30 AM OFFICE O/P EST MOD 30 MIN PRIMARY CARE/MEDICINE ICD-10-CM I47.10 Supraventricular tachycardia, unspecified FURCOLO,AVERY E Encounter Template Text not used by [place] Assessments - Encounter Diagnoses This section includes the primary and secondary diagnoses documented for the Encounter. Date/Time Primary/Secondary Diagnosis Diagnosis Name Provider Source Oct 25, 2024 10:12 AM PRIMARY Supraventricular tachycardia, unspecified FURCOLO,AVERY [place] [facility] [place] [facility] Oct 25, 2024 10:12 AM SECONDARY Essential (primary) hypertension FURCOLO,AVERY [facility] [place] [facility] Oct 25, 2024 10:12 AM SECONDARY Pure hypercholesterolemia, unspecified FURCOLO,AVERY [facility] [place] [facility] Oct 25, 2024 10:12 AM SECONDARY Radiculopathy, cervical region FURCOLO,AVERY [facility] [place] [facility] Plan of Treatment: Future Appointments (+ 6 months) and Future Tests (+/- 45 days) The Plan of Treatment section includes future care activities for the patient from all [place] treatmentfacilities. This section includes future appointments and future orders which are active, pending or scheduled. Future Appointments This section includes appointments that were scheduled to occur 6 months from the date of the Encounter, up to a maximum of 20 appointments. The data comes from all [place] treatment facilities. Appointment Date/Time Appointment Type Appointme nt Facility Name Nov 05, 2024 10:30 AM AMBULATORY - MEDICINE [facility] [place] [facility] Dec 06, 2024 10:30 AM AMBULATORY - REHAB MEDICIN E [facility] [place] [facility] Dec 10, 2024 10:30 AM AMBULATORY - MEDICINE [facility] [place] [facility] Jan 01, 2025 10:00 AM AMBULATORY - REHAB MEDICIN E [facility] [place] [facility] Jan 15, 2025 08:00 AM AMBULATORY - REHAB MEDICIN E [facility] [place] [facility] Jan 15, 2025 11:00 AM AMBULATORY - REHAB MEDICIN E [facility] [place] [facility] Jan 18, 2025 09:30 AM AMBULATORY - MEDICINE [facility] [place] [facility] January 28, 2025 10:30 AM AMBULATORY - REHAB MEDICIN E [facility] [place] [facility] February 12, 2025 10:30 AM AMBULATORY - REHAB MEDICIN E [facility] [place] [facility] February 13, 2025 09:30 AM AMBULATORY - NONE [facility] [place] [facility] Mar 05, 2025 10:00 AM AMBULATORY - REHAB MEDICIN E [facility] [place] [facility] Mar 18, 2025 09:30 AM AMBULATORY - MEDICINE [facility] [place] [facility] Mar 25, 2025 08:00 AM AMBULATORY - MEDICINE [facility] [place] [facility] Apr 04, 2025 01:00 PM AMBULATORY - MEDICINE [place] [facility] [place] [facility] Vital Signs: All taken on the encounter date This section contains inpatient and outpatient Vital Signs collected on the date of the Encounter. Date/Time Temperature Pulse Blood Pressure Respiratory Rate SP02 Pain Height Weight Body Mass Index Source Oct 25, 2024 10:06 AM 138/68 [facility] [place] [facility] Oct 25, 2024 09:35 AM 97.5 54 145/65 16 99 0 [facility] [place] [facility] Social History: Smoking Status (Most current) and Tobacco Use (All prior to encounter date) This section includes the most current, and the historical, smoking and tobacco- related health factors from the [place] facility where the Encounter took place. Current Smoking Status This section includes the most current smoking, or tobacco-related health factor, from the [place] facility where the Encounter took place. Date/Time Current Smoking Status Comment Michelet simms Oct 21, 2023 10:23 AM VA-TOBACCO NEVER USED [place] [facility] [place] [facility] Tobacco Use History This section includes a history of the smoking, or tobacco-related health factors, that were collected on or before the date of the Encounter. The data comes from the [place] facility where the Encounter took place. Date/Time Smoking Status/Tobacco Use Comment [facility] Jul 27, 2022 11:00 AM VA-TOBACCO NEVER USED [facility] [place] [facility] Jul 20, 2021 10:30 AM VA-TOBACCO NEVER USED [facility] [place] [facility] Jul 01, 2020 03:30 PM VA-TOBACCO NEVER USED [facility] [place] [facility] Jul 05, 2018 10:50 AM VA-TOBACCO NEVER USED [facility] [place] [facility] Jan 03, 2018 10:01 AM LIFETIME NON-TOBACCO USER [facility] [place] [facility] Dec 29, 2016 10:10 AM LIFETIME NON-TOBACCO USER [facility] [place] [facility] Apr 02, 2005 08:00 AM LIFETIME NON-SMOKER [facility] [place] [facility] Apr 02, 2004 08:07 AM [facility]MOKER [facility] Apr 01, 2003 08:12 AM [facility]IF[facility]MOKER [facility] Apr 02, 2002 01:05 PM LIFETIME NON-SMOKER [place] [facility] Mar 31, 2001 01:23 PM [facility]MOKER [facility] Advance Directives: All historical and current Section Date Range: From patient's date of to the date document was created. This section includes ALL of a patient's completed or amended [place] Advance and Rescinded Directives. The entries below indicate that a directive exists for the patient, but an actual copy is not included with this document. The data comes from all [place] facilities. Date Advance Directives Provider Source Jun 09, 2013 ADVANCE DIRECTIVE NICHOL GAMEZ [facility] Radiology Reports: +/- 30 days of [...] the Encounter. The data comes from all [place] treatment facilities. Date/Time Radiology Report Provider Source Oct 03, 2024 10:17 AM ULTRASOUND KIDNEYS: JEET GALVIN [id number] -[id number] M Exm Date: OCT 03, 2024@10:17 Req Phys: AVERY BRYANT Pat Loc: CWM/NO/PACT EIGHT (Req'g Loc) Img Loc: ULTRASOUND Service: Unknown [facility] [place] [address] (Case [id number] COMPLETE) ULTRASOUND KIDNEYS (US Detailed) CPT:86854 Reason for Study: h/o kidney stones Clinical History: -requested by urologist Dr. Harjit Rodriguez yearly before apt in OCT Report Status: Verified Date Reported: OCT 03, 2024 Date Verified: OCT 03, 2024 [employer]plane [employer] E-Sig:/ES/JESSENIA PAIGE JR Report: Study: Renal ultrasound. [...] Primary Interpreting Staff: JESSENIA PAIGE JR, Radiologist (Airplane Pilot Commercial) /JESSENIA LOJA JR [facility] Encounter Notes: All associated encounter notes This section contains the clinical notes associated to the Encounter. Date/Time Encounter Note(s) Provider Source Oct 25, 2024 09:46 AM PHYSICIAN NOTE: LOCAL TITLE: MD NOTE STANDARD TITLE: PHYSICIAN NOTE DATE OF NOTE: OCT 25, 2024@09:46 ENTRY DATE: OCT 25, 2024@09:46:58 AUTHOR: AVERY BRYANT EXP COSIGNER: URGENCY: STATUS: COMPLETED COUNTER,JEET CELIS is a 74 year old WHITE MALE who is being seen today in primary care for ER follow-up for chest pain CARE TEAM Community Primary Care Provider: Dr. Basilio, [facility] Specialists: acupuncture optometry PM&R Community Specialists: urology - DR. Horan pulmonary- Dr. 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 Patient reports his pain started earlier this afternoon, few hours prior to arrivalHe reports that he had a rather sudden onset of left-sided chest pain stating it is if somebody ines a line down the center my chest and everything to the left hurt. His pain radiating to his neck in his left shoulder, He states his pain is worse if he bends over or if he takes a deep breath He denies any heavy lifting or strenuous activity Denies any shortness of breath, fevers, chills, cough, He is a nonsmoker He reports that his blood pressure has been well controlled with valsartan his EKG is nonischemic, troponins negative He was slightly hypertensive, which improved to 130 without intervention. 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 Hearing loss 2. Kidney stone 3. 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 Obstructive sleep apnea of adult on CPAP machine 5. Carpal tunnel syndrome 6. Benign essential hypertension 7. Benign paroxysmal positional vertigo (SNOMED CT 619683397) 8. Benign prostatic hyperplasia (SNOMED CT 937196670) s/p microwave surgery still goes once a year to urology 9. Supraventricular tachycardia (SNOMED CT 4382793) s/p Ablation therapy 10. Hypercholesterolemia (SNOMED CT 94606032) PAST SURGICAL HISTORY back surgery 1991 left shoulder surgery 2007 right shoulder surgery 2001 TURP cardiac ablation for SVT FAMILY HISTORY Mother: at age 79 CHF, +smoker Father: at age 61- throat ca- smoking and ETOH, had TB Siblings: 4, one sister still alive brother - of [place] sister- breast ca/uterine ca- age 65 sister- lung issues SOCIAL HISTORY Background: born and raised in [place], [place]. 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, would like to walk ALLERGIES LISINOPRIL MEDICATIONS VA and Non VA meds were reconciled [...] TAB 40MG BY MOUTH EVERY DAY ACTIVE REVIEW OF SYMPTOMS NEGATIVE FOR: CONSTITUTION: no weight loss/gain, fatigue, [...] thoughts SKIN: no rash, new skin lesions PHYSICAL EXAM Vitals: - - - - - - - B/P: 145/65 (10/25/2024 09:35) pulse: 54 (10/25/2024 09:35) resp: 16 (10/25/2024 09:35) temp: 97.5 F [36.4 C] (10/25/2024 09:35) Ht: 72 in [182.9 cm] (06/11/2024 09:55) [...] normal gait, normal strength no LE edema RECENT LABS ASSESSMENT AND PLAN cervical radicuoplathy- likely contributing to left arm pain, left chest pain and right hand numbess with sleep. Benign essential hypertension- better BP contorl on valsartan, atenolol and amlodipine Benign prostatic hyperplasia (SNOMED CT 291963406) s/p microwave surgery still goes once a year to urology Supraventricular tachycardia (SNOMED CT 0701999) s/p Ablation therapy- on atenolol low dose, no recurrence Hypercholesterolemia (SNOMED CT 83415072)- on simvastatin 40 mg daily HEALTH MAINTENANCE Colonoscopy - October 04, 2023, Dr. Auguste, hyperplastic polyp, no further needed as will be >80 Tetanus: due every 10 years Flu Vaccine: given today 06/11/24 Covid Vaccine: given today 06/11/24 FOLLOW UP f/u in already scheudled 06/11/2024 10:00 CWM/NO/PACT EIGHT VISIT TYPE: a MODERATE complexity visit where 30 minutes was spent in direct patient care, review of records and documentation. Upcoming Appointments: 06/11/2024 10:00 CWM/NO/PACT EIGHT 07/30/2024 10:30 CWM/NO/ACUPUNCTURE R1 10/03/2024 11:00 CWM/NO/ACUPUNCTURE R2 03/25/2025 08:00 NHM/OPTOMETRY/ROMEOI /eda/ AVERY BRYANT D.O. PHYSICIAN Signed: 10/25/2024 10:12 AVERY BRYANT [facility] Oct 25, 2024 09:41 AM PREVENTIVE MEDICINE NURSING NOTE: LOCAL TITLE: CLINICAL REMINDERS/NURSING STANDARD TITLE: PREVENTIVE MEDICINE NURSING NOTE DATE OF NOTE: OCT 25, 2024@09:41 ENTRY DATE: OCT 25, 2024@09:41:06 AUTHOR: PATRICIO DOWLING EXP COSIGNER: URGENCY: STATUS: COMPLETED Alcohol Use Screen (AUDIT-C): Alcohol Screen: SCREEN FOR ALCOHOL (AUDIT-C) An alcohol screening test (AUDIT-C) was negative (score=0). 1. How often did you have a drink containing alcohol in the past year? Consider a drink to be a 12 ounce can or bottle of regular beer, 8 ounces of malt liquor, a 5 ounce glass of table wine, or a 1.5 ounce shot of liquor (like scotch, gin, or vodka). Never 2. How many drinks containing alcohol did you have on a typical day when you were drinking in the past year? Response not required due to responses to other questions. 3. How often did you have six or more drinks on one occasion in the past year? Response not required due to responses to other questions. /eda/ PATRICIO DOWLING LPN License Practical Nurse Signed: 10/25/2024 09:41 PATRICIO DOWLING [facility]
--- OUTSIDE RECORDS SUMMARY | 2024-11-05 06:30 | XMS_ITS | Encounter Summary ---
Author Name [facility] [place] [facility] [place] Organization [facility] [facility] [place] Address [address] [place] [id number] Care Team Providers Care Physical Science Professor Name Role Phone AVERY BRYANT Primary Care [...] Francisco's Name Patient's Relationship to Policy Francisco [facility] ([facility]) MEDICARE ADVANTAGE [facility] ([facility]) May 27, 2015 [id number] Jessy GALVIN PATIENT Selected Encounter This section includes the information on record at [place] for the Encounter. Date/Time Encounter Type Encounter Description Reason Provider Source Nov 05, 2024 10:30 AM INFRARED THERAPY [facility] TREATMENT ICD-10-CM M25.552 Pain in left hip GAUNYA,CHRISTOP HER M IHE Encounter Template Text not used by [place] Assessments - Encounter Diagnoses This section includes the primary and secondary diagnoses documented for the Encounter. Date/Time Primary/Secondary Diagnosis Diagnosis Name Provider Source Nov 05, 2024 10:58 AM PRIMARY Pain in left hip GAUNYA,AMBER PHER M [place] [facility] [place] [facility] Nov 05, 2024 10:58 AM SECONDARY Low back pain, unspecified GAUNYA,AMBER PHER M [facility] [place] [facility] Nov 05, 2024 10:58 AM SECONDARY Pain in left shoulder GAUNYAAMBER M [facility] [place] [facility] Nov 05, 2024 10:58 AM SECONDARY Pain in right hand ROSALINOUNAMBER [place] PHER Jim [facility] [place] [facility] Nov 05, 2024 10:58 AM SECONDARY Pain in unspecified hip ROSALINOUNAMBER [place] [facility] [place] [facility] Plan of Treatment: Future Appointments (+ 6 months) and Future Tests (+/- 45 days) The Plan of Treatment section includes future care activities for the patient from all [place] [facility]. This section includes future appointments and future orders which are active, pending or scheduled. Future Appointments This section includes appointments that were scheduled to occur 6 months from the date of the Encounter, up to a maximum of 20 appointments. The data comes from all [place] treatment facilities. Appointment Date/Time Appointment Type Appointme nt Facility Name Dec 06, 2024 10:30 AM AMBULATORY - REHAB MEDICIN E [facility] [place] [facility] Dec 10, 2024 10:30 AM AMBULATORY - MEDICINE [facility] [place] [facility] Jan 01, 2025 10:00 AM AMBULATORY - REHAB MEDICIN E [facility] [place] [facility] Jan 15, 2025 08:00 AM AMBULATORY - REHAB MEDICIN E [facility] [place] [facility] Jan 15, 2025 11:00 AM AMBULATORY - REHAB MEDICIN E [facility] [place] [facility] Jan 18, 2025 09:30 AM AMBULATORY - MEDICINE [facility] [place] [facility] January 28, 2025 10:30 AM AMBULATORY - REHAB MEDICIN E [facility] [place] [facility] February 12, 2025 10:30 AM AMBULATORY - REHAB MEDICIN E [facility] [place] [facility] February 13, 2025 09:30 AM AMBULATORY - NONE [facility] [place] [facility] Mar 05, 2025 10:00 AM AMBULATORY - REHAB MEDICIN E [facility] [place] [facility] Mar 18, 2025 09:30 AM AMBULATORY - MEDICINE [facility] [place] [facility] Mar 25, 2025 08:00 AM AMBULATORY - MEDICINE [facility] [place] [facility] Apr 04, 2025 01:00 PM AMBULATORY - MEDICINE [facility] [place] [facility] May 01, 2025 08:00 AM AMBULATORY - MEDICINE [facility] [place] [facility] Social History: Smoking Status (Most current) and Tobacco Use (All prior to encounter date) This section includes the most current, and the historical, smoking and tobacco- related health factors from the [place] facility where the Encounter took place. Current Smoking Status This section includes the most current smoking, or tobacco-related health factor, from the [place] facility where the Encounter took place. Date/Time Current Smoking Status Comment Michelet ity Oct 21, 2023 10:23 AM VA-TOBACCO NEVER USED [facility] [place] [facility] Tobacco Use History This section includes a history of the smoking, or tobacco-related health factors, that were collected on or before the date of the Encounter. The data comes from the [place] facility where the Encounter took place. Date/Time Smoking Status/Tobacco Use Comment F acility Jul 27, 2022 11:00 AM VA-TOBACCO NEVER USED [facility] [place] [facility] Jul 20, 2021 10:30 AM VA-TOBACCO NEVER USED [facility] [place] [facility] Jul 01, 2020 03:30 PM VA-TOBACCO NEVER USED [facility] [place] [facility] Jul 05, 2018 10:50 AM VA-TOBACCO NEVER USED [facility] [place] [facility] Jan 03, 2018 10:01 AM LIFETIME NON-TOBACCO USER [facility] [place] [facility] Dec 29, 2016 10:10 AM LIFETIME NON-TOBACCO USER [facility] [place] [facility] Apr 02, 2005 08:00 AM LIFETIME NON-SMOKER [facility] [place] [facility] Apr 02, 2004 08:07 AM LIFETIME NON-SMOKER [facility] [place] [facility] Apr 01, 2003 08:12 AM LIFETIME NON-SMOKER [facility] [place] [facility] Apr 02, 2002 01:05 PM LIFETIME NON-SMOKER [facility] [place] [facility] Mar 31, 2001 01:23 PM LIFETIME NON-SMOKER [facility] Advance Directives: All historical and current Section Date Range: From patient's date of to the date document was created. This section includes ALL of a patient's completed or amended [place] Advance and Rescinded Directives. The entries below indicate that a directive exists for the patient, but an actual copy is not included with this document. The data comes from all [place] facilities. Date Advance Directives Provider Source Jun 09, 2013 ADVANCE DIRECTIVE NICHOL GAMEZ [facility] Encounter Notes: All associated encounter notes This section contains the clinical notes associated to the Encounter. Date/Time Encounter Note(s) Provider Source Nov 05, 2024 10:52 AM ACUPUNCTURE NOTE: LOCAL TITLE: ACUPUNCTURE TREATMENT STANDARD TITLE: ACUPUNCTURE NOTE DATE OF NOTE: NOV 05, 2024@10:52 ENTRY DATE: NOV 05, 2024@10:52:51 AUTHOR: KIMBERLYN MARSH EXP COSIGNER: URGENCY: STATUS: COMPLETED COUNTER,JEET CELIS is a 74 WHITE MALE who presents with Right side hip and low back pain. Bilateral shoulder pain Active Problem Hearing loss H90.3 06/22/2023 AHMED,MOHAMMED JAWED Kidney stone N20.0 11/13/2020 DEJON,ISREALAMMED JAWED 2 kidneys each side with 2 ureter e 11/13/2020 DEJON,ISREALAMMED JAWED Obstructive sleep apnea of adult G4 07/05/2017 DEJON,MOHAMMED JAWED Pain radiating to right shoulder M2 06/30/2016 DEJON,MOHAMMED JAWED Carpal tunnel syndrome 354.0 05/01/2015 DEJON,MOHAMMED JAWED Benign essential hypertension I10. 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 Onset was gradual and is focused in the greater trochanter with radiation into his lateral thigh. Currently he tells me the pain is 5/10. Pina had been in for [facility] acupuncture 2 times previously and during his first visit in May also had a cortisone injection the same day. Prior to those 2 treatments his pain had been elevated 7-8/10 but it has been consistently less since. Pina has prior history of low back pain and had left hip pain back in 2014. Pain at that point had started in his greater trochanter area and radiated into his inguinal crease and down his medial thigh. Cortisone injection at that point reduced his pain for over 2 years. He reports it has not been a problem since. Pina has a history of physical work his whole life and tends to overdo it. Pina has had shoulder surgery in both shoulders to remove calcium buildup in her shoulder joint. He reports he has minimal discomfort in his shoulders but he does tell me his left shoulder clicks when he goes through a full range of motion. Pina reports that his sleep is good for the most part but he tends to be restless at night and will wake once or twice per night to urinate. Appetite is very good. He reports that both him and his are vegetarians and the well eating mostly home-cooked meals. Pina reports bowel movements are normal Urination is normal with no issues. RESPONSE TO PREVIOUS TREATMENT. states low back continues to do well in his right hip pain has also been very moderate. Perry states he's been having numbness in his right hand at night. states that no matter what position he sleeps and he will wake with his hand feeling numb and the numbness extends a few centimeters past his wrist. states hanging his arm down shaking will bring feeling back into it. Perry has had assessment of it and learned there is no circulatory issues that he is experiencing at the present moment. wishes to be assessed for carpal tunnel syndrome. also had left side numbness in his shoulder arm and chest about a month ago. went to emergency room and reportedly there was nothing found. _ OBJECTIVE General: . Patient in no apparent distress . appropriate attire . here with equanimity Skin: . No effusion/edema . No ecchymosis . No erythema MUSCULOSKELETAL: Observed . no signs of trauma Ambulation . independent ambulation . non-antalgic ambulation Physical Ability to Transfer: . Patient was able to get on/off the treatment table unassisted. Posture . no antalgic posture Extremities . functional AROM BACK / SPINE . no overt deformity of spine . no pelvic unleveling NEUROLOGIC: Mentation . A&Ox3 Gait [ ]antalgic [X]non-antalgic [ ]ataxic [ ]wheel chair, walker, cane ASSESSMENT / SUMMARY Affected Channel: GB, UB, SI, LI, YAZMIN, TH Medical Decision Making (MDM) * [ ]Straightforward o [ ]Minimal = 1 self-limited or minor problem * [ ]Low o - 2 or more self-limited or minor problems o - 1 stable chronic illness o - 1 acute, uncomplicated illness or injury * [X]Moderate o - 1 or more chronic illness with exacerbation, progression or side effect from treatment o - 2 or more stable chronic illnesses o - 1 undiagnosed new problem w/uncertain prognosis o - 1 acute illness w/ systemic symptoms o - 1 acute complicated injury * [ ]High o - 1 or more chronic illnesses w/ severe exacerbation, progression, or side effect from treatment o - 1 acute or chronic illness/injury that poses threat to life or bodily function PLAN / RECOMMENDATION: Monthly treatment with BFA or standard acupuncture Follow-up [ ]1 WEEK [ ]2 WEEKS [ ]3 WEEKS [X]1 MONTH FREQUENCY OF CARE [ ]1 X WEEKLY, [ ]2 X WEEKLY [ ]Bi-Weekly, [ ]Monthly, [ ]Other Seeking: [ ]access to acupuncture for: [X]pain control [ ]frequency or [ ]as needed [ ]Stress/anxiety reduction, [ ]Other mental health [ ]Addiction/dependence: [ ]Nicotene [ ]Alcohol [ ]Chemical Patient Education: [X]Encouraged self-care management using active therapies [ ](exercises, therapeutic movement, PT, biofeedback, smoking cessation, health coaching) to manage chronic pain while engaging passive therapies (acupuncture / chiropractic / massage) to manage [ ]acute / [ ]subacute (persistent) pain [ ]Counseled not to view exercise as an analgesic, but as modalities to improve flexibility, strength, and conditioning. [ ]Additionally, counseled to stay within tolerances when doing daily tasks / exercise i.e. use pacing to moderate aggravation of sx. [ ]Attempt 2 to 3 times per week [ ]Modify as needed [ ]Refrain from exercises if aggravation or new symptoms appear [ ]Do not use acupressure over area where you have a wound, severe swelling or lump, active infection, recent blood clots, rash, or areas that are numb. However, you may use other points away from these areas. If you take medications to thin your blood, or have a bleeding or clotting disorder, only use light pressure. [ ]Self-care management encouraged by focus on self-care strategies to improve flexibility, strength and conditioning, not to view exercise as an analgesic yet modalities to improve gross motion as chronic pain undermines core movements. [ ]Discussed expected course of condition and self-care management via weight-management, healthy diet, regular exercise within patient tolerance and pragmatic use of passive modalities for short-term relief stressing not to solely rely on passive modalities. Also counseled on non-pharmacological therapies/treatments such as acupuncture / acupressure on acute episodes of pain. Furthermore, consider exercise therapy, yoga, qigong, cee chi, relaxation technique and/or cognitive-behavior methodologies regarding chronic and/or persistent sub-acute pain. INSTRUCTIONS: [X]Rest, hydrate, eat [X]BFA Patient Information Home Removal - [X]Remove after 3 days and dispose of in approved sharpes container or comparable container - [ ]or return to clinic or PCP in three days to remove auricular needles - [ ]Pyonex Needle: remove prior to bathing per supervisor data processing INFORMED CONSENT: Oral Consent obtained on Oct The patient was positioned comfortably. Oral consent was obtained. There was no evidence of infection at the site of needle insertions. Time out was conducted by Kimberlyn Marsh L.Ac. Correct patient was identified using two identifiers. Acupuncture treatment including risk/side effects, benefits, alternatives to treatment and the management plan were reviewed with the patient who expressed understanding and agreed. Correct procedure verified by the patient and the provider. PROCEDURES: Set 1 TIME SPENT: 15 Minutes Position:[X]Prone [ ]Supine [ ]Left Side [ ]Right Side [ ]Seated Chair [ ] Massage Chair Points used: [X]Ear:[ ]Left [ ]Right [X]Bilateral [X]BFA Protocol, [ ][place] Protocol, [ ]Shenmen, Point Zero, Sympathetic [ ] Ear: [ ]Finch Men, [ ]Point Zero, [ ]Sympathetic [X]Ear Other: Standard needles not retained [ ]Head: [ ]Neck: [ ]Torso: [ ]Hip / Glute Area: [ ]LUE: [ ]RUE: [ ]LLE: [ ]RLE: Set 2 TIME SPENT: 15 Minutes Position:[X]Prone [ ]Supine [ ]Left Side [ ]Right Side [ ]Seated Chair [ ] Massage Chair Points used: [ ]Ear:[ ]Left [ ]Right [ ]Bilateral [ ]BFA Protocol, [ ]NA[place] Protocol, [ ]Shen[place], Point Zero, Sympathetic [ ] Ear: [ ]Finch Men, [ ]Point Zero, [ ]Sympathetic [ ]Ear Other: [ ]Head: [ ]Neck: [ ]Torso: [ ]Hip / Glute Area: [X] RUE: LK, DB, ZB, SI 4, LI 5 [X] LUE: Quiñones Joellen, Ishmael Barbosa [X] RLE: LR 4.2, LR 4.5, LR 4.8, LR 5, SP 5.5, SP 6, KD 7 [X] LLE: UB 65, GB 41, GB 40, GB 34 [ ]Other therapies: [ ]Cupping: [ ]Cold Laser [ ]Peizo Pen: [ ]External Qigong: [X]TDP Lamp: Right wrist and hand [ ]Tui Na: [ ]Guasha: [ ]Nutrition Counseling: The procedures were performed and needles removed without complication. Treatment Response: [X]nominal / [ ]negative / [ ]aborted due to [X]F/U PRN self-schedule upon unresolving re-aggravation or with degrading pain control /es/ KIMBERLYN MARSH LA.C DIPL.AC PLACEMENT DIRECTOR Signed: 11/05/2024 12:39 KIMBERLYN MARSH [facility]
--- OUTSIDE RECORDS SUMMARY | 2024-12-06 06:30 | XMS_ITS ---
Author Name [facility] Organization [facility] Address [address] [place] [id number] Care Team Providers Care Java Lead Engineer Name Role Phone AVERY BRYANT Primary Care [...] Francisco's Name Patient's Relationship to Policy Francisco [facility] ([facility] MEDICARE ADVANTAGE [facility] ([facility]) May 27, 2015 [id number] Jessy GALVIN PATIENT Selected Encounter This section includes the information on record at OR for the Encounter. Date/Time Encounter Type Encounter Description Reason Provider Source Dec 06, 2024 10:30 AM PT EVAL MOD COMPLEX 30 MIN PHYSICAL THERAPY ICD-10-CM M54.2 Cervicalgia SHASHI BRIONES [facility] Encounter Template Text not used by OR Assessments - Encounter Diagnoses This section includes the primary and secondary diagnoses documented for the Encounter. Date/Time Primary/Secondary Diagnosis Diagnosis Name Provider Source Dec 07, 2024 11:57 AM PRIMARY Cervicalgia SHASHI BRIONES [facility] [place] [facility] Plan of Treatment: Future Appointments (+ 6 months) and Future Tests (+/- 45 days) The Plan of Treatment section includes future care activities for the [facility] This section includes future appointments and future orders which are active, pending or scheduled. Future Appointments This section includes appointments that were scheduled to occur 6 months from the date of the Encounter, up to a maximum of 20 appointments. The data comes from all OR treatment facilities. Appointment Date/Time Appointment Type Appointme nt Facility Name Dec 10, 2024 10:30 AM AM[facility]ULATORY [facility] MEDICINE [facility] [place] [facility] Jan 01, 2025 10:00 AM AMBULATORY - REHAB MEDICIN E [facility] [place] [facility] Jan 15, 2025 08:00 AM AMBULATORY - REHAB MEDICIN E [facility] [place] [facility] Jan 15, 2025 11:00 AM AMBULATORY - REHAB MEDICIN E [facility] [place] [facility] Jan 18, 2025 09:30 AM AMBULATORY - MEDICINE [facility] [place] [facility] January 28, 2025 10:30 AM AMBULATORY - REHAB MEDICIN E [facility] [place] [facility] February 12, 2025 10:30 AM AMBULATORY - REHAB MEDICIN E [facility] [place] [facility] February 13, 2025 09:30 AM AMBULATORY - NONE [facility] [place] [facility] Mar 05, 2025 10:00 AM AMBULATORY - REHAB MEDICIN E [facility] [place] [facility] Mar 18, 2025 09:30 AM AMBULATORY - MEDICINE [facility] [place] [facility] Mar 25, 2025 08:00 AM AMBULATORY - MEDICINE [facility] [place] [facility] Apr 04, 2025 01:00 PM AMBULATORY - MEDICINE [facility] [place] [facility] May 01, 2025 08:00 AM AMBULATORY - MEDICINE [facility] [place] [facility] May 07, 2025 08:30 AM AMBULATORY - MEDICINE [facility] [place] [facility] May 21, 2025 10:00 AM AMBULATORY - MEDICINE [facility] [place] [facility] Social History: Smoking Status (Most current) and Tobacco Use (All prior to encounter date) This section includes the most current, and the historical, smoking and tobacco- related health factors from the VA facility where the Encounter took place. Current Smoking Status This section includes the most current smoking, or tobacco-related health factor, from the OR facility where the Encounter took place. Date/Time Current Smoking Status Comment Michelet ity Oct 21, 2023 10:23 AM VA-TOBACCO NEVER USED OR [facility] [place] [facility] Tobacco Use History This section includes a history of the smoking, or tobacco-related health factors, that were collected on or before the date of the Encounter. The data comes from the OR facility where the Encounter took place. Date/Time Smoking Status/Tobacco Use Comment Constance acility Jul 27, 2022 11:00 AM VA-TOBACCO NEVER USED [facility] [place] [facility] Jul 20, 2021 10:30 AM VA-TOBACCO NEVER USED [facility] [place] [facility] Jul 01, 2020 03:30 PM VA-TOBACCO NEVER USED [facility] [place] [facility] Jul 05, 2018 10:50 AM VA-TOBACCO NEVER USED [facility] [place] [facility] Jan 03, 2018 10:01 AM LIFETIME NON-TOBACCO USER [facility] [place] [facility] Dec 29, 2016 10:10 AM LIFETIME NON-TOBACCO USER [facility] [place] [facility] Apr 02, 2005 08:00 AM LIFETIME NON-SMOKER [facility] [place] [facility] Apr 02, 2004 08:07 AM LIFETIME NON-SMOKER [facility] [place] [facility] Apr 01, 2003 08:12 AM LIFETIME NON-SMOKER [facility] [place] [facility] Apr 02, 2002 01:05 PM LIFETIME NON-SMOKER [facility] [place] [facility] Mar 31, 2001 01:23 PM LIFETIME NON-SMOKER [facility] [place] [facility] Advance Directives: All historical and current Section Date Range: From patient's date of to the date document was created. This section includes ALL of a patient's completed or amended OR Advance and Rescinded Directives. The entries below indicate that a directive exists for the patient, but an actual copy is not included with this document. The data comes from all OR facilities. Date Advance Directives Provider Source Jun 09, 2013 ADVANCE DIRECTIVE NICHOL GAMEZ [facility] [place] [facility] Encounter Notes: All associated encounter notes This section contains the clinical notes associated to the Encounter. Date/Time Encounter Note(s) Provider Source Dec 06, 2024 07:57 AM PHYSICAL THERAPY CONSULT: LOCAL TITLE: PHYSICAL THERAPY CONSULT STANDARD TITLE: PHYSICAL THERAPY CONSULT DATE OF NOTE: DEC 06, 2024@07:57 ENTRY DATE: DEC 06, 2024@07:57:17 AUTHOR: SHASHI BRIONES EXP COSIGNER: URGENCY: STATUS: COMPLETED Initial Evaluation date: 12/06/24 Treatment #: 0 Treatment time: 45' Diagnosis: Radiculopathy, Cervical Region(ICD-10-CM M54.12) Provider: AVERY BRYANT PT Treatment Precautions or Daily Instructions: None SUBJECTIVE: Pt is a 74 y/o male referred for cervical radiculopathy. C/c today numbness in R hand but also had some L side neck pain recently but minimal at this time per pt. No injury or trauma prior to onset. Reports R hand will go numb in the middle of the night or in the morning when he wakes up. Numbness will sometimes last over an hour and will interfere with his ability to sleep through the night uninterrupted. Denies any radicular pain or weakness of UEs. 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 Date of onset: ( x ) Gradual ( ) Rapid CRESCENCIO: None Since onset: ( ) Worsening ( ) Improving ( x ) Staying the same C/O: ( ) Pain: ( ) ROM: ( ) Strength: ( x ) Sensation: Pain 0-10: 2/10 neck pain Pt. goal: Stop R hand numbness, be able to sleep through the night uninterrupted Active problems - Computerized Problem List is the source for the followin. Hearing loss 2. Kidney stone 3. 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 Obstructive sleep apnea of adult 5. Carpal tunnel syndrome 6. Benign essential hypertension 7. Benign paroxysmal positional vertigo (SNOMED CT 215628261) 8. Benign prostatic hyperplasia (SNOMED CT 212177666) 9. Supraventricular tachycardia (SNOMED CT 4269780) 10. Hypercholesterolemia (SNOMED CT 61375691) OBJECTIVE: Observation: Forward head posture, increased thoracic kyphosis Cervical AROM: Flexion: 15 Extension: 35 Lat flex: (R) 15 (L) 5 Rotation: (R) 50 (L) 45 *pain Shoulder flex: Extension: WFL Abduction: WFL Fxn ext rot: WFL Fxn int rot: WFL UE Neuro Screen: (R) (L) Reflexes: (0, 1, 2, 3, 4) C7 Triceps 1 1 C5 Biceps 1 1 Myotomes: See MMT ULTT+ (+,-) Median nerve - - Ulnar nerve - - Radial nerve - - OBJECTIVE: MMT / Myotomes (R) (L) *pain Shoulder flex: 5 5 Elevation C4 5 5 Abduction C5 5 5 Ext rot: 5 5 Int rot: 5 5 Elbow flex C6: 5 5 Extension C7: 5 5 Finger ext C8: 5 5 Finger Abd T1: 5 5 Cluster Bore Operator strength: grossly normal Special Tests: Right Left Spurlings: (-) (-) (Sn .50 Sp .90) Distraction: (-) (-) (Sn .44 Sp .90) Quadrant: (-) (+) Phalen's test (+) (-) Robert test (-) (-) PALPATION: Increased soft tissue density L UT and levator scap ASSESSMENT: Pt is a 74 y/o male referred for cervical radiculopathy. C/c R hand numbness, also had some L side neck pain a couple months ago but minimal at time of consult per pt. Following initial assessment, pt demonstrates impaired cervical AROM L>R. Most limited in L lateral flexion and pain w/ L rotation. Special tests for radiculopathy including Spurling's, distraction, and ULTT were negative. Positive Quadrant test on L. Positive R phalen's test indicating median n. compression. Pt was issued wrist splint for R hand and instructed to wear it when he goes to bed at night. GOALS: 1.) Pt will have 60 deg or greater of L cervical rotation AROM. 3.) Pt will sleep through the night w/o pain. 4.) Pt will be I w/ HEP for continued self management of cervical spine. PLAN OF CARE: Pt to tria 1-2 PT sessions for cervical stab/stretching program. Referred to OT for consult regarding R hand numbness. Interventions: UT, SCM, levator scap S Cervical/scap stab - chin tucks, deep neck flexor, rows, scap retraction Manual - STM, TPR for cervical extensors, UT, levator scap MHP/CP Postural ed. HEP TODAYS TREATMENT: Discussed findings and POC THERAPEUTIC EXERCISE: MINUTES: MANUAL THERAPY: MINUTES: GAIT TRAINING: MINUTES: NEUROMUSCULAR EDUCATION: MINUTES: SELF CARE/EDUCATION: MINUTES: 5 Patient education was provided for all aspects of care during this clinical encounter. Issued wrist splint for R hand. Educated on how to don/doff and instructed to wear when sleeping. This treatment was primarily performed by PETER Levine, however, I, Shashi Briones PT, DPT, was present during the course of this treatment in its entirety providing direct supervision for this student, I agree with treatment and plan of care as stated above. /eda/ Shashi Briones PT,DPT PHYSICAL THERAPIST Signed: 12/07/2024 11:58 Receipt Acknowledged By: 12/07/2024 13:54 /eda/ SHASHI GOLDEN [facility]
--- OUTSIDE RECORDS SUMMARY | 2025-01-01 06:00 | XMS_ITS ---
Author Name [facility] [place] Address [address] [place] [id number] Care Team Providers Care Buttermaker Helper Name Role Phone AVERY BRYANT Primary Care [...] Francisco's Name Patient's Relationship to Policy Francisco [facility] ([facility]) MEDICARE ADVANTAGE [facility] ([facility]) May 27, 2015 [id number] Jessy GALVIN PATIENT Selected Encounter This section includes the information on record at [place] for the Encounter. Date/Time Encounter Type Encounter Description Reason Provider Source Jan 01, 2025 10:00 AM MANUAL THERAPY 1/> [facility] PHYSICAL THERAPY ICD-10-CM M54.2 Cervicalgia SHASHI BRIONES [facility] Encounter Template Text not used by [place] Assessments - Encounter Diagnoses This section includes the primary and secondary diagnoses documented for the Encounter. Date/Time Primary/Secondary Diagnosis Diagnosis Name Provider Source Jan 01, 2025 01:36 PM PRIMARY Cervicalgia SHASHI BRIONES [facility] [place] [facility] Plan of Treatment: Future Appointments (+ 6 months) and Future Tests (+/- 45 days) The Plan of Treatment section includes future care activities for the patient from all [place] treatmentfacilities. This section includes future appointments and future orders which are active, pending or scheduled. Future Appointments This section includes appointments that were scheduled to occur 6 months from the date of the Encounter, up to a maximum of 20 appointments. The data comes from all [place] treatment facilities. Appointment Date/Time Appointment Type Appointme nt Facility Name Jan 15, 2025 08:00 AM AMBULATORY - REHAB MEDICIN E [facility] [facility] Jan 15, 2025 11:00 AM AMBULATORY - REHAB MEDICIN E [facility] [facility] Jan 18, 2025 09:30 AM AMBULATORY - MEDICINE [facility] [place] [facility] January 28, 2025 10:30 AM AMBULATORY - REHAB MEDICIN E [facility] [place] [facility] February 12, 2025 10:30 AM AMBULATORY - REHAB MEDICIN E [facility] [place] [facility] February 13, 2025 09:30 AM AMBULATORY - NONE [facility] [place] [facility] Mar 05, 2025 10:00 AM AMBULATORY - REHAB MEDICIN E [facility] [place] [facility] Mar 18, 2025 09:30 AM AMBULATORY - MEDICINE [facility] [place] [facility] Mar 25, 2025 08:00 AM AMBULATORY - MEDICINE [facility] [place] [facility] Apr 04, 2025 01:00 PM AMBULATORY - MEDICINE [facility] [place] [facility] May 01, 2025 08:00 AM AMBULATORY - MEDICINE [facility] [place] [facility] May 07, 2025 08:30 AM AMBULATORY - MEDICINE [facility] [place] [facility] May 21, 2025 10:00 AM AMBULATORY - MEDICINE [facility] [place] [facility] Jun 11, 2025 10:00 AM AMBULATORY - MEDICINE [facility] [place] [facility] Jun 25, 2025 10:00 AM AMBULATORY - MEDICINE [facility] [place] [facility] Social History: Smoking Status (Most current) and Tobacco Use (All prior to encounter date) This section includes the most current, and the historical, smoking and tobacco- related health factors from the [place] facility where the Encounter took place. Current Smoking Status This section includes the most current smoking, or tobacco-related health factor, from the [place] facility where the Encounter took place. Date/Time Current Smoking Status Comment Michelet itgorge Oct 21, 2023 10:23 AM VA-TOBACCO NEVER USED [place] [facility] [place] [facility] Tobacco Use History This section includes a history of the smoking, or tobacco-related health factors, that were collected on or before the date of the Encounter. The data comes from the [place] facility where the Encounter took place. Date/Time Smoking Status/Tobacco Use Comment Constance acility Jul 27, 2022 11:00 AM VA-TOBACCO NEVER USED [facility] [place] [facility] Jul 20, 2021 10:30 AM VA-TOBACCO NEVER USED [facility] [place] [facility] Jul 01, 2020 03:30 PM VA-TOBACCO NEVER USED [facility] [place] [facility] Jul 05, 2018 10:50 AM VA-TOBACCO NEVER USED [place] [facility] [place] [facility] Jan 03, 2018 10:01 AM LIFETIME NON-TOBACCO USER [facility] [facility] Dec 29, 2016 10:10 AM LIFETIME NON-TOBACCO USER [facility] [place] [facility] Apr 02, 2005 08:00 AM LIFETIME NON-SMOKER [facility] [place] [facility] Apr 02, 2004 08:07 AM LIFETIME NON-SMOKER [facility] [place] [facility] Apr 01, 2003 08:12 AM LIFETIME NON-SMOKER [facility] [place] [facility] Apr 02, 2002 01:05 PM LIFETIME NON-SMOKER [facility] [place] [facility] Mar 31, 2001 01:23 PM LIFETIME NON-SMOKER [place] [facility] [place] [facility] Advance Directives: All historical and current Section Date Range: From patient's date of to the date document was created. This section includes ALL of a patient's completed or amended [place] Advance and Rescinded Directives. The entries below indicate that a directive exists for the patient, but an actual copy is not included with this document. The data comes from all [place] facilities. Date Advance Directives Provider Source Jun 09, 2013 ADVANCE DIRECTIVE NICHOL GAMEZ [place] [facility] [place] [facility] Radiology Reports: +/- 30 days of the [...] the Encounter. The data comes from all [place] treatment facilities. Date/Time Radiology Report Provider Source Jan 15, 2025 08:44 AM HIP 2-3 VIEWS(LEFT ) WITH OR WITHOUT PELVIS: JEET GALVIN [id number] -[id number] M Exm Date: JAN 15, 2025@08:44 Req Phys: NAMAN DESHPANDE Pat Loc: [facility] MED REHAB INJECTION (Re Img Loc: [facility]/BUILDING 1 Service: [place] [address] (Case [id number] COMPLETE) HIP 2-3 VIEWS(LEFT) WITH OR WITHO(RAD Detailed) CPT:93521 Proc Modifiers : WEIGHT BEARING, STANDING CPT Modifiers : LT LEFT SIDE Reason for Study: left hip pain Clinical History: Covering resident, fellow, FRESCO ARTIST or attending: Naman Deshpande DO [place] Pager: [phone] Backup pager: History: Left hip pain Report Status: Verified Date Reported: JAN 15, 2025 Date Verified: JAN 15, 2025 Mechanical Maintenance Engineer E-Sig:/ES/JESSENIA PAIGE JR Report: Study: AP view of the pelvis with standing crosstable lateral and frogleg lateral view of the left hip. Comparison: Hip radiographs from May 02, 2023 and November 17, 2022. Findings: The bony mineralization is normal. The sacroiliac joints are normal for age. 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 Clinical correlation is recommended. There is mild degenerative change present to the lower lumbar spine. Mild subchondral sclerotic changes to the pubic symphysis with mild scattered calcifications in the pubic symphysis articulation likely representing calcium pyrophosphate deposition disease, unchanged. Coarse calcifications likely present in the prostate gland. Mild hamstring origin enthesopathy changes present symmetrically. Otherwise, the bony pelvis appears normal. The right hip joint is normal. The left hip joint is normal. The proximal femurs are normal. Impression: No significant interval change or new abnormality, as described above. Primary Diagnostic Code: No immediate attention required Primary Interpreting Staff: JESSENIA PAIGE JR, Radiologist (Mechanical Maintenance Engineer) /JESSENIA LOJA JR [facility] Encounter Notes: All associated encounter notes This section contains the clinical notes associated to the Encounter. Date/Time Encounter Note(s) Provider Source Jan 01, 2025 08:55 AM PHYSICAL THERAPY NOTE: LOCAL TITLE: PHYSICAL THERAPY STANDARD TITLE: PHYSICAL THERAPY NOTE DATE OF NOTE: JAN 01, 2025@08:55 ENTRY DATE: JAN 01, 2025@08:55:32 AUTHOR: SHASHI BRIONES EXP COSIGNER: URGENCY: STATUS: COMPLETED Initial Evaluation date: 12/06/24 Treatment #: 1 Treatment time: 33' Diagnosis: Radiculopathy, Cervical Region(ICD-10-CM M54.12) Provider: AVERY BRYANT PT Treatment Precautions or Daily Instructions: None SUBJECTIVE: Pt reports his neck pain continues to be okay. Only stiffness here and there, mostly w/ turning L. Reports wrist splint is helping w/ the hand pain at night. OBJECTIVE: THERAPEUTIC EXERCISE: MINUTES:5' Review of JOYCE valdez discussed positioning and demonstrating, looked at reading position as pt is an avid reader and problem solved ways to have manuel neutral neck position and how to hold books using pillows etc. MANUAL THERAPY: MINUTES:20' STM, TPR, manual distaction GAIT TRAINING: MINUTES: NEUROMUSCULAR EDUCATION: MINUTES: CANALITH REPOSITIONING: MINUTES: MODALITIES: MINUTES:8' MHP to R shoulder and c-spine [] Contraindication screen completed prior to modality [] Skin intact pre/post SELF CARE/EDUCATION: MINUTES: Patient education was provided for all aspects of care during this clinical encounter. ASSESSMENT: Pt w/ improved neck pain. Reviewed reading positioning for cervical spine. PLAN: No further PT scheduled for cervical spine. To see hand specialist for CTS eval and treat. /es/ Shashi Briones PT,DPT PHYSICAL THERAPIST Signed: 01/03/2025 11:11 SHASHI BRIONES [facility]
--- OUTSIDE RECORDS SUMMARY | 2025-01-15 07:00 | XMS_ITS ---
Author Name [facility] [place] Organization [facility] [place] Address [address] [place] [id number] Care Team Providers Care Internet Programmer Name Role Phone AVERY BRYANT Primary Care Provider Blair burr Insurance Providers: All historical and current [...] Francisco's Name Patient's Relationship to Policy Francisco [facility] ([facility]) MEDICARE ADVANTAGE [facility] ([facility]) May 27, 2015 [id number] Jessy GALVIN PATIENT Selected Encounter This section includes the information on record at [place] for the Encounter. Date/Time Encounter Type Encounter Description Reason Provider Source Jan 15, 2025 11:00 AM MANUAL THERAPY 1/> [facility] OCCUPATIONAL THERAPY ICD-10-CM G56.01 Carpal tunnel syndrome, right upper limb [place] IHE Encounter Template Text not used by [place] Assessments - Encounter Diagnoses This section includes the primary and secondary diagnoses documented for the Encounter. Date/Time Primary/Secondary Diagnosis Diagnosis Name Provider Source Jan 15, 2025 04:27 PM PRIMARY Carpal tunnel syndrome, right upper limb [place] [facility] [place] [facility] Plan of Treatment: Future Appointments (+ 6 months) and Future Tests (+/- 45 days) The Plan of Treatment section includes future care activities for the patient from all [place] [facility] This section includes future appointments and future orders which are active, pending or scheduled. Future Appointments This section includes appointments that were scheduled to occur 6 months from the date of the Encounter, up to a maximum of 20 appointments. The data comes from all [place] treatment facilities. Appointment Date/Time Appointment Type Appointme nt Facility Name Jan 18, 2025 09:30 AM AMBULATORY - MEDICINE [facility] [place] [facility] January 28, 2025 10:30 AM AMBULATORY - REHAB MEDICIN E [facility] [place] [facility] February 12, 2025 10:30 AM AMBULATORY - REHAB MEDICIN E [facility] [place] [facility] February 13, 2025 09:30 AM AMBULATORY - NONE [facility] [place] [facility] Mar 05, 2025 10:00 AM AMBULATORY - REHAB MEDICIN E [facility] [place] [facility] Mar 18, 2025 09:30 AM AMBULATORY - MEDICINE [facility] [place] [facility] Mar 25, 2025 08:00 AM AMBULATORY - MEDICINE [facility] [place] [facility] Apr 04, 2025 01:00 PM AMBULATORY - MEDICINE [facility] [place] [facility] May 01, 2025 08:00 AM AMBULATORY - MEDICINE [facility] [place] [facility] May 07, 2025 08:30 AM AMBULATORY - MEDICINE [facility] [place] [facility] May 21, 2025 10:00 AM AMBULATORY - MEDICINE [facility] [place] [facility] Jun 11, 2025 10:00 AM AMBULATORY - MEDICINE [facility] [place] [facility] Jun 25, 2025 10:00 AM AMBULATORY - MEDICINE [place] [facility] [place] [facility] Vital Signs: All taken on the encounter date This section contains inpatient and outpatient Vital Signs collected on the date of the Encounter. Date/Time Temperature Pulse Blood Pressure Respiratory Rate SP02 Pain Height Weight Body Mass Index Source Jan 15, 2025 08:03 AM 98.1 80 148/62 16 96 4 [place] [facility] [place] [facility] Social History: Smoking Status (Most current) and Tobacco Use (All prior to encounter date) This section includes the most current, and the historical, smoking and tobacco- related health factors from the [place] facility where the Encounter took place. Current Smoking Status This section includes the most current smoking, or tobacco-related health factor, from the [place] facility where the Encounter took place. Date/Time Current Smoking Status Comment Michelet simms Oct 21, 2023 10:23 AM VA-TOBACCO NEVER USED [place] [facility] [place] [facility] Tobacco Use History This section includes a history of the smoking, or tobacco-related health factors, that were collected on or before the date of the Encounter. The data comes from the [place] facility where the Encounter took place. Date/Time Smoking Status/Tobacco Use Comment Constance acility Jul 27, 2022 11:00 AM VA-TOBACCO NEVER USED [facility] [place] [facility] Jul 20, 2021 10:30 AM VA-TOBACCO NEVER USED [facility] [place] [facility] Jul 01, 2020 03:30 PM VA-TOBACCO NEVER USED [facility] [place] [facility] Jul 05, 2018 10:50 AM VA-TOBACCO NEVER USED [facility] [place] [facility] Jan 03, 2018 10:01 AM LIFETIME NON-TOBACCO USER [facility] [place] [facility] Dec 29, 2016 10:10 AM LIFETIME NON-TOBACCO USER [facility] [place] [facility] Apr 02, 2005 08:00 AM LIFETIME NON-SMOKER [facility] [place] [facility] Apr 02, 2004 08:07 AM LIFETIME NON-SMOKER [facility] [place] [facility] Apr 01, 2003 08:12 AM LIFETIME NON-SMOKER [facility] [place] [facility] Apr 02, 2002 01:05 PM LIFETIME NON-SMOKER [facility] [place] [facility] Mar 31, 2001 01:23 PM LIFETIME NON-SMOKER [facility] [place] [facility] Advance Directives: All historical and current Section Date Range: From patient's date of to the date document was created. This section includes ALL of a patient's completed or amended [place] Advance and Rescinded Directives. The entries below indicate that a directive exists for the patient, but an actual copy is not included with this document. The data comes from all [place] facilities. Date Advance Directives Provider Source Jun 09, 2013 ADVANCE DIRECTIVE NICHOL GAMEZ [facility] Radiology Reports: +/- 30 days [...] the Encounter. The data comes from all [place] treatment facilities. 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 Date/Time Encounter Note(s) Provider Source Jan 15, 2025 10:52 AM OCCUPATIONAL MEDICINE CONSULT: LOCAL TITLE: CONSULT REPORT/OCCUPATIONAL THERAPY STANDARD TITLE: OCCUPATIONAL MEDICINE CONSULT DATE OF NOTE: JAN 15, 2025@10:52 ENTRY DATE: JAN 15, 2025@10:53:08 AUTHOR: [place] COSIGNER: AVERY BRYANT URGENCY: STATUS: COMPLETED CONSULT REPORT/OCCUPATIONAL THERAPY Has ADDENDA Initial Evaluation date: Dec Progress Note Date: Treatment #: eval Treatment time: 38 Diagnosis: Carpal Tunnel Syndrome, right upper Limb(ICD-10-CM G56.01) Provider: Sudhakar FLORES Treatment Precautions: n/a Patient identified by full name and date of S: Mr. Galvin is a 74 y/o 10% SC male who was referred to OT for R CTS. He was seen in the OT clinic on 01/15/2025. PMH: Active problems - Computerized Problem List is the source for the followin. Hearing loss 2. 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 Obstructive sleep apnea of adult 5. Carpal tunnel syndrome 6. Benign essential hypertension 7. Benign paroxysmal positional vertigo (SNOMED CT 367472775) 8. Benign prostatic hyperplasia (SNOMED CT 673473186) 9. Supraventricular tachycardia (SNOMED CT 0817791) 10. Hypercholesterolemia (SNOMED CT 48282238) CRESCENCIO: pt reports that when he is asleep all of a sudden his hand gets pins and needles. he has to hang his arm off of the bed in order for it to go away. this has been going on since the winter. he was issued a splint in November and it doesn't happen as often, but it happens when he's driving. it's very annoying. he feels it is d/t the air brakes in the bus/truck. Imaging: none in CPRS Pain Level: denies pain, only paresthesia's O: Pt is L hand dominant. 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 He enjoys walking. Clinical Presentation: no first dorsal interosseous atrophy, very slight thenar atrophy noted R>L Special Tests: Tinel's over Carpal Tunnel: (+) R only Compression Tests: (+) R only Palpation: tightness noted over pronator/flexor musculature, denies ttp, but reports feeling of numbness w/ compression as well. Hand Drawer In Strength Per Dynamometer: measured in pounds per pressure (norms: age) [R] [L] 1. 45# (norm:85#) 43# (norm:80#) 2. 42# 49# 3. 47# 58# Prehension Strength (pinch meter/pounds per pressure) [R] [L] lat: 13# (norm: 19#) 13# (norm: 19#) 2 pt: 9# (norm: 14#) 11# (norm: 13#) 3 pt: 12# (norm: 18#) 10# (norm: 19#) Sensation: pt reports that his paresthesia's have reduced since implementing nocturnal splinting. it still occurs 1x/night. TX: *US 1.4w/cm2 100% 3MHz over R flexor tendons/musculature, x5' *mobilization/FDM to flexor musculature, x8' *pt will continue w/ nocturnal splinting. *issued pt median nerve rocking; able to r/d and v/u. no reproduction of sx's. Access Code: [email or web address] URL: [email or web address] Date: 01/15/2025 Prepared by: [facility] - Median Nerve Rocking - 1 x daily - 7 x weekly - 3 sets - 10 reps ASSESSMENT: Jeet is a 74 y/o male who presents to the OT clinic w/ s/s of R non- dominant CTS as evidenced by pt report, clinical presentation and positive provocative testing. 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 He experiences paresthesia's throughout the day while driving and reading. Discussed EMG/NCV which pt was in agreement w/ have performed to diagnose severity of CTS. He tolerated tx well and reported improved discomfort following tx. PLAN: Plan to see 1-2x/week for 4-6 weeks for modalities (ionto, US, ice, heat), ther-ex, mobilization/manual therapy as indicated, and patient education. Patient is in agreement with this POC. GOALS: 1. compliant w/ HEP 2. trial modalities (US, ionto) for pain/symptom management 3. compliant with splint wear 4. pt will report 50% improvement in paresthesia's since initiating tx The practitioner's co-signature on this note signifies agreement with plan of care and clinical diagnosis code. /brianne Canada MS OTR/Jose Alfredo, HOWIE Occupational Therapist Signed: 01/15/2025 16:27 /brianne BRYANT D.O. PHYSICIAN Cosigned: 01/16/2025 08:45 01/28/2025 ADDENDUM STATUS: COMPLETED Pt is interested in having an EMG/NCV in order to determine severity of CTS. Please place if in agreement. Thank you! /brianne Canada MS OTR/Jose Alfredo, HOWIE Occupational Therapist Signed: 01/28/2025 10:38 /Rafa Newsome.O. PHYSICIAN Cosigned: 01/28/2025 12:04 [place] [facility]
--- OUTSIDE RECORDS SUMMARY | 2025-01-28 06:30 | XMS_ITS ---
Author Name [facility] [place] Organization [facility] [place] Address [address] [place] [address] Care Team Providers Care Product Controller Name Role Phone AVERY BRYANT Primary Care [...] Francisco's Name Patient's Relationship to Policy Francisco [facility] MEDICARE ADVANTAGE [facility] May 27, 2015 [id number] Jessy GALVIN PATIENT Selected Encounter This section includes the information on record at [place] for the Encounter. Date/Time Encounter Type Encounter Description Reason Provider Source January 28, 2025 10:30 AM ASIYA MDLTY 1+ULTRASOUND EA 15 OCCUPATIONAL THERAPY ICD-10-CM G56.01 Carpal tunnel syndrome, right upper limb [place] Encounter Template Text not used by [place] Assessments - Encounter Diagnoses This section includes the primary and secondary diagnoses documented for the Encounter. Date/Time Primary/Secondary Diagnosis Diagnosis Name Provider Source January 29, 2025 11:55 AM PRIMARY Carpal tunnel syndrome, right upper limb [place] [facility] [place] [facility] Plan of Treatment: Future Appointments (+ 6 months) and Future Tests (+/- 45 days) The Plan of Treatment section includes future care activities for the patient from all [place] [facility]. This section includes future appointments and future orders which are active, pending or scheduled. Future Appointments This section includes appointments that were scheduled to occur 6 months from the date of the Encounter, up to a maximum of 20 appointments. The data comes from all [place] treatment facilities. Appointment Date/Time Appointment Type Appointme nt Facility Name February 12, 2025 10:30 AM AMBULATORY - REHAB MEDICIN E [facility] [place] [facility] February 13, 2025 09:30 AM AMBULATORY - NONE [facility] [place] [facility] Mar 05, 2025 10:00 AM AMBULATORY - REHAB MEDICIN E [facility] [place] [facility] Mar 18, 2025 09:30 AM AMBULATORY - MEDICINE [facility] [place] [facility] Mar 25, 2025 08:00 AM AMBULATORY - MEDICINE [facility] [place] [facility] Apr 04, 2025 01:00 PM AMBULATORY - MEDICINE [facility] [place] [facility] May 01, 2025 08:00 AM AMBULATORY - MEDICINE [place] [facility] [place] [facility] May 07, 2025 08:30 AM AMBULATORY - MEDICINE [place] [facility] [place] [facility] May 21, 2025 10:00 AM AMBULATORY - MEDICINE [facility] [place] [facility] Jun 11, 2025 10:00 AM AMBULATORY - MEDICINE [facility] [place] [facility] Jun 25, 2025 10:00 AM AMBULATORY - MEDICINE [place] [facility] [place] [facility] Social History: Smoking Status (Most current) and Tobacco Use (All prior to encounter date) This section includes the most current, and the historical, smoking and tobacco- related health factors from the [place] facility where the Encounter took place. Current Smoking Status This section includes the most current smoking, or tobacco-related health factor, from the [place] facility where the Encounter took place. Date/Time Current Smoking Status Comment Michelet simms Oct 21, 2023 10:23 AM VA-TOBACCO NEVER USED [facility] Tobacco Use History This section includes a history of the smoking, or tobacco-related health factors, that were collected on or before the date of the Encounter. The data comes from the [place] facility where the Encounter took place. Date/Time Smoking Status/Tobacco Use Comment F acility Jul 27, 2022 11:00 AM VA-TOBACCO NEVER USED [facility] [place] [facility] Jul 20, 2021 10:30 AM VA-TOBACCO NEVER USED [facility] [place] [facility] Jul 01, 2020 03:30 PM VA-TOBACCO NEVER USED [facility] [place] [facility] Jul 05, 2018 10:50 AM VA-TOBACCO NEVER USED [facility] [place] [facility] Jan 03, 2018 10:01 AM LIFETIME NON-TOBACCO USER [facility] [place] [facility] Dec 29, 2016 10:10 AM LIFETIME NON-TOBACCO USER [facility] [place] [facility] Apr 02, 2005 08:00 AM LIFETIME NON-SMOKER [facility] [place] [facility] Apr 02, 2004 08:07 AM LIFETIME NON-SMOKER [facility] [place] [facility] Apr 01, 2003 08:12 AM LIFETIME NON-SMOKER [facility] [place] [facility] Apr 02, 2002 01:05 PM LIFETIME NON-SMOKER [facility] [place] [facility] Mar 31, 2001 01:23 PM LIFETIME NON-SMOKER [place] [facility] [place] [facility] Advance Directives: All historical and current Section Date Range: From patient's date of to the date document was created. This section includes ALL of a patient's completed or amended [place] Advance and Rescinded Directives. The entries below indicate that a directive exists for the patient, but an actual copy is not included with this document. The data comes from all [place] facilities. Date Advance Directives Provider Source Jun 09, 2013 ADVANCE DIRECTIVE NICHOL GAMEZ [place] [facility] [place] [facility] Radiology Reports: +/- 30 days of [...] the Encounter. The data comes from all [place] treatment facilities. 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 Date/Time Encounter Note(s) Provider Source January 28, 2025 10:06 AM OCCUPATIONAL THERAPY NOTE: LOCAL TITLE: OCCUPATIONAL THERAPY STANDARD TITLE: OCCUPATIONAL THERAPY NOTE DATE OF NOTE: JANUARY 28, 2025@10:06 ENTRY DATE: JANUARY 28, 2025@10:06:08 AUTHOR: EL[place]IA [place] COSIGNER: URGENCY: STATUS: COMPLETED Initial Evaluation date: Dec Progress Note Date: Treatment #: 2 Treatment time: 28 Diagnosis: Carpal Tunnel Syndrome, right upper Limb(ICD-10-CM G56.01) Provider: Sudhakar FLORES Treatment Precautions: n/a Patient identified by full name and date of SUBJECTIVE: Pt reports that his hand was pretty tingly after the last session. It did calm down but was initially pretty bad. Pain Level: 0/10 OBJECTIVE: THERAPEUTIC EXERCISE: MINUTES: MANUAL THERAPY: *mobilization/FDM to flexor musculature MINUTES: 16 THERAPEUTIC DYNAMIC ACTIVITIES: MINUTES: NEUROMUSCULAR EDUCATION: MINUTES: OTHER: MINUTES: MODALITIES: *US 1.4w/cm2 100% 3MHz over R flexor tendons/musculature MINUTES: 8 [] Contraindication screen completed prior to modality [] Skin intact pre/post SELF CARE/EDUCATION: MINUTES: Patient education was provided for all aspects of care during this clinical encounter. ASSESSMENT: pt tolerated tx well this date with decreased paresthesia's in R forearm/hand following treatment. tightness noted throughout flexor musculature. PLAN: Continue w/ OT POC; modify tx as needed. Pt. will f/u with med rehab to schedule EMG nerve conduction test. Pt is in agreement w/ this POC. This treatment was primarily performed by TODD Cho, however, Elvia Cabrera, MS OTR/L, CHT, was present during the course of this treatment in its entirety providing direct supervision for this student, I agree with treatment and plan of care as stated above. /eda/ Elvia Canada, MS OTR/Jose Alfredo, CHT Occupational Therapist Signed: 01/29/2025 11:55 Receipt Acknowledged By: 01/29/2025 13:00 /eda/ YEN MARSH OCCUPATIONAL THERAPY STUDENT [place] [facility]
--- OUTSIDE RECORDS SUMMARY | 2025-02-12 06:30 | XMS_ITS ---
Author Name [facility] [place] [facility] [place] [facility] [place] Address [address] [place] [address] Care Team Providers Care Air Brake Adjuster Name Role Phone AVERY BRYANT Primary Care [...] Francisco's Name Patient's Relationship to Policy Francisco [facility] ([facility]) MEDICARE ADVANTAGE [facility] ([facility]) May 27, 2015 [id number] Jessy GALVIN PATIENT Selected Encounter This section includes the information on record at [place] for the Encounter. Date/Time Encounter Type Encounter Description Reason Provider Source February 12, 2025 10:30 AM ASIYA MDLTY 1+ULTRASOUND EA 15 OCCUPATIONAL THERAPY ICD-10-CM G56.01 Carpal tunnel syndrome, right upper limb ELVIA [place] IHSusanne Encounter Template Text not used by [place] Assessments - Encounter Diagnoses This section includes the primary and secondary diagnoses documented for the Encounter. Date/Time Primary/Secondary Diagnosis Diagnosis Name Provider Source February 12, 2025 03:45 PM PRIMARY Carpal tunnel syndrome, right upper limb ELVIA [place] [facility] [place] [facility] Plan of Treatment: Future Appointments (+ 6 months) and Future Tests (+/- 45 days) The Plan of Treatment section includes future care activities for the patient [facility] [place] [facility] This section includes future appointments and future orders which are active, pending or scheduled. Future Appointments This section includes appointments that were scheduled to occur 6 months from the date of the Encounter, up to a maximum of 20 appointments. The data comes from all [place] treatment facilities. Appointment Date/Time Appointment Type Appointme nt Facility Name February 13, 2025 09:30 AM AMBULATORY - NONE [facility] [place] [facility] Mar 05, 2025 10:00 AM AMBULATORY - REHAB MEDICIN E [facility] [place] [facility] Mar 18, 2025 09:30 AM AMBULATORY - MEDICINE [facility] [place] [facility] Mar 25, 2025 08:00 AM AMBULATORY - MEDICINE [facility] [place] [facility] Apr 04, 2025 01:00 PM AMBULATORY - MEDICINE [facility] [place] [facility] May 01, 2025 08:00 AM AMBULATORY - MEDICINE [place] [facility] [place] [facility] May 07, 2025 08:30 AM AMBULATORY - MEDICINE [facility] [place] [facility] May 21, 2025 10:00 AM AMBULATORY - MEDICINE [facility] [place] [facility] Jun 11, 2025 10:00 AM AMBULATORY - MEDICINE [facility] [place] [facility] Jun 25, 2025 10:00 AM AMBULATORY - MEDICINE [place] [facility] [place] [facility] Social History: Smoking Status (Most current) and Tobacco Use (All prior to encounter date) This section includes the most current, and the historical, smoking and tobacco- related health factors from the [place] facility where the Encounter took place. Current Smoking Status This section includes the most current smoking, or tobacco-related health factor, from the [place] facility where the Encounter took place. Date/Time Current Smoking Status Comment Michelet simms Oct 21, 2023 10:23 AM [place]-TOBACCO NEVER USED [facility] Tobacco Use History This section includes a history of the smoking, or tobacco-related health factors, that were collected on or before the date of the Encounter. The data comes from the [place] facility where the Encounter took place. Date/Time Smoking Status/Tobacco Use Comment F acility Jul 27, 2022 11:00 AM VA-TOBACCO NEVER USED [facility] [place] [facility] Jul 20, 2021 10:30 AM VA-TOBACCO NEVER USED [facility] [place] [facility] Jul 01, 2020 03:30 PM VA-TOBACCO NEVER USED [facility] [place] [facility] Jul 05, 2018 10:50 AM VA-TOBACCO NEVER USED [facility] [place] [facility] Jan 03, 2018 10:01 AM LIFETIME NON-TOBACCO USER [facility] [place] [facility] Dec 29, 2016 10:10 AM LIFETIME NON-TOBACCO USER [facility] [place] [facility] Apr 02, 2005 08:00 AM LIFETIME NON-SMOKER [facility] [place] [facility] Apr 02, 2004 08:07 AM LIFETIME NON-SMOKER [facility] [place] [facility] Apr 01, 2003 08:12 AM LIFETIME NON-SMOKER [facility] [place] [facility] Apr 02, 2002 01:05 PM LIFETIME NON-SMOKER [facility] [place] [facility] Mar 31, 2001 01:23 PM LIFETIME NON-SMOKER [facility] [place] [facility] Advance Directives: All historical and current Section Date Range: From patient's date of to the date document was created. This section includes ALL of a patient's completed or amended [place] Advance and Rescinded Directives. The entries below indicate that a directive exists for the patient, but an actual copy is not included with this document. The data comes from all [place] facilities. Date Advance Directives Provider Source Jun 09, 2013 ADVANCE DIRECTIVE NICHOL GAMEZ [facility] [place] [facility] Radiology Reports: +/- 30 days [...] the Encounter. The data comes from all [place] treatment facilities. 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 Date/Time Encounter Note(s) Provider Source February 12, 2025 10:18 AM OCCUPATIONAL THERAPY NOTE: LOCAL TITLE: OCCUPATIONAL THERAPY STANDARD TITLE: OCCUPATIONAL THERAPY NOTE DATE OF NOTE: FEBRUARY 12, 2025@10:18 ENTRY DATE: FEBRUARY 12, 2025@10:18:46 AUTHOR: ELVIA CANADA COSIGNER: URGENCY: STATUS: COMPLETED Initial Evaluation date: Dec Progress Note Date: Treatment #: 3 Treatment time: 28 Diagnosis: Carpal Tunnel Syndrome, right upper Limb(ICD-10-CM G56.01) Provider: Sudhakar FLORES Treatment Precautions: n/a Patient identified by full name and date of SUBJECTIVE: Pt reports he has good days and bad days. Reports adverse reaction using the brace still having paresthesia w/brace. Easier to alleviate without the brace. Pain Level: 0/10 OBJECTIVE: THERAPEUTIC EXERCISE: MINUTES: [...] encounter. ASSESSMENT: pt tolerated tx well this date. persistent tightness throughout flexor musculature. pt reported feeling good, looser, following tx. PLAN: Continue w/ OT POC; modify tx as needed. still awaiting an EMG to be scheduled. he was interested in f/u in 2 weeks. Pt is in agreement w/ this POC. This treatment was primarily performed by TODD Cho, however, Elvia Cabrera MS OTR/HOWIE Veliz, was present during the course of this treatment in its entirety providing direct supervision for this student, I agree with treatment and plan of care as stated above. /eda/ MS LIZ Navarro/HOWIE Veliz Occupational Therapist Signed: 02/12/2025 15:45 Receipt Acknowledged By: 02/14/2025 13:31 /eda/ YEN MARSH OCCUPATIONAL THERAPY STUDENT EVLIA [place] [facility]
--- OUTSIDE RECORDS SUMMARY | 2025-03-05 06:00 | XMS_ITS ---
Author Name [facility] [facility] [place] [facility] [place] Address [address] [place] [address] Care Team Providers Care Real Estate Investor Name Role Phone AVERY BRYANT Primary Care [...] Francisco's Name Patient's Relationship to Policy Francisco [facility] ([facility]) MEDICARE ADVANTAGE [facility] ([facility]) May 27, 2015 [id number] Jessy GALVIN PATIENT Selected Encounter This section includes the information on record at [place] for the Encounter. Date/Time Encounter Type Encounter Description Reason Provider Source Mar 05, 2025 10:00 AM ASIYA MDLTY 1+ULTRASOUND EA 15 OCCUPATIONAL THERAPY ICD-10-CM G56.01 Carpal tunnel syndrome, right upper limb [place] Encounter Template Text not used by [place] Assessments - Encounter Diagnoses This section includes the primary and secondary diagnoses documented for the Encounter. Date/Time Primary/Secondary Diagnosis Diagnosis Name Provider Source Mar 05, 2025 01:26 PM PRIMARY Carpal tunnel syndrome, right upper limb [place] [facility] [place] [facility] Plan of Treatment: Future Appointments (+ 6 months) and Future Tests (+/- 45 days) The Plan of Treatment section includes future care activities for the patient from all [place] [facility] This section includes future appointments and future orders which are active, pending or scheduled. Future Appointments This section includes appointments that were scheduled to occur 6 months from the date of the Encounter, up to a maximum of 20 appointments. The data comes from all [facility]. Appointment Date/Time Appointment Type Appointme nt Facility Name Mar 18, 2025 09:30 AM AMBULATORY [place]ICINE [place] [facility] [place] [facility] Mar 25, 2025 08:00 AM AMBULATORY MEDICINE [place] [facility] [place] [facility] Apr 04, 2025 01:00 PM AMBULATORY MEDICINE [place] [facility] [place] [facility] May 01, 2025 08:00 AM AMBULATORY MEDICINE [place] [facility] [place] [facility] May 07, 2025 08:30 AM AMBULATORY MEDICINE [place] [facility] [place] [facility] May 21, 2025 10:00 AM AMBULATORY MEDICINE [place] [facility] [place] [facility] Jun 11, 2025 10:00 AM AMBULATORY MEDICINE [place] [facility] [place] [facility] Jun 25, 2025 10:00 AM AMBULATORY MEDICINE [place] [facility] [place] [facility] Active, Pending, and Scheduled Orders This section includes a listing of several types of active, pending, and scheduled orders, including clinic medications orders, diagnostic test orders, procedure orders and consult orders; where the start date of the order is 45 days before the date of the Encounter or 45 days after the date of theEncounter. The data comes from all [facility]. Test Date/Time Test Type Test Details Facility Name Apr 09, 2025 04:33 PM Consult Order [facility] Cons [employer] [place] [facility] [place] [facility] Social History: Smoking Status (Most current) and Tobacco Use (All prior to encounter date) This section includes the most current, and the historical, smoking and tobacco- related health factors from the [place] facility where the Encounter took place. Current Smoking Status This section includes the most current smoking, or tobacco-related health factor, from the [place] facility where the Encounter took place. Date/Time Current Smoking Status Comment Michelet simms Oct 21, 2023 10:23 AM VA-TOBACCO NEVER USED [facility] Tobacco Use History This section includes a history of the smoking, or tobacco-related health factors, that were collected on or before the date of the Encounter. The data comes from the [place] facility where the Encounter took place. Date/Time Smoking Status/Tobacco Use Comment F acility Jul 27, 2022 11:00 AM VA-TOBACCO NEVER USED [place] [facility] [place] [facility] Jul 20, 2021 10:30 AM VA-TOBACCO NEVER USED [facility] [place] [facility] Jul 01, 2020 03:30 PM VA-TOBACCO NEVER USED [facility] [place] [facility] Jul 05, 2018 10:50 AM VA-TOBACCO NEVER USED [place] [facility] [place] [facility] Jan 03, 2018 10:01 AM LIFETIME NON-TOBACCO USER [facility] [place] [facility] Dec 29, 2016 10:10 AM LIFETIME NON-TOBACCO USER [place] [facility] [place] [facility] Apr 02, 2005 08:00 AM LIFETIME NON-SMOKER [facility] [place] [facility] Apr 02, 2004 08:07 AM LIFETIME NON-SMOKER [facility] [place] [facility] Apr 01, 2003 08:12 AM LIFETIME NON-SMOKER [facility] [place] [facility] Apr 02, 2002 01:05 PM LIFETIME NON-SMOKER [facility] [place] [facility] Mar 31, 2001 01:23 PM LIFETIME NON-SMOKER [place] [facility] Advance Directives: All historical and current Section Date Range: From patient's date of to the date document was created. This section includes ALL of a patient's completed or amended [place] Advance and Rescinded Directives. The entries below indicate that a directive exists for the patient, but an actual copy is not included with this document. The data comes from all [place] facilities. Date Advance Directives Provider Source Jun 09, 2013 ADVANCE DIRECTIVE NICHOL GAMEZ [place] [facility] [place] [facility] Encounter Notes: All associated encounter notes This section contains the clinical notes associated to the Encounter. Date/Time Encounter Note(s) Provider Source Apr 09, 2025 01:13 PM ADDENDUM: LOCAL TITLE: Addendum STANDARD TITLE: ADDENDUM DATE OF NOTE: APR 09, 2025@13:13:24 ENTRY DATE: APR 09, 2025@13:13:25 AUTHOR: [place] EXP COSIGNER: URGENCY: STATUS: COMPLETED Pt reports that he was dx w/ moderate to severe CTS. Please place consult for [facility] ortho for assessment for CTR if in agreement. Thank you! /eda/ Elvia Canada, MS OTR/L, CHT Occupational Therapist Signed: 04/09/2025 13:15 Receipt Acknowledged By: 04/09/2025 16:31 /es/ AVERY BRYANT D.O. PHYSICIAN --- Original Document --- 03/05/25 OCCUPATIONAL THERAPY: Initial Evaluation date: Dec Progress Note Date: Treatment #: 4 Treatment time: 28 Diagnosis: Carpal Tunnel Syndrome, right upper Limb(ICD-10-CM G56.01) Provider: Sudhakar FLORES Treatment Precautions: n/a Patient identified by full name and date of SUBJECTIVE: Pt reports continued numbness and tingling. 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 Pain Level: 0/10 OBJECTIVE: THERAPEUTIC EXERCISE: MINUTES: [...] ASSESSMENT: pt tolerated tx well this date. pt did report some paresthesia's when this aligner typewriter was mobilizing flexor musculature. tightness and grainy fascia persistent. pt wears his splint intermittently; feels it is effective some of the time. PLAN: no further f/u scheduled at this time. will wait until pt has EMG/NCV performed and he will reach out to this aligner typewriter re: results. Pt is in agreement w/ this POC. This treatment was primarily performed by TODD Cho, however, I, Elvia Canada, MS OTR/L, CHT, was present during the course of this treatment in its entirety providing direct supervision for this student, I agree with treatment and plan of care as stated above. /eda/ Elvia Canada MS OTR/Jose Alfredo, HOWIE Occupational Therapist Signed: 03/05/2025 13:26 Receipt Acknowledged By: 03/05/2025 13:53 /eda/ YEN MARSH OCCUPATIONAL THERAPY STUDENT [place] [facility] [place] [facility] Mar 05, 2025 07:41 AM OCCUPATIONAL THERAPY NOTE: LOCAL TITLE: OCCUPATIONAL THERAPY STANDARD TITLE: OCCUPATIONAL THERAPY NOTE DATE OF NOTE: MAR 05, 2025@07:41 ENTRY DATE: MAR 05, 2025@07:41:13 AUTHOR: [place] EXP COSIGNER: URGENCY: STATUS: COMPLETED OCCUPATIONAL THERAPY Has ADDENDA Initial Evaluation date: Dec Progress Note Date: Treatment #: 4 Treatment time: 28 Diagnosis: Carpal Tunnel Syndrome, right upper Limb(ICD-10-CM G56.01) Provider: Sudhakar FLORES Treatment Precautions: n/a Patient identified by full name and date of SUBJECTIVE: Pt reports continued numbness and tingling. 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 Pain Level: 0/10 OBJECTIVE: THERAPEUTIC EXERCISE: MINUTES: [...] ASSESSMENT: pt tolerated tx well this date. pt did report some paresthesia's when this aligner typewriter was mobilizing flexor musculature. tightness and grainy fascia persistent. pt wears his splint intermittently; feels it is effective some of the time. PLAN: no further f/u scheduled at this time. will wait until pt has EMG/NCV performed and he will reach out to this aligner typewriter re: results. Pt is in agreement w/ this POC. This treatment was primarily performed by TODD Cho, however, I, MS LIZ Pope/Jose Alfredo, HOWIE, was present during the course of this treatment in its entirety providing direct supervision for this student, I agree with treatment and plan of care as stated above. /MS LIZ Lira/Jose Alfredo, HOWIE Occupational Therapist Signed: 03/05/2025 13:26 Receipt Acknowledged By: 03/05/2025 13:53 /eda/ YEN MARSH OCCUPATIONAL THERAPY STUDENT 04/09/2025 ADDENDUM STATUS: COMPLETED Pt reports that he was dx w/ moderate to severe CTS. Please place consult for [facility] ortho for assessment for CTR if in agreement. Thank you! /MS LIZ Lira/HOWIE Veliz Occupational Therapist Signed: 04/09/2025 13:15 Receipt Acknowledged By: * AWAITING SIGNATURE * AVERY BRYANT ASHLIE E [facility] [place] [facility]
--- OUTSIDE RECORDS SUMMARY | 2025-03-25 04:00 | XMS_ITS ---
Author Name [facility] ([place]) Organization [facility] [place]) Address [address] [place] [address] Care Team Providers Care Restaurant Hourly Team Member Name Role Phone AVERY BRYANT Primary Care [...] Francisco's Name Patient's Relationship to Policy Francisco [facility] ([facility]) MEDICARE ADVANTAGE [facility] ([facility]) May 27, 2015 [id number] Jessy GALVIN PATIENT Selected Encounter This section includes the information on record at OR for the Encounter. Date/Time Encounter Type Encounter Description Reason Provider Source Mar 25, 2025 08:00 AM COMPRE OPH EXAM EST PT 1/> OPTOMETRY ICD-10-CM H25.813 Combined forms of age-related cataract, bilateral NATALIE GARCIA Encounter Template Text not used by OR Assessments - Encounter Diagnoses This section includes the primary and secondary diagnoses documented for the Encounter. Date/Time Primary/Secondary Diagnosis Diagnosis Name Provider Source Mar 25, 2025 08:52 AM PRIMARY Combined forms of age-related cataract, bilateral NATALIE GARCIA [place] [facility] [facility] Mar 25, 2025 08:52 AM SECONDARY Amyloid pterygium of right eye STEPHENIERICCONATALIE Cabrera Susanne [facility] Mar 25, 2025 08:52 AM SECONDARY Unspecified disorder of refraction ROMEONATALIE Cabrera Sus[facility] Plan of Treatment: Future Appointments (+ 6 months) and Future Tests (+/- 45 days) The Plan of Treatment section includes future care activities for the patient from [facility]. This section includes future appointments and future orders which are active, pending or scheduled. Future Appointments This section includes appointments that were scheduled to occur 6 months from the date of the Encounter, up to a maximum of 20 appointments. The data comes from all [facility]. Appointment Date/Time Appointment Type Appointme nt Facility Name Apr 04, 2025 01:00 PM AMBULATORY - MEDICINE [facility] May 01, 2025 08:00 AM AMBULATORY MEDICINE [facility] N[facility] May 07, 2025 08:30 AM AMBULATORY MEDICINE [facility] [place] [facility] May 21, 2025 10:00 AM AMBULATORY MEDICINE [facility] Jun 11, 2025 10:00 AM AMBULATORY MEDICINE [facility] N[facility] Jun 25, 2025 10:00 AM [facility]ORY [facility] Active, Pending, and Scheduled Orders This section includes a listing of several types of active, pending, and scheduled orders, including clinic medications orders, diagnostic test orders, procedure orders and consult orders; where the start date of the order is 45 days before the date of the Encounter or 45 days after the date of theEncounter. The data comes from all [facility]. Test Date/Time Test Type Test Details Facility Name Apr 09, 2025 04:33 PM Consult Order COMMUNITY CARE-ORTHO GENERAL Cons Engraver Set Up Operator's Choice [facility] Social History: Smoking Status (Most current) and Tobacco Use (All prior to encounter date) This section includes the most current, and the historical, smoking and tobacco- related health factors from the [place] facility where the Encounter took place. Current Smoking Status This section includes the most current smoking, or tobacco-related health factor, from the [place] facility where the Encounter took place. Date/Time Current Smoking Status Comment Michelet ity Oct 21, 2023 10:23 AM VA-TOBACCO NEVER USED [facility] Tobacco Use History This section includes a history of the smoking, or tobacco-related health factors, that were collected on or before the date of the Encounter. The data comes from the [place] facility where the Encounter took place. Date/Time Smoking Status/Tobacco Use Comment F acility Jul 27, 2022 11:00 AM VA-TOBACCO NEVER USED [place] [facility] [place] [facility] Jul 20, 2021 10:30 AM VA-TOBACCO NEVER USED [place] [facility] [facility] Jul 01, 2020 03:30 PM VA-TOBACCO NEVER USED [place] [facility] [place] [facility] Jul 05, 2018 10:50 AM VA-TOBACCO NEVER USED [place] [facility] [place] [facility] Jan 03, 2018 10:01 AM LIFETIME NON-TOBACCO USER [facility] [facility] Dec 29, 2016 10:10 AM LIFETIME NON-TOBACCO USER [place] [facility] [place] [facility] Apr 02, 2005 08:00 AM LIFETIME NON-SMOKER [facility] [place] [facility] Apr 02, 2004 08:07 AM LIFETIME NON-SMOKER VA [facility] [place] [facility] Apr 01, 2003 08:12 AM LIFETIME NON-SMOKER VA [facility] [place] [facility] Apr 02, 2002 01:05 PM LIFETIME NON-SMOKER VA [facility] [place] [facility] Mar 31, 2001 01:23 PM LIFETIME NON-SMOKER [facility] Advance Directives: All historical and current Section Date Range: From patient's date of to the date document was created. This section includes ALL of a patient's completed or amended [place] Advance and Rescinded Directives. The entries below indicate that a directive exists for the patient, but an actual copy is not included with this document. The data comes from all [facility]. Date Advance Directives Provider Source Jun 09, 2013 ADVANCE DIRECTIVE NICHOL GAMEZ [place] [facility] Encounter Notes: All associated encounter notes This section contains the clinical notes associated to the Encounter. Date/Time Encounter Note(s) Provider Source Mar 25, 2025 07:59 AM OPTOMETRY NOTE: LOCAL TITLE: OPTOMETRY NOTE(T) STANDARD TITLE: OPTOMETRY NOTE DATE OF NOTE: MAR 25, 2025@07:59 ENTRY DATE: MAR 25, 2025@08:00 AUTHOR: NATALIE GARCIA EXP COSIGNER: URGENCY: STATUS: COMPLETED I saw this patient in conjunction with the student and agree to the stated findings and plan after reviewing both history and repeating mackay elements of physical exam. Patient presents for annual comprehensive exam well-known to me with history of ocular rosacea, combined cataracts, pterygium OD remaining stable and refraction disorder.-Plaques were seen nasally OU. Otherwise no other acute ocular disease was seen today. Patient wears reading glasses only. 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 The patient will return in 12 months or sooner if any problems arise. /eda/ NATALIE GARCIA OD STAFF LOCKMAKER Signed: 03/25/2025 08:52 NATALIE GARCIA [place] [facility] [place] [facility] Mar 25, 2025 07:57 AM OPTOMETRY NOTE: LOCAL TITLE: OPTOMETRY NOTE STANDARD TITLE: OPTOMETRY NOTE DATE OF NOTE: MAR 25, 2025@07:57 ENTRY DATE: MAR 25, 2025@07:57:35 AUTHOR: ADELINA ALEGRIA EXP COSIGNER: NATALIE GARCIA URGENCY: STATUS: COMPLETED Active problems - Computerized Problem List is the source for the followin. Hearing loss 2. Kidney stone 3. 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 Obstructive sleep apnea of adult 5. Carpal tunnel syndrome 6. Benign essential hypertension 7. Benign paroxysmal positional vertigo (SNOMED CT 775818850) 8. Benign prostatic hyperplasia (SNOMED CT 546588073) 9. Supraventricular tachycardia (SNOMED CT 9937486) 10. Hypercholesterolemia (SNOMED CT 08453223) Active Outpatient Medications (including Supplies): Active Outpatient Medications Status 1) VALSARTAN 160MG TAB TAKE ONE TABLET BY MOUTH ONCE DAILY IN ACTIVE PLACE OF [place] Indication: FOR HIGH BLOOD PRESSURE Active Non-VA Medications Status 1) Non-VA AMLODIPINE BESYLATE 5MG TAB 5MG BY MOUTH ONCE DAILY ACTIVE 2) Non-VA ATENOLOL 25MG TAB 25MG BY MOUTH EVERY DAY ACTIVE 3) Non-VA MONTELUKAST NA 10MG TAB 10MG BY MOUTH ACTIVE 4) Non-VA PYRIDOXINE HCL 100MG TAB 100MG BY MOUTH ONCE DAILY ACTIVE 5) Non-VA SIMVASTATIN 80MG TAB 40MG BY MOUTH EVERY DAY ACTIVE 6 Total Medications Allergies: LISINOPRIL All medications including those prescribed by outside VA's, community providers, and all OTC meds were reviewed and reconciled with patient to the best of their abilities. This 74 year old MALE is seen today for CEE. DREW:03/19/2024 Chief Complaint: Patient presents with decreased vision at near with small print. 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 No other ocular complaints. OHx: -Ocular rosacea OU -Cataracts OU -Pterygium OD -RE OU (-) Pain: (-) FORBES: (-) Diplopia: (-) Flashes: (+) Floaters: OS longstanding (-) Amaurosis Fugax/Tia's: (-) Eye Injury: (-) Eye Surgery: (-) TBI FOHx: (-) Glaucoma/ARMD/Blindness (-) Smoker/Length of Time/PPD: VITALS (most recent, as listed in the electronic record): B/P: 148/62 (01/15/2025 08:03) Pulse: 80 (01/15/2025 08:03) Temperature: 98.1 F [36.7 C] (01/15/2025 08:03) Weight: 186.6 lb [84.64 kg] (06/11/2024 09:55) Height: 72 in [182.9 cm] (06/11/2024 09:55) BMI: BMI: 25.4 PERTINENT LABS: HEMOGLOBIN A1C TREND Collection DT Spec HGBA1c 12/12/2023 09:41 BLOOD 5.7 H 07/02/2021 08:08 BLOOD 5.6 12/25/2018 08:02 BLOOD 5.9 H 06/08/2018 08:26 BLOOD 6.0 H 12/27/2017 08:23 BLOOD 6.0 H Current Rx with last BCVA: OD: +0.75 sph 20/20 OS: +0.75 sph 20/20 Add: +2.50 20/20 DVA ( )sc ( x )cc - phoropter OD: 20/20-1 OS: 20/20 Pupils: PERRL (-)APD EOMs: SAFE OU, (-)Pain/Diplopia CVF (facial, peripheral): FTFC OU Subjective Refraction: OD: +0.75 sph 20/20-1 OS: +0.75 sph 20/20 Add: +2.50 20/20 All the above performed by student, reviewed by attending Anterior segment: Performed by student, repeated by attending Lids: telangiectasia, trace bleph, 1+ MGD OU Conj: 1+ SPK inferiorly OU, hyaline plaques nasally OU, pterygium nasally OD 2.5 mm onto cornea with rajan line, pterygium OS nasally 1.0 mm onto conrea Cornea: pterygium OU, tear film debris OU AC: D&Q OU Angles: 4x4 OU Iris: flat and clear OU, (-) TID OU Tonometry: Performed by student, reviewed by attending [x ] GAT [ ] iCare [] Mckenna OD 12 mmHg OS 12 mmHg unstable mires due to tear film Time: 8:15am Previous IOP: OD 19 mmHg OS 20 mmHg Time: 10:20am Fundus exam: Dilated: xxx at 8:19am Dilating Drops: 1GTT 1 % Tropicamide OU & 1GTT 2.5% Phenylephrine OU (Pt. ed. on side effects, dilation warning given and verbal consent obtained) Patient advised not to drive if they feel they have any symptoms which could affect their ability to drive safely. Patient advised not to engage in any activities which could put themselves or others at risk if they feel they have any symptoms which could affect their ability to perform those activities safely. Performed by student, repeated by attending Lens: 2+ NS, 2+ ACC OU, (-) PXE OU Vit: clear OU (+) PVD C/D: 0.3/0.3 OD, 0.3/0.3 OS Macula: flat and clear OU PPole: clear OU A/V: 2/3 Vessels: normal caliber OU Periph: flat and intact (-)holes, tears, detachments 360 OU Assessment/Plan: 1.Dry eyes with rosacea OU; asymptomatic - Pt. ed. on todays findings - patient declined treatment at this time - Monitor 2. Pterygium OU - not visually significant - patient is asymptomatic and BCVA is unaffected - no treatment is necessary at this time - monitor 3. Combined Form Cataracts OU - Pt. ed. on findings - cataracts are not visually significant and that surgery is not necessary at this time - Ed. on importance of UV protection and on symptoms of glare - Continue to monitor 4. Hyperopia and presbyopia OU - Pt. ed. on todays findings - Is going to pick out new frames for FT28 - Monitor Return to Clinic 12 months or earlier PRN [place] education visit Education: After discussion and answering all 's questions, demonstrated and verbalized understanding of diagnosis and treatment. Yes [x] no [ ] Medication Reconciliation: Outpatient: Has the patient been taking medications as documented in the EMLR? YES: The patient has been taking medications as documented in the EMLR. Essential Medication List for Review used to complete this medication reconciliation. INCLUDED IN THIS LIST: Alphabetical list of active outpatient prescriptions dispensed from this OR (local) and dispensed from another OR or DoD facility (remote) as well as [...] with a VA or non-VA provider. /eda/ ADELINA ALEGRIA OPTOMETRY STUDENT Signed: 03/25/2025 09:20 /eda/ NATALIE GARCIA OD STAFF LOCKMAKER Cosigned: 03/25/2025 09:37 [facility]RI[facility]
--- OUTSIDE RECORDS SUMMARY | 2025-04-18 10:08 | XMS_ITS ---
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 Date/Time Encounter Type Encounter Description Reason Pro vider Source Apr 18, 2025 02:08 PM Outpatient Encounter COMMUNITY CARE CONSULT IHE Encounter Template Text not used by VA Plan of Treatment: Future Appointments (+ 6 months) and Future Tests (+/- 45 days) The Plan of Treatment section includes future care activities for the patient from all VA treatmentfacilities. This section includes future appointments and future orders which are active, pending or scheduled. Future Appointments This section includes appointments that were scheduled to occur 6 months from the date of the Encounter, up to a maximum of 20 appointments. The data comes from all [place] treatment facilities. Appointment Date/Time Appointment Type Appointme nt Facility Name May 01, 2025 08:00 AM AMBULATORY - MEDICINE [place] [facility] May 07, 2025 08:30 AM AMBULATORY - MEDICINE [place] [facility] May 21, 2025 10:00 AM AMBULATORY - MEDICINE [place] C [place] [facility] Jun 11, 2025 10:00 AM AMBULATORY - MEDICINE [place] C [place] [facility] Jun 25, 2025 10:00 AM AMBULATORY - MEDICINE [place] C [place] [facility] Active, Pending, and Scheduled Orders This section includes a listing of several types of active, pending, and scheduled orders, including clinic medications orders, diagnostic test orders, procedure orders and consult orders; where the start date of the order is 45 days before the date of the Encounter or 45 days after the date of the Encounter. The data comes from all [place] treatment facilities. Test Date/Time Test Type Test Details Facility Name Apr 09, 2025 04:33 PM Consult Order COMMUNITY CARE-ORTHO GENERAL Cons Harm Reduction Worker's Choice [place] [facility] [facility] Social History: Smoking Status (Most current) and Tobacco Use (All prior to encounter date) This section includes the most current, and the historical, smoking and tobacco- related health factors from the [place] facility where the Encounter took place. Current Smoking Status This section includes the most current smoking, or tobacco-related health factor, from the [place] facility where the Encounter took place. Date/Time Current Smoking Status Comment Michelet ity Oct 21, 2023 10:23 AM VA-TOBACCO NEVER USED [place] [facility] Tobacco Use History This section includes a history of the smoking, or tobacco-related health factors, that were collected on or before the date of the Encounter. The data comes from the [place] facility where the Encounter took place. Date/Time Smoking Status/Tobacco Use Comment F acility Jul 27, 2022 11:00 AM VA-TOBACCO NEVER USED VA [facility] [place] [facility] Jul 20, 2021 10:30 AM VA-TOBACCO NEVER USED VA [facility] [facility] Jul 01, 2020 03:30 PM VA-TOBACCO NEVER USED VA [facility] [facility] Jul 05, 2018 10:50 AM VA-TOBACCO NEVER USED VA [facility] [place] [facility] Jan 03, 2018 10:01 AM LIFETIME NON-TOBACCO USER VA [facility] [place] [facility] Dec 29, 2016 10:10 AM LIFETIME NON-TOBACCO USER VA [facility] [place] [facility] Apr 02, 2005 08:00 AM LIFETIME NON-SMOKER VA [facility] [facility] Apr 02, 2004 08:07 AM LIFETIME NON-SMOKER VA [place] [place] [facility] Apr 01, 2003 08:12 AM LIFETIME NON-SMOKER VA [place] [place] [facility] Apr 02, 2002 01:05 PM LIFETIME NON-SMOKER VA [place] [place] [facility] Mar 31, 2001 01:23 PM LIFETIME NON-SMOKER VA [facility] [place] [facility] Advance Directives: All historical and current Section Date Range: From patient's date of to the date document was created. This section includes ALL of a patient's completed or amended VA Advance and Rescinded Directives. The entries below indicate that a directive exists for the patient, but an actual copy is not included with this document. The data comes from all [place] facilities. Date Advance Directives Provider Source Jun 09, 2013 ADVANCE DIRECTIVE EMETERIO GAMEZADA Fernandez [place] [facility] Encounter Notes: All associated encounter notes This section contains the clinical notes associated to the Encounter. Date/Time Encounter Note(s) Provider Source Apr 18, 2025 02:09 PM NONVA NOTE: LOCAL TITLE: COMMUNITY CARE-REQUEST FOR SERVICE NOTE STANDARD TITLE: NONVA NOTE DATE OF NOTE: APR 18, 2025@14:09 ENTRY DATE: APR 18, 2025@14:09:14 AUTHOR: STEPHANIE ROBB EXP COSIGNER: URGENCY: STATUS: COMPLETED COMMUNITY CARE-REQUEST FOR SERVICE NOTE Has ADDENDA Request for Services (RFS) documentation [facility] Care Consult: COMMUNITY CARE-pulmonary Prior Consult No: [id number] Date sent to scanning: Mar A Request for Service (RFS) form [id number] has been received which includes the following: Care Requested:cough ICD-10 Dx code: R05.9 Date VA received request: Mar Date service required: Apr Requesting Community Provider Information: Name of Ordering Provider: Gayemiguelitomichelle Rich Office:[facility] Address, City, State: [address] [place] [address] [place] [address] Phone Number: [phone] Fax: [phone] /eda/ STEPHANIE ROBB MSN bottom saw operator of Community Care Signed: 04/18/2025 14:13 Receipt Acknowledged By: 04/18/2025 16:15 /ead/ Isaias Alford PA-C STAFF PHYSICIAN SKEIN BLEACHER for AVERY BRYANT 04/19/2025 10:34 /eda/ EDDIE MARTINS Registered Nurse 04/19/2025 ADDENDUM STATUS: COMPLETED Consult generated held for sig. /brianne MARTINS Registered Nurse Signed: 04/19/2025 10:35 STEPHANIE ROBB CNTRL WSTRN [facility]
--- OUTSIDE RECORDS SUMMARY | 2025-05-16 11:35 | XMS_ITS | Continuity of Care Document ---
Author Name [facility] Organization [facility] Care Team Providers Care Pmo Analyst Name Role Phone [facility] Unavailable Unavailable Problems Combined list of problems from Department of Defense and Veterans Affairs facilities. It does not include entries that were removed or entered in error. 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 [facility] Ben[facility] essential hypertension Active Condition [facility] Benign paroxysmal positional vertigo (SNOMED CT 717726332) Active Condition [facility]pal tunnel syndrome Active Condition [facility] Hearing loss Active Condition [facility] Hypercholesterolemia (SNOMED CT 57331102) Active Condition [facility] Kidney stone Active Condition [facility] Obstructive sleep apnea of adult Active Condition Jul 05, 2017 Entered By: MARIS ASHFORD ED Comment: on CPAP machine [facility] PURE HYPERCHOLESTEROLEM Inactive Condition 04/20/2007 [place] Diagnosis: ICD-10-CM M54.50 Low back pain, unspecified Active Diagnosis [facility] Diagnosis: ICD-10-CM Z46.0 Encounter for fit/adjst of spectacles and contact lenses Active Diagnosis [facility] Diagnosis: ICD-10-CM H25.813 Combined forms of age-related cataract, bilateral Active Diagnosis [facility] Diagnosis: ICD-10-CM M54.2 Cervicalgia Active Diagnosis [facility] Diagnosis: ICD-10-CM G56.01 Carpal tunnel syndrome, right upper limb Active Diagnosis [facility] Diagnosis: ICD-10-CM M25.552 Pain in left hip Active Diagnosis [facility] Diagnosis: ICD-10-CM I47.10 Supraventricular tachycardia, unspecified Active Diagnosis [facility] Diagnosis: ICD-10-CM M46.1 Sacroiliitis, not elsewhere classified Active Diagnosis [facility] Diagnosis: ICD-10-CM M25.551 Pain in right hip Active Diagnosis [facility] Diagnosis: ICD-10-CM G47.33 Obstructive sleep apnea (adult) (pediatric) Active Diagnosis [facility] Diagnosis: ICD-10-CM M25.511 Pain in right shoulder Active Diagnosis [facility] Diagnosis: ICD-10-CM I10 Essential (primary) hypertension Active Diagnosis [facility] Medications Combined list of outpatient medications from Department of Defense and Veterans Affairs facilities.Medications provided include 1) outpatient medications from the last 15 months, and 2) patient-reported medications. Medication Details Route Status Patient Instructions Prescription Expires Prescription Number Last Dispense Date Ordering Provider Order Date Order Qty Source AMLODIPINE BESYLATE 5MG TAB TAKE ONE TABLET BY MOUTH ONCE DAILY ORAL ACTIVE ISREAL ASHFORD JAWED [facility] ATENOLOL 25MG TAB TAKE ONE TABLET BY MOUTH EVERY DAY ORAL ACTIVE ISREAL ASHFORD JAWED [facility] MONTELUKAST NA 10MG TAB TAKE ONE TABLET BY MOUTH ORAL ACTIVE FURCOLOT ALFRED [facility] PYRIDOXINE HCL 100MG TAB TAKE ONE TABLET BY MOUTH ONCE DAILY ORAL ACTIVE ISREAL ASHFORD JAWED 2020 [facility] SIMVASTATIN 80MG TAB TAKE ONE-HALF TABLET BY MOUTH EVERY DAY ORAL ACTIVE ISREAL ASHFORD JAWED 2015 [facility] VALSARTAN 160MG TAB TAKE ONE TABLET BY MOUTH ONCE DAILY FOR HIGH BLOOD PRESSURE IN PLACE OF [place] ORAL ACTIVE 06/12/2025 [id number] FURCOLO,T ALFRED 2023 90 [facility] Allergies, Adverse Reactions, Alerts Combined list of allergies from Department of Defense and Veterans Affairs facilities. It does not include entries that were removed or entered in error. Substance Category Reaction Severity Reaction type Status Date Reported Comments Source LISINOPRIL Propensity to adverse reactions to drug (finding) Cough active 1 [facility] Immunizations Combined list of available immunizations from the Department of Defense and Veterans Affairs facilities. Immunization Series Date Given Administered By Site Reaction Lot Number CVX Code Drug Bladder Cleaner Status Comments Source COVID-19 (MODERNA), MRNA, LNP-S, PF, 50 MCG/0.5 ML (AGES 12+ YEARS) 5 2023 RACIEL BLACK RIGHT DELTO ID [id number] 312 complet ed [facility] INFLUENZA, HIGH-DOSE, TRIVALENT, PF 2023 RACIEL BLACK RIGHT DELTO ID [id number] 135 complet ed Completed Series, AD[facility]E [facility] AT [facility] INFLUENZA, HIGH-DOSE, QUADRIVALENT 2022 RACIEL BLACK RIGHT DELTO ID [id number] 197 complet ed Completed Series, ADMINISTE [facility] AT [facility] COVID-19 (MODERNA), MRNA, LNP-S, BIVALENT BOOSTER, PF, 50 MCG/0.5 ML OR 25MCG/0.25 ML DOSE 1 2021 229 complet ed MOD; [id number]; 3 [facility] INFLUENZA VACCINE, QUADRIVALENT, ADJUVANTED 2021 205 complet ed [facility] COVID-19 (MODERNA), MRNA, LNP-S, PF, 100 MCG OR 50 MCG DOSE 3 2020 207 complet ed MOD; [id number]; 2 [facility] INFLUENZA VACCINE, QUADRIVALENT, ADJUVANTED 2020 205 complet ed [facility] TD (ADULT), 5 LF TETANUS TOXOID, PRESERVATIVE FREE, ADSORBED 2020 113 complet ed [facility] COVID-19 (MODERNA), MRNA, LNP-S, PF, 100 MCG/0.5 ML DOSE 2 2020 207 complet ed MOD; [id number]; 1 [facility] COVID-19 (MODERNA), MRNA, LNP-S, PF, 100 MCG/0.5 ML DOSE 1 2020 207 complet ed MOD; [id number]; 1 [facility] INFLUENZA, INJECTABLE, QUADRIVALENT, PRESERVATIVE FREE 2019 150 complet ed [facility] PNEUMOCOCCAL POLYSACCHARID E PPV23 2019 33 complet ed [facility] INFLUENZA, SEASONAL, INJECTABLE 2017 141 complet ed Site: Left Deltoid [facility] PNEUMOCOCCAL CONJUGATE PCV 13 2017 133 complet ed [facility] ZOSTER RECOMBINANT 2 2017 187 complet ed [facility] ZOSTER RECOMBINANT 1 2017 187 complet ed [facility] INFLUENZA, SEASONAL, INJECTABLE 2016 141 complet ed Site: Left Deltoid [facility] FLU,3 YRS (HISTORICAL) 2015 88 complet ed [facility] FLU,3 YRS (HISTORICAL) 2013 88 complet ed Site: Left Deltoid [facility] PNEUMOCOCCAL POLYSACCHARID E PPV23 2013 33 complet ed [facility] FLU,3 YRS (HISTORICAL) 2012 88 complet ed [facility] FLU,3 YRS (HISTORICAL) 2011 88 complet ed [employer] [facility] FLU,3 YRS (HISTORICAL) 2010 88 complet ed Site: Left Deltoid [facility] DTAP, UNSPECIFIED FORMULATION 2010 107 complet ed Site: Right Deltoid [facility] ZOSTER (HISTORICAL) 2010 121 complet ed [facility] FLU,3 YRS (HISTORICAL) 2008 88 complet ed Site: Right Deltoid [facility] Results Combined list of recent chemistry, hematology and other laboratory results from Department of Defense and Veterans Affairs, ranging from 15 months to all on record, depending upon the facility. Order Name Results Value Reference Range Date Interpretation Specimen Comments Source LIPID PANEL, NON FASTING CHOLESTEROL [MASS/VOLUM E] IN SERUM OR PLASMA 149 mg/dL 06/11 Specimen Type: SERUM No comment entered. Ordering Provider: ANNEL BRYANT Report Released Date/Time: May 22, 2024 01:43 PM Reporting Lab: [facility] [address] [address] Performing Lab: [facility] [place] [facility] [address] [address] [facility] LIPID PANEL, NON FASTING TRIGLYCERID E [MASS/VOLUM E] IN SERUM OR PLASMA 125 mg/dL 0 - 150 06/11 Specimen Type: SERUM No comment entered. Ordering Provider: ANNEL BRYANT Report Released Date/Time: May 22, 2024 01:43 PM Reporting Lab: [facility] [address] [address] Performing Lab: [facility] [address] [address] [facility] LIPID PANEL, NON FASTING CHOLESTEROL IN LDL [MASS/VOLUM E] IN SERUM OR PLASMA BY CALCULATION 79 mg/dL 0 - 129 06/11 Specimen Type: SERUM No comment entered. Ordering Provider: ANNEL BRYANT Report Released Date/Time: May 22, 2024 01:43 PM Reporting Lab: [facility] [address] [address] Performing Lab: [facility] [address] [address] [facility] LIPID PANEL, NON FASTING CHOLESTEROL .TOTAL/CHOL ESTEROL IN HDL [MASS RATIO] IN SERUM OR PLASMA 3.3 06/11 Specimen Type: SERUM No comment entered. Ordering Provider: ANNEL BRYANT Report Released Date/Time: May 22, 2024 01:43 PM Reporting Lab: [facility] [address] [address] Performing Lab: [facility] [address] [address] [facility] LIPID PANEL, NON FASTING CHOLESTEROL IN HDL [MASS/VOLUM E] IN SERUM OR PLASMA 45 mg/dL 40 - 60 06/11 Specimen Type: SERUM No comment entered. Ordering Provider: ANNEL BRYANT Report Released Date/Time: May 22, 2024 01:43 PM Reporting Lab: [facility] [address] [address] Performing Lab: [facility] [address] [address] [facility] BASIC METABOLIC PANEL (non-fast ing) UREA NITROGEN [MASS/VOLUM E] IN SERUM OR PLASMA 11 mg/dL 7 - 25 06/11 Specimen Type: SERUM No comment entered. Ordering Provider: ANNEL BRYANT Report Released Date/Time: May 22, 2024 01:43 PM Reporting Lab: [facility] [address] [address] Performing Lab: [facility] TRN [facility] [address] [address] [facility] BASIC METABOLIC PANEL (non-fast ing) GLUCOSE [MASS/VOLUM E] IN SERUM OR PLASMA 99 mg/dL 65 - 100 06/11 Specimen Type: SERUM No comment entered. Ordering Provider: ANNEL BRYANT Report Released Date/Time: May 22, 2024 01:43 PM Reporting Lab: [facility] [address] [address] Performing Lab: [facility] [address] [address] [facility] BASIC METABOLIC PANEL (non-fast ing) SODIUM [MOLES/VOLU ME] IN SERUM OR PLASMA 141 mmol/L 135 - 145 06/11 Specimen Type: SERUM No comment entered. Ordering Provider: ANNEL BRYANT Report Released Date/Time: May 22, 2024 01:43 PM Reporting Lab: [facility] [address] [address] Performing Lab: [facility]ITAL[facility] TRN [facility] [address] [facility] BASIC METABOLIC PANEL (non-fast ing) POTASSIUM [MOLES/VOLU ME] IN SERUM OR PLASMA 3.9 mmol/L 3.5 - 5.0 06/11 Specimen Type: SERUM No comment entered. Ordering Provider: ANNEL BRYANT Report Released Date/Time: May 22, 2024 01:43 PM Reporting Lab: [facility]N [facility] [address] [address] Performing Lab: [facility]OSPITALTRN [facility]ITALUSE[address] [address] [facility] BASIC METABOLIC PANEL (non-fast ing) CHLORIDE [MOLES/VOLU ME] IN SERUM OR PLASMA 103 mmol/L 100 - 110 06/11 Specimen Type: SERUM No comment entered. Ordering Provider: ANNEL BRYANT Report Released Date/Time: May 22, 2024 01:43 PM Reporting Lab: [address] [address] Performing Lab: [address] [address] [facility] BASIC METABOLIC PANEL (non-fast ing) CARBON DIOXIDE, TOTAL [MOLES/VOLU ME] IN SERUM OR PLASMA 29 meq/L 20 - 30 06/11 Specimen Type: SERUM No comment entered. Ordering Provider: ANNEL BRYANT Report Released Date/Time: May 22, 2024 01:43 PM Reporting Lab: [address] [address] Performing Lab: [address] [address] [facility] BASIC METABOLIC PANEL (non-fast ing) CREATININE [MASS/VOLUM E] IN SERUM OR PLASMA 0.74 mg/dL 0.50 - 1.40 06/11 Specimen Type: SERUM No comment entered. Ordering Provider: ANNEL BRYANT Report Released Date/Time: May 22, 2024 01:43 PM Reporting Lab: [address] [address] Performing Lab: [address] [address] [facility] BASIC METABOLIC PANEL (non-fast ing) GLOMERULAR FILTRATION RATE/1.73 SQ M.PREDICTED [VOLUME RATE/AREA] IN SERUM, PLASMA OR BLOOD BY CREATININE- BASED FORMULA (CKD-EPI 2020) >90mL/ min 60 06/11 Specimen Type: SERUM No comment entered. Ordering Provider: ANNEL BRYANT Report Released Date/Time: May 22, 2024 01:43 PM Reporting Lab: [address] [address] Performing Lab: [facility] [place] [facility] [address] [address] [facility] LIPID PANEL FASTING CHOLESTEROL [MASS/VOLUM E] IN SERUM OR PLASMA 146 mg/dL 12/11 Specimen Type: SERUM No comment entered. Ordering Provider: ROGE ASHFORD Report Released Date/Time: Dec 02, 2023 12:43 PM Reporting Lab: [facility] [place] [facility] [address] [address] Performing Lab: [facility] [place] [facility] [address] [address] [facility] LIPID PANEL FASTING TRIGLYCERID E [MASS/VOLUM E] IN SERUM OR PLASMA 82 mg/dL 0 - 150 12/11 Specimen Type: SERUM No comment entered. Ordering Provider: ROGE ASHFORD Report Released Date/Time: Dec 02, 2023 12:43 PM Reporting Lab: [facility] [place] [facility] [address] [address] Performing Lab: [facility] [place] [facility] [address] [address] [facility] LIPID PANEL FASTING CHOLESTEROL IN LDL [MASS/VOLUM E] IN SERUM OR PLASMA BY CALCULATION 84 mg/dL 0 - 129 12/11 Specimen Type: SERUM No comment entered. Ordering Provider: ROGE ASHFORD Report Released Date/Time: Dec 02, 2023 12:43 PM Reporting Lab: [facility] [place] [facility] [address] [address] Performing Lab: [facility] [place] [facility] [address] [address] [facility] LIPID PANEL FASTING CHOLESTEROL .TOTAL/CHOL ESTEROL IN HDL [MASS RATIO] IN SERUM OR PLASMA 3.2 12/11 Specimen Type: SERUM No comment entered. Ordering Provider: ROGE ASHFORD Report Released Date/Time: Dec 02, 2023 12:43 PM Reporting Lab: [facility] [place] [facility] [address] [address] Performing Lab: [facility] [place] [facility] [address] [address] [facility] LIPID PANEL FASTING CHOLESTEROL IN HDL [MASS/VOLUM E] IN SERUM OR PLASMA 46 mg/dL 40 - 60 12/11 Specimen Type: SERUM No comment entered. Ordering Provider: ROGE ASHFORD Report Released Date/Time: Dec 02, 2023 12:43 PM Reporting Lab: [facility] [place] [facility] [address] [address] Performing Lab: [facility] [place] [facility] [address] [address] [facility] LIVER FUNCTION PROTEIN [MASS/VOLUM E] IN SERUM OR PLASMA 7.0 g/dL 6.0 - 8.3 12/11 Specimen Type: SERUM No comment entered. Ordering Provider: ROGE ASHFORD Report Released Date/Time: Dec 02, 2023 12:43 PM Reporting Lab: [facility] [place] [facility] [address] [address] Performing Lab: [facility] [place] [facility] [address] [address] [facility] LIVER FUNCTION ALBUMIN [MASS/VOLUM E] IN SERUM OR PLASMA 4.3 g/dL 3.5 - 5.0 12/11 Specimen Type: SERUM No comment entered. Ordering Provider: ROGE ASHFORD Report Released Date/Time: Dec 02, 2023 12:43 PM Reporting Lab: [facility] [place] [facility] [address] [address] Performing Lab: [facility] [place] [facility] [address] [address] [facility] LIVER FUNCTION ALKALINE PHOSPHATASE [ENZYMATIC ACTIVITY/VO LUME] IN SERUM OR PLASMA 60 U/L 40 - 150 12/11 Specimen Type: SERUM No comment entered. Ordering Provider: ROGE ASHFORD Report Released Date/Time: Dec 02, 2023 12:43 PM Reporting Lab: [facility] [place] [facility] [address] [address] Performing Lab: [facility] [address] [address] [facility] LIVER FUNCTION ASPARTATE AMINOTRANSF ERASE [ENZYMATIC ACTIVITY/VO LUME] IN SERUM OR PLASMA 19 U/L 5 - 34 12/11 Specimen Type: SERUM No comment entered. Ordering Provider: ROGE ASHFORD Report Released Date/Time: Dec 02, 2023 12:43 PM Reporting Lab: [facility] [place] [facility] [address] [address] Performing Lab: [facility] [place] [facility] [address] [address] [facility] LIVER FUNCTION ALANINE AMINOTRANSF ERASE [ENZYMATIC ACTIVITY/VO LUME] IN SERUM OR PLASMA 22 U/L 12/11 Specimen Type: SERUM No comment entered. Ordering Provider: ROGE ASHFORD Report Released Date/Time: Dec 02, 2023 12:43 PM Reporting Lab: [facility] [place] [facility] [address] [address] Performing Lab: [facility] [place] [facility] [address] [address] [facility] LIVER FUNCTION BILIRUBIN.T OTAL [MASS/VOLUM E] IN SERUM OR PLASMA 0.4 mg/dL 0.2 - 1.2 12/11 Specimen Type: SERUM No comment entered. Ordering Provider: ROGE ASHFORD Report Released Date/Time: Dec 02, 2023 12:43 PM Reporting Lab: [facility] [place] [facility] [address] [address] Performing Lab: [facility] [place] [facility] [address] [address] [facility] BASIC METABOLIC PANEL (fasting) UREA NITROGEN [MASS/VOLUM E] IN SERUM OR PLASMA 12 mg/dL 7 - 25 12/11 Specimen Type: SERUM No comment entered. Ordering Provider: ROGE ASHFORD Report Released Date/Time: Dec 02, 2023 12:43 PM Reporting Lab: [facility] [place] [facility] [address] [address] Performing Lab: [facility] [place] [facility] [address] [address] [facility] BASIC METABOLIC PANEL (fasting) GLUCOSE [MASS/VOLUM E] IN SERUM OR PLASMA 97 mg/dL 65 - 100 12/11 Specimen Type: SERUM No comment entered. Ordering Provider: ROGE ASHFORD Report Released Date/Time: Dec 02, 2023 12:43 PM Reporting Lab: [facility] [place] [facility] [address] [address] Performing Lab: [facility] [place] [facility] [address] [address] [facility] BASIC METABOLIC PANEL (fasting) SODIUM [MOLES/VOLU ME] IN SERUM OR PLASMA 144 mmol/L 135 - 145 12/11 Specimen Type: SERUM No comment entered. Ordering Provider: ROGE ASHFORD Report Released Date/Time: Dec 02, 2023 12:43 PM Reporting Lab: [facility] [place] [facility] [address] [address] Performing Lab: [facility] [place] [facility] [address] [address] [facility] BASIC METABOLIC PANEL (fasting) POTASSIUM [MOLES/VOLU ME] IN SERUM OR PLASMA 4.0 mmol/L 3.5 - 5.0 12/11 Specimen Type: SERUM No comment entered. Ordering Provider: ROGE ASHFORD Report Released Date/Time: Dec 02, 2023 12:43 PM Reporting Lab: [facility] [place] [facility] [place] [address] [id number] Performing Lab: [facility] [place] [facility] [place] [address] [address] [facility] [place] [facility] [place] BASIC METABOLIC PANEL (fasting) CHLORIDE [MOLES/VOLU ME] IN SERUM OR PLASMA 105 mmol/L 100 - 110 12/11 Specimen Type: SERUM No comment entered. Ordering Provider: ROGE ASHFORD Report Released Date/Time: Dec 02, 2023 12:43 PM Reporting Lab: [facility] [place] [address] [address] Performing Lab: [facility] [place] [facility] [place] [address] [address] [facility] BASIC METABOLIC PANEL (fasting) CARBON DIOXIDE, TOTAL [MOLES/VOLU ME] IN SERUM OR PLASMA 28 meq/L 20 - 30 12/11 Specimen Type: SERUM No comment entered. Ordering Provider: ROGE ASHFORD Report Released Date/Time: Dec 02, 2023 12:43 PM Reporting Lab[facility] [facility] [address] [address] Performing Lab: [facility] [place] [address] [address] [facility] BASIC METABOLIC PANEL (fasting) CREATININE [MASS/VOLUM E] IN SERUM OR PLASMA 0.74 mg/dL 0.50 - 1.40 12/11 Specimen Type: SERUM No comment entered. Ordering Provider: ROGE ASHFORD Report Released Date/Time: Dec 02, 2023 12:43 PM Reporting Lab: [facility] [place] [address] [address] Performing Lab: [facility] [place] [address] [address] [facility] BASIC METABOLIC PANEL (fasting) GLOMERULAR FILTRATION RATE/1.73 SQ M.PREDICTED [VOLUME RATE/AREA] IN SERUM, PLASMA OR BLOOD BY CREATININE- BASED FORMULA (CKD-EPI 2020) >90mL/ min 60 12/11 Specimen Type: SERUM No comment entered. Ordering Provider: ROGE ASHFORD Report Released Date/Time: Dec 02, 2023 12:43 PM Reporting Lab: [facility] [place] [address] [address] Performing Lab: [facility] [address] [address] [facility] HEMOGLOBI N A1C PANEL HEMOGLOBIN A1C/HEMOGLO BIN.TOTAL IN BLOOD BY HPLC 5.7 4.0 - 5.6 12/11 H Specimen Type: BLOOD Comment: Values obtained from A1C measurement s can vary. For atypical A1C assays, a reported value of 7.0 could actually be between 6.72 and 7.28 if measured by a reference method. A reported value of 9.0 could actually be between 8.73 and 9.27. Ref: http://www. ngsp.org/[place] Pdata.asp Ordering Provider: ROGE ASHFORD Report Released Date/Time: Dec 02, 2023 12:43 PM Reporting Lab: [facility] [place] [address] Performing Lab: [facility]PITALUSE[address] [facility]ITAL[facility] CBC AND DIFF (AUTO) LEUKOCYTES [#/VOLUME] IN BLOOD BY AUTOMATED COUNT 5.48 10*3/u L 4.50 - 11.00 12/11 Specimen Type: BLOOD No comment entered. Ordering Provider: ROGE ASHFORD Report Released Date/Time: Dec 02, 2023 12:43 PM Reporting Lab: [facility]ITALUSE[address] [address] Performing Lab: [facility]ITALUSE[address] [address] [facility] CBC AND DIFF (AUTO) ERYTHROCYTE S [#/VOLUME] IN BLOOD BY AUTOMATED COUNT 4.68 10*6/u L 4.23 - 5.66 12/11 Specimen Type: BLOOD No comment entered. Ordering Provider: ROGE ASHFORD Report Released Date/Time: Dec 02, 2023 12:43 PM Reporting Lab: [facility]ITALUSE[address] [address] Performing Lab: [facility] [place] [address] [facility] [address] [facility] CBC AND DIFF (AUTO) HEMOGLOBIN [MASS/VOLUM E] IN BLOOD 13.4 g/dL 12.8 - 17 12/11 Specimen Type: BLOOD No comment entered. Ordering Provider: ROGE ASHFORD Report Released Date/Time: Dec 02, 2023 12:43 PM Reporting Lab: [facility] [place] [address] [facility] [address] Performing Lab: [facility] [place] [facility] [address] [facility] [address] [facility] CBC AND DIFF (AUTO) HEMATOCRIT [VOLUME FRACTION] OF BLOOD BY AUTOMATED COUNT 39.8 39.2 - 50.4 12/11 Specimen Type: BLOOD No comment entered. Ordering Provider: ROGE ASHFORD Report Released Date/Time: Dec 02, 2023 12:43 PM Reporting Lab: [facility] [place] [address] [facility] [address] Performing Lab: [facility] [place] [facility] [address] [facility] [address] [facility] CBC AND DIFF (AUTO) MCV [ENTITIC VOLUME] BY AUTOMATED COUNT 85.0 fL 82 - 99 12/11 Specimen Type: BLOOD No comment entered. Ordering Provider: ROGE ASHFORD Report Released Date/Time: Dec 02, 2023 12:43 PM Reporting Lab: [facility] [place] [address] [facility] [address] Performing Lab: [facility] [place] [facility] [address] [facility] [address] [facility] CBC AND DIFF (AUTO) MCHC [MASS/VOLUM E] BY AUTOMATED COUNT 33.7 g/dL 30.8 - 35.1 12/11 Specimen Type: BLOOD No comment entered. Ordering Provider: AHMED,MOHAM MED JAWED Report Released Date/Time: Dec 02, 2023 12:43 PM Reporting Lab: [facility] [place] [address] [facility] [address] Performing Lab: [facility] [place] [address] [facility] [address] [facility] CBC AND DIFF (AUTO) PLATELETS [#/VOLUME] IN BLOOD BY AUTOMATED COUNT 259 10*3/u L 140 - 360 12/11 Specimen Type: BLOOD No comment entered. Ordering Provider: ROGE ASHFORDED Report Released Date/Time: Dec 02, 2023 12:43 PM Reporting Lab: [facility] [place] [address] [facility] [address] Performing Lab: [facility] [place] [facility] [address] [facility] [address] [facility] CBC AND DIFF (AUTO) ERYTHROCYTE DISTRIBUTIO N WIDTH [RATIO] BY AUTOMATED COUNT 12.5 12.0 - 16.0 12/11 Specimen Type: BLOOD No comment entered. Ordering Provider: ROGE ASHFORDED Report Released Date/Time: Dec 02, 2023 12:43 PM Reporting Lab: [facility] [place] [address] [facility] [address] Performing Lab: [facility] [place] [address] [facility] [address] [facility] CBC AND DIFF (AUTO) MONOCYTES [#/VOLUME] IN BLOOD BY AUTOMATED COUNT 0.53 10*3/u L 0.30 - 1.10 12/11 Specimen Type: BLOOD No comment entered. Ordering Provider: ROGE ASHFORD Report Released Date/Time: Dec 02, 2023 12:43 PM Reporting Lab: [facility] [place] [address] [facility] [address] Performing Lab: [facility] [place] [address] [facility] [address] [facility] CBC AND DIFF (AUTO) MCH [ENTITIC MASS] BY AUTOMATED COUNT 28.6 pg 26.2 - 32.6 12/11 Specimen Type: BLOOD No comment entered. Ordering Provider: ROGE ASHFORD Report Released Date/Time: Dec 02, 2023 12:43 PM Reporting Lab: [facility] [place] [address] [facility] [address] Performing Lab: [facility] [place] [address] [facility] [address] [facility] CBC AND DIFF (AUTO) NEUTROPHILS /100 LEUKOCYTES IN BLOOD BY AUTOMATED COUNT 54.3 43.7 - 75.8 12/11 Specimen Type: BLOOD No comment entered. Ordering Provider: ROGE ASHFORD Report Released Date/Time: Dec 02, 2023 12:43 PM Reporting Lab: [facility] [place] [address] [facility] [address] Performing Lab: [facility] [place] [facility] [address] [facility] [address] [facility] CBC AND DIFF (AUTO) LYMPHOCYTES /100 LEUKOCYTES IN BLOOD BY AUTOMATED COUNT 28.5 14.0 - 42.3 12/11 Specimen Type: BLOOD No comment entered. Ordering Provider: ROGE ASHFORD Report Released Date/Time: Dec 02, 2023 12:43 PM Reporting Lab: [facility] [place] [facility] [address] [facility] [address] Performing Lab: [facility] [place] [facility] [address] [facility] [address] [facility] CBC AND DIFF (AUTO) MONOCYTES/1 00 LEUKOCYTES IN BLOOD BY AUTOMATED COUNT 9.7 5.1 - 13.7 12/11 Specimen Type: BLOOD No comment entered. Ordering Provider: ROGE ASHFORD Report Released Date/Time: Dec 02, 2023 12:43 PM Reporting Lab: [facility] [place] [address] [facility] [address] Performing Lab: [facility] [place] [facility] [address] [facility] [address] [facility] CBC AND DIFF (AUTO) EOSINOPHILS /100 LEUKOCYTES IN BLOOD BY AUTOMATED COUNT 6.4 0.4 - 6.8 12/11 Specimen Type: BLOOD No comment entered. Ordering Provider: ROGE ASHFORD Report Released Date/Time: Dec 02, 2023 12:43 PM Reporting Lab: [facility] [place] [facility] [address] [place] [address] Performing Lab: [facility] [place] [facility] [address] [facility] [address] [facility] CBC AND DIFF (AUTO) BASOPHILS/1 00 LEUKOCYTES IN BLOOD BY AUTOMATED COUNT 0.9 0.1 - 2.0 12/11 Specimen Type: BLOOD No comment entered. Ordering Provider: ROGE ASHFORD Report Released Date/Time: Dec 02, 2023 12:43 PM Reporting Lab: [facility] [place] [address] Performing Lab: [facility] [place] [address] [address] [facility] CBC AND DIFF (AUTO) NEUTROPHILS [#/VOLUME] IN BLOOD BY AUTOMATED COUNT 2.98 10*3/u L 2.20 - 7.60 12/11 Specimen Type: BLOOD No comment entered. Ordering Provider: ROGE ASHFORD Report Released Date/Time: Dec 02, 2023 12:43 PM Reporting Lab: [facility] [place] [address] [address] Performing Lab: [facility] [place] [facility] [address] [place] [address] [facility] CBC AND DIFF (AUTO) LYMPHOCYTES [#/VOLUME] IN BLOOD BY AUTOMATED COUNT 1.56 10*3/u L 1.00 - 3.20 12/11 Specimen Type: BLOOD No comment entered. Ordering Provider: ROGE ASHFORD Report Released Date/Time: Dec 02, 2023 12:43 PM Reporting Lab: [facility] [place] [address] [place] [address] Performing Lab: [facility] [place] [facility] [address] [facility] [address] [facility] CBC AND DIFF (AUTO) EOSINOPHILS [#/VOLUME] IN BLOOD BY AUTOMATED COUNT 0.35 10*3/u L 0.03 - 0.44 12/11 Specimen Type: BLOOD No comment entered. Ordering Provider: ROGE ASHFORD Report Released Date/Time: Dec 02, 2023 12:43 PM Reporting Lab: [facility] [place] [facility] [address] [facility] [address] Performing Lab: [facility] [place] [facility] [address] [facility] [address] [facility] CBC AND DIFF (AUTO) BASOPHILS [#/VOLUME] IN BLOOD BY AUTOMATED COUNT 0.05 10*3/u L 0.01 - 0.13 12/11 Specimen Type: BLOOD No comment entered. Ordering Provider: ROGE ASHFORD Report Released Date/Time: Dec 02, 2023 12:43 PM Reporting Lab: [facility] [place] [address] [address] Performing Lab: [facility] [place] [address] [address] [facility] CBC AND DIFF (AUTO) IMMATURE GRANULOCYTE S/100 LEUKOCYTES IN BLOOD BY AUTOMATED COUNT 0.2 0.0 - 0.7 12/11 Specimen Type: BLOOD No comment entered. Ordering Provider: ROGE ASHFORD Report Released Date/Time: Dec 02, 2023 12:43 PM Reporting Lab: [facility] [place] [facility] [address] [facility] [address] Performing Lab: [facility] [place] [facility] [address] [place] [address] [facility] CBC AND DIFF (AUTO) IMMATURE GRANULOCYTE S [#/VOLUME] IN BLOOD 0.01 10*3/u L 0.00 - 0.06 12/11 Specimen Type: BLOOD No comment entered. Ordering Provider: ROGE ASHFORD Report Released Date/Time: Dec 02, 2023 12:43 PM Reporting Lab: [facility] [place] [address] [facility] [address] Performing Lab: [facility] [place] [facility] [address] [facility] [address] [facility] PSA PROSTATE SPECIFIC AG [MASS/VOLUM E] IN SERUM OR PLASMA 0.81 ng/mL 0.00 - 4.00 12/11 Specimen Type: SERUM No comment entered. Ordering Provider: ANNEL BRYANT Report Released Date/Time: Dec 09, 2023 07:52 AM Reporting Lab: [facility] [place] [facility] [address] [facility] [address] Performing Lab: [facility] [place] [facility] [address] [facility] [address] [facility] Vital Signs Combined list of inpatient and outpatient Vital Signs from Department of Defense and Veterans Affairs, ranging from 12 months to all on record, depending upon the facility. Vital Sign Value Date Comments Source SYSTOLIC BLOOD PRESSURE 148 01/16/20 25 08:03:02 [facility] DIASTOLIC BLOOD PRESSURE 62 025 08:03:02 [facility] PULSE OXIMETRY 96 01/15/2025 08:03:02 [facility] PAIN 4 01/15/2025 08:03:02 [facility] TEMPERATURE 98.1 01/15/2025 08:03:02 [facility] PULSE 80 01/15/2025 08:03:02 [facility] RESPIRATION 16 01/15/2025 08:03:02 [facility] SYSTOLIC BLOOD PRESSURE 145 10/25/19 25 09:35:51 [facility] DIASTOLIC BLOOD PRESSURE 65 025 09:35:51 [facility] PULSE OXIMETRY 99 10/25/2024 09:35:51 [facility] PAIN 0 10/25/2024 09:35:51 [facility] TEMPERATURE 97.5 10/25/2024 09:35:51 [facility] PULSE 54 10/25/2024 09[facility]35:51 [facility] RESPIRATION 16 10/25/2024 09:35:51 [facility] SYSTOLIC BLOOD PRESSURE 140 07/10/20 11:32:57 [facility] DIASTOLIC BLOOD PRESSURE 90 11:32:57 [facility] PAIN 8 07/10/2024 11:32:57 [facility] SYSTOLIC BLOOD PRESSURE 155 06/11/20 24 09:55:19 [facility] DIASTOLIC BLOOD PRESSURE 75 024 09:55:19 [facility] PULSE OXIMETRY 97 06/11/2024 09:55:19 [facility] WEIGHT 186.6 06/11/2024 09:55:19 [facility] BMI 25 kg/m2 06/11/2024 09:55:19 [facility] PAIN 0 06/11/2024 09:55:19 [facility] HEIGHT 72 06/11/2024 09:55:19 [facility] TEMPERATURE 97.9 06/11/2024 09:55:19 [facility] PULSE 55 06/11/2024 09:55:19 [facility] RESPIRATION 16 06/11/2024 09:55:19 [facility] Encounters Combined list of: 1) Encounters from Department of Veterans Affairs facilities going backup to the last 18 months, not all VA inpatient encounters are included; 2) Encounters from the Department of Defense facilities going backup to 280 months. Location Location Details Encounter Type Encounter Number Reason For Visit Attending Provider ADM Date DC Date Status Disposition Source [facility] En[facility] [id number] 11/22 [facility] En[facility] [id number] 11/23 [facility] INFRARED THERAPY [id number] Diagnos is: ICD-10- CM M25.551 Pain in right hip SYLVIA,CARLA ISTOPHER M [facility] En[facility] [id number] 12/06 [facility] En[facility] [id number] 12/07 [facility] Encounter [id number] 12/15 [facility] OFFICE O/P EST MOD 30 MIN [id number] Diagnos is: ICD-10- CM I10 Essenti al (primar y) hyperte SAIMA Maldonado 12/18 [facility] OFFICE O/P EST MOD 30 MIN [id number] Diagnos is: ICD-10- CM I10 Essenti al (primar y) hyperte SAIMA Maldonado 12/18 [facility] ACUPUNCT W/O STIMUL 15 MIN [id number] Diagnos is: ICD-10- CM M54.2 Cervica lgia GAUNYA,CHR ISTOPHER M 12/18 [facility] En[facility] [id number] 12/19 [facility] En[facility] [id number] 01/03 [facility] ACUPUNCT W/O STIMUL ADDL 15M [id number] Diagnos is: ICD-10- CM M54.2 Cervica lgia GAUNYA,CHR ISTOPHER M 01/03 [facility] COLLJ & INTERPJ DATA EA 30 D [id number] Diagnos is: ICD-10- CM G47.33 Obstruc tive sleep apnea (adult) (pediat olivia) AMBER MCMAHON 01/03 [facility] En[facility] [id number] 01/03 [facility] Encounter [id number] 01/08 [facility] Encounter [id number] 01/09 [facility] Encounter [id number] 01/10 [facility] Encounter [id number] 01/15 [facility] Encounter [id number] 01/26 [facility] Encounter [id number] 02/22 [facility] ACUPUNCT W/O STIMUL ADDL 15M [id number] Diagnos is: ICD-10- CM M54.2 Cervica maribell WARD,CHR ISTOPHER M 02/27 [facility] En[facility] [id number] 03/12 [facility] [place] 1 [id number] Diagnos is: ICD-10- CM H25.813 Combine d forms of age-rel ated catarac t, bilater al RADHA,AN SESAR E 03/19 [facility] En[facility] [id number] 03/20 [facility] Out[facility] Encounter [id number] 03/30 [facility] ACUPUNCT W/O STIMUL ADDL 15M [id number] Diagnos is: ICD-10- CM M25.511 Pain in right shoulde r SYLVIA,CHR ISTOPHER M 04/02 [facility] Encounter [id number] 04/16 [facility] Out[facility] Encounter [id number] 04/17 [facility] ACUPUNCT W/O STIMUL ADDL 15M [id number] Diagnos is: ICD-10- CM M25.551 Pain in right hip GAUNALTHEA,CHR ISTOPHER M 05/30 [facility] OFFICE O/P EST MOD 30 MIN [id number] Diagnos is: ICD-10- CM G47.33 Obstruc tive sleep apnea (adult) (pediat olivia) HILL BRYANT NA 06/11 [facility] [id number] 1.06/11 [facility]counter [id number] 1.07/06 [facility] Out[facility] Encounter [id number] 1.07/06 [facility] MANUAL THERAPY 1/> REGIONS [id number] Diagnos is: ICD-10- CM M46.1 Sacroil iitis, not elsewhe re classif DARVIN Galvan 07/12 [facility] ACUPUNCT W/O STIMUL 15 MIN [id number] Diagnos is: ICD-10- CM M25.552 Pain in left hip GAUNYA,CHR ISTOPHER M 07/13 [facility] Out[facility] Encounter [id number] 07/25 [facility] Outpatient Encounter [id number] 07/27 [facility] ACUPUNCT W/O STIMUL ADDL 15M [id number] Diagnos is: ICD-10- CM M25.551 Pain in right hip GAUNYA,CHR ISTOPHER M 07/30 [facility] Outpatient [facility]counter [id number] 1[facility]08/10 [facility] OFFICE O/P EST MOD 30 MIN [id number] Diagnos is: ICD-10- CM M25.552 Pain in left hip Rafa SWAIN 08/10 [facility] THERAPEUTI C EXERCISES [id number] Diagnos is: ICD-10- CM M46.1 Sacroil iitis, not elsewhe re classif ied AMALIAJim COSTA 08/14 [facility] [place] THERAPEUTI C EXERCISES [id number] Diagnos is: ICD-10- CM M46.1 Sacroil iitis, not elsewhe re classif ied Jim HOLLAND COSTA 08/21 [facility] [place] Outpatient [facility]counter [id number] 08/21 [facility] [id number] 08/22 [facility] [id number] 08/29 [facility] En[facility] [id number] 09/10 [facility] THERAPEUTI C EXERCISES [id number] Diagnos is: ICD-10- CM M46.1 Sacroil iitis, not elsewhe re classif ied DARVIN ROMANO 09/27 [facility] [id number] 10/04 [facility] [id number] 10/18 [facility] [id number] 10/21 [facility] En[facility] [id number] 10/21 [facility] [id number] 10/23 [facility] [id number] 01/29 /2025 [facility] [place] OFFICE O/P EST MOD 30 MIN [id number] Diagnos is: ICD-10- CM I47.10 Suprave ntricul ar tachyca rdia, unspeci fied FURCOLO,TI NA 10/25 [facility] En[facility] [id number] 11/01 [facility] [place] INFRARED THERAPY [id number] Diagnos is: ICD-10- CM M25.552 Pain in left hip ROSALINOUNALTHEA,[facility] ISTOPHER M 11/05 [facility] [place] Outpatient [facility]counter [id number] 11/29 [facility] [place] PT EVAL MOD COMPLEX 30 MIN [id number] Diagnos is: ICD-10- CM M54.2 Cervica lgeugene ANSELMOLEXY SHEPPARD M 12/06 [facility] [place] Outpatient [facility]counter [id number] 12/06 [facility] [place] INFRARED THERAPY [id number] Diagnos is: ICD-10- CM M54.50 Low back pain, unspeci fied GAUNYA,CHR ISTOPHER M 12/10 [facility] [place] MANUAL THERAPY 1/> REGIONS [id number] Diagnos is: ICD-10- CM M54.2 Cervica lgia ANSELMOKE LLY M 01/01 [facility] [place] OFFICE O/P EST HI 40 MIN [id number] Diagnos is: ICD-10- CM M25.552 Pain in left hip NAMAN DESHPANDE THI 01/15 [facility] [facility] MANUAL THERAPY 1/ [place] [id number] Diagnos is: ICD-10- CM G56.01 Carpal tunnel syndrom e, right upper limb MACHON,NELY LIE E 01/15 [facility] INFRARED THERAPY [id number] Diagnos is: ICD-10- CM M54.2 Cervica lgia GAUNYA,CHR ISTOPHER M 01/18 [facility] ASIYA MDLTY 1+[place]TRAS[place] EA 15 [id number] Diagnos is: ICD-10- CM G56.01 Carpal tunnel syndrom e, right upper limb MACHON,NELY LIE E 01/28 [facility] ASIYA MDLTY 1+ULTRAS[place] EA 15 [id number] Diagnos is: ICD-10- CM G56.01 Carpal tunnel syndrom e, right upper limb MACHON,NELY LIE E 02/12 [facility] Outpatient Encounter [id number] 02/13 [facility] ASIYA MDLTY 1+[place]AS[place] EA 15 [id number] Diagnos is: ICD-10- CM G56.01 Carpal tunnel syndrom e, right upper limb MACHON,NELY LIE E 03/05 [facility] INFRARED THERAPY [id number] Diagnos is: ICD-10- CM M54.2 Cervica lgia SYLVIA,CHR ISTOPHER M 03/18 [facility] [place] 1/ [id number] Diagnos is: ICD-10- CM H25.813 Combine d forms of age-rel ated catarac t, bilater al IVAN GARCIA E 03/25 [facility] FIT SPECTACLES BIFOCAL [id number] Diagnos is: ICD-10- CM Z46.0 Encount er for fit/adj st of spectac les and contact lenses IVAN GARCIA 03/25 [facility] Outpatient Encounter [id number] 04/04 [facility] En[facility] [id number] 04/05 [facility] En[facility] [id number] 04/16 [facility] Out[facility] Encounter [id number] 04/18 [facility] INFRARED THERAPY [id number] Diagnos is: ICD-10- CM M54.50 Low back pain, unspeci fied SYLVIA,[facility] ISTOPHER M 05/07 [facility] [place] [facility] Social History Combined list of available smoking, tobacco, and other social history from Department of Defense and Veterans Affairs facilities. Social History Type Response Date Comment Sourc e Tobacco smoking status NHIS VA-TOBACCO NEVER USED 10/21/2023 [facility] [place] [facility] History of tobacco use VA-TOBACCO NEVER USED 07/27/2022 [facility] [place] [facility] History of tobacco use NC-TOBACCO NEVER USED 07/20/2021 [facility] [place] [facility] History of tobacco use NC-TOBACCO NEVER USED 07/01/2020 [facility] [place] [facility] History of tobacco use NC-TOBACCO NEVER USED 07/05/2018 [facility] [place] [facility] History of tobacco use LIFETIME NON-TOBACCO USER 01/03/2018 [facility] [place] [facility] History of tobacco use LIFETIME NON-TOBACCO USER 12/29/2016 [facility] [place] [facility] History of tobacco use LIFETIME NON-SMOKER 04/02/2005 [facility] [place] [place] [facility] History of tobacco use LIFETIME NON-SMOKER 04/02/2004 [facility] [place] [facility] History of tobacco use LIFETIME NON-SMOKER 04/01/2003 [facility] [place] [facility] History of tobacco use LIFETIME NON-SMOKER 04/02/2002 [facility] [place] [facility] History of tobacco use LIFETIME NON-SMOKER 03/31/[facility] [place] [facility] Plan of Care List of future care activities from Department of Veterans Affairs facilities. Additional future care activities may be listed in the Assessment and Plan section. Date/Time Care Activity Care Activity Detail Facili ty 05/21/2025 AMBULATORY - MEDICINE [facility] Advance Directives List of completed, amended, or rescinded Advance Directives on record at Department of Veterans Affairs facilities. An actual copy of the Directive is not included. Date Advance Directive Provider Source 06/09/2013 ADVANCE DIRECTIVE NICHOL GAMEZ [facility]
[2025-05-21 10:18] VITALS: BMI 25.4
--- NOTE | 2025-05-21 10:18 | A.OFFVIS_ITS ---
Vital Signs 05/21/25 10:18 Height 6 ft Weight 187 lb BMI 25.4 Intake Visit Reasons: New prob- CTS of Right hand// Numbness Intake Note: Timothy is a 75 year old ambidextrous male who presents today for a new problem visit complaining of right hand numbness and tingling. Patient states numbness and tingling is present on his right 2nd, 3rd, 4th, & 5th digit, occurring daily and constantly. Patient thinks it is worse at night for which he is using a wrist brace. Denies finger locking and catching. He has had two EMG's done, one in 2014 showing abnormalities, and one at [facility] March,, per patient, showing moderate to severe on the right hand. Denies previous injury or surgery to the right hand. 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 EMG report from 2014 shows: 1. Mild-Moderate Median - Right 2. Mild Median - Left Allergies lisinopril (LISINOPRIL) Allergy (Mild, Verified 05/21/25 10:26) cough HPI HPI New prob- CTS of Right hand// Numbness: Details: Timothy is a 75 year old ambidextrous male who presents today for a new problem visit complaining of right hand numbness and tingling. Patient states numbness and tingling is present on his right 2nd, 3rd, 4th, & 5th digit, occurring daily. Patient thinks it is worse at night for which he is using a wrist brace. Patient states that it is also worsened by the hands being held in a downward position for prolonged periods, as well as driving or repetitive motion. Denies finger locking and catching. He has had two EMG's done, one in 2014 showing abnormalities, and one at [facility] March,, per patient, showing moderate to severe on the right hand. Denies previous injury or surgery to the right hand. 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 EMG report from 2014 shows: 1. Mild-Moderate Median - Right 2. 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 SVT (supraventricular tachycardia) Osteoarthritis ANAHI on CPAP BPH (benign prostatic hyperplasia) Renal calculi Hyperlipidemia HTN (hypertension) Left hip pain Surgical History Hx of lithotripsy History of radiofrequency ablation procedure for cardiac arrhythmia H/O shoulder surgery History of back surgery H/O colonoscopy Hx of cystoscopy Social History Housing: House Are you a primary ostomy care nurse to a significant other at home: No Do you presently have visiting nurse or other home services: No Alcohol intake: former Patient Tobacco Use Status: Never used Tobacco e-Cigarette/Vaping Use: Never Used Second Hand Smoke Exposure: Yes Advance Directives Date on File: 08/24/22 Current occupational status: 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 Good APB muscle firing and good finger cross. Vascular: Capillary refill brisk. ROM: Patient can make a fist and extend all their digits. Skin: No lacerations or abrasions noted. General: No ecchymosis. No erythema or evidence of infection. Assessment & Plan Assessment & Plan (1) Bilateral carpal tunnel syndrome: Code(s): G56.03 - Carpal tunnel syndrome, bilateral upper limbs Category: Medical Plan 1. Bilateral carpal tunnel syndrome Last known EMG 2014 Patient is educated about this condition Patient is educated about the typical treatment options At this time, patient has signs of release of information to obtain in the EMG done at [facility], as the EMG from 2015 is too distant and we need a new were EMG to be able to get the patient booked for surgery Patient understands this and is amenable to this plan Follow-up after we obtain results of PSSP Coding Level of Care Code Est Pt Level 3 (53568) Diagnoses Bilateral carpal tunnel syndrome G56.03
--- OUTSIDE RECORDS SUMMARY | 2025-05-21 10:27 | XMS_ITS | Encounter Summary ---
Author Name [facility] Organization [facility] Address [address] [place] [address] Care Team Providers Care Ruby On Rails Developer Name Role Phone AVERY BRYANT Primary Care [...] Francisco's Name Patient's Relationship to Policy Francisco [facility] (WNR) MEDICARE ADVANTAGE [facility] (WNR) May 27, 2015 [id number] GALVIN [place] PATIENT Selected Encounter This section includes the information on record at [place] for the Encounter. Date/Time Encounter Type Encounter Description Reason Pro vider Source IHE Encounter Template Text not used by [facility] Advance Directives: All historical and current Section [...] 2013 ADVANCE DIRECTIVE NICHOL GAMEZ [facility]
--- OUTSIDE RECORDS SUMMARY | 2025-05-21 10:27 | XMS_ITS | Patient Health Record ---
Author Organization [facility] Address [address] [place] [address] Care Team Providers Care Arts Education Teacher Name Role Phone Justin MILLER, Claire Primary Care Provider Unavail able Prakash Auguste Jr Unavailable [phone] Allergies Allergen (clinical drug ingredient) Drug/Non Drug [...] Problem Status W/U Status Risk Notes Problem 071281033 Colon cancer screening (Z12.11) Active confirmed Problem Personal history of colonic polyps (Z86.010) Active confirmed Problem 476739544 Encounter for other preprocedural examination (Z01.818) Active confirmed Problem 401261387 [facility] (current) use of aspirin (Z79.82) Active confirmed Problem 903481854 Long-term curren t use of high risk medication other than anticoagulant (Z79.899) Active confirmed Plan Of Treatment Future Test Test Name Order Date COLONOSCOPY 03/15/2018 COLONOSCOPY 04/18/2023 Insurance Providers Payer Name Payer Address Payer Phone Subscriber Number Group Number Insured Name Patient Relationship to Insured Coverage Start Date Coverage End Date [facility] [employer]UM [address] [place] [id number] COUNTER, JEET Self - patient is the insured Medical (General) History Medical History History ICD Code hypertension Hyperlipidemia BPH ANAHI/CPAP Colonoscopy 04/28/18, hyperpla stic polyp, five-year followup because of family history of colon polyps. Osteoarthritis Nephrolithiasis Surgical History Surgery Date(Month/Year) lower back surgery 1991 Cardiac ablation for atrial fibrillation or SVT Cystoscopy/ESWL
== END 2025-05-21 10:47 | disposition home or self-care (01) ==
PROVIDERS: PCP Nurse Practitioner Family
DX: G56.03 Carpal tunnel syndrome, bilateral upper limbs (principal)
CPT/HCPCS: 99213

== ENCOUNTER → 2025-05-21 09:44 | Outpatient (BNVA) | payer MEDICARE, SELFPAY | PROVIDERS: PCP Nurse Practitioner Family | DX: G56.03 Carpal tunnel syndrome, bilateral upper limbs (principal) | CPT/HCPCS: 99212 ==

== ENCOUNTER 2025-06-28 10:43 | Outpatient (AMB) | payer OTHER, MEDICARE, SELFPAY ==
--- NOTE | 2025-06-28 10:47 | MHC.OFFVIS ---
Vital Signs 06/28/25 10:48 Height 6 ft Weight 187 lb BMI 25.4 Intake Visit Reasons: OV: Right hand EMG review Intake Note: Timothy is a 75 year old ambidextrous male who presents today for a EMG review of the Right Hand. At his last visit, patient reported daily numbness and tingling of the right 2nd, 3rd, 4th, & 5th digit. [facility] EMG IMPRESSION 04/04/25: 1. 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 Mixed demyelinating/axonal features. 2. No electrodiagnostic evidence of ulnar mononeuropathy on the right Allergies lisinopril (LISINOPRIL) Allergy (Mild, Verified 06/28/25 10:51) cough HPI HPI OV: Right hand EMG review: Details: Timothy is a 75 year old ambidextrous male who presents today for a EMG review of the Right Hand. At his last visit, patient reported daily numbness and tingling of the right 2nd, 3rd, 4th, & 5th digit. [facility] EMG IMPRESSION 04/04/25: 1. 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 Mixed demyelinating/axonal features. 2. No electrodiagnostic evidence of ulnar mononeuropathy on the right [facility] Medical History Eczema Bronchiectasis ANAHI (obstructive sleep apnea) 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 SVT (supraventricular tachycardia) Osteoarthritis ANAHI on CPAP BPH (benign prostatic hyperplasia) Renal calculi Hyperlipidemia HTN (hypertension) Left hip pain Surgical History Hx of lithotripsy History of radiofrequency ablation procedure for cardiac arrhythmia H/O shoulder surgery History of back surgery H/O colonoscopy Hx of cystoscopy Social History (Updated 06/28/25 @ 10:52 by EASTON Prieto) Housing: House Are you a primary lead caregiver to a significant other at home: No Do you presently have visiting nurse or other home services: No Alcohol intake: former Patient Tobacco Use Status: Never used Tobacco e-Cigarette/Vaping Use: Never Used Second Hand Smoke Exposure: Yes Advance Directives Date on File: 08/24/22 Current occupational status: 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 Good APB muscle firing and good finger cross. Vascular: Capillary refill brisk. ROM: Patient can make a fist and extend all their digits. Skin: No lacerations or abrasions noted. General: No ecchymosis. No erythema or evidence of infection. Assessment & Plan Assessment & Plan (1) Right carpal tunnel syndrome: Code(s): G56.01 - Carpal tunnel syndrome, right upper limb Category: Medical Plan 1. Right carpal tunnel syndrome Symptoms intermittent, daily, worse at night I educated the patient about the condition. I discussed both operative and nonoperative treatment options. The patient would like to proceed with surgery. The risks and benefits of operative treatment were discussed with the patient and the patient wishes to proceed with surgery. These risks include, but are not limited to, risk of damage to blood vessels, nerves, tendons, infection, recurrence, incomplete relief of preoperative symptoms, persistent pain, possible need for further surgery, and the risks associated with regional blocks and/or anesthesia. Plan is to take the patient to the operating room at some point in the next few weeks for the following procedures: 1. Right carpal tunnel release under local anesthesia All of the preoperative paperwork including the consent was discussed today. All of the patient's questions were answered in the clinic today. The patient understands that they will be in contact with our appeals board referee to discuss scheduling their procedure. Patient denies diabetes, blood thinners, asthma, heart issues, lung issues, kidney issues, or current smoking. Coding Level of Care Code Est Pt Level 4 (32654) Diagnoses Right carpal tunnel syndrome G56.01
[2025-06-28 10:48] VITALS: BMI 25.4
--- OUTSIDE RECORDS SUMMARY | 2025-06-28 11:44 | XMS_ITS | Patient Health Record ---
Author Organization [facility] Address [address] [place] [address] Care Team Providers Care Coil Repair Technician Name Role Phone Justin MILLER, Claire Primary Care Provider Unavail able Prakash Auguste Jr Unavailable [phone] Allergies Allergen (clinical drug ingredient) Drug/Non Drug [...] Problem Status W/U Status Risk Notes Problem 330933770 Colon cancer screening (Z12.11) Active confirmed Problem History of polyp of colon (situation) (275500608) Personal history of colonic polyps (Z86.010) Active confirmed Problem 263744852 Encounter for other preprocedural examination (Z01.818) Active confirmed Problem 564532189 [facility] (current) use of aspirin (Z79.82) Active confirmed Problem 920995707 Long-term curren t use of high risk medication other than anticoagulant (Z79.899) Active confirmed Plan Of Treatment Future Test Test Name Order Date COLONOSCOPY 03/15/2018 COLONOSCOPY 04/18/2023 Insurance Providers Payer Name Payer Address Payer Phone Subscriber Number Group Number Insured Name Patient Relationship to Insured Coverage Start Date Coverage End Date [facility] OPTUM [address] [place] [id number] COUNTER, JEET Self - patient is the insured Medical (General) History Medical History History ICD Code hypertension Hyperlipidemia BPH ANAHI/CPAP Colonoscopy 04/28/18, hyperpla stic polyp, five-year followup because of family history of colon polyps. Osteoarthritis Nephrolithiasis Surgical History Surgery Date(Month/Year) lower back surgery 1991 Cardiac ablation for atrial fibrillation or SVT Cystoscopy/ESWL
== END 2025-06-28 11:09 | disposition home or self-care (01) ==
LOC: HO.HOS 10:43
PROVIDERS: PCP Nurse Practitioner Family
DX: G56.01 Carpal tunnel syndrome, right upper limb (principal)
CPT/HCPCS: 99214

== ENCOUNTER → 2025-06-28 10:43 | Outpatient (BNVA) | payer OTHER, SELFPAY | PROVIDERS: PCP Nurse Practitioner Family | DX: Z01.818 Encounter for other preprocedural examination (principal); G56.01 Carpal tunnel syndrome, right upper limb | CPT/HCPCS: 99212 ==

== ENCOUNTER 2025-08-12 05:48 | Day surgery (SDC) | payer OTHER, SELFPAY ==
--- OUTSIDE RECORDS SUMMARY | 2025-07-02 09:19 | XMS_ITS | Patient Health Record ---
Author Organization [facility] Address [address] [place] [address] Care Team Providers Care Polymerization Helper Name Role Phone Justin MILLER, Claire [...] Problem Status W/U Status Risk Notes Problem 453909906 Colon cancer screening (Z12.11) Active confirmed Problem History of polyp of colon (situation) (146069331) Personal history of colonic polyps (Z86.010) Active confirmed Problem 721590208 Encounter for other preprocedural examination (Z01.818) Active confirmed Problem 953605150 assisted (current) use of aspirin (Z79.82) Active confirmed Problem 586766022 Long-term curren t use of high risk medication other than anticoagulant (Z79.899) Active confirmed Plan Of Treatment Future Test Test Name Order Date COLONOSCOPY 03/15/2018 COLONOSCOPY 04/18/2023 Insurance Providers Payer Name Payer Address Payer Phone Subscriber Number Group Number Insured Name Patient Relationship to Insured Coverage Start Date Coverage End Date [facility] OPTUM [address] [place] [id number] COUNTER, JEET Self - patient is the insured Medical (General) History Medical History History ICD Code hypertension Hyperlipidemia BPH ANAHI/CPAP Colonoscopy 04/28/18, hyperpla stic polyp, five-year followup because of family history of colon polyps. Osteoarthritis Nephrolithiasis Surgical History Surgery Date(Month/Year) lower back surgery 1991 Cardiac ablation for atrial fibrillation or SVT Cystoscopy/ESWL
[2025-08-12 07:12] VITALS: BP 128/55; PULSE 73; RESP 20; TEMP 36.1; O2SAT 98; BMI 25.4
--- NOTE | 2025-08-12 07:51 | P.OP_ITS ---
Operative Note Operative Note Date of Service: 08/12/25 Narrative: Preop diagnosis: 1. Right Carpal tunnel syndrome Postop diagnosis: same Procedure: 1. Right Carpal tunnel release Surgeon: Salima Ngo MD Motor Vehicle Parts Interpreter: None Anesthesia: local block using 1% lidocaine with epinephrine Findings: Thickened transverse carpal ligament. EBL: Less than 5 mL Specimens: None Complications: None Disposition: Brought to recovery room in stable condition Plan: Follow-up for 10-14 days for wound check and suture removal Indications: The patient is 75 years old, with right carpal tunnel syndrome that has been unresponsive to nonoperative management. The risks and benefits of operative treatment including but not limited to risk of damage to blood vessels, nerves, tendons, infection, persistent pain, persistent symptoms, or possible need for additional surgery were discussed with the patient and the patient wishes to proceed with surgery. Procedure: Once consent was obtained a local block was performed using a combination of 1% lidocaine with epinephrine. The patient was then brought back to the operating suite and placed on the operative table in supine position. The right upper extremity was prepped and draped in a standard surgical fashio n. Once assured that we had a good block, a 2.0 cm longitudinal incision was made centered over the carpal tunnel. The incision was made through the skin to the subcutaneous tissues using a #15 blade. Dissection was made down to the level of the transverse carpal ligament with care being taken to protect the palmar cutaneous nerve. Once the transverse carpal ligament was clearly visualized, a longitudinal incision was made in the transverse carpal ligament 1st using a #15 blade, then using tenotomy scissors under direct visualization. Care was taken to look for and protect the motor branch of the median nerve when seen in this area. Once satisfied with our carpal tunnel release the wound was copiously irrigated with normal saline and hemostasis was obtained with a brief period of local pressure. The skin edges were reapproximated with some 5.0 nylon suture material and a sterile dressing was applied. The patient appears to have tolerated the procedure well and with no compl ications. All digits were well vascularized at the conclusion of the case.
--- NOTE | 2025-08-12 07:51 | MHC.SHP ---
Pre-Procedural Eval Section A - 24 Hr Update-Section A only Date of Service: 08/12/25 The patient is an INPATIENT: No Changes since office visit: No Cold of Flu in the past 2 weeks, No New Medical Problems, No Changes in Medication and No Patient answered all questions The patient has been examined within 24 hours of the surgical procedure. The History & Physical has been completed within 30 days and I have reviewed it.: Yes Section B - Complete if H&P > 30 days Chief Complaint: Carpal tunnel syndrome, right upper limb Allergies: Allergies Allergy/AdvReac Type Severity Reaction Status Date / Time lisinopril (LISINOPRIL) Allergy Mild cough Verified 06/28/25 10:51 Plan Diagnosis/Plan: Unchanged I have reviewed the history and physical and performed a pertinent physical examination on my patient. No changes have occurred unless specified. Time Spent With Patient Time: Total time managing care of this patient today ____ minutes.
--- NOTE | 2025-08-12 07:54 | W.PM.OPN ---
Operative Note Operative Note Date of Service: 08/12/25 Narrative: Preop diagnosis: 1. Right Carpal tunnel syndrome Postop diagnosis: same Procedure: 1. Right Carpal tunnel release Surgeon: Salima Ngo MD Anesthesiologist Physician: None Anesthesia: local block using 1% lidocaine with epinephrine Findings: Thickened transverse carpal ligament. EBL: Less than 5 mL Specimens: None Complications: None Disposition: Brought to recovery room in stable condition Plan: Follow-up for 10-14 days for wound check and suture removal Indications: The patient is 75 years old, with right carpal tunnel syndrome that has been unresponsive to nonoperative management. The risks and benefits of operative treatment including but not limited to risk of damage to blood vessels, nerves, tendons, infection, persistent pain, persistent symptoms, or possible need for additional surgery were discussed with the patient and the patient wishes to proceed with surgery. Procedure: Once consent was obtained a local block was performed using a combination of 1% lidocaine with epinephrine. The patient was then brought back to the operating suite and placed on the operative table in supine position. The right upper extremity was prepped and draped in a standard surgical fashion. Once assured that we had a good block, a 2.0 cm longitudinal incision was made centered over the carpal tunnel. The incision was made through the skin to the subcutaneous tissues using a #15 blade. Dissection was made down to the level of the transverse carpal ligament with care being taken to protect the palmar cutaneous nerve. Once the transverse carpal ligament was clearly visualized, a longitudinal incision was made in the transverse carpal ligament 1st using a #15 blade, then using tenotomy scissors under direct visualization. Care was taken to look for and protect the motor branch of the median nerve when seen in this area. Once satisfied with our carpal tunnel release the wound was copiously irrigated with normal saline and hemostasis was obtained with a brief period of local pressure. The skin edges were reapproximated with some 5.0 nylon suture material and a sterile dressing was applied. The patient appears to have tolerated the procedure well and with no complications. All digits were well vascularized at the conclusion of the case.
[2025-08-12 09:03] VITALS: BP 147/70; PULSE 96; RESP 16; TEMP 36.1; O2SAT 96
== END 2025-08-12 09:11 | disposition home or self-care (01) ==
PROVIDERS: PCP Nurse Practitioner Family; Visit Provider Orthopaedic Surgery
PROC: (CPT 64721; principal; 2025-08-12 08:10)
DX: G56.01 Carpal tunnel syndrome, right upper limb (principal); R20.0 Anesthesia of skin; R20.2 Paresthesia of skin; L30.9 Dermatitis, unspecified; J47.9 Bronchiectasis, uncomplicated; I10 Essential (primary) hypertension; Z87.442 Personal history of urinary calculi; E78.5 Hyperlipidemia, unspecified; I47.10 Supraventricular tachycardia, unspecified; G47.33 Obstructive sleep apnea (adult) (pediatric); Z99.89 Dependence on other enabling machines and devices; Z88.8 Allergy status to other drugs, medicaments and biological substances; Z98.890 Other specified postprocedural states
CPT/HCPCS: 64721; J0165; J2003

== ENCOUNTER → 2025-08-12 05:48 | Outpatient (BNV) | payer OTHER, SELFPAY | PROVIDERS: PCP Nurse Practitioner Family; Visit Provider Orthopaedic Surgery | DX: G56.01 Carpal tunnel syndrome, right upper limb (principal) | CPT/HCPCS: 64721 ==

== ENCOUNTER 2025-08-27 09:27 | Outpatient (AMB) | payer OTHER, MEDICARE, SELFPAY ==
[2025-08-27 09:33] VITALS: BMI 25.4
--- NOTE | 2025-08-27 09:33 | A.OFFVIS_ITS ---
Vital Signs 08/27/25 09:33 Height 6 ft Weight 187 lb BMI 25.4 Intake Visit Reasons: PO RT CTR 08/12/25 AR Intake Note: Timothy is a 75 year old ambidextrous male who presents today for a Post-Operative Visit status post Right Carpal Tunnel Release performed by Dr. Ngo on 08/12/25. Patient reports he is doing well but continues having numbness of his right thumb. He denies any finger locking. He is no longer taking his pain medications. Sutures removed and steri strips applied. Allergies lisinopril (LISINOPRIL) Allergy (Mild, Verified 08/27/25 09:33) cough HPI HPI PO RT CTR 08/12/25 AR: Details: Timothy is a 75 year old ambidextrous male who presents today for a Post-Operative Visit status post Right Carpal Tunnel Release performed by Dr. Ngo on 08/12/25. Patient reports he is doing well but continues having numbness of his right thumb. He denies any finger locking. He is no longer taking his pain medications. Sutures removed and steri strips applied. 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 SVT (supraventricular tachycardia) Osteoarthritis ANAHI on CPAP BPH (benign prostatic hyperplasia) Renal calculi Hyperlipidemia HTN (hypertension) Left hip pain Surgical History Hx of lithotripsy History of radiofrequency ablation procedure for cardiac arrhythmia H/O shoulder surgery History of back surgery H/O colonoscopy Hx of cystoscopy Social History (Updated 06/28/25 @ 10:52 by EASTON Prieto) Housing: House Are you a primary resident care aide to a significant other at home: No Do you presently have visiting nurse or other home services: No Alcohol intake: former Patient Tobacco Use Status: Never used Tobacco e-Cigarette/Vaping Use: Never Used Second Hand Smoke Exposure: Yes Advance Directives Date on File: 08/24/22 Current occupational status: 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 Good APB muscle firing and good finger cross. Vascular: Capillary refill brisk. ROM: Patient can make a fist and extend all their digits. Skin: Well approximated and well healing incision site noted on volar right wrist No lacerations or abrasions noted. General: No ecchymosis. No erythema or evidence of infection. Assessment & Plan Assessment & Plan (1) Right carpal tunnel syndrome: Code(s): G56.01 - Carpal tunnel syndrome, right upper limb Category: Medical Plan 1. Status post right carpal tunnel release DOS 08/12/2025 With partial symptomatic resolution postoperatively Patient appears to be recovering well postoperatively Patient is educated about the typical recovery course No under water times one-week, 2 lb weight limit x2 weeks Patient appears to be recovering very well, and requires no further acute follow-up with us postoperatively Patient is educated and worrisome signs and symptoms, and should call us if they experience any of these, including but not limited to redness, swelling, increased pain, and discharge Patient understands this and is amenable to this plan Coding Level of Care Code Global (00571) Diagnoses Right carpal tunnel syndrome G56.01
== END 2025-08-27 10:10 | disposition home or self-care (01) ==
LOC: HO.HOS 09:28
PROVIDERS: PCP Nurse Practitioner Family
DX: G56.01 Carpal tunnel syndrome, right upper limb (principal)
CPT/HCPCS: 99024

== ENCOUNTER → 2025-08-27 09:27 | Outpatient (BNVA) | payer OTHER, SELFPAY | PROVIDERS: PCP Nurse Practitioner Family | DX: Z48.811 Encounter for surgical aftercare following surgery on the nervous system (principal) | CPT/HCPCS: 99212 ==

== ENCOUNTER 2025-09-24 13:36 | Outpatient (AMB) | payer MEDICARE, SELFPAY ==
[2025-09-24 13:42] VITALS: BP 138/72; PULSE 63; RESP 16; O2SAT 99; BMI 26.0
--- NOTE | 2025-09-24 13:42 | MHC.PC.OV ---
Vital Signs 09/24/25 13:42 Height 6 ft Weight 192 lb BMI 26.0 BP 138/72 Blood Pressure Location Rt brachial Position Sitting Respiration 16 Pulse 63 Pulse Source Pulse Oximeter Pulse Oximetry (%) 99 Intake Visit Reasons: Annual PE - see comments District Or District Office Director Required: No Accompanied by: Self / Same As Patient Allergies lisinopril (LISINOPRIL) Allergy (Mild, Verified 09/24/25 14:26) cough Medication List - Last Reconciled 09/24/25 [facility] amlodipine 5 mg PO DAILY 90 days atenolol 25 mg PO DAILY 90 days montelukast 10 mg PO DAILY 30 days pyridoxine (vitamin B6) 50 mg PO DAILY 90 days simvastatin 40 mg PO BEDTIME valsartan 160 mg PO DAILY Tobacco use date assessed: 09/24/25 Fall risk assessment: No Falls in past year Last assessed Fall Risk: 09/24/25 Dental Screening Dental Screen Date: 09/24/25 Did you have a dental visit in the last 12 months?: Yes Did you have a dental problem in the last 6 months where you did not have access to dental care?: No Was dental information given to patient?: Patient has dentist HPI Annual PE - see comments HPI Details History of Present Illness The patient is a 75 year old male presenting for a physical exam. [facility] He sees a windows security analyst regularly for fair skin. His colon screenings are reportedly no longer needed. The patient reports feeling quite well overall and denies any chest pain, shortness of breath, abdominal pain, blood in stool, constipation, or diarrhea. Health Maintenance - The patient receives regular physical exams at the [place]. - He has regular eye exams through the [place]. - He is followed by dermatology on a regular basis for fair skin. - Colon cancer screenings are no longer needed. - Lab orders were placed, including a PSA. Social History Review of Systems - Constitutional: Reports doing well. - Cardiovascular: Denies chest pain. - Respiratory: Denies shortness of breath. - Gastrointestinal: Denies abdominal pain, blood in stool, constipation, or diarrhea. Physical Exam General: Cooperative, healthy appearing, comfortable, no acute distress and well developed Orientation: Patient oriented x3 Limitations: No limitations Head: Normal to inspection Ears: Hearing grossly normal bilaterally Nose: Normal external nose present Face and sinus: Normal facial exam Eyes: Appearance normal, both eyes and all related structures Neck: Normal visual inspection and Yes full ROM Respiratory: Normal respiratory effort and able to speak in complete sentences. Clear to auscultation bilaterally Cardiovascular: Regular rate and rhythm. Normal S1 and S2 GI: Normal to inspection. Soft to palpation and nontender : Testicles without masses/lesions and no hernias appreciated Skin: No rashes or lesions noted Neuro: Patient oriented x3 Extremities: Normal to inspection Results Plan 1. Encounter For General Adult Medical Examination Without Abnormal Findings The patient reports doing well overall. He will continue with his regular physicals and eye exams at the [place], and dermatology appointments for his fair skin. It was noted that colon screenings are no longer needed. Lab orders were entered, including a PSA. Discussion Notes I advised the patient that his physical exam was benign. We discussed his ongoing care, noting he receives regular physical and eye exams at the [place] and sees dermatology for his fair skin. I informed him that lab orders, including a PSA, were entered and that colon screenings are no longer necessary. Patient Instructions - Please go to the lab to have your blood drawn for the tests that were ordered, including a PSA test for your prostate. - Continue to attend your regular physical and eye exams at the [place]. - Keep up with your regular appointments with the skin doctor (windows security analyst). - You no longer need to have colon cancer screening tests. [facility] Medical History Eczema Bronchiectasis ANAHI (obstructive sleep apnea) 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 SVT (supraventricular tachycardia) Osteoarthritis ANAHI on CPAP BPH (benign prostatic hyperplasia) Renal calculi Hyperlipidemia HTN (hypertension) Left hip pain Surgical History Hx of lithotripsy History of radiofrequency ablation procedure for cardiac arrhythmia H/O shoulder surgery History of back surgery H/O colonoscopy Hx of cystoscopy Social History Housing: House Are you a primary career agent to a significant other at home: No Do you presently have visiting nurse or other home services: No Alcohol intake: former Patient Tobacco Use Status: Never used Tobacco e-Cigarette/Vaping Use: Never Used Second Hand Smoke Exposure: Yes Advance Directives Date on File: 08/24/22 Current occupational status: 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 1. Little interest or pleasure in doing things: not at all 2. Feeling down, depressed, or hopeless: not at all 3. Trouble falling or staying asleep, or sleeping too much: not at all 4. Feeling tired or having little energy: not at all 5. Poor appetite or overeating: not at all 6. Feeling bad about yourself - or that you are a failure or have let yourself or your family down: not at all 7. Trouble concentrating on things, such as reading the newspaper or watching television: not at all 8. Moving or speaking so slowly that other people could have noticed. Or the opposite - being so fidgety or restless that you have been moving around a lot more than usual: not at all 9. Thoughts that you would be better off or of hurting yourself in some way: not at all Total score: 0 Depression Screening Interpretation: Negative Depression Screening Done: Yes [id number] - PHQ-9 Billing: Patient declined-do not bill Source: Developed by Drs. Eriberto Fermin, Nicol Baeza, Moe Cunningham and colleagues, with an educational roxie from [employer]. Thrive Questionnaire Date Thrive assessed: 07/05/24 I am a: Patient What is your living situation today?: I have a steady place to live Within the past 12 months, did the food you bought not last and you didn't have the money to get more?: Never true Within the past 12 months, did you worry whether your food would run out before you got money to buy more?: Never true Do you have trouble paying for medicines?: No Do you have trouble getting transportation to medical appointments?: No Do you have trouble paying your heating and electricity bill?: No Do you have trouble taking care of your child, family member or friend?: No Do you have trouble with day-to-day activities such as bathing, preparing meals, shopping, managing finances, etc.?: No Are you currently unemployed and looking for a job?: No Are you interested in more education?: No Please select the resources that you would like help with: None Currently or been in a relationship where the following occur: No concerns reported THRIVE Score: 0 AUDIT C Alcohol Use Questionnaire (AUDIT-C) 1. How often do you have a drink containing alcohol?: Never Total Score: 0 JUSTINA-7 AMB Questionnaire JUSTINA-7 Date JUSTINA - 7 assessed: 09/24/25 Feeling nervous, anxious, or on edge: 0 = Not at all Not being able to stop or control worryin = Not at all Worrying too much about different things: 0 = Not at all Trouble relaxin = Not at all Being so restless that it is hard to sit still: 0 = Not at all Becoming easily annoyed or irritable: 0 = Not at all Feeling afraid as if something awful might happen: 0 = Not at all Total JUSTINA-7 score (0-4 normal; 5-9 mild; 10-14 moderate; 15-21 severe): 0 Source: Developed by Drs. Eriberto Fermin, Nicol Baeza, Moe Cunningham and colleagues, with an educational roxie from [employer]. JUSTINA-7 Assessment Billing JUSTINA-7 Assessment Tool: JUSTINA-7 Assessment 01173 Physical exam (Primary Care) Vital Signs: Last Vital Signs Pulse 63 09/24/25 13:42 Resp 16 09/24/25 13:42 BP 138/72 09/24/25 13:42 Pulse Ox 99 09/24/25 13:42 BMI result Body Mass Index 26.0 Tobacco/Smoking Status: Tobacco use Status Tobacco use date assessed 09/24/25 09/24/25 14:07 Patient Tobacco Use Status Never used Tobacco 09/24/25 13:43 e-Cigarette/Vaping Use Never Used 09/24/25 13:43 PHQ-9: PHQ-9 Score PHQ-9: Total score 0 09/24/25 14:27 Depression Screening Interpretation: Negative Thrive Assessment: Date of Thrive Assessment Date Thrive assessed 07/05/24 09/24/25 13:43 Currently or been in a relationship where the following occur: No concerns reported Coding Level of Care Code Est Pt Prev Care >65y(32707) Diagnoses Encounter for routine adult physical exam with abnormal findings Z00.01 Additional Codes JUSTINA-7 Assessment Billing - JUSTINA-7 Assessment Tool: JUSTINA-7 Assessment 76619 ([id number]) Assessment & Plan Assessment & Plan (1) Encounter for routine adult physical exam with abnormal findings: Code(s): Z00.01 - Encounter for general adult medical examination with abnormal findings Category: Medical Plan . Orders: Orders TDaP Immunization Today Z23 - Encounter for immunization Medications: New Boostrix Tdap 0.5 mL IM ONCE 0.5 mL 0RF NS Z23 - Encounter for immunization
--- OUTSIDE RECORDS SUMMARY | 2025-09-24 17:29 | XMS_ITS | Patient Health Record ---
Author Organization [facility] Address [address] [place] [address] Care Team Providers Care Rocket Motor Tester Name Role Phone Justin MILLER, Claire Primary Care Provider Unavail Prakash Velasquez Jr Unavailable Allergies Allergen (clinical drug ingredient) Drug/Non Drug Allergy documented on EMR Reaction Allergy Type Onset Date Status losartan Losartan Unknown Drug Allergy Active Reason For Referral No Information Medications Medication SIG (Take, Route, Frequency, Duration) Notes Start Date End Date Status Centrum Silver - Tablet 1 Orally QD Active Simvastatin 40 MG Tablet 1 tablet in the evening Orally Once a day Active Losartan Potassium 100 MG Tablet 1 tablet Orally Once a day Active MiraLax (colon prep) 17 GM/SCOOP Powder mixed with Gatorade or Crystal Light Orally begin at 5:00 p.m. the day before the procedure; Duration: 1 day 04/18/2023 Active Vitamin B Complex - Capsule as directed Orally Active Atenolol 25 MG Tablet 1 tablet Orally On ce a day Active amLODIPine Besylate 5 MG Tablet 1 tablet Orally Once a day; Duration: 30 day(s) Active Immunizations Vaccine Route Administration Date Status Comme nts Influenza Unknown 08/17/2022 Administered Social History Tobacco Use: Social History Observation Description Date Details (start date - stop date) Never Smoker NA - NA Social History Drugs/Alcohol: Social Info Question Answer Notes Alcohol Screen Did you have a drink containing alcohol in the past year? Yes How often did you have a drink containing alcohol in the past year? Monthly or less (1 point) How many drinks did you have on a typical day when you were drinking in the past year? 1 or 2 drinks (0 point) How often did you have 6 or more drinks on one occasion in the past year? 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 Problems Problem Type SNOMED Code ICD Code Onset Dates Problem Status W/U Status Risk Notes Problem Colon cancer screening (025070220) Colon cancer screening (Z12.11) Active confirmed Problem History of polyp of colon (situation) (594095849) Personal history of colonic polyps (Z86.010) Active confirmed Problem Pre-procedure evaluation check (764342008) Encounter for other preprocedural examination (Z01.818) Active confirmed Problem Long-term current use of antiplatelet drug (389684101763278 ) 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 [place] [address] [id number] COUNTER, JEET Self - patient is the insured Medical (General) History Medical History History ICD Code hypertension Hyperlipidemia BPH ANAHI/CPAP Colonoscopy 04/28/18, hyperpla stic polyp, five-year followup because of family history of colon polyps. Osteoarthritis Nephrolithiasis Surgical History Surgery Date(Month/Year) lower back surgery 1991 Cardiac ablation for atrial fibrillation or SVT Cystoscopy/[facility]
== END 2025-09-24 14:41 | disposition home or self-care (01) ==
LOC: HO.HMCC 13:37
PROVIDERS: PCP Nurse Practitioner Family; Visit Provider Nurse Practitioner Family
DX: Z00.01 Encounter for general adult medical examination with abnormal findings (principal); Z23 Encounter for immunization

== ENCOUNTER → 2025-09-24 13:36 | Outpatient (BNVA) | payer MEDICARE, SELFPAY | PROVIDERS: PCP Nurse Practitioner Family; Visit Provider Nurse Practitioner Family | DX: Z00.00 Encounter for general adult medical examination without abnormal findings (principal); Z23 Encounter for immunization; Z13.39 Encounter for screening examination for other mental health and behavioral disorders | CPT/HCPCS: 90471; 90715; 96127; 99397 ==